=== PATIENT | male | born 1940 | race Caucasian/White ===

== ENCOUNTER → 2019-10-12 10:37 | Outpatient (CLI) | payer MEDICARE, SELFPAY ==
--- NOTE | 2019-10-12 10:40 | RAD_ITS ---
STUDY: X-RAY CHEST REASON FOR EXAM: Male, 78 years old. upcoming cardio version -- afib TECHNIQUE: Frontal and lateral views of the chest. COMPARISON: None. FINDINGS: The lungs are clear and expanded. There is no demonstrated pleural abnormality. Normal size heart. Normal mediastinum and ricky. Normal visualized pulmonary arteries. Normal visualized aortic arch and descending thoracic aorta. Normal visualized thoracic spine. Normal visualized ribs, clavicles, and shoulders. There is no demonstrated abnormality of the visualized soft tissue structures of the upper abdomen. RAD/Chest PA and Lateral IMPRESSION: Normal x-ray examination of the chest. Electronically Signed: Brant Rodriguez MD at 17:14 EDT , Service support ,
== END ==
PROVIDERS: PCP Family Medicine; Referring Provider Internal Medicine Cardiovascular Disease; Visit Provider Internal Medicine Cardiovascular Disease
DX: I48.92 Unspecified atrial flutter (principal); I10 Essential (primary) hypertension; I42.9 Cardiomyopathy, unspecified; E78.5 Hyperlipidemia, unspecified
CPT/HCPCS: 71046; 93225; 93226

== ENCOUNTER 2019-10-20 10:20 | Day surgery (SDC) | payer MEDICARE, SELFPAY ==
--- NOTE | 2019-10-12 11:10 | HP_ITS ---
HPI HPI History of Present Illness Surgical H&P: Yes Details: This is a 78-year-old white male who presents for outpatient cardiovascular consultation based upon a history of atrial flutter, cardiomyopathy, hyperlipidemia, and hypertension. He has undergone previous cardiovascular evaluation in [place]. It appears that in 2017 he was diagnosed with atrial flutter requiring cardioversion. He also had a transthoracic echocardiogram performed in April 2018 at which time the left ventricle was considered to have global dysfunction with an LVEF of 40%, the left atrium was mildly dilated, the right atrium was normal in size, and there was no report of any valvular heart disease. He also underwent a pharmacologic stress nuclear imaging study. Per the report that was considered a normal myocardial perfusion SPECT imaging study. His gated LVEF was reported at 47%. He states he did well following his cardioversion until recently. Again recently while spending the winter in [place] he was reassessed and was found to be in atrial flutter. He underwent a synchronized biphasic DC cardioversion on 09-22-2019. According to the report he was premedicated with Versed 3.5 mg. He underwent cardioversion with 300 J. He had successful cardioversion to sinus rhythm. He does wear a wrist watch that checks his heart rate and rhythm. He states overall his heart rate has been remaining in the 50 to 60 bpm range. He noted today his heart rate was higher between 130 and 150 bpm. He states the only other time he is noticed that since his cardioversion is when he has been outside working. He notes when he rests his heart rate slows down. Today in the office he had an ECG. He appeared to be back in atrial flutter with a variable ventricular response with a ventricular rate approaching 150 bpm and an occasional PVC. He had low voltage in the limb leads. He had nonspecific ST/T wave change. A previous [facility] ECG was obtained from 12-16-2014. At that time he also appeared to have an underlying atrial flutter with an occasional PVC. That ECG was evaluated by Dr. Avendaño of [facility] cardiology. He denies any obvious symptoms of palpitations or rapid heart rates at this time. He states he has had no new chest discomfort or difficulty breathing. There is been no orthopnea or PND or peripheral pitting edema. He has not had any near-syncope or syncope. He states he is due for his upcoming yearly visit with his PCP. Intake Vital Signs 10/12/19 Height 61 ft 10/12/19 Weight: 210 lb 6 oz 10/12/19 BMI 0.2 10/12/19 BP 136/72 H 10/12/19 Blood Pressure Location Lt brachial 10/12/19 Position Sitting 10/12/19 Respiration 18 10/12/19 Pulse 156 H 10/12/19 Pulse Source Auscultation Intake Visit Reasons: HIGH HR. 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 Accompanied by: Self Allergies No Known Allergies Allergy (Unverified 10/12/19 09:00) Medications amiodarone 200 mg tablet 200 mg PO TID #90 tab 10/12/19 [Rx Confirmed 10/12/19] ascorbic acid (vitamin C) 500 mg tablet 500 mg PO DAILY 10/12/19 [History Confirmed 10/12/19] atorvastatin 20 mg tablet 20 mg PO QHS 10/12/19 [History Confirmed 10/12/19] cholecalciferol (vitamin D3) 50 mcg (2,000 unit) capsule 50 mcg PO DAILY 10/12/19 [History Confirmed 10/12/19] cinnamon bark 500 mg capsule 500 mg PO DAILY 10/12/19 [History Confirmed 10/12/19] metoprolol succinate 25 mg tablet,extended release 24 hr 25 mg PO BID tab 10/12/19 [History Confirmed 10/12/19] multivitamin 1 tab PO DAILY 10/12/19 [History Confirmed 10/12/19] rivaroxaban 20 mg tablet 20 mg PO DAILY 10/12/19 [History Confirmed 10/12/19] saw palmetto fruit 450 mg capsule 450 mg PO BID 10/12/19 [History Confirmed 10/12/19] vit C,E,zinc,copper-[id number] 250 mg-lutein 5 mg-zeaxanthin 1 mg capsule 1 cap PO DAILY 10/12/19 [History Confirmed 10/12/19] vitamin A palmitate 10,000 unit tablet 10,000 unit PO DAILY 10/12/19 [History Confirmed 10/12/19] COUNTS INCLUDE 234 BEDS AT THE [facility] Medical History (Updated 10/12/19 @ 11:[address] Sami Payne MD) Paroxysmal atrial flutter (Acute) Essential hypertension (Chronic) Hyperlipemia (Chronic) Cardiomyopathy (Acute) long-term current use of anticoagulant (Acute) History of cardioversion (Resolved ~04/24/18) Benign positional vertigo (Acute) BPH (benign prostatic hyperplasia) (Chronic) Diverticulosis of colon (Chronic) Surgical History (Updated 10/09/19 @ 09:50 by Cathy Linares) History of appendectomy (Resolved) History of bilateral cataract extraction (Resolved) Social History (Updated 10/12/19 @ 11:[address] Sami Payne MD) Smoking Status: Former smoker alcohol intake: never substance use type: does not use caffeine: No ROS Const Const: Negative for fatigue, weakness, frequent falls, excessive sweating, weight gain or weight loss Eyes Eyes: Negative for transient loss of vision, blurry vision or change in vision ENT ENT: Negative for dizziness or balance problems Cardio Chest Pain: No Palpitations: No Edema: None Muscle aches with walking: None Resp Respiratory: Negative for SOB with activity or SOB at rest GI GI: Negative vomiting or vomiting blood/hematemesis : Negative for hematuria Musc Musc: Negative for muscle aches/ myalgia, muscle weakness, joint pain or balance problems Skin Skin: Negative non-healing lesions or rash Neuro Neuro: Negative for dizziness, lightheadedness, orthostatic symptoms, frequent falls, weakness or blurry vision [place] Hematologic/Lymphatic: Negative for easy bleeding Endo Endo: Negative for fatigue or excessive sweating Psych Psych: Negative for anxiety or depression Allergy Allergy/Immunology: Negative for hives, Negative for rash Cardiology Exam Const Appearance: cooperative, healthy appearing, comfortable, no acute distress, well developed and well groomed Nutritional Appearance: overweight Orientation: alert, awake and oriented x3 Head Head: normal to inspection Ears: hearing grossly normal bilaterally Nose: external nose normal Face and Sinus: face symmetric Eyes Eyelids: eyelids normal Conjunctivae: conjunctivae normal Pupils: PERRL EOM: EOM intact bilaterally Neck Neck: normal visual inspection Carotids: normal carotid upstroke Chest Chest inspection: normal inspection of the chest, symmetric chest movement and normal respiratory effort Auscultation: Bilateral: Clear to Auscultation Cardio Palpation: normal PMI Heart sounds: S1 normal and S2 normal GI GI: normal to inspection, soft and bowel sounds present Neuro General: alert, awake, oriented x3 and moves all extremities Skin Skin: no rashes or lesions noted Extremities Pulses: Normal: Right Radial Pulse, Left Radial Pulse Lower Extremity Edema: None: Bilateral Psych Psychological: normal affect Assessment & Plan 1. Paroxysmal atrial flutter I48.92 Plan He does appear to have a history of paroxysmal atrial flutter. At the present time during his office visit according to his wrist watch his heart rate varied from approximately 150 bpm down to approximately 50 bpm. He did not sense any change. At the present time he will undergo further evaluation. This will include laboratory studies to look for obvious etiologies that may contribute to his recurrent atrial dysrhythmia. He will have a 24-hour Holter monitor to assess his paroxysmal atrial dysrhythmia. However it was felt reasonable that he be placed on antiarrhythmic therapy at this time to help gain better control of his atrial dysrhythmia. This will include amiodarone with a tapering dose. He will also be scheduled for an upcoming repeat synchronized biphasic DC cardioversion. Based upon his recurrent events he will also be referred to electrophysiology as to whether or not he is a candidate for any future EP studies/ablation studies that may help bring his recurrent dysrhythmia under better control. Orders Orders: 12 Lead EKG performed by [facility] Today Cardiac Holter Monitor, Set-Up Today Cardioversion 1 Week Basic Metabolic Profile (BMP) Today Magnesium Today T4 Total, Thyroxin Today Thyroid Stim Hormone (TSH) Today CBC W/Diff, Automated Today Chest PA and Lateral Today Referrals: Electrophysiology 2. Cardiomyopathy, unspecified type I42.9 Plan He has been diagnosed noninvasively with a non-CAD related cardiomyopathy. At the moment he appears without any symptoms of acute CHF or pulmonary edema. He will continue his current medical management. Hopefully by bringing his atrial dysrhythmia under better control his overall LV systolic function/LVEF will improve. This will need to be followed over time with noninvasive studies such as an echocardiogram. However it may be prudent to do this once he is back in sinus rhythm. Orders Orders: Cardiac Holter Monitor, Set-Up Today Cardioversion 1 Week Basic Metabolic Profile (BMP) Today Magnesium Today T4 Total, Thyroxin Today Thyroid Stim Hormone (TSH) Today CBC W/Diff, Automated Today Chest PA and Lateral Today Referrals: Electrophysiology 3. Hyperlipidemia, unspecified hyperlipidemia type E78.5 Plan He does have a history of hyperlipidemia. He will continue his lipid-lowering therapy. He states he is following his laboratory studies with his PCP. Orders Orders: Cardiac Holter Monitor, Set-Up Today Cardioversion 1 Week Basic Metabolic Profile (BMP) Today Magnesium Today T4 Total, Thyroxin Today Thyroid Stim Hormone (TSH) Today CBC W/Diff, Automated Today Referrals: Electrophysiology 4. Essential hypertension I10 Plan His blood pressure appears to be reasonably well controlled overall at the present time. He will continue his current medical management and outpatient follow-up. Orders Orders: 12 Lead EKG performed by [facility] Today Cardiac Holter Monitor, Set-Up Today Cardioversion 1 Week Basic Metabolic Profile (BMP) Today Magnesium Today T4 Total, Thyroxin Today Thyroid Stim Hormone (TSH) Today CBC W/Diff, Automated Today Chest PA and Lateral Today Referrals: Electrophysiology Plan Detail Other Medications New: amiodarone 1 tablet po TID x 1 week then 1 tablet po BID x 2 weeks then 1 tablet po qday 200 mg PO TID 90 tabs 3RF Additional Comments The above was discussed with the patient. He was agreeable to this approach. Thank you for allowing me to participate in the care of your patient. Please don't hesitate to call if any issues arise. This note was generated using a voice recognition system and there may be incorrect words, spelling or punctuation that were not noted when reviewing the office note prior to saving. Time spent in the patient's evaluation/care/medical decision making process: 60 minutes Follow Up 6 Weeks (with PFM) Coding Level of Care Code Off vis,new,level 5 Diagnoses Paroxysmal atrial flutter I48.92 Cardiomyopathy, unspecified type I42.9 ??Cardiomyopathy type: unspecified Hyperlipidemia, unspecified hyperlipidemia type E78.5 ??Hyperlipidemia type: unspecified Essential hypertension I10 Time Spent (min) 60 Comment [id number] Coding Level of Care Code Off vis,new,level 5 Diagnoses Paroxysmal atrial flutter I48.92 Cardiomyopathy, unspecified type I42.9 ??Cardiomyopathy type: unspecified Hyperlipidemia, unspecified hyperlipidemia type E78.5 ??Hyperlipidemia type: unspecified Essential hypertension I10 Time Spent (min) 60 Comment [id number] Supplemental Info Supplemental Information Diagnostics Electrocardiogram 10/12/19 Chest X-Ray 10/12/19 10/12/19 1110 <Electronically signed by Sami tse MD> Date _ Sami Payne MD I have re-examined the patient. There are no clinical changes since date of exam.
[2019-10-13 12:47] LABS: Absolute Lymphocyte Count 2.47 X10^3/uL (0.83-4.51); Basophil# 0.08 X10^3/uL; Basophil% 0.9 % (0-1); Eosinophil# 0.26 X10^3/uL; Hematocrit 51.6 % (40-54); Hemoglobin 16.8 g/dL (13.0-16.5); Lymphocyte # 2.47 X10^3/ul (4.0); Lymphocyte % 28.1 % (19-41); Mean Corp Hgb Conc 32.6 g/dL (32-36); Mean Corpuscular Hgb 31.1 pg (27.0-32.0); Mean Corpuscular Volume 95.4 fL (80-94); Mean Platelet Vol. 9.6 fl (6.2-12.0); Monocyte% 10.3 % (0-10); NRBC Flagged by Analyzer 0 % (0-5); Neutrophil # 5.04 X10^3/uL (2.7-7.7); Neutrophil % 57.4 % (47-70); Platelet Count 256 K/mm3 (150-450); RBC Distribution Width CV 12.7 % (11.6-14.6); RBC Distribution Width SD 44.1 fl (35.1-43.9); Red Blood Count 5.41 M/mm3 (4.6-6.2); White Blood Count 8.8 K/mm3 (4.4-11.0)
[2019-10-13 13:18] LABS: Anion Gap 3 (5-15); BUN 21 mg/dL (7-18); BUN/Creat Ratio 19.3 RATIO (10-20); Calcium,Total 9.3 mg/dL (8.5-10.1); Chloride 104 mmol/L (98-107); Creatinine, Serum 1.09 mg/dL (0.70-1.30); EST Glomerular Filtration Rate 69 mL/min (>60); Est Glom Filt Rate - Afr Amer 84 mL/min (>60); Glucose 85 mg/dL (74-106); Magnesium 2.7 mg/dL (1.6-2.6); Potassium 4.4 mmol/L (3.5-5.1); Sodium Level 139 mmol/L (136-145); T4 Total, Thyroxin 7.5 ug/dL (4.5-12.1); Thyroid Stim Hormone (TSH) 1.75 uIU/mL (0.358-3.74)
[2019-10-16 14:26] VITALS: BMI 39.6
--- NOTE | 2019-10-20 11:40 | PCM.HP.BLA ---
Problem List (1) Paroxysmal atrial flutter Status: Acute (2) Hyperlipemia Status: Chronic Qualifiers: (3) Essential hypertension Status: Chronic History and Physical Date of Admission: 10/20/19 [facility] [address] [place] [address] OFFICE VISIT Date of Service: 10/12/19 MR#: [id number] Acct: [id number] Name: CALLIE RASCON Rep #: [id number] : 1940 Provider: Dr. Sami Payne MD Age/Sex: 78/M Location: [facility] [place] Status: Signed HPI HPI History of Present Illness Surgical H&P: Yes Details: This is a 78-year-old white male who presents for outpatient cardiovascular consultation based upon a history of atrial flutter, cardiomyopathy, hyperlipidemia, and hypertension. He has undergone previous cardiovascular evaluation in [place]. It appears that in 2017 he was diagnosed with atrial flutter requiring cardioversion. He also had a transthoracic echocardiogram performed in April 2018 at which time the left ventricle was considered to have global dysfunction with an LVEF of 40%, the left atrium was mildly dilated, the right atrium was normal in size, and there was no report of any valvular heart disease. He also underwent a pharmacologic stress nuclear imaging study. Per the report that was considered a normal myocardial perfusion SPECT imaging study. His gated LVEF was reported at 47%. He states he did well following his cardioversion until recently. Again recently while spending the winter in [place] he was reassessed and was found to be in atrial flutter. He underwent a synchronized biphasic DC cardioversion on 09-22-2019. According to the report he was premedicated with Versed 3.5 mg. He underwent cardioversion with 300 J. He had successful cardioversion to sinus rhythm. He does wear a wrist watch that checks his heart rate and rhythm. He states overall his heart rate has been remaining in the 50 to 60 bpm range. He noted today his heart rate was higher between 130 and 150 bpm. He states the only other time he is noticed that since his cardioversion is when he has been outside working. He notes when he rests his heart rate slows down. Today in the office he had an ECG. He appeared to be back in atrial flutter with a variable ventricular response with a ventricular rate approaching 150 bpm and an occasional PVC. He had low voltage in the limb leads. He had nonspecific ST/T wave change. A previous [facility] ECG was obtained from 12-16-2014. At that time he also appeared to have an underlying atrial flutter with an occasional PVC. That ECG was evaluated by Dr. Avendaño of [facility] cardiology. He denies any obvious symptoms of palpitations or rapid heart rates at this time. He states he has had no new chest discomfort or difficulty breathing. There is been no orthopnea or PND or peripheral pitting edema. He has not had any near-syncope or syncope. He states he is due for his upcoming yearly visit with his PCP. Intake Vital Signs 10/12/19 Height 61 ft 10/12/19 Weight: 210 lb 6 oz 10/12/19 BMI 0.2 10/12/19 BP 136/72 H 10/12/19 Blood Pressure Location Lt brachial 10/12/19 Position Sitting 10/12/19 Respiration 18 10/12/19 Pulse 156 H 10/12/19 Pulse Source Auscultation Intake Visit Reasons: HIGH HR. CARDIOVERSION 09/2019 IN [place] Private Advisor Required: No Accompanied by: Self Allergies No Known Allergies Allergy (Unverified 10/12/19 09:00) Medications amiodarone 200 mg tablet 200 mg PO TID #90 tab 10/12/19 [Rx Confirmed 10/12/19] ascorbic acid (vitamin C) 500 mg tablet 500 mg PO DAILY 10/12/19 [History Confirmed 10/12/19] atorvastatin 20 mg tablet 20 mg PO QHS 10/12/19 [History Confirmed 10/12/19] cholecalciferol (vitamin D3) 50 mcg (2,000 unit) capsule 50 mcg PO DAILY 10/12/19 [History Confirmed 10/12/19] cinnamon bark 500 mg capsule 500 mg PO DAILY 10/12/19 [History Confirmed 10/12/19] metoprolol succinate 25 mg tablet,extended release 24 hr 25 mg PO BID tab 10/12/19 [History Confirmed 10/12/19] multivitamin 1 tab PO DAILY 10/12/19 [History Confirmed 10/12/19] rivaroxaban 20 mg tablet 20 mg PO DAILY 10/12/19 [History Confirmed 10/12/19] saw palmetto fruit 450 mg capsule 450 mg PO BID 10/12/19 [History Confirmed 10/12/19] vit C,E,zinc,copper-[id number] 250 mg-lutein 5 mg-zeaxanthin 1 mg capsule 1 cap PO DAILY 10/12/19 [History Confirmed 10/12/19] vitamin A palmitate 10,000 unit tablet 10,000 unit PO DAILY 10/12/19 [History Confirmed 10/12/19] [facility] Medical History (Updated 10/12/19 @ 11:[address] Sami Payne MD) Paroxysmal atrial flutter (Acute) Essential hypertension (Chronic) Hyperlipemia (Chronic) Cardiomyopathy (Acute) senior living current use of anticoagulant (Acute) History of cardioversion (Resolved ~04/24/18) Benign positional vertigo (Acute) BPH (benign prostatic hyperplasia) (Chronic) Diverticulosis of colon (Chronic) Surgical History (Updated 10/09/19 @ 09:50 by Cathy Linares) History of appendectomy (Resolved) History of bilateral cataract extraction (Resolved) Social History (Updated 10/12/19 @ 11:[address] Sami Payne MD) Smoking Status: Former smoker alcohol intake: never substance use type: does not use caffeine: No ROS Const Const: Negative for fatigue, weakness, frequent falls, excessive sweating, weight gain or weight loss Eyes Eyes: Negative for transient loss of vision, blurry vision or change in vision ENT ENT: Negative for dizziness or balance problems Cardio Chest Pain: No Palpitations: No Edema: None Muscle aches with walking: None Resp Respiratory: Negative for SOB with activity or SOB at rest GI GI: Negative vomiting or vomiting blood/hematemesis : Negative for hematuria Musc Musc: Negative for muscle aches/ myalgia, muscle weakness, joint pain or balance problems Skin Skin: Negative non-healing lesions or rash Neuro Neuro: Negative for dizziness, lightheadedness, orthostatic symptoms, frequent falls, weakness or blurry vision [place] Hematologic/Lymphatic: Negative for easy bleeding Endo Endo: Negative for fatigue or excessive sweating Psych Psych: Negative for anxiety or depression Allergy Allergy/Immunology: Negative for hives, Negative for rash Cardiology Exam Const Appearance: cooperative, healthy appearing, comfortable, no acute distress, well developed and well groomed Nutritional Appearance: overweight Orientation: alert, awake and oriented x3 Head Head: normal to inspection Ears: hearing grossly normal bilaterally Nose: external nose normal Face and Sinus: face symmetric Eyes Eyelids: eyelids normal Conjunctivae: conjunctivae normal Pupils: PERRL EOM: EOM intact bilaterally Neck Neck: normal visual inspection Carotids: normal carotid upstroke Chest Chest inspection: normal inspection of the chest, symmetric chest movement and normal respiratory effort Auscultation: Bilateral: Clear to Auscultation Cardio Palpation: normal PMI Heart sounds: S1 normal and S2 normal GI GI: normal to inspection, soft and bowel sounds present Neuro General: alert, awake, oriented x3 and moves all extremities Skin Skin: no rashes or lesions noted Extremities Pulses: Normal: Right Radial Pulse, Left Radial Pulse Lower Extremity Edema: None: Bilateral Psych Psychological: normal affect Assessment & Plan 1. Paroxysmal atrial flutter I48.92 Plan He does appear to have a history of paroxysmal atrial flutter. At the present time during his office visit according to his wrist watch his heart rate varied from approximately 150 bpm down to approximately 50 bpm. He did not sense any change. At the present time he will undergo further evaluation. This will include laboratory studies to look for obvious etiologies that may contribute to his recurrent atrial dysrhythmia. He will have a 24-hour Holter monitor to assess his paroxysmal atrial dysrhythmia. However it was felt reasonable that he be placed on antiarrhythmic therapy at this time to help gain better control of his atrial dysrhythmia. This will include amiodarone with a tapering dose. He will also be scheduled for an upcoming repeat synchronized biphasic DC cardioversion. Based upon his recurrent events he will also be referred to electrophysiology as to whether or not he is a candidate for any future EP studies/ablation studies that may help bring his recurrent dysrhythmia under better control. Orders Orders: 12 Lead EKG performed by [facility] Today Cardiac Holter Monitor, Set-Up Today Cardioversion 1 Week Basic Metabolic Profile (BMP) Today Magnesium Today T4 Total, Thyroxin Today Thyroid Stim Hormone (TSH) Today CBC W/Diff, Automated Today Chest PA and Lateral Today Referrals: Electrophysiology 2. Cardiomyopathy, unspecified type I42.9 Plan He has been diagnosed noninvasively with a non-CAD related cardiomyopathy. At the moment he appears without any symptoms of acute CHF or pulmonary edema. He will continue his current medical management. Hopefully by bringing his atrial dysrhythmia under better control his overall LV systolic function/LVEF will improve. This will need to be followed over time with noninvasive studies such as an echocardiogram. However it may be prudent to do this once he is back in sinus rhythm. Orders Orders: Cardiac Holter Monitor, Set-Up Today Cardioversion 1 Week Basic Metabolic Profile (BMP) Today Magnesium Today T4 Total, Thyroxin Today Thyroid Stim Hormone (TSH) Today CBC W/Diff, Automated Today Chest PA and Lateral Today Referrals: Electrophysiology 3. Hyperlipidemia, unspecified hyperlipidemia type E78.5 Plan He does have a history of hyperlipidemia. He will continue his lipid-lowering therapy. He states he is following his laboratory studies with his PCP. Orders Orders: Cardiac Holter Monitor, Set-Up Today Cardioversion 1 Week Basic Metabolic Profile (BMP) Today Magnesium Today T4 Total, Thyroxin Today Thyroid Stim Hormone (TSH) Today CBC W/Diff, Automated Today Referrals: Electrophysiology 4. Essential hypertension I10 Plan His blood pressure appears to be reasonably well controlled overall at the present time. He will continue his current medical management and outpatient follow-up. Orders Orders: 12 Lead EKG performed by [facility] Today Cardiac Holter Monitor, Set-Up Today Cardioversion 1 Week Basic Metabolic Profile (BMP) Today Magnesium Today T4 Total, Thyroxin Today Thyroid Stim Hormone (TSH) Today CBC W/Diff, Automated Today Chest PA and Lateral Today Referrals: Electrophysiology Plan Detail Other Medications New: amiodarone 1 tablet po TID x 1 week then 1 tablet po BID x 2 weeks then 1 tablet po qday 200 mg PO TID 90 tabs 3RF Additional Comments The above was discussed with the patient. He was agreeable to this approach. Thank you for allowing me to participate in the care of your patient. Please don't hesitate to call if any issues arise. This note was generated using a voice recognition system and there may be incorrect words, spelling or punctuation that were not noted when reviewing the office note prior to saving. Time spent in the patient's evaluation/care/medical decision making process: 60 minutes Follow Up 6 Weeks (with PFM) Coding Level of Care Code Off vis,new,level 5 Diagnoses Paroxysmal atrial flutter I48.92 Cardiomyopathy, unspecified type I42.9 ??Cardiomyopathy type: unspecified Hyperlipidemia, unspecified hyperlipidemia type E78.5 ??Hyperlipidemia type: unspecified Essential hypertension I10 Time Spent (min) 60 Comment [id number] Coding Level of Care Code Off vis,new,level 5 Diagnoses Paroxysmal atrial flutter I48.92 Cardiomyopathy, unspecified type I42.9 ??Cardiomyopathy type: unspecified Hyperlipidemia, unspecified hyperlipidemia type E78.5 ??Hyperlipidemia type: unspecified Essential hypertension I10 Time Spent (min) 60 Comment [id number] Supplemental Info Supplemental Information Diagnostics Electrocardiogram 10/12/19 Chest X-Ray 10/12/19 10/12/19 1110 <Electronically signed by Sami Payne MD> Date Sami Payne MD Cosigner Signature: Date (if applicable) CC: Dr. Yfn Quigley III, MD ~ I have re-examined the patient. There are no clinical changes since date of exam. Procedure Criteria Procedure Type: Essential - Atrial Flutter with RVR Procedure Essential: Yes Criteria Statement: On 08/11/2019 the [facility] ([facility]) Public Order signed by [facility] Director Sagrario Moreno M.D., regarding the Management of Non-Essential Surgeries and Procedures for the purpose of preserving Personal Protective Equipment (PPE) and critical hospital capacity and resources within [place] went into effect as of 08/12/2019 at 5:00PM. According to the [facility] Public Order: This action will remain in full force and effect until the State of Emergency declared by the Governor no longer exists or the Director of the [facility] rescinds or modifies this Order. This [facility] order stated all non-essential or elective surgeries and procedures that utilize PPE should be delayed unless there is undue risk to the current or future health of a patient. After reviewing the aforementioned [facility] Public Order and the patient's clinical case, I have determined that the scheduled procedure meets the criteria to go forward. Risk to Patient if Procedure Delayed: Risk of rapidly worsening to severe symptoms if delayed - Atrial Flutter with RVR
--- NOTE | 2019-10-20 12:30 | CARDIOVERS ---
Cardioversion Cardioversion: Date: 10-20-2019 Procedure: Synchronized Biphasic DC Cardioversion Indications: Atrial flutter with RVR Consent: Per the Patient Anesthesia: per Dr. Ball of pulmonology and critical care medicine with propofol 50 mg IV push total Procedure: Synchronized Biphasic DC Cardioversion: 50 J x1: Result: Sinus rhythm Complications: no apparent complications This note was generated with [employer] software. It may contain incorrect words, spelling, and punctuation that were not noted in checking the note before signing.
--- NOTE | 2019-10-20 13:25 | PCM.OP.PRO ---
Problem List (1) Paroxysmal atrial flutter Status: Acute (2) Essential hypertension Status: Chronic (3) Hyperlipemia Status: Chronic Qualifiers: Procedure Report Date of Procedure: 10/20/19 - Conscious sedation CONSCIOUS SEDATION REPORT BRIEF HISTORY OF PRESENT ILLNESS: The patient is a 78-year-old male who presented to [facility] for an elective outpatient cardioversion due to underlying atrial fibrillation. The patient reports no PO intake since midnight. The patient does not have a history of obstructive sleep apnea. The patient reports a history of smoking, but denies COPD. The patient denies any recent constitutional symptoms such as fevers, chills, nausea or vomiting. The patient denies previous anesthetic complications. Patient's last known ejection fraction was 47%. Patient is on anticoagulation with Xarelto therapy and has been compliant. PHYSICAL EXAMINATION: VITAL SIGNS: Reviewed and were acceptable. GENERAL: The patient is a male, in no apparent distress, speaking in full sentences. HEENT: Normocephalic, atraumatic. Mucous membranes are moist and pink. Good mouth opening noted. Trachea is midline. Good neck mobility. MP III CHEST: S1, S2 irregularly irregular. No murmurs, rubs or gallops were noted. LUNGS: Clear to auscultation bilaterally without appreciable wheezes, rales or rhonchi. ABDOMEN: Soft, nontender, nondistended. Positive bowel sounds. EXTREMITIES: There is no clubbing, cyanosis or edema. ASA Class: II DESCRIPTION OF PROCEDURE: After confirmation of informed consent, the patient's anesthesia plan was reviewed in detail. Propofol was chosen. Risks and benefits were reviewed and the patient agreed to proceed. At 12:05 PM, the patient was given 40 mg of propofol. The patient required a total of 50 mg of propofol throughout the procedure to achieve appropriate sedation. The patient achieved an appropriate level of sedation and received 1 attempt synchronized cardioversion, at [address] Payne at the bedside. This was successful in achieving normal sinus rhythm. The patient was monitored until 12:15 PM, at which time the patient reached their baseline mental status and function. The patient tolerated the procedure well. COMPLICATIONS: None ESTIMATED BLOOD LOSS: None RECOMMENDATIONS: Okay to recover in usual fashion. [id number]: Other Procedure See Report - [id number]
== END 2019-10-20 13:15 | disposition home or self-care (01) ==
LOC: CLSP 10:21
PROVIDERS: PCP Family Medicine; Referring Provider Internal Medicine Cardiovascular Disease; Visit Provider Internal Medicine Cardiovascular Disease
DX: I48.92 Unspecified atrial flutter (principal); I10 Essential (primary) hypertension; E78.5 Hyperlipidemia, unspecified; I42.9 Cardiomyopathy, unspecified; Z79.01 Long term (current) use of anticoagulants; Z79.899 Other long term (current) drug therapy; N40.0 Benign prostatic hyperplasia without lower urinary tract symptoms; Z87.891 Personal history of nicotine dependence
CPT/HCPCS: 36415; 80048; 83735; 84436; 84443; 85025; 92960; 93005; J7040

== ENCOUNTER → 2020-09-19 08:45 | Outpatient (CLI) | payer MEDICARE, SELFPAY ==
[2019-10-16 14:26] VITALS: BMI 39.6
--- NOTE | 2020-09-19 08:49 | ECHOD_ITS ---
Reason For Study: Afib, Aflutter Procedure This was a 2D Doppler, Color Flow transthoracic echocardiogram. The exam was of adequate technical quality. Exam performed in department. Left Ventricle Normal LV size. Left ventricular systolic function is normal. The estimated ejection fraction is 60 %. No regional wall motion abnormalities noted. Right Ventricle Normal RV size. Normal systolic function. Atria The left atrium is moderately enlarged. Normal right atrium. No doppler evidence for ASD. Mitral Valve There is mild mitral annular calcification. Mild mitral valve prolapse. Mild-Moderate (1-2+) mitral valve insufficiency. Tricuspid Valve Normal tricuspid valve. Mild to moderate (1-2+) tricuspid valve insufficiency. Right ventricular systolic pressure estimated to be 47 mmHg. Aortic Valve Trisinus/trileaflet aortic valve. Normal aortic valve. Pulmonic Valve The pulmonic valve is not well visualized. Mild (1+) pulmonic valve insufficiency. Great Vessels Normal sized aortic root. Pericardium/Pleural No pericardial effusion. MMode/2D Measurements & Calculations LVIDd: 4.4 cm IVSd: 1.0 cm Ao root diam: 3.5 cm LVIDs: 2.6 cm LVPWd: 1.2 cm RVDd: 4.8 cm FS: 41.7 % LAV(MOD-sp2): 67.4 ml LVAd ap4: 22.8 cm2 SV(MOD-sp4): 40.0 ml LVLd ap4: 6.5 cm EDV(MOD-sp4): 64.9 ml EDV(sp4-el): 68.3 ml LVAs ap4: 13.2 cm2 LVLs ap4: 6.0 cm ESV(MOD-sp4): 24.9 ml ESV(sp4-el): 24.5 ml EF(MOD-sp4): 61.6 % EF(sp4-el): 64.1 % SV(sp4-el): 43.8 ml LA A4 area: 23.5 cm2 LA dimension(2D): 5.0 cm RA A4 area: 20.8 cm2 Doppler Measurements & Calculations MV E max mauro: 79.4 cm/sec Lat Peak E' Mauro: 15.3 cm/sec Med Peak E' Mauro: 11.0 cm/sec MV A max mauro: 47.0 cm/sec E/E' lat: 5.2 E/E' med: 7.2 MV E/A: 1.7 Ao V2 max: 105.5 cm/sec LV V1 max: 87.9 cm/sec PA V2 max: 152.8 cm/sec Ao max P.4 mmHg LV V1 max P.1 mmHg Ao V2 mean: 72.1 cm/sec Ao mean P.4 mmHg Ao V2 VTI: 20.5 cm PI end-d mauro: 119.4 cm/sec TR max mauro: 329.3 cm/sec TR max P.4 mmHg ECHO/Echo Complete Interpretation Summary Left ventricular systolic function is normal. The estimated ejection fraction is 60 %. The left atrium is moderately enlarged. There is mild mitral annular calcification. Mild mitral valve prolapse. Mild-Moderate (1-2+) mitral valve insufficiency. Mild to moderate (1-2+) tricuspid valve insufficiency. Mild (1+) pulmonic valve insufficiency. Right ventricular systolic pressure estimated to be 47 mmHg. Transmitral diastolic flow velocities suggest diastolic dysfunction (pseudonorm al pattern). Ordering Physician: Sami Payne Referring Physician: Sami Payne Performed By: Raquel Gorman, RDCS, RVT
== END ==
PROVIDERS: PCP Family Medicine; Referring Provider Internal Medicine Cardiovascular Disease; Visit Provider Internal Medicine Cardiovascular Disease
DX: I48.92 Unspecified atrial flutter (principal); R94.31 Abnormal electrocardiogram [ECG] [EKG]
CPT/HCPCS: 93306

== ENCOUNTER → 2020-09-28 12:57 | Outpatient (CLI) | payer MEDICARE, SELFPAY ==
[2020-09-26 15:38] VITALS: BMI 28.0
== END ==
PROVIDERS: PCP Family Medicine; Referring Provider Internal Medicine Cardiovascular Disease; Visit Provider Internal Medicine Cardiovascular Disease
DX: I48.92 Unspecified atrial flutter (principal); Z98.890 Other specified postprocedural states
CPT/HCPCS: 93225; 93226

== ENCOUNTER 2022-09-21 11:11 | Emergency (ER) | payer MEDICARE, SELFPAY ==
[2022-09-21 11:13] VITALS: BP 131/64; PULSE 77; RESP 14; TEMP 36.5; O2SAT 97; BMI 24.9
--- NOTE | 2022-09-21 12:27 | EDS_ITS ---
HPI HPI - GI History of Present Illness Chief Complaint: Constipation Informant: patient Narrative Narrative: Patient is an 81-year-old male with history of proximal atrial fibrillation on Xarelto and metoprolol as well as 1 month of ongoing issues with constipation. Patient has been taking Dulcolax and an onox-dsp-pizhtho stool softener with no relief. He states he been having small grainy bowel movements daily. Denies any black or blood in his stool. Denies abdominal pain, nausea or vomiting. Is still passing gas intermittently. Has a history of remote appendectomy as a teenager. He denies any urinary symptoms. Is really complain of pressure in his rectum. Denies any fever or chills. Did see his primary care doctor about this but has has not gotten better and he came in to be evaluated further. Patient states that he had a back injury while in [place] about a month ago and they prescribed some pain medicine at that time. Does not recall what it was. He states that since then he has been having a lot more issues with constipation. 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 Paroxysmal atrial flutter Home Medications ascorbic acid (vitamin C) 500 mg tablet 500 mg PO DAILY 10/12/19 [History Last Taken Unknown] atorvastatin 20 mg tablet 20 mg PO QHS 10/12/19 [History Last Taken Unknown] cinnamon bark 500 mg capsule 500 mg PO DAILY 10/12/19 [History Last Taken Unknown] multivitamin 1 tab PO DAILY 10/12/19 [History Last Taken Unknown] rivaroxaban 20 mg tablet (Xarelto) 20 mg PO DAILY 10/12/19 [History Last Taken 10/19/19] saw palmetto 450 mg capsule 450 mg PO BID 10/12/19 [History Last Taken Unknown] metoprolol succinate 25 mg tablet,extended release 24 hr 25 mg PO DAILY 03/01/20 [History Last Taken Unknown] polyethylene glycol 3350 17 gram/dose oral powder (Miralax) 17 g PO DAILY #119 grams 09/21/22 [Rx Last Taken Unknown] Allergy/AdvReac Type Severity Reaction Status Date / Time No Known Allergies Allergy Verified 09/21/22 11:15 Family History Mother Cancer Breast Surgical History History of appendectomy History of bilateral cataract extraction Social History Smoking Status: Former smoker alcohol intake: never substance use type: does not use caffeine: No ROS ROS ED Constitutional Constitutional ED: Denies chills or fever(s) Cardiovascular Cardiovascular: Denies chest pain Respiratory/Chest Respiratory/Chest: Denies cough or dyspnea Gastrointestinal Gastrointestinal: Reports constipation; Denies abdominal pain, nausea or vomiting Musculoskeletal Musculoskeletal: Denies myalgias Integumentary Denies rash Neurologic Neurologic: Denies headache(s) or weakness Hematologic/Lymphatic Hematologic/Lymphatic: Reports easy bleeding and easy bruising EXAM Physical Exam Const Vital Signs: 09/21/22 11:13 Temperature 97.7 F L Temperature Source Temporal Pulse Rate 77 Respiratory Rate 14 Blood Pressure 131/64 H Blood Pressure Mean 86 Pulse Ox 97 Oxygen Delivery Method Room Air Positive well nourished and well developed General Appearance ED: well developed HEENT Reports moist mucous membranes Eyes PERRL and EOMs intact bilaterally Neck supple Resp normal respiratory effort and clear to auscultation bilaterally Cardio regular rate, regular rhythm and no murmurs GI non-tender and non-distended GI Narrative: Patient has brown stool on rectal exam. Of the vault is full of soft/grainy stool. Does have some small amount of bleeding with rectal exam. Is not able to completely evacuate the stool. Auscultation: normoactive bowel sounds Palpation: soft; Negative for tender, guarding or rigid Back/Spine no CVA tenderness Extremity full ROM General Extremety ED: Negative for edema General Extremity: Negative for edema Neuro moves all extremities Sensorium / Orientation: alert, oriented to person, oriented to place and oriented to time Motor Exam: Negative for general weakness Psych mental status grossly normal and thought process normal Skin no wounds MDM MDM MDM Narrative Medical decision making narrative: Patient is evaluated for constipation and rectal discomfort. He has a large amount of stool in his rectal vault. Is not truly a fecal impaction. He is given a soapsuds enema and produces a large bowel movement. He is feeling much better per nursing report. Given that he is not having so see abdominal pain, has been passing gas, has no nausea and vomiting of a low suspicion for small bowel obstruction. Patient will be started on daily MiraLAX. Is given return precautions. He verbalizes agreement understand this plan. Discharged home in stable condition. Differential Diagnosis Abdominal Pain: Bowel obstruction Reason(s) bowel obstruction less likely: bowel sounds present on exam Discharge Plan Triage Chief Complaint: Constipation ED Provider: Sierra Zaidi Dx/Rx/DC Orders Clinical Impression: Constipation Instructions: ED Constipation (Adult) Prescriptions: New polyethylene glycol 3350 [Miralax] 17 gram/dose powder 17 g PO DAILY Qty: 119 0RF No Action cinnamon bark 500 mg capsule 500 mg PO DAILY multivitamin Tablet 1 tab PO DAILY ascorbic acid (vitamin C) 500 mg tablet 500 mg PO DAILY saw palmetto 450 mg capsule 450 mg PO BID Rx Instructions: give with food (meal/snack) Xarelto 20 mg tablet 20 mg PO DAILY Rx Instructions: must administer with evening meal atorvastatin 20 mg tablet 20 mg PO QHS metoprolol succinate 25 mg tablet extended release 24 hr 25 mg PO DAILY Primary Care Provider: Cedric Becerra Referrals: Cedric Becerra MD [Primary Care Provider] - Activity Restrictions/Additional Instructions: Please take the MiraLAX daily. If you do start having diarrhea he can cut back on it and take it every other day or half capful daily. If you are not having regular bowel movements you can increase your daily dosage. Try to drink more water as well and eat a high-fiber diet. Disposition Disposition: Home, Self Care Discharge Date/Time: 09/21/22 14:08
== END 2022-09-21 14:08 | disposition home or self-care (01) ==
PROVIDERS: Emergency Provider Emergency Medicine; PCP Internal Medicine; Referring Provider Emergency Medicine; Visit Provider Emergency Medicine
DX: K59.00 Constipation, unspecified (principal); I48.0 Paroxysmal atrial fibrillation; Z87.891 Personal history of nicotine dependence; Z79.01 Long term (current) use of anticoagulants
CPT/HCPCS: 99284

== ENCOUNTER → 2024-11-09 | Outpatient (CLI) | payer MEDICARE, SELFPAY ==
--- OUTSIDE RECORDS SUMMARY | 2024-11-09 08:49 | XMS RPT_ITS | CCD ---
Author Organization [facility] Care Team Providers Care Order Packer Or Packager Name Role Phone Hernan BARRERA, Cedric Mancilla Primary Care Provider Hernan BARRERA, Cedric Mancilla Primary Care Provider [phone] Florin BOARD STACKER.Ariana ROWE Unavailable Derick GRAYSON, An Burkett Unavailable Unavailabl e Cedric Salazar Referring Unavailable Cedric Salazar Primary Care Unavailable Rloy Prakash Attending Unavailable Hernan BARRERA, Dr. Steele Primary Care Provider Hernan BARRERA, Dr. Steele Referring Provider Dr. Roly Prakash MD Attending Provider CEDRIC SALAZAR Attending Unavailable CEDRIC SALAZAR Primary Care Unavailable CEDRIC SALAZAR Attending Unavailable CEDRIC SALAZAR Primary Care Unavailable ARIANA TORO Attending Unavailable CEDRIC SALAZAR Primary Care Unavailable CEDRIC SALAZAR Primary Care Unavailable ARIANA TORO Attending Unavailable CEDRIC SALAZAR Primary Care Unavailable CEDRIC SALAZAR Referring Unavailable CEDRIC SALAZAR Primary Care Unavailable Medications Current Medications Medication Drug Class(es) Dates Sig (Normalized) Sig (Original) ascorbic acid 500 mg oral tablet (20 sources) Vitamin C Start: 08-22-2006 VITAMIN C 500 MG TAB Take one(1) tablet daily. 0 08/22/2006 Active Comment on above: Take one(1) tablet d aily. atorvastatin 20 mg oral tablet (20 sources) HMG-CoA Reductase Inhibitor Start: 11-04-2024 take 1 tablet by mouth once daily atorvastatin (LIPITOR) 20 mg tablet Indications: Hyperlipidemia LDL goal Take 1 tablet by mouth once daily. 90 tablet 3 11/04/2024 Active Start: 10-12-2019 End: 11-02-2024 take 1 tablet by mouth once daily atorvastatin (LIPITOR) 20 mg tablet Indications: Hyperlipidemia LDL goal Take 1 tablet by mouth once daily. 09/07/2024 11/02/2024 Discontinued Comment on above: Take 1 tablet by ramon th once daily. Blood-Glucose Meter monitoring kit (1 source) Start: 10-28-2024 End: 10-29-2024 Blood-Glucose Meter monitoring kit Indications: Type 2 diabetes mellitus without complication, without long-term current use of insulin ([facility]) Glucose Meter Kit (choose brand covered by insurance) - Dx: Type 2 DM - Uncontrolled E11.65 1 each 10/28/2024 10/29/2024 Active cinnamon bark 500 mg oral capsule (20 sources) Start: 08-22-2006 CINNAMON 500 MG CAP Take one(1) tablet daily. 0 08/22/2006 Active Comment on above: Take one(1) tablet d aily. DULCOLAX, BISACODYL, ORAL (7 sources) End: 03-04-2024 DULCOLAX, BISACODYL, ORAL Take by mouth. 03/04/2024 Discontinued (Course of therapy completed) DULCOLAX, BISACO DYL, ORAL Take by mouth. Active DULCOLAX, BISACO DYL, ORAL Take by mouth. 0 Active Comment on above: Take by mouth. glyBURIDE 2.5 mg oral tablet (6 sources) Sulfonylurea Start: 5 take 1 tablet by mouth once daily glyBURIDE 2.5 mg tablet Take 1 tablet by mouth once daily. 30 tablet 1 10/23/2024 Active 24 hr metoprolol succinate 25 mg extended release oral tablet (20 sources) beta-Adrenergic Zeina Start: 5 take 1 tablet by mouth twice daily Metoprolol Succinate 25 mg tablet extended release 24 hr Active 25 mg PO TWICE A DAY 180 October 29, 2024 10:24am Start: 03-01-2020 End: 10-29-2024 take 1 tablet by mouth once daily metoprolol succinate ER (TOPROL XL) 25 mg 24 hr tablet Take 1 tablet by mouth once daily. 90 tablet 3 01/28/2024 Active Start: 11-02-2019 End: 03-01-2020 take 1 tablet by mouth twice daily Metoprolol Succinate 50 mg tablet extended release 24 hr Discontinued 50 mg PO TWICE A DAY 180 November 02, 2019 9:12am March 01, 2020 10:58am Start: 10-29-2019 End: 11-02-2019 Metoprolol Succinate 25 mg t ablet extended release 24 hr Discontinued 50 mg PO TWICE A DAY October 29, 2019 10:21am November 02, 2019 9:12am Start: 10-29-2019 End: 11-02-2019 take 50 mg by mouth twice daily Metoprolol Succinate Discontinued 50 MG PO TWICE A DAY October 29, 2019 10:21am November 02, 2019 9:12am Start: 10-12-2019 End: 10-29-2019 take 1 tablet by mouth twice daily Metoprolol Succinate 25 mg tablet extended release 24 hr Discontinued 25 mg PO TWICE A DAY October 12, 2019 9:05am October 29, 2019 10:21am Start: 10-12-2019 End: 10-12-2019 take 1 tablet by mouth once daily Metoprolol Succinate 25 mg tablet extended release 24 hr Discontinued 25 mg PO DAILY October 12, 2019 12:00am October 12, 2019 9:05am Comment on above: Take 1 tablet by ramon th once daily. multivit-minerals/herbal 121 (URINOZINC PROSTATE FORMULA ORAL) (20 sources) multivit-mineral s/herbal 121 (URINOZINC PROSTATE FORMULA ORAL) Take by mouth once daily. Active multivit-mineral s/herbal 121 (URINOZINC PROSTATE FORMULA ORAL) Take by mouth once daily. 0 Active Comment on above: Take by mouth once d aily. Multivitamin preparation (1 source) Start: 0 take 1 tablet by mouth once daily Multivitamin Active 1 TABLET PO DAILY October 12, 2019 12:00am Multivitamin tablet (1 source) Start: 0 Multivitamin tablet Active 1 {tbl} PO DAILY October 12, 2019 12:00am OTC PRODUCT (12 sources) OTC PRODUCT PREV AGEN MEMORY SUPPLEMENT Active polyethylene glycol 3350 86054 mg powder for oral solution (20 sources) Osmotic Laxative Start: 3 Polyethylene Glycol 3350 (Miralax) 17 gram/dose powder Active 17 g PO DAILY September 21, 2022 12:00am Comment on above: Take by mouth once d aily. Dissolve dose in 4 - 8 ounces of liquid and take as directed. rivaroxaban 20 mg oral tablet (20 sources) Factor Xa Inhibitor Start: 0 End: 5 take 1 tablet by mouth once daily at dinner rivaroxaban (XARELTO) 20 mg tablet Indications: Persistent atrial fibrillation (HCC) Take 1 tablet by mouth daily with dinner. 09/07/2024 Active Comment on above: Take 1 tablet by ramon th daily with dinner. SAW PALMETTO 1,000 MG CAP (20 sources) Start: 7 SAW PALMETTO 1,000 MG CAP Take one(1) tablet two(2) times daily. 0 08/22/2006 Active Comment on above: Take one(1) tablet t wo(2) times daily. Saw [place]shoe (2 sources) Start: 0 take 1 capsule by mouth twice daily at mealtime Saw [place]shoe 450 mg capsule Active 450 mg PO TWICE A DAY October 12, 2019 12:00am give with food (meal/snack) Start: 10-12-2019 take 450 mg by mouth twice daily at mealtime [place] Active 450 MG PO TWICE A DAY October 12, 2019 12:00am give with food (meal/snack) sulfamethoxazole 800 mg / trimethoprim 160 mg oral tablet (3 sources) Dihydrofolate Reductase Inhibitor Antibacterial, Sulfonamide Antimicrobial Start: 10-23-2024 End: 10-30-2024 take 1 tablet by mouth twice daily sulfamethoxazole-trimethoprim (BACTRIM DS) 800-160 mg per tablet Take 1 tablet by mouth two times a day for 7 days. 14 tablet 10/23/2024 10/30/2024 Active tamsulosin hydrochloride 0.4 mg oral capsule (5 sources) alpha-Adrenergic Zeina Start: 10-23-2024 take 1 capsule by mouth once daily at bedtime tamsulosin (FLOMAX) 0.4 mg Take 1 capsule by mouth daily at bedtime. 30 capsule 1 10/23/2024 Active Completed/Discontinued Medications Medication Drug Class(es) Dates Sig (Normalized) Sig (Original) amiodarone hydrochloride 200 mg oral tablet (6 sources) Antiarrhythmic Start: 10-27-2019 End: 10-04-2020 take 1 tablet by mouth once daily Amiodarone 200 mg tablet Discontinued 200 mg PO DAILY November 23, 2019 10:44am October 04, 2020 9:17am Start: 10-12-2019 End: 10-27-2019 take 1 tablet by mouth three times daily, then take 1 tablet by mouth twice daily, then take 1 tablet by mouth once daily Amiodarone 200 mg tablet Discontinued 200 mg PO THREE TIMES A DAY October 12, 2019 12:00am October 27, 2019 1:52pm 1 tablet po TID x 1 week then 1 tablet po BID x 2 weeks then 1 tablet po qday C,E,Copper,Zinc 25-[id number] (Ocuvite Adult 50 Plus) 250-5-1 mg capsule (1 source) Start: 10-12-2019 End: 01-10-2022 C,E,Copper,Zinc 04-[id number] (Ocuvite Adult 50 Plus) 250-5-1 mg capsule Discontinued 1 NMA PO DAILY October 12, 2019 12:00am January 10, 2022 2:50pm C,E,Zinc,Copper 13-[id number] (Ocuvite Adult 50 Plus) 250-5-1 mg capsule (1 source) Start: 10-12-2019 End: 01-10-2022 C,E,Zinc,Copper 15-[id number]-Plu (Ocuvite Adult 50 Plus) 250-5-1 mg capsule Discontinued 1 CAP PO DAILY October 12, 2019 12:00am January 10, 2022 2:50pm cholecalciferol 0.05 mg oral capsule (16 sources) Vitamin D Start: 10-12-2019 End: 01-10-2022 take 1 capsule by mouth once daily as needed Cholecalciferol (Vitamin D3) 50 mcg (2,000 unit) capsule Discontinued 50 ug PO DAILY as needed September 26, 2020 3:42pm January 10, 2022 2:50pm take 1 capsule by mouth every we ek cholecalciferol, Vitamin D3, (VITAMIN D3) 1,250 mcg (50,000 unit) cap capsule Take 50,000 Units by mouth one time a week. Active docusate sodium 100 mg oral capsule (7 sources) Start: 09-15-2020 End: 09-26-2022 take 1 capsule by mouth every twelve hours as needed docusate sodium (COLACE) 100 mg capsule Take 1 capsule by mouth twice daily as needed for Constipation. 0 09/15/2020 09/26/2022 Discontinued Comment on above: Take 1 capsule by [facility] twice daily as needed for Constipation. losartan potassium 50 mg oral tablet (2 sources) Angiotensin 2 Receptor Zeina Start: 10-12-2019 End: 10-12-2019 take 1 tablet by mouth once daily Losartan 50 mg tablet Discontinued 50 mg PO DAILY October 12, 2019 12:00am October 12, 2019 9:05am MULTIVITAMIN TAB (8 sources) Start: 08-22-2006 End: 03-04-2023 MULTIVITAMIN TAB Take one(1) tablet daily. 0 08/22/2006 03/04/2023 Discontinued (Duplicate Entry) Start: 08-22-2006 MULTIVITAMIN T AB Take one(1) tablet daily. 0 08/22/2006 Active Comment on above: Take one(1) tablet d aily. triamcinolone acetonide 5 mg/ml topical cream (2 sources) Corticosteroid Start: 03-07-2021 End: 10-26-2021 triamcinolone acetonide (KENALOG) 0.5 % cream Apply 1 application to affected area twice daily. For rash/itching. Apply sparingly. Avoid face/skin fold. 15 g 0 03/07/2021 10/26/2021 Discontinued Comment on above: Apply 1 application to affected area twice daily. For rash/itching. Apply sparingly. Avoid face/skin fold. vitamin a 50277 unt oral tablet (2 sources) Vitamin A Start: 10-12-2019 End: 09-26-2020 Vitamin A Palmitate 10,000 unit tablet Discontinued 94355 U PO DAILY October 12, 2019 12:00am September 26, 2020 3:43pm Problems Active Problems Problem Classification Problem Date Documented Da te Episodic/Chronic Anal and rectal conditions (1 source) Rectal pain; Translations: [Other specified diseases of anus and rectum] Episodic Cardiac dysrhythmias (20 sources) Persistent atrial fibrillation; Translations: [Other persistent atrial fibrillation] Onset: 10-21-2018 12-20-2020 Chronic Diabetes mellitus without complication (13 sources) Type 2 diabetes mellitus; Translations: [Type 2 diabetes mellitus without complications] Onset: 09-26-2024 09-26-2024 Chronic Diabetes mellitus without complication (20 sources) Impaired fasting glycemia; Translations: [Impaired fasting glucose] Onset: 03-09-2022 Episodic Disorders of lipid metabolism (20 sources) Hyperlipidemia; Translations: [Hyperlipidemia, unspecified] Onset: 03-09-2015 03-09-2015 Chronic Essential hypertension (20 sources) Hypertensive disorder; Translations: [Essential (primary) hypertension] Onset: 02-09-2020 Chronic Genitourinary symptoms and ill-defined conditions (4 sources) Blood in urine; Translations: [Hematuria, unspecified] Onset: 09-25-2024 09-07-2024 Episodic Hyperplasia of prostate (20 sources) Benign prostatic hypertrophy with outflow obstruction; Translations: [Benign prostatic hyperplasia with lower urinary tract symptoms] Onset: 03-31-2012 03-31-2012 Chronic Immunizations and screening for infectious disease (5 sources) Patient encounter status; Translations: [Encounter for immunization] Episodic Other connective tissue disease (1 source) Swelling of lower leg; Translations: [Other specified soft tissue disorders] 09-07-2024 Episodic Residual codes; unclassified (1 source) Urinary catheter in situ; Translations: [Presence of other specified devices] 09-07-2024 Episodic Skin and subcutaneous tissue infections (1 source) Cellulitis of right lower limb; Translations: [Cellulitis of right lower limb] 09-07-2024 Episodic Past or Other Problems Problem Classification Problem Date Documented Da te Episodic/Chronic Conditions associated with dizziness or vertigo (16 sources) Benign paroxysmal positional vertigo; Translations: [Benign paroxysmal vertigo, unspecified ear] Onset: 03-31-2012 Resolved: 10-17-2017 10-17-2017 Episodic Hemorrhoids (20 sources) Internal hemorrhoids; Translations: [Other hemorrhoids] Onset: 03-31-2012 03-31-2012 Episodic Joint disorders and dislocations; trauma-related (16 sources) Derangement of medial meniscus; Translations: [Other meniscus derangements, unspecified medial meniscus, unspecified knee] Onset: 09-19-2010 Resolved: 10-17-2017 10-17-2017 Chronic Other aftercare (20 sources) Long-term current use of anticoagulant; 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] Onset: 02-09-2020 02-09-2020 Episodic Other and unspecified benign neoplasm (20 sources) Benign neoplasm of colon; Translations: [Benign neoplasm of colon, unspecified] Onset: 10-29-2006 10-29-2006 Episodic Other connective tissue disease (20 sources) Chronic pain of left foot; Translations: [Pain in left toe(s)] Onset: 09-25-2023 Episodic Other connective tissue disease (16 sources) Rotator cuff tear arthropathy; Translations: [Unspecified rotator cuff tear or rupture of unspecified shoulder, not specified as traumatic] Onset: 10-03-2015 Resolved: 10-17-2017 10-17-2017 Episodic Other gastrointestinal disorders (20 sources) Constipation; Translations: [Constipation, unspecified] Onset: 12-19-2020 12-19-2020 Episodic Other gastrointestinal disorders (16 sources) Feces contents abnormal; Translations: [Other fecal abnormalities] Onset: 10-23-2005 Resolved: 10-03-2015 10-03-2015 Episodic Other hematologic conditions (20 sources) Erythrocytosis; Translations: [Secondary polycythemia] Onset: 09-26-2022 Episodic Other nervous system disorders (16 sources) Abnormal gait; Translations: [Unspecified abnormalities of gait and mobility] Onset: 09-25-2023 09-25-2023 Episodic Other screening for suspected conditions (not mental disorders or infectious disease) (16 sources) Raised prostate specific antigen; Translations: [Elevated prostate specific antigen [PSA]] Onset: 06-17-2007 Resolved: 12-20-2020 12-20-2020 Episodic Residual codes; unclassified (20 sources) Memory impairment; Translations: [Other amnesia] Onset: 10-26-2021 Episodic Residual codes; unclassified (2 sources) History of radiofrequency ablation operation for arrhythmia; Translations: [Other specified postprocedural states] Onset: 12-26-2019 08-16-2020 Episodic Comment on above: with pulmonary vein isolation by Dr. Ortega @ [facility] 01/12/20 Results Test Name Value Interpretation Reference Range Facility [facility] 11-03-2024 CNNURSE Nurse Visit (ENDIMT) ABIODUNCALLIE Felix ([id number]) 1940 M Date Time Provider Department 11/03/24 2:00 PM ABBEY CARDENAS During your visit today, we recorded the following information about you: Abbey Cardenas RN 11/03/2024 2:28 PM Signed DIABETES CARE AND EDUCATION VISIT Location: [place] Type of visit: In person individual PATIENT'S MAIN CONCERN TODAY: new diagnosis Support person present for education today: spouse Cognitive ability: Alert and oriented Motivation to learn: Interested Learning barriers identified by educator: none Method of instruction: written, verbal, and demonstration DIABETES FINDINGS: Monitoring: patient's spouse is assisting with testing reports sugars are running in the 140s-155 in morning. Discussed A1c and typical targets of 8.0% or less for someone in his age group Meal Planning: reviewed basic meal planning with awareness of carbohydrates Medications: reviewed patient's current medications HANDOUTS: Healthy You: Survival Skills and Healthy You: Planning Healthy Meals LEARNING RESPONSE: Healthy eating: Demonstrated understanding/compete ncy today or at previous visit Being active: Demonstrated understanding/compete ncy today or at previous visit Taking medications: Demonstrated understanding/compete ncy today or at previous visit POSSIBLE FUTURE TOPICS: 1. DIABETES CARE AND EDUCATION PLAN: Education completed and annual diabetes education follow-up visit recommended Time Spent (Minutes): 30 This visit note will be communicated to the healthcare provider via access to shared medical record. SIGNATURE: Abbey Cardenas RN PATIENT NAME: Callie Rascon DATE: November 03, 2024 TIME: 1:47 PM Allergies As of Date: 11/03/2024 (No Known Allergies) Date Reviewed: 10/23/2024 Reviewed by: Ariana Toro, BOARD STACKER.DISPENSING OPTICIAN - Fully Assessed Reason for Visit: Non-insulin Dependent Diabetes Mellitus [2793] Primary Visit Diagnosis:Type 2 diabetes mellitus without complication, without long-term current use of insulin (HCC) [E11.9] Prescriptions as of 11/03/2024 - blood sugar diagnostic (BLOOD GLUCOSE TEST) test strip Test blood sugar(s) 1 times daily. Dx: Type 2 DM - Uncontrolled E11.65 Insulin: No - Lancets Test blood sugar(s) 1 times daily. Dx: Type 2 DM - Uncontrolled E11.65 Insulin: No - tamsulosin (FLOMAX) 0.4 mg Take 1 capsule by mouth daily at bedtime. - glyBURIDE 2.5 mg tablet Take 1 tablet by mouth once daily. - rivaroxaban (XARELTO) 20 mg tablet Take 1 tablet by mouth daily with dinner. - atorvastatin (LIPITOR) 20 mg tablet Take 1 tablet by mouth once daily. - OTC PRODUCT PREVAGEN MEMORY SUPPLEMENT - cholecalciferol, Vitamin D3, (VITAMIN D3) 1,250 mcg (50,000 unit) cap capsule Take 50,000 Units by mouth one time a week. - metoprolol succinate ER (TOPROL XL) 25 mg 24 hr tablet Take 1 tablet by mouth once daily. - polyethylene glycol 3350 17 gram/dose powder Take by mouth once daily. Dissolve dose in 4 - 8 ounces of liquid and take as directed. - multivit-minerals/her bal 121 (URINOZINC PROSTATE FORMULA ORAL) Take by mouth once daily. - VITAMIN C 500 MG TAB Take one(1) tablet daily. - SAW PALMETTO 1,000 MG CAP Take one(1) tablet two(2) times daily. - CINNAMON 500 MG CAP Take one(1) tablet daily. Problem List As Of Date 11/03/2024 Noted Resolved Nonspecific abnormal finding in stool contents *10/23/2005 10/03/2015 BENIGN NEOPLASM LG BOWEL [D12.6] 10/29/2006 Elevated prostate specific antigen (PSA) [R97.2*06/17/2007 12/20/2020 Meniscus, medial, derangement [M23.305] 09/19/2010 10/17/2017 Internal hemorrhoids [K64.8] 03/31/2012 BPH with obstruction/lower urinary tract sympto*03/31/2012 Benign positional vertigo [H81.10] 03/31/2012 10/17/2017 Hyperlipidemia LDL goal <130 [E78.5] 03/09/2015 Rotator cuff tear arthropathy [M75.100, M12.819]10/03/2015 10/17/2017 Persistent atrial fibrillation (HCC) [I48.19] 10/21/2018 Hypertension [I10] 02/09/2020 Chronic anticoagulation [Z79.01] 02/09/2020 Constipation [K59.00] 12/19/2020 Memory disturbance [R41.3] 10/26/2021 Impaired fasting glucose [R73.01] 03/09/2022 Polycythemia [D75.1] 09/26/2022 Toe pain, chronic, left [M79.675, G89.29] 09/25/2023 Gait abnormality [R26.9] 09/25/2023 Type 2 diabetes mellitus without complication, *09/26/2024 Encounter Status:Closed by ABBEY CARDENAS on 11/03/24 Normal [facility] Cardiology Visit Reporton Cardiology Visit Report [facility] [address] [place] [address] OFFICE VISIT Date of Service: 10/29/24 MR#: [id number] Acct: [id number] Name: CALLIE RASCON Rep #: [id number] : 1940 Provider: Dr. Roly solares MD Age/Sex: 83/M Location[place] [facility] Status: Signed HPI HPI History of Present Illness Details: Patient is 83-year-old white male is very pleasant comes in with his today for monitor of his cardiovascular status. The patient carries a history of paroxysmal atrial fibs flutter and status post ablation at [facility] in December 2019. The patient is totally asymptomatic at this point in time. He is doing less and less than he had in the recent past. However he comes in the office today and his ECG shows that he is in atrial fibrillation with a heart rate of 101 bpm. He was in sinus rhythm when he was evaluated a year ago. But he did have episodes where he was noting his heart rate getting up in the upper 90s periodically. He is not aware that he is in atrial fibrillation he denies any PND orthopnea denies any lower extremity edema he has no palpitations no syncope or near syncope and no dizziness. Patient is tolerating his Xarelto without incident. He denies any nuisance bleeding patient also has a history of hypertension which is well-controlled and hyperlipidemia which is managed through the [facility] and he is tolerating his statin therapy. The patient and both voiced the opinion that they did not want to have any further invasive evaluation or interventions done at this point in time. Intake Vital Signs 10/29/23 14:52 10/29/24 09:59 Height 6 ft 2 in 6 ft 2 in Weight: 206 lb BMI 26.4 BP 107/72 Blood Pressure Location Lt brachial Position Sitting Respiration 18 Pulse 80 Pulse Source Monitor Pulse Oximetry (%) 94 Oxygen Delivery Method room air Comment weight per pt report Intake Visit Reasons: 1 Y FU Rn Icu Required: No Accompanied by: Is patient in pain?: No Allergies No Known Allergies Allergy (Verified 10/29/24 09:59) Medications ???Medication ???Instructions ???Recorded ???Confirmed ???Type ascorbic acid (vitamin C) 500 mg 500 mg PO DAILY 10/12/19 10/29/24 History tablet atorvastatin 20 mg tablet 20 mg PO QHS 10/12/19 10/29/24 His tory cinnamon bark 500 mg capsule 500 mg PO DAILY 10/12/19 10/29/24 History multivitamin 1 tab PO DAILY 10/12/19 10/29/24 H istory rivaroxaban 20 mg tablet (Xarelto) 20 mg PO DAILY 10/12/19 10/29/24 History saw palmetto 450 mg capsule 450 mg PO BID 10/12/19 10/29/24 Hi story polyethylene glycol 3350 17 17 g PO DAILY #119 grams 09/21/22 10/29/24 Rx gram/dose oral powder (Miralax) glyburide 2.5 mg tablet 2.5 mg PO QDAY 10/29/24 10/29/24 H istory metoprolol succinate 25 mg 25 mg PO BID #180 tabs 10/29/24 Rx tablet,extended release 24 hr Ejection fraction %: 60 Have you fallen in the past year?: No PFSH 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 Cardiomyopathy History of cardioversion ( 10/20/19) Paroxysmal atrial flutter Essential hypertension Benign positional vertigo Diverticulosis of colon BPH (benign prostatic hyperplasia) Hyperlipemia Surgical History History of bilateral cataract extraction History of appendectomy Family History Mother Cancer Breast Social History Smoking Status: Former smoker alcohol intake: never substance use type: does not use caffeine: No ROS Const Const: Negative for fatigue or weakness ENT ENT: Negative for dizziness or balance problems Cardio Chest Pain: No Palpitations: No Edema: None Muscle aches with walking: None Resp Respiratory: Negative for SOB with activity, SOB at rest or SOB orthopnea SOB lying down GI GI: Negative nausea, vomiting or heartburn Musc Musc: Negative for muscle weakness or balance problems Neuro Neuro: Negative for dizziness, lightheadedness, near syncope, syncope or weakness Endo Endo: Negative for fatigue Cardiology Exam Const Appearance: cooperative, comfortable, no acute distress and frail appearing Head Head: normal to inspection Eyes General: appearance normal, both eyes and all related structures Neck Neck: normal visual inspection and no JVD Carotids: Negative bruit Chest Chest inspection: normal inspection of the chest Auscultation: Bilateral: Clear to Auscultation Cardio Rate: regular rate Rhythm: irregularly irregular Heart sounds: S1 normal and S2 normal; Negative rub, (more content not included)... Normal Bacteria Ur Culton Bacteria identified Cx Nom (U) ORGANISM ID: 1 10,000 -<50,000 CFU/ml Normal urogenital sandy Normal [facility] Comment on above: Performed By: #### 6 30-4 ####[facility] [id number] [place] [address] [place] CNOVon 10-23-2024 CNOV Office Visit (INTMWS ) CALLIE RASCON ([id number]) 1940 [place] Date Time Provider Department 10/23/24 10:40 AM ARIANA TORO INTMWS During your visit today, we recorded the following information about you: Pulse Respiration Blood pressure Weight 66/minute 14/minute 116/68 92.6 kg Ariana Toro APRN.CNP 10/23/2024 11:29 AM Signed We discussed your urinary symptoms: - You have been experiencing frequent urination, often every 1-2 hours, with small amounts of urine each time. This started after your Thomas catheter was removed. - A urine dip test showed no clear evidence of a urinary tract infection (UTI), but we are sending your urine for a culture to confirm. - We started you on Bactrim DS (antibiotic) to treat a potential infection. Please take this as directed. - Some of your urinary symptoms may be related to your prostate. We are starting you on Flomax (tamsulosin) to help improve frequent urination and reduce nighttime urination. Take this medication as directed. We discussed your diabetes: - Your blood sugar level today was 385, which is very high. This may be contributing to your frequent urination. - We are starting you on glyburide to help lower your blood sugar. Take this medication in the morning with food. Do not take it on an empty stomach. - I have referred you to a medical educator to help you with diet and other strategies to manage your diabetes. They will contact you to schedule this appointment. Follow-up: - We will wait for the results of your urine culture to determine if further treatment is needed for your urinary symptoms. - Please follow up with us before February to check on your urinary symptoms and diabetes management. We will decide on the timing of this follow-up after reviewing your urine culture results and your response to the medications. - Continue with your scheduled appointment with your heart doctor next week. If you have any questions or if your symptoms worsen, please contact our office. Ariana Toro APRN.JAE 10/23/2024 11:55 AM Signed CC: Patient presents with: Urinary Frequency: X 4 weeks HPI Recording using Ev[employer] software for draft documentation of the visit was discussed with the patient/authorized public service representative; all questions welcomed and answered. Patient/authorized public service representative agreed to proceed Callie is a 83-year-old male, with a recent diagnosis of diabetes, presenting with urinary frequency and urgency. Callie has been experiencing increased urinary frequency and urgency since the removal of a Thomas catheter about 6 weeks ago. He reports the urge to urinate approximately every couple hours, with each void producing only a small amount of urine, described as a tablespoon. This pattern has been consistent since the catheter removal however they are unsure if symptoms have been gradually worsening. He denies any difficulty initiating urination or the need to strain. He also denies any post-void dribbling or incontinence. Callie reports nocturia, requiring him to urinate at least twice per night. He keeps a urinal bottle beside his bed for convenience. He denies any dysuria, abdominal pain, or back pain. He also denies any fever, chills, or hematuria. The urine is described as light yellow in color, not dark, and he has not noticed any blood or blood clots. Callie admits to not drinking a significant amount of water, which may contribute to the small volume of urine produced each time. He is unsure if his bladder feels completely empty after urination. He denies any episodes of incontinence where he is unaware of urination. Callie was recently diagnosed with diabetes on 09/24, with an A1c of 6.8. No medication or treatment was started at that time. Urine dip today showed greater than or equal to 1,000 glucose, trace ketones, small blood, 100 protein, and large leukocytes. Accucheck fingerstick today was 385. Review of Systems Constitutional: Negative for activity change, appetite change, chills, diaphoresis, fatigue, fever and unexpected weight change. Gastrointestinal: Negative for abdominal pain and constipation. Endocrine: Positive for polyuria. Negative for polydipsia and polyphagia. Genitourinary: Negative for flank pain. 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 Normal [facility] GLUCOSE, BLOOD (POC)on 10-23 Glucose [Mass/Vol] 385 mg/dL Abnormal 74 - 99 mg/dL [facility] Comment on above: Location:[address], [place], [address] The Accu-Chek Inform II glucose meter has not been approved for testing on patients receiving intensive medical intervention or therapy and results from this point of care glucose test should not be used for patient management decisions in these cases. Inaccurate results may also occur from other interfering factors, such as N-acetylcysteine (blood concentrations of greater than 5mg/dL), galactose, extremes of hematocrit (<10 or >65), or high doses of ascorbic acid (vitamin C) greater than 3mg/dL. Consider alternate testing mechanisms (e.g. core lab, blood gas instrument) in the above situations. Interpretation and review of laboratory results Abnormal [facility] UA DIP, URINE (POC)on 2024 BILIRUBIN UA (POCT) Negative Negative [facility] CLARITY UA (POCT) Clear [facility] COLOR UA (POCT) Yellow [facility] GLUCOSE UA (POCT) >=1000 Abnormal Negative mg/dL [facility] Hemoglobin Ql (U) Small Abnormal Negative [facility] Interpretation and review of laboratory results Abnormal [facility] KETONE UA (POCT) Trace Negative mg/dL [facility] LEUKOCYTES UA (POCT) Large Abnormal Negative [facility] NITRITE UA (POCT) Negative Negative [facility] PH UA (POCT) 6 4.5 - 8.0 [facility] Protein Ql (U) 100 mg/dL Abnormal Negative [facility] SPECIFIC GRAVITY UA (POCT) 1.025 1.005 - 1.030 [facility] UROBILINOGEN UA (POCT) 1 Normal E.U./dL [facility] Location:[address], [place], [place], [address] [place] [address] POINT OF CARE [facility] Urinalysis complete panel (U )on 10-23-2024 Bacteria LM.HPF (Urine sed) [#/Area] Negative Normal Negative [facility] Comment on above: Order Comment: Speci men Type: URINE SPECIMENOrdering Facility: [facility] Address: [address] [place] [address] Performed By: #### 2 4356-8 ####[facility] [id number] [address] [place] [address] [place] Bilirubin Ql (U) Negative Normal Negative [facility] Comment on above: Order Comment: Speci men Type: URINE SPECIMENOrdering Facility: [facility] Address: [address] [place] [address] Performed By: #### 2 4356-8 ####[facility] [id number] [place] [address] [place] CALCIUM OXALATE CRYSTALS (UA) Few Abnormal None Seen [facility] Comment on above: Order Comment: Speci men Type: URINE SPECIMENOrdering Facility: [facility] Address: [address] [place] [address] Performed By: #### 2 4356-8 ####[facility] [id number] [place] [address] [place] Clarity (Unsp spec) Turbid Abnormal Clear [facility] Comment on above: Order Comment: Speci men Type: URINE SPECIMENOrdering Facility: [facility] Address: [address] [place] [address] Performed By: #### 2 4356-8 ####[facility] [id number] [address], [facility] [place] Color (U) Yellow Normal Yellow [facility] Comment on above: Order Comment: Speci men Type: URINE SPECIMENOrdering Facility: [facility] Address: [address] [place] [address] Performed By: #### 2 4356-8 ####[facility] [id number] [place] [id number] [place] Epithelial cells LM.HPF (Urine sed) [#/Area] None Seen Normal [facility] Comment on above: Order Comment: Speci men Type: URINE SPECIMENOrdering Facility: [facility] Address: [address] [place] [address] Performed By: #### 2 4356-8 ####[facility] [id number] [facility] [address] [place] [address] [place] Glucose Test strip (U) [Mass/Vol] Negative Normal Negative [facility] Comment on above: Order Comment: Speci men Type: URINE SPECIMENOrdering Facility: [facility] Address: [address] [place] [address] Performed By: #### 2 4356-8 ####[facility] [id number] [facility] [address] [place] [address] [place] Hemoglobin Ql (U) 1+ Abnormal Negative [facility] Comment on above: Order Comment: Speci men Type: URINE SPECIMENOrdering Facility: [facility] Address: [address] [place] [address] Performed By: #### 2 4356-8 ####[facility] [id number] [address], [facility]95 [place] Hyaline casts (Urine sed) [#/Area] 1-3 /LPF Abnormal 0 /LPF [facility] Comment on above: Order Comment: Speci men Type: URINE SPECIMENOrdering Facility: [facility] Address: [address] [place] [address] Performed By: #### 2 4356-8 ####[facility] [id number] [address] [place] [address] [place] Ketones Ql (U) Trace Abnormal Negative [facility] Comment on above: Order Comment: Speci men Type: URINE SPECIMENOrdering Facility: [facility] Address: [address] [place], [place] [address] Performed By: #### 2 4356-8 ####[facility] [id number] [address] [place] [address] [place] Leukocyte esterase Test strip Ql (U) 2+ Abnormal Negative [facility] Comment on above: Order Comment: Speci men Type: URINE SPECIMENOrdering Facility: [facility] Address: [address] [place] [address] Performed By: #### 2 4356-8 ####[facility] [id number] [place] [address] [place] Nitrite Ql (U) Negative Normal Negative [facility] Comment on above: Order Comment: Speci men Type: URINE SPECIMENOrdering Facility: [facility] Address: [address] [place] [address] Performed By: #### 2 4356-8 ####[facility] [id number] [place] [address] [place] pH (U) 5.5 [pH] Normal <8.5 [facility] Comment on above: Order Comment: Speci men Type: URINE SPECIMENOrdering Facility: [facility] Address: [address] [place] [address] Performed By: #### 2 4356-8 ####[facility] [id number] [place] [address] [place] Protein (U) [Mass/Vol] 2+ Abnormal Negative [facility] Comment on above: Order Comment: Speci men Type: URINE SPECIMENOrdering Facility: [facility] Address: [address] [place] [address] Performed By: #### 2 4356-8 ####[facility] [id number] [place] [address] [place] RBC LM.HPF (Urine sed) [#/Area] 6-10 /HPF Abnormal 0-2 /HPF [facility] Comment on above: Order Comment: Speci men Type: URINE SPECIMENOrdering Facility: [facility] Address: [address] [place] [address] Performed By: #### 2 4356-8 ####[facility] [id number] [place] [address] [place] Specific gravity (U) [Rel density] 1.027 Normal 1.005-1.030 [facility] Comment on above: Order Comment: Speci men Type: URINE SPECIMENOrdering Facility: [facility] Address: [address] [place] [address] Performed By: #### 2 4356-8 ####[facility] [id number] [place] [address] [place] Urobilinogen Ql (U) 1.0 EU/dL Normal 0.2-1.0 EU/dL [facility] Comment on above: Order Comment: Speci men Type: URINE SPECIMENOrdering Facility: [facility] Address: [address] [place] [address] Performed By: #### 2 4356-8 ####[facility] [id number] [place] [address] [place] WBC LM.HPF (Urine sed) [#/Area] /[HPF] Abnormal 0-5 /HPF [facility] Comment on above: Order Comment: Speci men Type: URINE SPECIMENOrdering Facility: [facility] Address: [address] [place] [address] Performed By: #### 2 4356-8 ####[facility] [id number] [place] [address] [place] Yeast.budding LM.HPF (Urine sed) [#/Area] Present Abnormal None Seen [facility] Comment on above: Order Comment: Speci men Type: URINE SPECIMENOrdering Facility: [facility] Address: [address] [place] [address] Performed By: #### 2 4356-8 ####[facility] [id number] [place] [address] [place] CBC panel Auto (Bld)on 09-25 Erythrocyte distribution width (RBC) [Ratio] 13.6 % Normal 11.5-15.0 [facility] Comment on above: Order Comment: Speci men Type: BLOOD SPECIMENOrdering Facility: [facility] Address: [address] [place] [address] Performed By: #### 5 8410-2 ####[facility] [id number] [place] [address] [place] Hematocrit (Bld) [Volume fraction] 49.8 % Normal 39.0-51.0 [facility] Comment on above: Order Comment: Speci men Type: BLOOD SPECIMENOrdering Facility: [facility] Address: [address] [place] [address] Performed By: #### 5 8410-2 ####[facility] [id number] [place] [address] [place] Hemoglobin (Bld) [Mass/Vol] 16.2 g/dL Normal 13.0-17.0 [facility] Comment on above: Order Comment: Speci men Type: BLOOD SPECIMENOrdering Facility: [facility] Address: [address] [place] [address] Performed By: #### 5 8410-2 ####[facility] [id number] [place] [address] [place] MCH (RBC) [Entitic mass] 31.4 pg Normal 26.0-34.0 [facility] Comment on above: Order Comment: Speci men Type: BLOOD SPECIMENOrdering Facility: [facility] Address: [address] [place] [address] Performed By: #### 5 8410-2 ####[facility] [id number] [place] [id number] [place] MCHC (RBC) [Mass/Vol] 32.5 g/dL Normal 30.5-36.0 [facility] Comment on above: Order Comment: Speci men Type: BLOOD SPECIMENOrdering Facility: [facility] Address: [address] [place] [address] Performed By: #### 5 8410-2 ####[facility] [id number] [address] [address] [place] MCV (RBC) [Entitic vol] 96.5 fL Normal 80.0-100.0 [facility] Comment on above: Order Comment: Speci men Type: BLOOD SPECIMENOrdering Facility: [facility] Address: [address] [place] [address] Performed By: #### 5 8410-2 ####[facility] [id number] [place] [address] [place] Nucleated RBC (Bld) [#/Vol] 10*3/uL Normal <0.01 [facility] Comment on above: Order Comment: Speci men Type: BLOOD SPECIMENOrdering Facility: [facility] Address: [address] [place] [address] Performed By: #### 5 8410-2 ####[facility] [id number] [place] [address] [place] Platelet mean volume (Bld) [Entitic vol] 9.7 fL Normal 9.0-12.7 [facility] Comment on above: Order Comment: Speci men Type: BLOOD SPECIMENOrdering Facility: [facility] Address: [address] [place] [address] Performed By: #### 5 8410-2 ####[facility] [id number] [place] [address] [place] Platelets (Bld) [#/Vol] 255 10*3/uL Normal 150-400 [facility] Comment on above: Order Comment: Speci men Type: BLOOD SPECIMENOrdering Facility: [facility] Address: [address] [place] [address] Performed By: #### 5 8410-2 ####[facility] [id number] [place] [id number] [place] RBC (Bld) [#/Vol] 5.16 10*6/uL Normal 4.20-6.00 [facility] Comment on above: Order Comment: Speci men Type: BLOOD SPECIMENOrdering Facility: [facility] Address: [address] [place] [address] Performed By: #### 5 8410-2 ####[facility] [id number] [place] [address] [place] WBC (Bld) [#/Vol] 8.22 10*3/uL Normal 3.70-11.00 [facility] Comment on above: Order Comment: Speci men Type: BLOOD SPECIMENOrdering Facility: [facility] Address: [address] [place] [address] Performed By: #### 5 8410-2 ####[facility] [id number] [place] [address] [place] Comprehensive metabolic 2000 panelon 09-25-2024 Albumin [Mass/Vol] 4.5 g/dL Normal 3.9-4.9 [facility] Comment on above: Order Comment: Speci men Type: BLOOD SPECIMENOrdering Facility: [facility] Address: [address] [place] [address] Performed By: #### 2 4323-8, 14489-8 ####[facility] [id number] [place] [address] [place] ALP [Catalytic activity/Vol] 74 U/L Normal 38-113 [facility] Comment on above: Order Comment: Speci men Type: BLOOD SPECIMENOrdering Facility: [facility] Address: [address] [place] [address] Performed By: #### 2 4323-8, 70997-5 ####[facility] [id number] [place] [id number] [place] ALT [Catalytic activity/Vol] 12 U/L Normal 10-54 [facility] Comment on above: Order Comment: Speci men Type: BLOOD SPECIMENOrdering Facility: [facility] Address: [address] [place] [address] Performed By: #### 2 4323-8, 56766-7 ####[facility] [id number] [address] [address] [place] Anion gap [Moles/Vol] 13 mmol/L Normal 8-15 [facility] Comment on above: Order Comment: Speci men Type: BLOOD SPECIMENOrdering Facility: [facility] Address: [address] [place], [place] [address] Performed By: #### 2 4323-8, 40226-3 ####[facility] [id number] [place] [id number] [place] AST [Catalytic activity/Vol] 18 U/L Normal 14-40 [facility] Comment on above: Order Comment: Speci men Type: BLOOD SPECIMENOrdering Facility: [facility] Address: [address] [place] [address] Performed By: #### 2 4323-8, 47406-5 ####[facility] [id number] [place] [id number] [place] Bilirubin [Mass/Vol] 1.2 mg/dL Normal 0.2-1.3 [facility] Comment on above: Order Comment: Speci men Type: BLOOD SPECIMENOrdering Facility: [facility] Address: [address] [place], [place] [address] Performed By: #### 2 4323-8, 78486-7 ####[facility] [id number] [address] [address] [place] Calcium [Mass/Vol] 9.7 mg/dL Normal 8.5-10.2 [facility] Comment on above: Order Comment: Speci men Type: BLOOD SPECIMENOrdering Facility: [facility] Address: [address] [place], [place] [address] Performed By: #### 2 4323-8, 20996-6 ####[facility] [id number] [address] [address] [place] Chloride [Moles/Vol] 100 mmol/L Normal 98-107 [facility] Comment on above: Order Comment: Speci men Type: BLOOD SPECIMENOrdering Facility: [facility] Address: [address] [place] [address] Performed By: #### 2 4323-8, 81403-2 ####[facility] [id number] [place] [id number] [place] CO2 [Moles/Vol] 26 mmol/L Normal 22-30 [facility] Comment on above: Order Comment: Speci men Type: BLOOD SPECIMENOrdering Facility: [facility] Address: [address] [place] [address] Performed By: #### 2 4323-8, 52497-3 ####[facility] [id number] [place] [address] [place] Creatinine [Mass/Vol] 1.01 mg/dL Normal 0.73-1.22 [facility] Comment on above: Order Comment: Speci men Type: BLOOD SPECIMENOrdering Facility: [facility] Address: [address] [place] [address] Performed By: #### 2 4323-8, 28141-5 ####[facility] [id number] [place] [address] [place] Creatinine and Glomerular filtration rate.predicted panel (S/P/Bld) 73 mL/min/1.73m??? Normal >=60 [facility] Comment on above: Order Comment: Speci men Type: BLOOD SPECIMENOrdering Facility: [facility] Address: [address] [place] [address] Result Comment: Joelle mated Glomerular Filtration Rate (eGFR) is calculated using the 2020 CKD-EPI creatinine equation. This equation utilizes serum creatinine, sex, and age as parameters. The creatinine assay has traceable calibration to isotope dilution-mass spectrometry. Refer to KDIGO guidelines for clinical interpretation. In patients with unstable renal function, e.g. those with acute kidney injury, the eGFR may not accurately reflect actual GFR. Performed By: #### 2 4323-8, 62743-0 ####[facility] [id number] [address] [address] [place] Glucose [Mass/Vol] 137 mg/dL High 74-99 [facility] Comment on above: Order Comment: Speckandice men Type: BLOOD SPECIMENOrdering Facility: [facility] Address: [address] [place] [id number] Result Comment: The [place] [employer] (ADA) provides guidance for cutoff values for fasting glucose and random glucose. The ADA defines fasting as no caloric intake for at least 8 hours. Fasting plasma glucose results between 100 to 125 mg/dL indicate increased risk for diabetes (prediabetes). Fasting plasma glucose results greater than or equal to 126 mg/dL meet the criteria for diagnosis of diabetes. In the absence of unequivocal hyperglycemia, results should be confirmed by repeat testing. In a patient with classic symptoms of hyperglycemia or hyperglycemic crisis, random plasma glucose results greater than or equal to 200 mg/dL meet the criteria for diagnosis of diabetes. Reference: Standards of Medical Care in Diabetes 2016, [place] [employer]. Diabetes Care. 2016.39(Suppl 1). Performed By: #### 2 4323-8, ####[facility] [id number] [address] [address] [place] Potassium [Moles/Vol] 4.3 mmol/L Normal 3.7-5.1 [facility] Comment on above: Order Comment: Alexander men Type: BLOOD SPECIMENOrdering Facility: [facility] Address: [address] [place] [address] Performed By: #### 2 4323-8, ####[facility] [id number] [address] [address] [place] Protein [Mass/Vol] 7.6 g/dL Normal 6.3-8.0 [facility] Comment on above: Order Comment: Speci men Type: BLOOD SPECIMENOrdering Facility: [facility] Address: [address] [place] [address] Performed By: #### 2 4323-8, 69443-1 ####[facility] [id number] [facility] [place] [place] [address] [place] Sodium [Moles/Vol] 139 mmol/L Normal 136-144 [facility] Comment on above: Order Comment: Speci men Type: BLOOD SPECIMENOrdering Facility: [facility] Address: [address] [place] [address] Performed By: #### 2 4323-8, 23097-0 ####[facility] [id number] [facility] [address] [place] [address] [place] Urea nitrogen [Mass/Vol] 23 mg/dL Normal 9-24 [facility] Comment on above: Order Comment: Speci men Type: BLOOD SPECIMENOrdering Facility: [facility] Address: [address] [place] [address] Performed By: #### 2 4323-8, 00930-0 ####[facility] [id number] [address] [place] [address] [place] HbA1c (Bld)on 09-25-2024 Average glucose Estimated from glycated hemoglobin (Bld) [Mass/Vol] 148 mg/dL Normal [facility] Comment on above: Order Comment: Speci men Type: BLOOD SPECIMENOrdering Facility: [facility] Address: [address] [place], [place] [address] Result Comment: eAG: (Estimated average glucose) is a calculated value from HgbA1c and is public service representative of the average blood glucose level in the last 2-3 month period. Performed By: #### 5 5454-3 ####[facility] [id number] [facility] [id number] [address] [place] HbA1c (Bld) [Mass fraction] 6.8 % High 4.3-5.6 [facility] Comment on above: Order Comment: Alexander men Type: BLOOD SPECIMENOrdering Facility: [facility] Address: [address] [place] [address] Result Comment: Amer ican Diabetes Association guidelines indicate that patients with HgbA1c in the range 5.7-6.4% are at increased risk for development of diabetes, and intervention by lifestyle modification may be beneficial. HgbA1c greater or equal to 6.5% is considered diagnostic of diabetes. Performed By: #### 5 5454-3 ####[facility] [id number] [address] [place] [address] [place] Lipid 1996 panelon 5 Cholesterol [Mass/Vol] 178 mg/dL Normal <200 [facility] Comment on above: Order Comment: Alexander moody Type: BLOOD SPECIMENOrdering Facility: [facility] Address: [address] [place] [address] Result Comment: <200 mg/dL, Desirable 200-239 mg/dL, Borderline high >239 mg/dL, High Performed By: #### 2 4323-8, 13326-8 ####[facility] [id number] [address] [place] [address] [place] Cholesterol in HDL [Mass/Vol] 49 mg/dL Normal >39 [facility] Comment on above: Order Comment: Krystalkandice uriostegui Type: BLOOD SPECIMENOrdering Facility: [facility] Address: [address] [place] [address] Result Comment: 40-5 9 mg/dL, Acceptable >59 mg/dL, High: Negative risk factor for coronary heart disease <40 mg/dL, Low: Positive risk factor for coronary heart disease Performed By: #### 2 4323-8, 54316-1 ####[facility] [id number] [facility] [id number] [address] [place] Cholesterol in LDL [Mass/Vol] 84 mg/dL Normal <100 [facility] Comment on above: Order Comment: Speci men Type: BLOOD SPECIMENOrdering Facility: [facility] Address: [address] [place] [address] Result Comment: <100 mg/dL, Optimal 100-129 mg/dL, Near optimal/above optimal 130-159 mg/dL, Borderline high 160-189 mg/dL, High >189 mg/dL, Very high Secondary prevention optimal LDL Cholesterol levels are recommended to be <70 mg/dL LDL cholesterol is calculated using the Giposn-NIH equation. Performed By: #### 2 4323-8, ####[facility] [id number] [address] [address] [place] Cholesterol in LDL/Cholesterol in HDL [Mass ratio] 1.71 {ratio} Normal <2.54 [facility] Comment on above: Order Comment: Speci men Type: BLOOD SPECIMENOrdering Facility: [facility] Address: [address] [place] [address] Result Comment: Refe rence: 1. National Cholesterol Education Program ATP III Guideline At-A-Glance Quick Desk Reference: National Heart, Lung, and Blood Rogers. National Institutes of Health. 2001: NIH Publication No. 01-3305. 2. An International Atherosclerosis Society position paper: global recommendations for the management of dyslipidemia: executive summary, Atherosclerosis. 2014: 232(2):410-413. Performed By: #### 2 4323-8, ####[facility] [id number] [address] [address] [place] Cholesterol in VLDL [Mass/Vol] 43 mg/dL High <30 [facility] Comment on above: Order Comment: Speci men Type: BLOOD SPECIMENOrdering Facility: [facility] Address: [address] [place] [address] Performed By: #### 2 4323-8, ####[facility] [id number] [address] [address] [place] Cholesterol non HDL [Mass/Vol] 129 mg/dL Normal <130 [facility] Comment on above: Order Comment: Speci men Type: BLOOD SPECIMENOrdering Facility: [facility] Address: [address] [place] [id number] Result Comment: <130 mg/dL, Optimal 130-159 mg/dL, Near optimal/above optimal 160-189 mg/dL, Borderline high 190-219 mg/dL, High >219 mg/dL, Very high Secondary prevention optimal non HDL Cholesterol levels are recommended to be <100 mg/dL Performed By: #### 2 4323-8, 69227-3 ####[facility] [id number] [place] [address] [place] Cholesterol.total/Ch olesterol in HDL [Mass ratio] 3.63 {ratio} Normal <5.10 [facility] Comment on above: Order Comment: Speci men Type: BLOOD SPECIMENOrdering Facility: [facility] Address: [address] [place] [address] Performed By: #### 2 4323-8, 21094-2 ####[facility] [id number] [place] [address] [place] FASTING TIME 12 hrs Normal [facility] Comment on above: Order Comment: Speci men Type: BLOOD SPECIMENOrdering Facility: [facility] Address: [address] [place] [address] Performed By: #### 2 4323-8, 96922-3 ####[facility] [id number] [place] [id number] [place] Triglyceride [Mass/Vol] 273 mg/dL High <150 [facility] Comment on above: Order Comment: Speci men Type: BLOOD SPECIMENOrdering Facility: [facility] Address: [address] [place] [address] Result Comment: <150 mg/dL, Normal 150-199 mg/dL, Borderline high 200-499 mg/dL, High >499 mg/dL, Very high Performed By: #### 2 4323-8, 85887-0 ####[facility] [id number] [address], [facility] CNOVon 09-24-2024 CNOV Office Visit (INTMWS ) CALLIE RASCON ([id number]) 1940 M Date Time Provider Department 09/24/24 8:40 AM CEDRIC SALAZAR INTMWS During your visit today, we recorded the following information about you: Pulse Respiration Blood pressure Weight 88/minute 20/minute 116/60 94.3 kg Cedric Salazar MD 09/24/2024 9:02 AM Signed This note was created using [employer]. Subjective Callie Rascon is a 83 year old male here with his . He was doing well. His cellulitis was healed. Urine retention resolved. He did not do his fasting labs. Their main concern was chronic left 2nd toe pain. He was taking acetaminophen practically on a daily basis. They saw podiatry 2 years ago and were just told this was arthritis. was interested in some form of nerve block. 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 Sangita Prakash in several weeks. Review of Systems Constitutional: Negative for fatigue and fever. Respiratory: Negative for shortness of breath. Cardiovascular: Positive for leg swelling. Negative for chest pain and palpitations. Genitourinary: Negative for difficulty urinating and dysuria. Neurological: Negative for dizziness. 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 ago Vaping Use Vaping status: Never Used Substance Use Topics Alcohol use: No Drug use: No Current Outpatient Medications Medication Sig rivaroxaban (XARELTO) 20 mg tablet Take 1 tablet by mouth daily with dinner. atorvastatin (LIPITOR) 20 mg tablet Take 1 tablet by mouth once daily. OTC PRODUCT PREVAGEN MEMORY SUPPLEMENT cholecalciferol, Vitamin D3, (VITAMIN D3) 1,250 mcg (50,000 unit) cap capsule Take 50,000 Units by mouth one time a week. metoprolol succinate ER (TOPROL XL) 25 mg 24 hr tablet Take 1 tablet by mouth once daily. polyethylene glycol 3350 17 gram/dose powder Take by mouth once daily. Dissolve dose in 4 - 8 ounces of liquid and take as directed. multivit-minerals/her bal 121 (URINOZINC PROSTATE FORMULA ORAL) Take by mouth once daily. VITAMIN C 500 MG TAB Take one(1) tablet daily. SAW PALMETTO 1,000 MG CAP Take one(1) tablet two(2) times daily. CINNAMON 500 MG CAP Take one(1) tablet daily. No current facility-administered medications for this visit. Objective BP 116/60 (BP Site: Left Arm, BP Position: Sitting, BP Cuff Size: Large Adult) Pulse 88 Resp 20 Wt 94.3 kg (207 lb 14.3 oz) BMI 28.47 kg/m? Physical Exam Constitutional: General: He is not in acute distress. Appearance: He is not ill-appearing. HENT: Head: Normocephalic. Cardiovascular: Rate and Rhythm: Tachycardia present. Rhythm irregularly irregular. Heart sounds: S1 normal and S2 normal. No murmur heard. No gallop. Pulmonary: Breath sounds: Normal breath sounds. Musculoskeletal: General: No tenderness. Right lower leg: No edema. Left lower leg: No edema. Skin: Comments: Stasis pigmentation of both legs. Neurological: General: No focal deficit present. Mental Status: He is alert. Gait: Gait abnormal. Comments: Ambulatory with rollator. Assessment and Plan 1. Persistent atrial fibrillation (HCC) - ICD9: 427.31, ICD10: I48.19 (primary diagnosis) - See Dr. Prakash as scheduled. 2. Toe pain, chronic, left - ICD9: 729.5, 338.29, ICD10: M79.675, G89.29 - I will reach out to podiatry regarding nerve block. 3. BPH with obstruction/lower urinary tract symptoms - ICD9: 600.01, 599.69, ICD10: N40.1, N13.8 - Controlled. 4. Primary hypertension - ICD9: 401.9, ICD10: I10 - Controlled - Continue current medications 5. Impaired fasting glucose - ICD9: 790.21, ICD10: R73.01 - Labs to be done. MD Hernan Kwon Victor H, MD 09/24/2024 8:52 AM Signed FASTING BLOOD WORK SOON. Allergies As of Date: 09/24/2024 (No Known Allergies) Date Reviewed: 09/07/2024 Reviewed by: Lita Melissa LPN - Fully Assessed Reason for Visit: F/U 6 months [1177] Primary Visit Diagnosis:Persistent atrial fibrillation (HCC) [I48.19] Other Visit Diagnoses:Toe pain, chronic, left [M79.675, G89.29] BPH with obstruction/lower urinary tract symptoms [N40.1, N13.8] Primary hypertension [I10] Impaired fasting glucose [R73.01] Prescriptions as of 09/24/2024 - rivaroxaban (XARELTO) 20 mg tablet Take 1 tablet by mouth daily with dinner. - atorvastatin (LIPITOR) 20 mg tablet Take 1 tablet by mouth once daily. - OTC PRODUCT PREVAGEN MEMORY SUPPLEMENT - cholecalciferol, Vitamin D3, (VITAMIN (more content not included)... Normal [facility] CNOVon 09-07-2024 CNOV Office Visit (INTMWS ) CALLIE RASCON ([id number]) 1940 M Date Time Provider Department 09/07/24 7:00 PM CEDRIC SALAZAR INTMWS During your visit today, we recorded the following information about you: Temperature Pulse Blood pressure Weight 98.3 degrees 104/minute 124/74 93.5 kg Cedric Salazar MD 09/08/2024 8:10 AM Signed This note was created using NoteWriter. Subjective Patient presents with: Hospital F/U Recording using [employer] software for draft documentation of the visit was discussed with the patient/authorized public service representative; all questions welcomed and answered. Patient/authorized public service representative agreed to proceed Callie is a 83-year-old male, here with his , presenting for follow-up after hospitalization in [place], [place]. Callie was recently hospitalized for 5 days 08/22 to 08/25/24 at [facility] due to cellulitis affecting both legs, especially the right. Prior to hospitalization, he visited urgent care twice and was prescribed oral antibiotics, which provided some improvement. However, during the third visit, he was advised to go to the hospital, where he received IV antibiotics. He has since completed the prescribed antibiotic course and is not currently on any antibiotics. Other diagnoses were hematuria, leg pain and swelling, and therapy failure. His apixiban and atorvastatin were held due to medication interactions. He had a urinary catheter was placed during his hospital stay to facilitate bladder emptying while he was on IV therapy and unable to get out of bed. He had a cystoscopy, presumably with negative findings. The catheter has been in place for 2 weeks, and there has been no hematuria or abdominal pain reported. No medications were prescribed for bladder issues. He was advised to discontinue the thomas after 2 weeks. He completed the antibiotic course of cefuroxime and minocycline for 7 days. . Review of Systems Constitutional: Negative for chills, diaphoresis and fever. Respiratory: Negative for shortness of breath. Cardiovascular: Negative for chest pain and palpitations. Gastrointestinal: Negative for constipation, diarrhea, nausea and vomiting. Genitourinary: Negative for difficulty urinating, dysuria and hematuria. Skin: Positive for color change. Negative for rash and wound. 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 [place], [place] PULMONARY VEIN ISOLATION 01/12/2020 EPS, RF Ablation Social History Tobacco Use Smoking status: Former Smokeless tobacco: Never Tobacco comments: quit 40 yrs. ago Vaping Use Vaping status: Never Used Substance Use Topics Alcohol use: No Drug use: No Current Outpatient Medications Medication Sig OTC PRODUCT PREVAGEN MEMORY SUPPLEMENT cholecalciferol, Vitamin D3, (VITAMIN D3) 1,250 mcg (50,000 unit) cap capsule Take 50,000 Units by mouth one time a week. metoprolol succinate ER (TOPROL XL) 25 mg 24 hr tablet Take 1 tablet by mouth once daily. rivaroxaban (XARELTO) 20 mg tablet Take 1 tablet by mouth daily with dinner. (Patient taking differently: Take 20 mg by mouth daily with dinner. Currently HELD) atorvastatin (LIPITOR) 20 mg tablet Take 1 tablet by mouth once daily. (Patient taking differently: Take 20 mg by mouth once daily. Currently HELD) polyethylene glycol 3350 17 gram/dose powder Take by mouth once daily. Dissolve dose in 4 - 8 ounces of liquid and take as directed. multivit-minerals/her bal 121 (URINOZINC PROSTATE FORMULA ORAL) Take by mouth once daily. VITAMIN C 500 MG TAB Take one(1) tablet daily. SAW PALMETTO 1,000 MG CAP Take one(1) tablet two(2) times daily. CINNAMON 500 MG CAP Take one(1) tablet daily. No current facility-administered medications for this visit. Objective BP 124/74 (BP Position: Sitting, BP Cuff Size: Large Adult) Pulse 104 Temp 36.8 ?C (98.3 ?F) (Right Tympanic) Wt 93.5 kg (206 lb 2.1 oz) BMI 28.23 kg/m? Physical Exam Constitutional: General: He is not in acute distress. Appearance: He is not ill-appearing. Cardiovascular: Rate and Rhythm: Tachycardia present. Rhythm irregular. Heart sounds: S1 normal and S2 normal. No murmur heard. No gallop (more content not included)... Normal [facility] CNOVon 03-04-2024 CNOV Office Visit (INTMWS ) CALLIE RASCON ([id number]) 1940 M Date Time Provider Department 03/04/24 8:00 AM ARIANA TORO INTMWS During your visit today, we recorded the following information about you: Pulse Respiration Blood pressure Weight 79/minute 18/minute 128/70 96.8 kg Height 1.82 m Ariana Toro, BOARD STACKER.DISPENSING OPTICIAN 03/04/2024 8:44 AM Signed Callie Rascon is a 83 year old male here for a Medicare wellness visit. Medicare Health Risk Assessment General Health Very good Exercise: Minutes/Day 20 min Exercise: Days/Week 7 days Alcohol: Daily Use Never Alcohol: Drinks/Day Patient does not drink Alcohol: 6 or more drinks Never Feel off balance No Concerns: Teeth/Dentures No Concerns: Sexual function No Troubled by feelings None of the above Frequency: Eating healthy diet Nearly every day ADLs requiring help None of the above Safety precautions in home/vehicle Yes Smoke, vape, chews tobacco No Difficulty hearing No Difficulty seeing No Current Providers Specialists: I have reviewed specialist-related care of the patient in the medical record. Current care team: Patient Care Team: Cedric Salazar MD as PCP - General (Internal Medicine) Outside specialists seen: [facility], Rock Oakes OD ophthalmology Medical/Family history review Reviewed and updated problem list, medical/surgical/fami ly/social history, medications, and allergies. Opioid use review Opioid Medications (last 90 days) No data to display Anxiety/Depression screening PHQ-2 Score: 0 (Lower risk for depression) MEGAN-2 Score: 0 (Lower risk for anxiety) Recommendation: no further intervention at this time Cognitive screening Mini Cog Score: 4 Cognitive screening reviewed and No further action needed (score 3-5). Functional Observation Was the patient's Timed Up AND Go test unsteady or >= 12 seconds? No Advance Care Planning Surrogate decision maker documented and/or advance directives scanned in chart Measurements BP 128/70 Pulse 79 Resp 18 Ht 182 cm (5' 11.65) Wt 96.8 kg (213 lb 6.5 oz) SpO2 97% BMI 29.22 kg/m? Vision Screening: Follows with optometry/ophthalmolo gy Assessment/Plan Medicare annual wellness visit, subsequent (Z00.00) - Counseled on healthy diet and regular exercise - Fall avoidance information provided - Personalized prevention plan provided - Discussed need for and benefit of weight loss. BMI 29.22 kg/(m2) Additional Concerns The following concerns were also discussed with the patient: HTN-Medication changes:No Taking all medications as prescribed: Yes Side effects: No Home BP's: Yes, 120's/70's Denies: headache, chest pain, palpitations, dyspnea, and peripheral edema. Last 3 Encounter BP Readings: Date: BP: 03/04/2024 128/70 09/25/2023 128/64 03/04/2023 134/78 Afib- He is compliant with medication(s) and is tolerating med(s) without any side effects. Chest pain: No Palpitations: No Dizziness/lightheaded ness: No Syncope: No BP 128/70 Pulse 79 Resp 18 Ht 182 cm (5' 11.65) Wt 96.8 kg (213 lb 6.5 oz) SpO2 97% BMI 29.22 kg/m? Physical Exam Vitals reviewed. Constitutional: Appearance: Normal appearance. Cardiovascular: Rate and Rhythm: Normal rate. Rhythm irregular. Heart sounds: Normal heart sounds. No murmur heard. Pulmonary: Effort: Pulmonary effort is normal. Breath sounds: Normal breath sounds. No wheezing, rhonchi or rales. Neurological: Mental Status: He is alert. Psychiatric: Mood and Affect: Mood normal. ASSESSMENT/PLAN: 1. Medicare annual wellness visit, subsequent - ICD9: V70.0, ICD10: Z00.00 (primary diagnosis) See Medicare wellness plan 2. Persistent atrial fibrillation (HCC) - ICD9: 427.31, ICD10: I48.19 Stable 3. Primary hypertension - ICD9: 401.9, ICD10: I10 - Controlled - Continue current medications - Recommend home blood pressure monitoring, to bring results to next visit - Encouraged sodium restriction, DASH or Mediterranean diet 4. Hyperlipidemia LDL goal <130 - ICD9: 272.4, ICD10: E78.5 - Controlled - Continue current medications 5. Impaired fasting glucose - ICD9: 790.21, ICD10: R73.01 Stable 6. Polycythemia - ICD9: 238.4, ICD10: D75.1 resolved 7. Memory disturbance - ICD9: 780.93, ICD10: R41.3 Stable 8. Encounter for immunization - ICD9: V03.89, ICD10: Z23 - PFIZER-BIONTECH COVID-19 VACCINE AGE 12+ YR (COMIRNATY) - INFLUENZA VACCINE, PRSV FREE, AGE 65+ YR, HIGH DOSE, TRIVALENT (FLUZONE HIGH-DOSE) 9. Screening for depression - ICD9: V79.0, ICD10: Z13.31 - DEPRESSION SCREENING 10. Encounter for screening examination for other mental health and behavioral disorders - ICD9: V79.8, ICD10: Z13.39 - ANXIETY SCREENING LISA Anne Naz M, APRN.CNP 03/04/2024 8:22 AM Addendum Screening schedule The following prevention kayla (more content not included)... Normal [facility] XR Toes - left 3 Viewson IMPRESSION: No radiographic evidence of acute osseous injury Instrument Setter: CHET Transcribe Date/Time: Oct 01 2022 2:06P Dictated by : NATASHA ROUSE MD This examination was interpreted and the report reviewed and electronically signed by: NATASHA ROUSE MD on Oct 01 2022 2:07PM [facility] DIVISION OF RADIOLOGY * * *Final Report* * * DATE OF EXAM: Sep 26 2022 12:08PM [id number] - XR TOE 3V AP/LAT/OBL LT / PROCEDURE REASON: multiple diagnoses * * * * Physician Interpretation * * * * TITLE: XR TOE 3V AP/LAT/OBL LT CLINICAL INDICATION: Pain TECHNIQUE: 3 view radiographic study of the left second toe COMPARISON: None FINDINGS: No acute fracture or dislocation identified. Joint space narrowing of the distal interphalangeal joints. Atherosclerotic calcification of the vasculature. DIVISION OF RADIOLOGY Provider, [facility] - 10/01/2022 * * *Final Report* * * DATE OF EXAM: Sep 26 2022 12:08PM [id number] - XR TOE 3V AP/LAT/OBL LT / PROCEDURE REASON: multiple diagnoses * * * * Physician Interpretation * * * * TITLE: XR TOE 3V AP/LAT/OBL LT CLINICAL INDICATION: Pain TECHNIQUE: 3 view radiographic study of the left second toe COMPARISON: None FINDINGS: No acute fracture or dislocation identified. Joint space narrowing of the distal interphalangeal joints. Atherosclerotic calcification of the vasculature. IMPRESSION IMPRESSION: No radiographic evidence of acute osseous injury Instrument Setter: CHET Transcribe Date/Time: Oct 01 2022 2:06P Dictated by : NATASHA ROUSE MD This examination was interpreted and the report reviewed and electronically signed by: NATAHSA ROUSE MD on Oct 01 2022 2:07PM EST [facility] XR Toes - left 3 ViewsOrdere d By: [facility] Provider on 10-01-2022 [facility] XR Toes - left 3 Viewson Radiology Study observation (narrative) [facility] HEMOGLOBIN A1C (POC)on 03-09 HbA1c (Bld) [Mass fraction] 6.3 % 4.2 - 5.6 % [facility] CNNURSEon 07-22-2020 CNNURSE Nurse Visit (COVAMD) CALLIE RASCON ([id number]) 1940 M Date Time Provider Department 07/22/20 SUZANNA FAN During your visit today, we recorded the following information about you: Allergies As of Date: 07/22/2020 (No Known Allergies) Date Reviewed: 06/16/2020 Reviewed by: Ike Marte (Pa) - Fully Assessed Order(s):[place] SARS-COV-2 VACCINE 2D DOSE APPT [[id number]] Order #: [id number] Prescriptions as of 07/22/2020 Sig: ATORVASTATIN 20 MG TABLET Take 1 tablet by mouth once d* AMIODARONE 200 MG TABLET Take 1 tablet by mouth once d* CHOLECALCIFEROL (VITAMIN D3) * Take 1 capsule by mouth once * Patient not taking: Reported on 05/05/2020 VITAMIN A 2,500 UNIT-VIT C 10* Take 1 capsule by mouth once * RIVAROXABAN 20 MG TABLET Take 1 tablet by mouth daily * METOPROLOL SUCCINATE ER 50 MG* 50 mg by mouth every AM; 25 m* Patient taking differently: 25 mg by mouth daily URINOZINC PROSTATE FORMULA OR* Take by mouth once daily. CHOLECALCIFEROL (VITAMIN D3) * Take 1 tablet by mouth once d* OCUVITE ADULT 50+ ORAL Take by mouth. * VITAMIN C 500 MG TABLET Take one(1) tablet daily. * MULTIVITAMIN TABLET Take one(1) tablet daily. * SAW PALMETTO 1,000 MG CAPSULE Take one(1) tablet two(2) seb* * CINNAMON 500 MG CAPSULE Take one(1) tablet daily. Problem List As Of Date 07/22/2020 Noted Resolved Nonspecific abnormal finding in stool contents *10/23/2005 10/03/2015 BENIGN NEOPLASM LG BOWEL [D12.6] 10/29/2006 ELEVATED PROSTATE SPECIFIC ANTIGEN [R97.20] 06/17/2007 Meniscus, medial, derangement [M23.305] 09/19/2010 10/17/2017 Internal hemorrhoids [K64.8] 03/31/2012 BPH with obstruction/lower urinary tract sympto*03/31/2012 Benign positional vertigo [H81.10] 03/31/2012 10/17/2017 Hyperlipidemia LDL goal <130 [E78.5] 03/09/2015 Rotator cuff tear arthropathy [M75.100, M12.819]10/03/2015 10/17/2017 Persistent atrial fibrillation (HCC) [I48.19] 10/21/2018 Hypertension [I10] 02/09/2020 Chronic anticoagulation [Z79.01] 02/09/2020 Encounter Status:Open [facility] .Auto Diffon 01-12-2020 Ammonia (P) [Mass/Vol] 0.70 10 3/mcL Normal 0.09-1.40 On License Of [facility] ([place]) Comment on above: Performed By: #### C BC, ADIFF, ANEU, BMP, GFR, PRO #### [facility] [address] [place] [id number] Basophils (Bld) [#/Vol] 0.10 10 3/mcL Normal 0.00-0.27 On License Of [facility] ([place]) Comment on above: Performed By: #### C BC, ADIFF, ANEU, BMP, GFR, PRO #### [address] [address] Basophils/100 WBC (Bld) 1.1 % Normal 0.0-2.5 On License Of [facility] ([place]) Comment on above: Performed By: #### C BC, ADIFF, ANEU, BMP, GFR, PRO #### [address] [address] Eosinophils (Bld) [#/Vol] 0.20 10 3/mcL Normal 0.00-0.65 On License Of [facility] ([place]) Comment on above: Performed By: #### C BC, ADIFF, ANEU, BMP, GFR, PRO #### [address] [address] Eosinophils/100 WBC (Bld) 2.6 % Normal 0.0-6.0 On License Of [facility] ([place]) Comment on above: Performed By: #### C BC, ADIFF, ANEU, BMP, GFR, PRO #### [address] [address] Lymphocytes (Bld) [#/Vol] 2.30 10 3/mcL Normal 0.90-4.32 On License Of [facility] ([place]) Comment on above: Performed By: #### C BC, ADIFF, ANEU, BMP, GFR, PRO #### [address] [address] Lymphocytes/100 WBC (Bld) 27.7 % Normal 20.0-40.0 On License Of [facility] ([place]) Comment on above: Performed By: #### C BC, ADIFF, ANEU, BMP, GFR, PRO #### [address] [address] Monocytes/100 WBC (Bld) 8.2 % Normal 2.0-13.0 On License Of [facility] ([place]) Comment on above: Performed By: #### C BC, ADIFF, ANEU, BMP, GFR, PRO #### [address] [address] Neutrophils/100 WBC (Bld) 60.4 % Normal 50.0-75.0 On License Of [facility] ([place]) Comment on above: Performed By: #### C BC, ADIFF, ANEU, BMP, GFR, PRO #### [address] [address] .GFRon 01-12-2020 GFR >60 Normal [facility] ([place]) Comment on above: Result Comment: GFR Population mean for , Non- Americans Ages 20-29 = 116 mL/min/1.73 sq.m. Ages 30-39 = 107 mL/min/1.73 sq.m. Ages 40-49 = 99 mL/min/1.73 sq.m. Ages 50-59 = 93 mL/min/1.73 sq.m. Ages 60-69 = 85 mL/min/1.73 sq.m. Ages 70+ = 75 mL/min/1.73 sq.m. Chronic Kidney Disease: Less than 60 mL/min/1.73 square meters End Stage Renal Disease: Less than 15 mL/min/1.73 square meters Performed By: #### C BC, ADIFF, ANEU, BMP, GFR, PRO #### [address] [address] GFR Non- >60 Normal On License Of [facility] ([place]) Comment on above: Result Comment: GFR Population mean for , Non- Americans Ages 20-29 = 116 mL/min/1.73 sq.m. Ages 30-39 = 107 mL/min/1.73 sq.m. Ages 40-49 = 99 mL/min/1.73 sq.m. Ages 50-59 = 93 mL/min/1.73 sq.m. Ages 60-69 = 85 mL/min/1.73 sq.m. Ages 70+ = 75 mL/min/1.73 sq.m. Chronic Kidney Disease: Less than 60 mL/min/1.73 square meters End Stage Renal Disease: Less than 15 mL/min/1.73 square meters Performed By: #### C BC, ADIFF, ANEU, BMP, GFR, PRO #### [address] [address] .NEUABSon 01-12-2020 Neutrophils (Bld) [#/Vol] 4.90 10 3/mcL Normal 2.25-8.10 On License Of [facility] ([place] Comment on above: Performed By: #### C BC, ADIFF, ANEU, BMP, GFR, PRO #### [address] [address] BMPon 01-12-2020 Calcium [Mass/Vol] 8.9 mg/dL Normal 8.4-10.1 [facility] ([place]) Comment on above: Result Comment: No te - New Reference Range in effect 19 Performed By: #### C BC, ADIFF, ANEU, BMP, GFR, PRO #### [place] [address] Chloride [Moles/Vol] 107 mmol/L Normal 98-110 [facility] ([place]) Comment on above: Performed By: #### C BC, ADIFF, ANEU, BMP, GFR, PRO #### [place] [id number] CO2 [Moles/Vol] 25 mmol/L Normal 22-32 [facility] ([place]) Comment on above: Performed By: #### C BC, ADIFF, ANEU, BMP, GFR, PRO #### [place] [address] Creatinine [Mass/Vol] 1.05 mg/dL Normal 0.60-1.40 On License Of [facility] ([place]) Comment on above: Performed By: #### C BC, ADIFF, ANEU, BMP, GFR, PRO #### [place] [id number] Electrolyte Balance 7.0 mEq/L Normal 4.0-15.0 [facility] ([place]) Comment on above: Performed By: #### C BC, ADIFF, ANEU, BMP, GFR, PRO #### [place] [id number] Glucose [Mass/Vol] 133 mg/dL High 82-115 [facility] ([place]) Comment on above: Performed By: #### C BC, ADIFF, ANEU, BMP, GFR, PRO #### [place] [id number] Potassium [Moles/Vol] 4.5 mmol/L Normal 3.5-5.0 On License Of [facility] ([place] Comment on above: Performed By: #### C BC, ADIFF, ANEU, BMP, GFR, PRO #### [place] [id number] Sodium [Moles/Vol] 139 mmol/L Normal 136-145 [facility] ([place] Comment on above: Performed By: #### C BC, ADIFF, ANEU, BMP, GFR, PRO #### [place] [id number] Urea nitrogen [Mass/Vol] 19.0 mg/dL Normal 8.0-22.0 On License Of [facility] ([place] Comment on above: Performed By: #### C BC, ADIFF, ANEU, BMP, GFR, PRO #### [place] [id number] Urea nitrogen/Creatinine [Mass ratio] 18.1 ratio Normal 10.0-22.0 On License Of [facility] ([place] Comment on above: Performed By: #### C BC, ADIFF, ANEU, BMP, GFR, PRO #### [address] [address] CBCon 01-12-2020 Erythrocyte distribution width (RBC) [Ratio] 13.9 % Normal 11.5-15.5 On License Of [facility] ([place] Comment on above: Performed By: #### C BC, ADIFF, ANEU, BMP, GFR, PRO #### [place] [id number] Hematocrit (Bld) [Volume fraction] 50.4 % Normal 40.0-52.0 On License Of [facility] ([place] Comment on above: Performed By: #### C BC, ADIFF, ANEU, BMP, GFR, PRO #### [place] [id number] Hemoglobin (Bld) [Mass/Vol] 17.7 G/dL High 13.0-17.5 On License Of [facility] ([place] Comment on above: Performed By: #### C BC, ADIFF, ANEU, BMP, GFR, PRO #### [facility] [address] [place], [place] [address] MCH (RBC) [Entitic mass] 32.1 pg Normal 27.0-33.0 On License Of [facility] [place] Comment on above: Performed By: #### C BC, ADIFF, ANEU, BMP, GFR, PRO #### [address] [address] MCHC (RBC) [Mass/Vol] 35.1 G/dL Normal 32.0-36.0 On License Of [facility] ([place] Comment on above: Performed By: #### C BC, ADIFF, ANEU, BMP, GFR, PRO #### [place] [id number] MCV (RBC) [Entitic vol] 91.3 fL Normal 81.0-100.0 On License Of [facility] ([place] Comment on above: Performed By: #### C BC, ADIFF, ANEU, BMP, GFR, PRO #### [place] [id number] Platelet mean volume (Bld) [Entitic vol] 6.7 fL Normal 6.4-10.5 [facility] ([place]) Comment on above: Performed By: #### C BC, ADIFF, ANEU, BMP, GFR, PRO #### [address] [address] Platelets (Bld) [#/Vol] 193 10 3/mcL Normal 150-450 On License Of [facility] ([place] Comment on above: Performed By: #### C BC, ADIFF, ANEU, BMP, GFR, PRO #### [place] [id number] RBC (Bld) [#/Vol] 5.51 10 6/mcL Normal 4.50-6.00 [facility] ([place]) Comment on above: Performed By: #### C BC, ADIFF, ANEU, BMP, GFR, PRO #### [address] [address] WBC (Bld) [#/Vol] 8.10 10 3/mcL Normal 4.50-10.80 [facility] ([place]) Comment on above: Performed By: #### C BC, ADIFF, ANEU, BMP, GFR, PRO #### [place] [id number] [place] [address] PROon 01-12-2020 INR Coag (PPP) [Relative time] 1.6 {INR} Normal On License Of [facility] ([place]) Comment on above: Result Comment: [employer] (CHEST, 1991, 102:312S-25S) recommended therapeutic range for oral anticoagulant therapy is: LOW RISK: Prophylaxis of venous thrombosis INR: 2.0-3.0 Treatment of pulmonary embolism 2.0-3.0 Prevention of systemic embolism 2.0-3.0 HIGH RISK: Mechanical prosthetic valves 2.5-3.5 Performed By: #### C BC, ADIFF, ANEU, BMP, GFR, PRO #### [address] [address] PT Coag (PPP) [Time] 18.3 s High 9.0-14.6 [facility] ([place]) Comment on above: Result Comment: Effe ctive 12/09/07, Protime results may be affected by some antibiotics (i.e. Ciprofloxacin, Azithromycin, Bactrim) which may potentiate the action of oral anticoagulants, with further increases in Protime/INR. Performed By: #### C BC, ADIFF, ANEU, BMP, GFR, PRO #### [address] [address] .GFRon 11-19-2019 GFR >60 Normal [facility] ([place]) Comment on above: Result Comment: GFR Population mean for , Non- Americans Ages 20-29 = 116 mL/min/1.73 sq.m. Ages 30-39 = 107 mL/min/1.73 sq.m. Ages 40-49 = 99 mL/min/1.73 sq.m. Ages 50-59 = 93 mL/min/1.73 sq.m. Ages 60-69 = 85 mL/min/1.73 sq.m. Ages 70+ = 75 mL/min/1.73 sq.m. Chronic Kidney Disease: Less than 60 mL/min/1.73 square meters End Stage Renal Disease: Less than 15 mL/min/1.73 square meters Performed By: #### B MP, GFR, PRO #### [address] [address] GFR Non- >60 Normal On License Of [facility] ([place] Comment on above: Result Comment: GFR Population mean for , Non- Americans Ages 20-29 = 116 mL/min/1.73 sq.m. Ages 30-39 = 107 mL/min/1.73 sq.m. Ages 40-49 = 99 mL/min/1.73 sq.m. Ages 50-59 = 93 mL/min/1.73 sq.m. Ages 60-69 = 85 mL/min/1.73 sq.m. Ages 70+ = 75 mL/min/1.73 sq.m. Chronic Kidney Disease: Less than 60 mL/min/1.73 square meters End Stage Renal Disease: Less than 15 mL/min/1.73 square meters Performed By: #### B MP, GFR, PRO #### [address] [address] [facility] 11-19-2019 Creatinine [Mass/Vol] 1.11 mg/dL Normal 0.60-1.40 On License Of [facility] [place] Comment on above: Performed By: #### B MP, GFR, PRO #### [address] [address] Urea nitrogen/Creatinine [Mass ratio] 21.6 ratio Normal 10.0-22.0 On License Of [facility] ([place] Comment on above: Performed By: #### B MP, GFR, PRO #### [address] [address] Calcium [Mass/Vol] 8.6 mg/dL Normal 8.4-10.1 [facility] ([place]) Comment on above: Performed By: #### B MP, GFR, PRO #### [address] [address] Chloride [Moles/Vol] 107 mmol/L Normal 98-110 [facility] ([place]) Comment on above: Performed By: #### B MP, GFR, PRO #### [address] [address] CO2 [Moles/Vol] 26 mmol/L Normal 22-32 [facility] ([place] Comment on above: Performed By: #### B MP, GFR, PRO #### [address] [address] Electrolyte Balance 6.0 mEq/L Normal 4.0-15.0 [facility] ([place] Comment on above: Performed By: #### B MP, GFR, PRO #### [address] [address] Glucose [Mass/Vol] 117 mg/dL High 82-115 [facility] ([place] Comment on above: Performed By: #### B MP, GFR, PRO #### [address] [address] Potassium [Moles/Vol] 4.4 mmol/L Normal 3.5-5.0 On License Of [facility] ([place] Comment on above: Performed By: #### B MP, GFR, PRO #### [address] [address] Sodium [Moles/Vol] 139 mmol/L Normal 136-145 [facility] ([place] Comment on above: Performed By: #### B MP, GFR, PRO #### [address] [address] Urea nitrogen [Mass/Vol] 24.0 mg/dL High 8.0-22.0 On License Of [facility] ([place] Comment on above: Performed By: #### B MP, GFR, PRO #### [address] [address] PROon 11-19-2019 INR Coag (PPP) [Relative time] 1.7 {INR} Normal On License Of [facility] ([place] Comment on above: Result Comment: [employer] (CHEST, 1992, 102:312S-25S) recommended therapeutic range for oral anticoagulant therapy is: LOW RISK: Prophylaxis of venous thrombosis INR: 2.0-3.0 Treatment of pulmonary embolism 2.0-3.0 Prevention of systemic embolism 2.0-3.0 HIGH RISK: Mechanical prosthetic valves 2.5-3.5 Performed By: #### B MP, GFR, PRO #### [address] [address] PT Coag (PPP) [Time] 19.8 s High 9.0-14.6 [facility] ([place]) Comment on above: Result Comment: Effe ctive 12/09/07, Protime results may be affected by some antibiotics (i.e. Ciprofloxacin, Azithromycin, Bactrim) which may potentiate the action of oral anticoagulants, with further increases in Protime/INR. Performed By: #### B MP, GFR, PRO #### [place] [address] Vital Signs Date Time Vital Sign Value Performing Clinician Reyna cole 10-29-2024 09:59-0400 Body height 187.[address] Cedric Salazar MD Work Phone: [phone] [place] [id number] 10-29-2024 09:59-0400 Body mass index (BMI) [Ratio] 26.4 kg/m2 Dr. Cedric Salazar MD Work Phone: 0(656)[phone] [place] [id number] 10-29-2024 09:59-0400 Body weight 93.[address] Cedric Salazar MD Work Phone: 6(905)[phone] [place] [id number] 10-29-2024 09:59-0400 Diastolic blood pressure 72 mm[Hg] Dr. Cedric Salazar MD Work Phone: 1(510)965-908993 [place] [id number] 10-29-2024 09:59-0400 Heart rate 80 /min Dr. Cedric Salazar MD Work Phone: 0([phone])[phone] [place] [id number] 10-29-2024 09:59-0400 Respiratory rate 18 /min Dr. Cedric Salazar MD Work Phone: [phone] [place] [id number] 10-29-2024 09:59-0400 SaO2% (BldA) [Mass fraction] 94 % Dr. Cedric Salazar MD Work Phone: [phone])827-717793 [place] [id number] 10-29-2024 09:59-0400 Systolic blood pressure 107 mm[Hg] Dr. Cedric Salazar MD Work Phone: 8(870)[phone] [place] [id number] 10-23-2024 10:45-0400 Body mass index (BMI) [Ratio] 27.96 kg/m2 Ariana Florin BOARD STACKER.[employer] Work Phone: [facility] 10-23-2024 10:45-0400 Body weight 92.6 kg Ariana Florin BOARD STACKER.[employer] Work Phone: [facility] 10-23-2024 10:45-0400 Diastolic blood pressure 68 mm[Hg] Ariana Florin BOARD STACKER.[employer] Work Phone: [facility] 10-23-2024 10:45-0400 Heart rate 66 /min Ariana Florin BOARD STACKER.[employer] Work Phone: [facility] 10-23-2024 10:45-0400 Respiratory rate 14 /min Ariana Florin BOARD STACKER.[employer]ING [employer] Work Phone: [facility] 10-23-2024 10:45-0400 SaO2% (BldA) [Mass fraction] 98 % Ariana Florin BOARD STACKER.[employer]ING [employer] Work Phone: [facility] 10-23-2024 10:45-0400 Systolic blood pressure 116 mm[Hg] Ariana Florin BOARD STACKER.[employer] Work Phone: [facility] 09-24-2024 08:31-0400 Body mass index (BMI) [Ratio] 28.47 kg/m2 Cedric Salazar MD Work Phone: [facility] 09-24-2024 08:31-0400 Body weight 94.3 kg Cedric Salazar MD Work Phone: [facility] 09-24-2024 08:31-0400 Diastolic blood pressure 60 mm[Hg] Cedric Salazar MD Work Phone: [facility] 09-24-2024 08:31-0400 Heart rate 88 /min Cedric Salazar MD Work Phone: [facility] 09-24-2024 08:31-0400 Respiratory rate 20 /min Cedric Salazar MD Work Phone: [facility] 09-24-2024 08:31-0400 Systolic blood pressure 116 mm[Hg] Cedric Salazar MD Work Phone: [facility] 09-07-2024 19:04-0400 Body mass index (BMI) [Ratio] 28.23 kg/m2 Cedric Salazar MD Work Phone: [facility] 09-07-2024 19:04-0400 Body temperature 98.29 [degF] Cedric Salazar MD Work Phone: [facility] 09-07-2024 19:04-0400 Body weight 93.5 kg Cedric Salazar MD Work Phone: [facility] 09-07-2024 19:04-0400 Diastolic blood pressure 74 mm[Hg] Cedric Salazar MD Work Phone: [facility] 09-07-2024 19:04-0400 Heart rate 104 /min Cedric Salazar MD Work Phone: [facility] 09-07-2024 19:04-0400 Systolic blood pressure 124 mm[Hg] Cedric Salazar MD Work Phone: [facility] 03-04-2024 07:53-0400 Body height 182 cm Ariana Florin BOARD STACKER.[employer] Work Phone: [facility] 03-04-2024 07:53-0400 Body mass index (BMI) [Ratio] 29.22 kg/m2 Ariana Florin BOARD STACKER.[employer] Work Phone: [facility] 03-04-2024 07:53-0400 Body weight 96.8 kg Ariana Florin BOARD STACKER.[employer]ING [employer] Work Phone: [facility] 03-04-2024 07:53-0400 Diastolic blood pressure 70 mm[Hg] Ariana Florin BOARD STACKER.[employer]ING [employer]ICIAN Work Phone: [facility] 03-04-2024 07:53-0400 Heart rate 79 /min Ariana Florin BOARD STACKER.[employer]ING [employer] Work Phone: [facility] 03-04-2024 07:53-0400 Respiratory rate 18 /min Ariana Florin BOARD STACKER.[employer]ING [employer]IAN Work Phone: [facility] 03-04-2024 07:53-0400 SaO2% (BldA) [Mass fraction] 97 % Ariana Toro APRN.[employer]ING [employer] Work Phone: [facility] 03-04-2024 07:53-0400 Systolic blood pressure 128 mm[Hg] Ariana Toro APRN.[employer]ING [employer] Work Phone: [facility] 09-25-2023 09:28-0400 Body mass index (BMI) [Ratio] 27.24 kg/m2 Cedric Salazar MD Work Phone: [facility] 09-25-2023 09:28-0400 Body temperature 98.29 [degF] Cderic Salazar MD Work Phone: [facility] 09-25-2023 09:28-0400 Body weight 90.72 kg Cedric Salazar MD Work Phone: [facility] 09-25-2023 09:28-0400 Diastolic blood pressure 64 mm[Hg] Cedric Salazar MD Work Phone: [facility] 09-25-2023 09:28-0400 Heart rate 76 /min Cedric Salazar MD Work Phone: [facility] 09-25-2023 09:28-0400 Respiratory rate 18 /min Cedric Salazar MD Work Phone: [facility] 09-25-2023 09:28-0400 Systolic blood pressure 128 mm[Hg] Cedric Salazar MD Work Phone: [facility] 09-26-2022 11:11-0400 Body weight 88.36 kg Cedric Salazar MD Work Phone: [facility] 09-26-2022 11:11-0400 Diastolic blood pressure 58 mm[Hg] Cedric Salazar MD Work Phone: [facility] 09-26-2022 11:11-0400 Heart rate 76 /min Cedric Salazar MD Work Phone: [facility] 09-26-2022 11:11-0400 Respiratory rate 18 /min Cedric Salazar MD Work Phone: [facility] 09-26-2022 11:11-0400 Systolic blood pressure 112 mm[Hg] Cedric Salazar MD Work Phone: [facility] 09-21-2022 11:13-0400 Body height 187.96 cm [facility] 09-21-2022 11:13-0400 Body mass index (BMI) [Ratio] 24.9 kg/m2 09-21-2022 11:13-0400 Body temperature 97.7 [degF] [facility] 09-21-2022 11:13-0400 Body weight 87.99 kg [facility] 09-21-2022 11:13-0400 Diastolic blood pressure 64 mm[Hg] 09-21-2022 11:13-0400 Heart rate 77 /min [facility] 09-21-2022 11:13-0400 Respiratory rate 14 /min [facility] 09-21-2022 11:13-0400 SaO2% (BldA) [Mass fraction] 97 % 09-21-2022 11:13-0400 Systolic blood pressure 131 mm[Hg] 09-21-2022 10:13-0400 Body weight 88 kg Shawna Alves BOARD STACKER.ELECT[employer] MECHANICAL DESIGNER Work Phone: [facility] 09-21-2022 10:13-0400 Diastolic blood pressure 62 mm[Hg] Shawna Alves BOARD STACKER.ELECTRO MECHANICAL DESIGNER Work Phone: [facility] 09-21-2022 10:13-0400 Heart rate 84 /min Shawna Alves BOARD STACKER.ELECTRO MECHANICAL DESIGNER Work Phone: [facility] 09-21-2022 10:13-0400 Respiratory rate 16 /min Shawna Alves BOARD STACKER.ELECTRO MECHANICAL DESIGNER Work Phone: [facility] 09-21-2022 10:13-0400 SaO2% (BldA) [Mass fraction] 98 % Shawna Alves BOARD STACKER.ELECTRO MECHANICAL DESIGNER Work Phone: [facility] 09-21-2022 10:13-0400 Systolic blood pressure 118 mm[Hg] Shawna Alves BOARD STACKER.ELECTRO MECHANICAL DESIGNER Work Phone: [facility] 03-09-2022 13:23-0400 Diastolic blood pressure 68 mm[Hg] Ariana Older BOARD STACKER.[employer]ING [employer]IAN Work Phone: [facility] 03-09-2022 13:23-0400 Systolic blood pressure 120 mm[Hg] Ariana Older BOARD STACKER.[employer]ING [employer]ICIAN Work Phone: [facility] 03-09-2022 12:44-0400 Body height 182.9 cm Ariana Older BOARD STACKER.[employer]ING [employer]ICIAN Work Phone: [facility] 03-09-2022 12:44-0400 Body weight 93.89 kg Ariana Older BOARD STACKER.[employer]ING [employer]IAN Work Phone: [facility] 03-09-2022 12:44-0400 Heart rate 78 /min Ariana Older BOARD STACKER.DISPENSING [employer]ICIAN Work Phone: [facility] 03-09-2022 12:44-0400 Respiratory rate 18 /min Ariana Older BOARD STACKER.DISPENSING [employer]ICIAN Work Phone: [facility] 10-26-2021 16:16-0400 Diastolic blood pressure 64 mm[Hg] Cedric Salazar MD Work Phone: [facility] 10-26-2021 16:16-0400 Systolic blood pressure 122 mm[Hg] Cedric Salazar MD Work Phone: [facility] 10-26-2021 15:42-0400 Body temperature 97.59 [degF] Cedric Salazar MD Work Phone: [facility] 10-26-2021 15:42-0400 Body weight 92.53 kg Cedric Salazar MD Work Phone: [facility] 10-26-2021 15:42-0400 Heart rate 68 /min Cedric Salazar MD Work Phone: [facility] 10-26-2021 15:42-0400 Respiratory rate 24 /min Cedric Salazar MD Work Phone: [facility] Encounters Encounter Date Encounter Type Care Provider Facility Start: 11-03-2024 End: 11-03-2024 Nursing evaluation of patient and report Abbey Cardenas RN Work Phone: Endocrinology Comment on above: Type 2 diabetes dilan itus without complication, without long- term current use of insulin (HCC) (Primary Dx) Start: 11-03-2024 End: 11-03-2024 ambulatory CEDRIC SALAZAR Facility:[facility] Start: 11-02-2024 End: 11-04-2024 Refill Cedric Salazar MD Work Phone: Internal Medicine [place] Comment on above: Refill Request Start: 10-29-2024 End: 10-29-[address] Roly Prakash MD -[facility] Work Phone: Start: 10-29-2024 End: 10-29-2024 ambulatory Cedric Salazar [place] Start: 10-28-2024 End: 10-28-2024 ambulatory Cedric Salazar MD Work Phone: [facility] [place] Start: 10-28-2024 End: 10-28-2024 Patient encounter procedure Cedric Salazar MD Work Phone: [facility] Comment on above: Population Health Na vigation Outreach ([facility] [place] [facility] Start: 10-26-2024 End: 10-28-2024 Follow-up encounter Ariana Toro APRN.[employer]ING [employer]ICIAN Work Phone: Internal Medicine [place] Start: 10-23-2024 End: 10-23-2024 Office outpatient visit 40 minutes Ariana Toro APRN.[employer]ING [employer]ICIAN Work Phone: Internal Medicine [place] Comment on above: Urinary frequency (P rimary Dx); Glucosuria; Newly diagnosed diabetes (HCC); Hyperglycemia; BPH with obstruction/lower urinary tract symptoms Start: 10-23-2024 End: 10-23-2024 ambulatory ARIANA TORO Facility:[facility] Start: 09-28-2024 End: 09-28-2024 ambulatory Cedric Salazar MD Work Phone: [facility] [place] Start: 09-28-2024 End: 09-28-2024 Patient encounter procedure Cedric Salazar MD Work Phone: [facility] [place] Comment on above: Population Health Na vigation Outreach ([employer] [place] ) Start: 09-26-2024 End: 09-26-2024 Follow-up encounter Cedric Salazar MD Work Phone: Internal Medicine [place] Start: 09-25-2024 End: 09-25-2024 ambulatory CEDRIC SALAZAR Facility:[facility] Start: 09-24-2024 End: 09-24-2024 Office outpatient visit 15 minutes Cedric Salazar MD Work Phone: Internal Medicine [place] Comment on above: Persistent atrial fi brillation (HCC) (Primary Dx); Toe pain, chronic, left; BPH with obstruction/lower urinary tract symptoms; Primary hypertension; Impaired fasting glucose Start: 09-24-2024 ambulatory CEDRIC SALAZAR Faci lity:[facility] Start: 09-07-2024 End: 09-07-2024 ambulatory CEDRIC SALAZAR Facility:[facility] Start: 09-07-2024 End: 09-07-2024 Office outpatient visit 25 minutes Cedric Salazar MD Work Phone: [facility] [place] Comment on above: Cellulitis of right lower extremity (Primary Dx); Swelling of lower leg; Hematuria, unspecified type; Indwelling Thomas catheter present; Hyperlipidemia LDL goal <130; Persistent atrial fibrillation (HCC); Impaired fasting glucose Start: 08-12-2024 End: 08-12-2024 ambulatory Amador Ram MA [facility] Start: 08-12-2024 End: 08-12-2024 Patient encounter procedure Amador Ram MA [facility] Comment on above: Population Health Na vigation Outreach ([employer] High Risk Attempt #2) Start: 07-16-2024 End: 07-16-2024 ambulatory Amador Ram MA [facility] Start: 07-16-2024 End: 07-16-2024 Patient encounter procedure Amador Ram MA [facility] Comment on above: Population Health Na vigation Outreach ([employer] High Risk Attempt #1/) Start: 03-04-2024 End: 03-04-2024 ambulatory ARIANA Burkett FLORIN Facility:[facility] Start: 03-04-2024 End: 03-04-2024 Patient encounter procedure Ariana Burkett Florin BOARD STACKER.DISPENSING OPTICIAN Work Phone: [facility] [place] Comment on above: Medicare annual well ness visit, subsequent (Primary Dx); Persistent atrial fibrillation (HCC); Primary hypertension; Hyperlipidemia LDL goal <130; Impaired fasting glucose; Polycythemia; Memory disturbance; Encounter for immunization; Screening for depression; Encounter for screening examination for other mental health and behavioral disorders Start: 01-28-2024 End: 01-28-2024 Refill Cedric Salazar MD Work Phone: [facility] [place] Comment on above: Refill Request Start: 01-09-2024 Refill Cedric chino MD Work Phone: [facility] Comment on above: Refill Request Start: 09-25-2023 End: 09-25-2023 Patient encounter procedure Cedric Salazar MD Work Phone: [facility] [place] Comment on above: Toe pain, chronic, l eft (Primary Dx); Primary hypertension; Chronic anticoagulation; Impaired fasting glucose; Need for COVID-19 vaccine; Polycythemia; Hyperlipidemia LDL goal <130; Gait abnormality Start: 03-15-2023 Refill Cedric chino MD Work Phone: [facility] [place] Comment on above: Refill Request Start: 09-26-2022 End: 09-26-2022 Subsequent hospital visit by physician Kenisha [facility] [place] Work Phone: Radiology Comment on above: Toe pain, chronic, l eft [M79.675, G89.29] Start: 09-26-2022 End: 09-26-2022 Patient encounter procedure Cedric Salazar MD Work Phone: [facility] [place] Comment on above: Toe pain, chronic, l eft (Primary Dx); Persistent atrial fibrillation (HCC); Primary hypertension; Impaired fasting glucose; Polycythemia Start: 09-21-2022 End: 09-21-2022 Emergency department patient visit -Emergency Department Start: 09-21-2022 End: 09-21-2022 Office outpatient visit 25 minutes Shawna Alves BOARD STACKER.ELECTRO MECHANICAL DESIGNER Work Phone: [facility] [place] Comment on above: Constipation, unspec ified constipation type (Primary Dx); Rectal pain Start: 05-16-2022 Refill Cedric chino MD Work Phone: [facility] [place] Comment on above: Refill Request Start: 03-09-2022 End: 03-09-2022 Patient encounter procedure Ariana Alicea APRN.DISPENSING OPTICIAN Work Phone: [facility] [place] Comment on above: Medicare annual well ness visit, subsequent (Primary Dx); Impaired fasting glucose; Encounter for immunization Start: 03-02-2022 Telephone encounter Ariana Alicea APRNBlancheDISPENSING OPTICIAN Work Phone: [facility] [place] Comment on above: Lab Orders Start: 10-26-2021 End: 10-26-2021 Patient encounter procedure Cedric Salazar MD Work Phone: [facility] [place] Comment on above: Memory disturbance ( Primary Dx); Primary hypertension; Persistent atrial fibrillation (HCC); Hyperlipidemia LDL goal <130; Toe pain, chronic, left Start: 10-24-2021 Telephone encounter Cedric mederos MD Work Phone: [facility] [place] Comment on above: Patient Question Procedures Date Procedure Procedure Detail Performing Clinician Start: 10-23-2024 Gluc bld gluc mntr d ev cleared fda spec home use Ariana Toro BOARD STACKER.DISPENSING OPTICIAN Work Phone: Start: 10-23-2024 Urnls dip stick/tabl et rgnt auto w/o microscopy Ariana Toro BOARD STACKER.DISPENSING OPTICIAN Work Phone: Start: 03-04-2024 [employer] COVI D-19 VACCINE AGE 12+ YR (COMIRNATY) Ariana Toro BOARD STACKER.DISPENSING OPTICIAN Work Phone: Start: 03-04-2024 Adult depression screening assessment Ariana Toro BOARD STACKER.DISPENSING OPTICIAN Work Phone: Start: 09-25-2023 PFIZER-BIONTECH COVI D-19 VACCINE () AGE 12+ YR Cedric Salazar MD Work Phone: Start: 09-26-2022 Radex toe minimum 2 views Cedric Salazar MD Work Phone: Start: 03-09-2022 Hemoglobin A1c/Hemoglobin.total in Blood Ariana Older BOARD STACKER.DISPENSING OPTICIAN Work Phone: Start: 03-09-2022 PFIZER-BIONTECH COVI D-19 BIVALENT BOOSTER VACCINE, AGE 12+ YR Ariana Older BOARD STACKER.DISPENSING OPTICIAN Work Phone: Plan of Treatment Date Care Activity Detail Author Start: 09-25-2026 Diabetes Screening Diabetes Screenin g [facility] Start: 10-03-2025 Diabetes Screening Diabetes Screenin [facility] Start: 10-02-2025 Urine microalbumin profile [facility] Start: 09-25-2025 Hepatitis B surface antibody level LDL Cholesterol [facility] Start: 09-24-2025 Covid-19 Vaccine () Covid-19 Vaccine () [facility] Comment on above: Postponed from 09/02 (Declined at this time) Start: 09-08-2025 End: 09-08-2025 Patient encounter procedure 09/08/2025 8:20 AM EDT Office Visit [facility] [place] [address] [place] [address] Cedric Salazar MD [address] [place] [id number] 6 month follow-up [facility] [place] Comment on above: 6 month follow-up Start: 03-28-2025 Hemoglobin A1c measurement HbA1C [facility] Start: 03-09-2025 DIABETES SCREEN DIABETES SCREEN [facility] Start: 03-08-2025 End: 03-08-2025 Patient encounter procedure 03/08/2025 8:00 AM EDT Office Visit [facility] [place] [address] [place] [address] Ariana Toro, BOARD STACKER.DISPENSING OPTICIAN [address] [place] [address] Annual Wellness w/6 month [facility] Comment on above: Annual Wellness w/6 month Start: 03-04-2025 Anxiety Screening Anxiety Screening [facility] Start: 03-04-2025 Depression Screening Depression Scre ening [facility] Start: 02-22-2025 End: 05-24-2025 Basic metabolic 2000 panel - Serum or Plasma BASIC METABOLIC PANEL Lab Routine Type 2 diabetes mellitus without complication, without long-term current use of insulin (HCC) Expected: 02/22/2025, Expires: 05/24/2025 [facility] Work Phone: Comment on above: Expected: 02/22/2025 , Expires: 05/24/2025 Start: 02-22-2025 End: 05-24-2025 Hemoglobin A1c in Blood HEMOGLOBIN A1C Lab Routine Type 2 diabetes mellitus without complication, without long-term current use of insulin (HCC) Expected: 02/22/2025, Expires: 05/24/2025 [facility] Comment on above: Expected: 02/22/2025 , Expires: 05/24/2025 Start: 02-22-2025 End: 05-24-2025 Microalbumin/Creatinin e [Mass Ratio] in Urine ALBUMIN/CREATININE RATIO, URINE Lab Routine Type 2 diabetes mellitus without complication, without long-term current use of insulin (HCC) Expected: 02/22/2025, Expires: 05/24/2025 [facility] Comment on above: Expected: 02/22/2025 , Expires: 05/24/2025 Start: 11-30-2024 End: 11-30-2024 Patient encounter procedure 11/30/2024 2:40 PM EDT Office Visit [facility] [address] [place] [address] Ariana Toro, BOARD STACKER.DISPENSING OPTICIAN [address] [place] [address] follow up 1 month [facility] [place] Comment on above: follow up 1 month Start: 11-03-2024 End: 11-03-2024 Nursing evaluation of patient and report 11/03/2024 2:00 PM EDT Nurse Visit Endocrinology [address] [facility] [place] [address] Abbey Cardenas, RENUKA [address] [address] newly diagnoses diabetes, hyperglycemia Endocrinology Comment on above: newly diagnoses diab etes, hyperglycemia Start: 10-24-2024 DIABETES SCREEN DIABETES SCREEN [facility] Start: 09-24-2024 End: 09-24-2024 Patient encounter procedure 09/24/2024 8:40 AM EDT Office Visit [facility] [address] [place], [place] [id number] Cedric Salazar MD [address] [place] [address] 6 month follow-up [facility] [place] Comment on above: 6 month follow-up Start: 09-08-2024 End: 12-08-2024 CBC panel - Blood by Automated count COMPLETE BLOOD COUNT Lab Routine Hematuria, unspecified type Expected: 09/08/2024, Expires: 12/08/2024 [facility] Work Phone: Comment on above: Expected: 09/08/2024 , Expires: 12/08/2024 Start: 09-08-2024 End: 12-08-2024 Comprehensive metabolic 2000 panel - Serum or Plasma COMPREHENSIVE METABOLIC PANEL Lab Routine Hyperlipidemia LDL goal <130 Expected: 09/08/2024, Expires: 12/08/2024 [facility] Comment on above: Expected: 09/08/2024 , Expires: 12/08/2024 Start: 09-08-2024 End: 12-08-2024 Hemoglobin A1c in Blood HEMOGLOBIN A1C Lab Routine Impaired fasting glucose Expected: 09/08/2024, Expires: 12/08/2024 [facility] Comment on above: Expected: 09/08/2024 , Expires: 12/08/2024 Start: 09-08-2024 End: 12-08-2024 Lipid 1996 panel - Serum or Plasma LIPID PANEL, FASTING Lab Routine Hyperlipidemia LDL goal <130 Expected: 09/08/2024, Expires: 12/08/2024 [facility] Comment on above: Expected: 09/08/2024 , Expires: 12/08/2024 Start: 09-02-2024 Covid-19 Vaccine () Covid-19 Vaccine () [facility] Start: 05-27-2024 Advance Directive Discussion Advance Directive Discussion [facility] Start: 05-27-2024 Medicare Advantage Annual Wellness Visit Medicare Advantage Annual Wellness Visit [facility] Start: 03-04-2024 End: 03-04-2024 Patient encounter procedure 03/04/2024 8:00 AM EDT Office Visit [facility] [place] [address] [place], [place] [id number] Ariana Toro, BOARD STACKER.DISPENSING OPTICIAN [address] [place] [address] Medicare Wellness w/5 month follow-up [facility] [place] Comment on above: Medicare Wellness w/ 5 month follow-up Start: 01-26-2024 Covid-19 Vaccine ( season) Covid-19 Vaccine () [facility] Start: 01-26-2024 Influenza vaccination Influenza Vacc ine (#1) [facility] Start: 09-25-2023 End: 12-25-2023 CBC panel - Blood by Automated count COMPLETE BLOOD COUNT Lab Routine Chronic anticoagulation Expected: 09/25/2023, Expires: 12/25/2023 [facility] Work Phone: Comment on above: Expected: 09/25/2023 , Expires: 12/25/2023 Start: 09-25-2023 End: 12-25-2023 Comprehensive metabolic 2000 panel - Serum or Plasma COMPREHENSIVE METABOLIC PANEL Lab Routine Hyperlipidemia LDL goal <130 Expected: 09/25/2023, Expires: 12/25/2023 [facility] Comment on above: Expected: 09/25/2023 , Expires: 12/25/2023 Start: 09-25-2023 End: 12-25-2023 Hemoglobin A1c in Blood HEMOGLOBIN A1C Lab Routine Impaired fasting glucose Expected: 09/25/2023, Expires: 12/25/2023 [facility] Comment on above: Expected: 09/25/2023 , Expires: 12/25/2023 Start: 09-25-2023 End: 12-25-2023 LIPID PANEL, NONFASTING LIPID PANEL, NONFASTING Lab Routine Hyperlipidemia LDL goal <130 Expected: 09/25/2023, Expires: 12/25/2023 [facility] Comment on above: Expected: 09/25/2023 , Expires: 12/25/2023 Start: 05-27-2023 Advance Directive Discussion Advance Directive Discussion [facility] Start: 05-27-2023 Behavioral Health Screening Behavioral Health Screening [facility] Start: 03-09-2023 SHINGRIX VACCINE (2 of 3) SHINGRIX VACCINE (2 of 3) [facility] Comment on above: Postponed from 04/02 (Declined at this time) Start: 02-01-2023 DIABETES SCREEN DIABETES SCREEN [facility] Start: 09-27-2022 End: 11-27-2022 Basic metabolic 2000 panel - Serum or Plasma BASIC METABOLIC PNL Lab Routine Impaired fasting glucose Expected: 09/27/2022, Expires: 11/27/2022 [facility] Work Phone: Comment on above: Expected: 09/27/2022 , Expires: 11/27/2022 Start: 09-27-2022 End: 11-27-2022 CBC panel - Blood by Automated count CBC Lab Routine Polycythemia Expected: 09/27/2022, Expires: 11/27/2022 [facility] Work Phone: Comment on above: Expected: 09/27/2022 , Expires: 11/27/2022 Start: 09-27-2022 End: 11-27-2022 Hemoglobin A1c in Blood HGB A1C Lab Routine Impaired fasting glucose Expected: 09/27/2022, Expires: 11/27/2022 [facility] Work Phone: Comment on above: Expected: 09/27/2022 , Expires: 11/27/2022 Start: 05-27-2022 ADVANCE DIRECTIVE DISCUSSION ADVANCE DIRECTIVE DISCUSSION [facility] Start: 05-27-2022 DEPRESSION ASSESSMENT DEPRESSION ASS ESSMENT [facility] Start: 03-02-2022 End: 05-02-2022 CBC W Auto Differential panel - Blood CBC + DIFF Lab Routine Primary hypertension Expected: 03/02/2022, Expires: 05/02/2022 [facility] Work Phone: Comment on above: Expected: 03/02/2022 , Expires: 05/02/2022 Start: 03-02-2022 End: 05-02-2022 Comprehensive metabolic 2000 panel - Serum or Plasma COMP METABOLIC PANEL Lab Routine Primary hypertension Hyperlipidemia LDL goal <130 Expected: 03/02/2022, Expires: 05/02/2022 [facility] Work Phone: Comment on above: Expected: 03/02/2022 , Expires: 05/02/2022 Start: 03-02-2022 End: 05-02-2022 Lipid 1996 panel - Serum or Plasma LIPID PANEL BASIC Lab Routine Hyperlipidemia LDL goal <130 Expected: 03/02/2022, Expires: 05/02/2022 [facility] Work Phone: Comment on above: Expected: 03/02/2022 , Expires: 05/02/2022 Start: 01-25-2022 Influenza vaccination INFLUENZA (#1) [facility] Start: 10-24-2021 End: 12-24-2021 CBC W Auto Differential panel - Blood [facility] Work Phone: Comment on above: Expected: 10/24/2021 , Expires: 12/24/2021 Start: 10-24-2021 End: 12-24-2021 Comprehensive metabolic 2000 panel - Serum or Plasma [facility] Work Phone: Comment on above: Expected: 10/24/2021 , Expires: 12/24/2021 Start: 07-16-2021 COVID-19 VACCINE (4 - Booster for Pfizer series) COVID-19 VACCINE (4 - Booster for Pfizer series) [facility] Start: 05-27-2021 ADVANCE DIRECTIVE DISCUSSION ADVANCE DIRECTIVE DISCUSSION [facility] Start: 05-27-2021 DEPRESSION ASSESSMENT DEPRESSION ASS ESSMENT [facility] Start: 05-10-2021 COVID-19 VACCINE (4 - Booster for Pfizer series) COVID-19 VACCINE (4 - Booster for Pfizer series) [facility] Start: 11-06-2014 RSV Vaccine (1 - 1-dose 75+ series) RSV Vaccine (1 - 1-dose 75+ series) [facility] Start: 04-02-2012 SHINGRIX VACCINE (2 of 3) SHINGRIX VACCINE (2 of 3) [facility] Start: 1999 RSV Vaccine (1 - 1-dose 60+ series) RSV Vaccine (1 - 1-dose 60+ series) [facility] Start: 11-06-1957 Anxiety Screening Anxiety Screening [facility] Start: 11-06-1957 Depression Screening Depression Scre ening [facility] Start: 11-06-1949 Diabetic foot examination Diabetic Foot Exam [facility] Start: 11-06-1949 Glaucoma screening Dilated Retinal E xam [facility] Start: 11-06-1949 Hepatitis B screening Urine Al bumin:Creatinine Ratio [facility] 24 Hour ECG [facility] Bacteria identified in Urine by Culture BACTERIAL CULTURE, URINE Microbiology Routine Urinary frequency 10/23/2024 11:28 AM EDT [facility] Work Phone: Patient Education ED Constipation (Adult) Work Phone: Patient referral [facility] Work Phone: Urinalysis complete panel - Urine URINALYSIS, WITH MICROSCOPIC Lab Routine Urinary frequency 10/23/2024 11:28 AM EDT [facility] End: 10-26-2023 XR TOE AP/LAT/OBL LEFT XR TOE AP/LAT/OBL LEFT Radiology Routine Toe pain, chronic, left 1 Occurrences starting 09/26/2022 until 10/26/2023 [facility] Work Phone: Comment on above: 1 Occurrences starti ng 09/26/2022 until 10/26/2023 XR TOE AP/LAT/OBL LEFT XR TOE AP /LAT/OBL LEFT Radiology Routine Toe pain, chronic, left 09/26/2022 12:19 PM EDT [facility] Work Phone: [facility] Immunizations Immunization Date Immunization Notes Care Provider Neetu [email or web address] 03-04-2024 COVID-19 vaccine, ag e 12+ yr (PFIZER-BIONTECH COMIRNATY) Ariana Toro BOARD STACKER.DISPENSING OPTICIAN Work Phone: [facility] 03-04-2024 influenza, high dose seasonal, preservative-free Ariana Toro BOARD STACKER.DISPENSING OPTICIAN Work Phone: [facility] 09-25-2023 COVID-19 vaccine, ag e 12+ yr, season (PFIZER-BIONTECH) Cedric Salazar MD Work Phone: [facility] 03-04-2023 COVID-19 vaccine, ag e 12+ yr, season (PFIZER-BIONTECH) Cedric Salazar MD Work Phone: [facility] 02-25-2023 influenza (aIIV4) vaccine, age 65+ yr, quadrivalent, PF (FLUAD QUAD) Cedric Salazar MD Work Phone: [facility] 02-25-2023 influenza virus vaccine, unspecified formulation Cedric Salazar MD Work Phone: [facility] 03-09-2022 COVID-19 booster vaccine, age 12+ yr, bivalent (PFIZER-BIONTECH) Ariana Deanne BOARD STACKER.DISPENSING OPTICIAN Work Phone: [facility] 02-24-2022 influenza (aIIV4) vaccine, age 65+ yr, quadrivalent, PF (FLUAD QUAD) Cedric Salazar MD Work Phone: [facility] 03-15-2021 COVID-19 vaccine, ag e 12+ yr (PFIZER-BIONTECH - PURPLE TOP) Cedric Salazar MD Work Phone: [facility] 02-24-2021 influenza, high dose seasonal, preservative-free Cedric Salazar MD Work Phone: [facility] 07-22-2020 COVID-19 vaccine, ag e 12+ yr (PFIZER-BIONTECH - PURPLE TOP) Cedric Salazar MD Work Phone: [facility] 07-01-2020 COVID-19 vaccine, ag e 12+ yr (PFIZER-BIONTECH - PURPLE TOP) Cedric Salazar MD Work Phone: [facility] Work Phone: 02-28-2019 influenza virus vaccine, unspecified formulation Cedric Salazar MD Work Phone: [facility] Work Phone: 03-07-2018 influenza, high dose seasonal, preservative-free Cedric Salazar MD Work Phone: [facility] 02-14-2017 influenza, high dose seasonal, preservative-free Cedric aSlazar MD Work Phone: [facility] 10-03-2015 tetanus toxoid, redu syed diphtheria toxoid, and acellular pertussis vaccine, adsorbed Cedric Salazar MD Work Phone: [facility] 02-28-2015 influenza, high dose seasonal, preservative-free Cedric Salazar MD Work Phone: [facility] Work Phone: 09-28-2014 pneumococcal conjuga te vaccine, 13 valent Cedric Salazar MD Work Phone: [facility] 02-25-2014 influenza, high dose seasonal, preservative-free Cedric Salazar MD Work Phone: [facility] 03-31-2012 influenza virus vaccine, unspecified formulation Cedric Salazar MD Work Phone: [facility] 02-06-2012 zoster vaccine, live Cedric Salazar MD Work Phone: [facility] Work Phone: 03-27-2011 influenza virus vaccine, unspecified formulation Cedric Salazar MD Work Phone: [facility] Work Phone: 03-23-2010 influenza virus vaccine, unspecified formulation Cedric Salazar MD Work Phone: [facility] 03-09-2009 influenza virus vaccine, unspecified formulation Cedric Salazar MD Work Phone: [facility] Work Phone: 04-08-2008 influenza virus vaccine, unspecified formulation Cedric Salazar MD Work Phone: [facility] 05-14-2005 influenza virus vaccine, whole virus Cedric Salazar MD Work Phone: [facility] 05-14-2005 pneumococcal polysaccharide vaccine, 23 valent Cedric Salazar MD Work Phone: [facility] 05-14-2005 tetanus and diphther ia toxoids, adsorbed, preservative free, for adult use (2 Lf of tetanus toxoid and 2 Lf of diphtheria toxoid) Cedric Salazar MD Work Phone: [facility] Payers Date Payer Category Payer Self-pay [id number] 2021 Medicare HUMANA MEDICARE HU[employer]NA MEDICARE PPO [id number] 2021-[facility] [phone] [facility] [id number] [place] [address] PPO [id number] 2017 Medicare [id number] 2017 Medicare (Managed Care) [id number] 2017 Medicare [id number] Unknown [id number] Social History Date Type Detail Facility Start: 11-23-2010 End: 03-09-2022 Tobacco smoking status NHIS Ex-smoker [facility] Start: 03-07-2021 End: 10-23-2024 Alcohol intake Current non-drinker of alcohol (finding) [facility] Start: 02-02-2020 End: 03-07-2022 History SDOH Alcohol Frequency 1 [facility] Start: 02-02-2020 History SDOH Alcohol Std Drinks 98 [facility] Start: 02-02-2020 History SDOH Social Connections Phone 4 [facility] Start: 02-02-2020 End: 03-07-2022 History SDOH Social Connections Yazdanism 3 [facility] Start: 03-16-2020 End: 03-07-2022 History SDOH Financial 5 [facility] Start: 03-16-2020 End: 03-07-2022 History SDOH Transport Med 2 [facility] Start: 02-02-2020 Education 21 [facility] Start: 1940 Sex Assigned At Male C [facility] Start: 10-16-2021 End: 10-26-2021 Exposure to SARS-CoV-2 (event) Not sure [facility] Work Phone: History of tobacco use Current smoker [facility] Start: 11-23-2010 End: 03-09-2022 Tobacco use and exposure Smokeless tobacco non-user [facility] Start: 03-07-2022 History SDOH Alcohol Std Drinks 0 [facility] Start: 03-09-2022 Tobacco Comment quit 40 yrs. ago [facility] Start: 09-21-2022 Tobacco smoking stat us MSIS Unknown if ever smoked Start: 09-26-2022 End: 03-02-2023 History of Social function [facility] Start: 09-26-2022 End: 03-02-2023 [facility] [employer] [facility] Has the [place] [employer], [employer], or [employer] threatened to shut off services in your home in past 12Mo No [facility] Are you now , , , , never or living with a partner? [facility] How often to you hav e a drink containing alcohol? Never [facility] How many standard drinks containing alcohol do you have on a typical day? Patient does not drink [facility] Do you feel stress - tense, restless, nervous, or anxious, or unable to sleep at night because your mind is troubled all the time - these days [OSQ] Only a little [facility] (I/We) worried whejd er (my/our) food would run out before (I/we) got money to buy more. Never true [facility] Start: 01-31-2020 Gender identity Identifies as male gender (finding) [facility] Start: 01-31-2020 Sexual orientation Heterosexual (kathy lopez) [facility] Do you feel stress - tense, restless, nervous, or anxious, or unable to sleep at night because your mind is troubled all the time - these days [OSQ] Not at all [facility] Medical Equipment Procedure Code Equipment Code Equipment Origin al Text Equipment Identifier Dates Test blood sugar (s) 1 times daily. 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 Dx: Type 2 DM - Uncontrolled E11.65 Insulin: No [id number] Start: 10-28-2024 Functional Status Date Assessment Result Facility 11-10-2014 Are you deaf, or do you have serious difficulty hearing No 11/10/2014 3:21 PM Suni Hallman [facility] 11-10-2014 Are you blind, or do you have serious difficulty seeing, even when wearing glasses No 11/10/2014 3:21 PM Suni Hallman [facility] 11-10-2014 Do you have serious difficulty walking or climbing stairs No 11/10/2014 3:21 PM Suni Hallman [facility] 11-10-2014 Do you have difficul ty dressing or bathing No 11/10/2014 3:21 PM Suni Hallman [facility] 11-10-2014 Because of a physica l, mental, or emotional condition, do you have difficulty doing errands alone such as visiting a physician's office or shopping No 11/10/2014 3:21 PM Suni Hallman [facility] Mental Status Date Assessment Result Facility 11-10-2014 Because of a physica l, mental, or emotional condition, do you have serious difficulty concentrating, remembering, or making decisions No 11/10/2014 3:21 PM EDT Suni Burdick [facility] Clinical Notes 10-03-2015 to 11-03-2024 Abbey Cardenas RN - 11/03/2024 1:47 PM EDTTelephone Encounter - Chelsey Lowe RN - 11/02/2024 8:58 AM EDTTelephone Encounter - Chelsey Lowe RN - 11/02/2024 8:58 AM EDTPatient Instructions Note Date & Type Note Facility 11-03-2024 Note HNO ID: [id number] Author: ABBEY CARDENAS RN Service: ? Author Type: Registered Nurse Type: Progress Notes Filed: 11/03/2024 14:28 Note Text: DIABETES CARE AND EDUCATION VISIT Location: [place] Type of visit: In person individual PATIENT'S MAIN CONCERN TODAY: new diagnosis Support person present for education today: spouse Cognitive ability: Alert and oriented Motivation to learn: Interested Learning barriers identified by educator: none Method of instruction: written, verbal, and demonstration DIABETES FINDINGS: Monitoring: patient's spouse is assisting with testing reports sugars are running in the 140s-155 in morning. Discussed A1c and typical targets of 8.0% or less for someone in his age group Meal Planning: reviewed basic meal planning with awareness of carbohydrates Medications: reviewed patient's current medications HANDOUTS: Healthy You: Survival Skills and Healthy You: Planning Healthy Meals LEARNING RESPONSE: Healthy eating: Demonstrated understanding/competency today or at previous visit Being active: Demonstrated understanding/competency today or at previous visit Taking medications: Demonstrated understanding/competency today or at previous visit POSSIBLE FUTURE TOPICS: 1. DIABETES CARE AND EDUCATION PLAN: Education completed and annual diabetes education follow-up visit recommended Time Spent (Minutes): 30 This visit note will be communicated to the healthcare provider via access to shared medical record. SIGNATURE: Abbey Cardenas RN PATIENT NAME: Callie Rascon DATE: November 03, 2024 TIME: 1:47 PM [facility] 11-03-2024 History of Presen t illness Narrative DIABETES CARE AND EDUCATION VISIT Location: [place] Type of visit: In person individual PATIENT'S MAIN CONCERN TODAY: new diagnosis Support person present for education today: spouse Cognitive ability: Alert and oriented Motivation to learn: Interested Learning barriers identified by educator: none Method of instruction: written, verbal, and demonstration DIABETES FINDINGS: Monitoring: patient's spouse is assisting with testing reports sugars are running in the 140s-155 in morning. Discussed A1c and typical targets of 8.0% or less for someone in his age group Meal Planning: reviewed basic meal planning with awareness of carbohydrates Medications: reviewed patient's current medications HANDOUTS: Healthy You: Survival Skills and Healthy You: Planning Healthy Meals LEARNING RESPONSE: Healthy eating: Demonstrated understanding/competency today or at previous visit Being active: Demonstrated understanding/competency today or at previous visit Taking medications: Demonstrated understanding/competency today or at previous visit POSSIBLE FUTURE TOPICS: 1. DIABETES CARE AND EDUCATION PLAN: Education completed and annual diabetes education follow-up visit recommended Time Spent (Minutes): 30 This visit note will be communicated to the healthcare provider via access to shared medical record. SIGNATURE: Abbey Cardenas RN PATIENT NAME: Callie Rascon DATE: November 03, 2024 TIME: 1:47 PM documented in this encounter [facility] 11-02-2024 Telephone encounter Note The patient has been identified by name and date of : Yes Caregiver verified no other encounters exist for this prescription request: Yes Caregiver confirmed with patient/requestor that no other refills are due, in the near future, with this provider at this time: Yes The last office visit in the department: 10/23/2024 Does the patient have a future office visit with this provider/department: Yes 11/30/2024 Requested Prescriptions Pending Prescriptions Disp Refills atorvastatin (LIPITOR) 20 mg tablet 90 tablet 3 Sig: Take 1 tablet by mouth once daily. Chelsey Lowe RN November 02, 2024 8:59 AM [facility] 11-02-2024 Miscellaneous Notes The patient has been identified by name and date of : Yes Caregiver verified no other encounters exist for this prescription request: Yes Caregiver confirmed with patient/requestor that no other refills are due, in the near future, with this provider at this time: Yes The last office visit in the department: 10/23/2024 Does the patient have a future office visit with this provider/department: Yes 11/30/2024 Requested Prescriptions Pending Prescriptions Disp Refills atorvastatin (LIPITOR) 20 mg tablet 90 tablet 3 Sig: Take 1 tablet by mouth once daily. Chelsey Lowe RN November 02, 2024 8:59 AM documented in this encounter [facility] 10-28-2024 Telephone encounter Note notified and appointment made in month and please send supplies to [facility] Laverne Ordonez MA [facility] 10-28-2024 Miscellaneous Notes notified and appointment made in month and please send supplies to [facility] Laverne Ordonez MA He should follow-up in one month. I am going to send a prescription for glucose meter and supplies so he can start checking his blood sugar fasting daily in the morning. Write the numbers down and bring to follow-up. What pharmacy should this go to? He can wait until his appointment with the diabetic nurse educator to start checking if he needs help with the meter. No labs needed before the one month follow-up Ariana Toro APRN.CNP Called and spoke to and she said that his urinary frequency has gotten better since was seen in office. Asking if he needs sooner follow up than February which has blood work to know if dose needs adjusted? Laverne Ordonez MA Is he still experiencing urinary symptoms? Would recommend waiting to send to mail away until we know what dose he will remain on. Ariana Toro APRN.JAE Spoke to and notified of results. asked if DM medication can be re-sent to mail-away Laverne Ordonez MA documented in this encounter [facility] 10-28-2024 Note HNO ID: [id number] Author: ?, ?, ? Service: ? Author Type: ? Type: Progress Notes Filed: 10/28/2024 10:52 Note Text: POPULATION HEALTH NAVIGATION OUTREACH Action/FYI Patient outreach for Hcc gaps; VINICIUS, KED. KED has already been pended. Lvm and sent mychart to close gaps. Reason for Outreach Care Gap/HCC or Scheduling Wellness Visits Care Gaps due: Diabetic Eye Exam KED Patient Contacted: Unable or unnecessary to reach patient: Left message MyChart message sent HCC related Navigation Signature: Quita Quach October 28, 2024 10:49 AM [facility] 10-28-2024 History of Presen t illness Narrative POPULATION HEALTH NAVIGATION OUTREACH Action/FYI Patient outreach for Hcc gaps; VINICIUS, KED. KED has already been pended. Lvm and sent mychart to close gaps. Reason for Outreach Care Gap/HCC or Scheduling Wellness Visits Care Gaps due: Diabetic Eye Exam KED Patient Contacted: Unable or unnecessary to reach patient: Left message MyChart message sent HCC related Navigation Signature: Quita Quach October 28, 2024 10:49 AM documented in this encounter [facility] 10-28-2024 Telephone encounter Note He should follow-up in one month. I am going to send a prescription for glucose meter and supplies so he can start checking his blood sugar fasting daily in the morning. Write the numbers down and bring to follow-up. What pharmacy should this go to? He can wait until his appointment with the diabetic nurse educator to start checking if he needs help with the meter. No labs needed before the one month follow-up Ariana Toro APRN.DISPENSING OPTICIAN [facility] 10-28-2024 Note Patient Outreach (CORNELL JONAS) CALLIE RASCON ([id number]) 1940 M Date Time Provider Department 10/28/24 CEDRIC SALAZAR During your visit today, we recorded the following information about you: Quita Aponte 10/28/2024 10:52 AM Signed POPULATION HEALTH NAVIGATION OUTREACH Action/FYI Patient outreach for Hcc gaps; MALIK COLVIN. JOVANID has already been pended. [facility] and sent [employer] to close gaps. Reason for Outreach Care Gap/HCC or Scheduling Wellness Visits Care Gaps due: Diabetic Eye Exam KED Patient Contacted: Unable or unnecessary to reach patient: Left message MyChart message sent HCC related Navigation Signature: Quita Quach October 28, 2024 10:49 AM Allergies As of Date: 10/28/2024 (No Known Allergies) Date Reviewed: 10/23/2024 Reviewed by: Ariana Toro APRN.DISPENSING OPTICIAN - Fully Assessed Reason for Visit: Population Health Navigation Outreach [3910] Cmt: Erin Wadsworth Prescriptions as of 10/28/2024 - sulfamethoxazole-trimethoprim (BACTRIM DS) 800-160 mg per tablet Take 1 tablet by mouth two times a day for 7 days. - tamsulosin (FLOMAX) 0.4 mg Take 1 capsule by mouth daily at bedtime. - glyBURIDE 2.5 mg tablet Take 1 tablet by mouth once daily. - rivaroxaban (XARELTO) 20 mg tablet Take 1 tablet by mouth daily with dinner. - atorvastatin (LIPITOR) 20 mg tablet Take 1 tablet by mouth once daily. - OTC PRODUCT PREVAGEN MEMORY SUPPLEMENT - cholecalciferol, Vitamin D3, (VITAMIN D3) 1,250 mcg (50,000 unit) cap capsule Take 50,000 Units by mouth one time a week. - metoprolol succinate ER (TOPROL XL) 25 mg 24 hr tablet Take 1 tablet by mouth once daily. - polyethylene glycol 3350 17 gram/dose powder Take by mouth once daily. Dissolve dose in 4 - 8 ounces of liquid and take as directed. - multivit-minerals/herbal 121 (URINOZINC PROSTATE FORMULA ORAL) Take by mouth once daily. - VITAMIN C 500 MG TAB Take one(1) tablet daily. - SAW PALMETTO 1,000 MG CAP Take one(1) tablet two(2) times daily. - CINNAMON 500 MG CAP Take one(1) tablet daily. Problem List As Of Date 10/28/2024 Noted Resolved Nonspecific abnormal finding in stool contents *10/23/2005 10/03/2015 BENIGN NEOPLASM LG BOWEL [D12.6] 10/29/2006 Elevated prostate specific antigen (PSA) [R97.2*06/17/2007 12/20/2020 Meniscus, medial, derangement [M23.305] 09/19/2010 10/17/2017 Internal hemorrhoids [K64.8] 03/31/2012 BPH with obstruction/lower urinary tract sympto*03/31/2012 Benign positional vertigo [H81.10] 03/31/2012 10/17/2017 Hyperlipidemia LDL goal <130 [E78.5] 03/09/2015 Rotator cuff tear arthropathy [M75.100, M12.819]10/03/2015 10/17/2017 Persistent atrial fibrillation (HCC) [I48.19] 10/21/2018 Hypertension [I10] 02/09/2020 Chronic anticoagulation [Z79.01] 02/09/2020 Constipation [K59.00] 12/19/2020 Memory disturbance [R41.3] 10/26/2021 Impaired fasting glucose [R73.01] 03/09/2022 Polycythemia [D75.1] 09/26/2022 Toe pain, chronic, left [M79.675, G89.29] 09/25/2023 Gait abnormality [R26.9] 09/25/2023 Type 2 diabetes mellitus without complication, *09/26/2024 Encounter Status:Closed by QUITA APONTE on 10/28/24 [facility] 10-26-2024 Telephone encounter Note Called and spoke to and she said that his urinary frequency has gotten better since was seen in office. Asking if he needs sooner follow up than February which has blood work to know if dose needs adjusted? Laverne Ordonez MA [facility] 10-26-2024 Telephone encounter Note Is he still experiencing urinary symptoms? Would recommend waiting to send to mail away until we know what dose he will remain on. Ariana Toro APRN.DISPENSING OPTICIAN [facility] 10-26-2024 Telephone encounter Note Spoke to and notified of results. asked if DM medication can be re-sent to mail-away Laverne Ordonez MA [facility] 10-23-2024 Note HNO ID: [id number] Author: ARIANA TORO APRN.JAE Service: ? Author Type: Nurse Practitioner Type: Progress Notes Filed: 10/23/2024 11:55 Note Text: CC: Patient presents with: Urinary Frequency: X 4 weeks HPI Recording using [employer] software for draft documentation of the visit was discussed with the patient/authorized public service representative; all questions welcomed and answered. Patient/authorized public service representative agreed to proceed Callie is a 83-year-old male, with a recent diagnosis of diabetes, presenting with urinary frequency and urgency. Callie has been experiencing increased urinary frequency and urgency since the removal of a Thomas catheter about 6 weeks ago. He reports the urge to urinate approximately every couple hours, with each void producing only a small amount of urine, described as a tablespoon. This pattern has been consistent since the catheter removal however they are unsure if symptoms have been gradually worsening. He denies any difficulty initiating urination or the need to strain. He also denies any post-void dribbling or incontinence. Callie reports nocturia, requiring him to urinate at least twice per night. He keeps a urinal bottle beside his bed for convenience. He denies any dysuria, abdominal pain, or back pain. He also denies any fever, chills, or hematuria. The urine is described as light yellow in color, not dark, and he has not noticed any blood or blood clots. Callie admits to not drinking a significant amount of water, which may contribute to the small volume of urine produced each time. He is unsure if his bladder feels completely empty after urination. He denies any episodes of incontinence where he is unaware of urination. Callie was recently diagnosed with diabetes on 09/24, with an A1c of 6.8. No medication or treatment was started at that time. Urine dip today showed greater than or equal to 1,000 glucose, trace ketones, small blood, 100 protein, and large leukocytes. Accucheck fingerstick today was 385. Review of Systems Constitutional: Negative for activity change, appetite change, chills, diaphoresis, fatigue, fever and unexpected weight change. Gastrointestinal: Negative for abdominal pain and constipation. Endocrine: Positive for polyuria. Negative for polydipsia and polyphagia. Genitourinary: Negative for flank pain. 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 Diverticulosis of colon (without mention of hemorrhage) 2007 Elevated prostate specific antigen (PSA) 06/17/2007 Hematuria 08/22/2024 Hyperlipidemia LDL goal <130 03/09/2015 Hypertension 02/09/2020 Internal hemorrhoids 03/31/2012 Internal hemorrhoids without mention of complication Persistent atrial fibrillation (HCC) 10/21/2018 Primary cardiomyopathy (HCC) 2018 PAST SURGICAL HISTORY Procedure Laterality Date APPENDECTOMY 1953 CARDIOVERSION 2019 cataract extraction 05/27/2009 bilateral with IOL COLONOSCOPY FLX DX W/COLLJ SPEC WHEN PFRMD 03/03/2010 Colonoscopy COLONOSCOPY FLX DX W/COLLJ SPEC WHEN PFRMD 12/16/2014 Colonoscopy COLSC FLX W/RMVL OF TUMOR POLYP LESION SNARE TQ 10/29/2006 CYSTOSCOPY 08/24/2024 cystogram. RAMSES Barrera PULMONARY VEIN ISOLATION 01/12/2020 EPS, RF Ablation ALLERGIES Patient has no known allergies. MEDICATIONS rivaroxaban (XARELTO) 20 mg tablet Take 1 tablet by mouth daily with dinner. atorvastatin (LIPITOR) 20 mg tablet Take 1 tablet by mouth once daily. OTC PRODUCT PREVAGEN MEMORY SUPPLEMENT cholecalciferol, Vitamin D3, (VITAMIN D3) 1,250 mcg (50,000 unit) cap capsule Take 50,000 Units by mouth one time a week. metoprolol succinate ER (TOPROL XL) 25 mg 24 hr tablet Take 1 tablet by mouth once daily. polyethylene glycol 3350 17 gram/dose powder Take by mouth once daily. Dissolve dose in 4 - 8 ounces of liquid and take as directed. multivit-minerals/herbal 121 (URINOZINC PROSTATE FORMULA ORAL) Take by mouth once daily. VITAMIN C 500 MG TAB Take one(1) tablet daily. SAW PALMETTO 1,000 MG CAP Take one(1) tablet two(2) times daily. CINNAMON 500 MG CAP Take one(1) tablet daily. sulfamethoxazole-trimethoprim (BACTRIM DS) 800-160 mg per tablet Take 1 tablet by mouth two times a day for 7 days. tamsulosin (FLOMAX) 0.4 mg Take 1 capsule by mouth daily at bedtime. glyBURIDE 2.5 mg tablet Take 1 tablet by mouth once daily. FAMILY HISTORY Problem Relation Age of Onset Breast Cancer Mother None Father None Sister Social History Tobacco Use Smoking status: Former Smokeless tobacco: Never Tobacco comments: quit 40 yrs. ago Vaping Use Vaping status: Never Used Substance Use Topics Alcohol use: No Drug use: No BP 116/68 Pulse 66 Resp 14 Wt 92.6 kg (204 lb 2.3 oz) SpO2 98% BMI 27.96 kg/m? Physical Exam Vitals reviewed. Constitutional: (more content not included)... [facility] 10-23-2024 History of Presen t illness Narrative CC: Patient presents with: Urinary Frequency: X 4 weeks HPI Recording using [employer] software for draft documentation of the visit was discussed with the patient/authorized public service representative; all questions welcomed and answered. Patient/authorized public service representative agreed to proceed Callie is a 83-year-old male, with a recent diagnosis of diabetes, presenting with urinary frequency and urgency. Callie has been experiencing increased urinary frequency and urgency since the removal of a Thomas catheter about 6 weeks ago. He reports the urge to urinate approximately every couple hours, with each void producing only a small amount of urine, described as a tablespoon. This pattern has been consistent since the catheter removal however they are unsure if symptoms have been gradually worsening. He denies any difficulty initiating urination or the need to strain. He also denies any post-void dribbling or incontinence. Callie reports nocturia, requiring him to urinate at least twice per night. He keeps a urinal bottle beside his bed for convenience. He denies any dysuria, abdominal pain, or back pain. He also denies any fever, chills, or hematuria. The urine is described as light yellow in color, not dark, and he has not noticed any blood or blood clots. Callie admits to not drinking a significant amount of water, which may contribute to the small volume of urine produced each time. He is unsure if his bladder feels completely empty after urination. He denies any episodes of incontinence where he is unaware of urination. Callie was recently diagnosed with diabetes on 09/24, with an A1c of 6.8. No medication or treatment was started at that time. Urine dip today showed greater than or equal to 1,000 glucose, trace ketones, small blood, 100 protein, and large leukocytes. Accucheck fingerstick today was 385. Review of Systems Constitutional: Negative for activity change, appetite change, chills, diaphoresis, fatigue, fever and unexpected weight change. Gastrointestinal: Negative for abdominal pain and constipation. Endocrine: Positive for polyuria. Negative for polydipsia and polyphagia. Genitourinary: Negative for flank pain. 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 Diverticulosis of colon (without mention of hemorrhage) 2006 Elevated prostate specific antigen (PSA) 06/17/2007 Hematuria 08/22/2024 Hyperlipidemia LDL goal <130 03/09/2015 Hypertension 02/09/2020 Internal hemorrhoids 03/31/2012 Internal hemorrhoids without mention of complication Persistent atrial fibrillation (HCC) 10/21/2018 Primary cardiomyopathy (HCC) 2018 PAST SURGICAL HISTORY Procedure Laterality Date APPENDECTOMY 1953 CARDIOVERSION 2019 cataract extraction 05/27/2009 bilateral with IOL COLONOSCOPY FLX DX W/COLLJ SPEC WHEN PFRMD 03/03/2010 Colonoscopy COLONOSCOPY FLX DX W/COLLJ SPEC WHEN PFRMD 12/16/2014 Colonoscopy COLSC FLX W/RMVL OF TUMOR POLYP LESION SNARE TQ 10/29/2006 CYSTOSCOPY 08/24/2024 cystogram. RAMSES Barrera PULMONARY VEIN ISOLATION 01/12/2020 EPS, RF Ablation ALLERGIES Patient has no known allergies. MEDICATIONS rivaroxaban (XARELTO) 20 mg tablet Take 1 tablet by mouth daily with dinner. atorvastatin (LIPITOR) 20 mg tablet Take 1 tablet by mouth once daily. OTC PRODUCT PREVAGEN MEMORY SUPPLEMENT cholecalciferol, Vitamin D3, (VITAMIN D3) 1,250 mcg (50,000 unit) cap capsule Take 50,000 Units by mouth one time a week. metoprolol succinate ER (TOPROL XL) 25 mg 24 hr tablet Take 1 tablet by mouth once daily. polyethylene glycol 3350 17 gram/dose powder Take by mouth once daily. Dissolve dose in 4 - 8 ounces of liquid and take as directed. multivit-minerals/herbal 121 (URINOZINC PROSTATE FORMULA ORAL) Take by mouth once daily. VITAMIN C 500 MG TAB Take one(1) tablet daily. SAW PALMETTO 1,000 MG CAP Take one(1) tablet two(2) times daily. CINNAMON 500 MG CAP Take one(1) tablet daily. sulfamethoxazole-trimethoprim (BACTRIM DS) 800-160 mg per tablet Take 1 tablet by mouth two times a day for 7 days. tamsulosin (FLOMAX) 0.4 mg Take 1 capsule by mouth daily at bedtime. glyBURIDE 2.5 mg tablet Take 1 tablet by mouth once daily. FAMILY HISTORY Problem Relation Age of Onset Breast Cancer Mother None Father None Sister Social History Tobacco Use Smoking status: Former Smokeless tobacco: Never Tobacco comments: quit 40 yrs. ago Vaping Use Vaping status: Never Used Substance Use Topics Alcohol use: No Drug use: No BP 116/68 Pulse 66 Resp 14 Wt 92.6 kg (204 lb 2.3 oz) SpO2 98% BMI 27.96 kg/m Physical Exam Vitals reviewed. Constitutional: General: He is not in acute distress. Appearance: Normal appearance. He is not ill-appearing or toxic-appearing. Abdominal: General: There is no distension. Palpations: Abdomen is soft. There is no hepatomegaly, splenomegaly or mass (no obvious bladder distention). Tenderness: There is abdominal tenderness (mild) in the suprapubic area. There is no right CVA tenderness, left CVA tenderness, guarding or rebound. Neurological: Mental Status: He is alert. DATA REVIEWED: Most recent labs (Today) - fingerstick glucose: 385 mg/dL - Urine dip: - Glucose: >=1,000 mg/dL - Ketones: trace - Blood: small - Protein: 100 - Leukocytes: large (09/25) - Hemoglobin A1c: 6.8 Assessment/Plan 1. Urinary frequency (R35.0) BPH with obstruction/lower urinary tract symptoms (N40.1) Increased urinary frequency and urgency since Thomas catheter removal on the first of the month. No dysuria, hematuria, or nocturnal enuresis. Urine dip showed large leukocytes, small blood, and 100 protein. Abdominal exam revealed mild tenderness but no significant distension and no obvious bladder distention - Initiated Flomax to address urinary frequency and nocturia. - Started Bactrim DS for potential infection. - Sent urine sample for culture. - Follow-up appointment to be scheduled based on urine culture results. 2. Glucosuria (R81) Newly diagnosed diabetes (HCC) (E11.9) Hyperglycemia (R73.9) Urine dip showed =1000 glucose and trace ketones. Blood glucose level measured at 385 mg/dL. A1c was 6.8% on 09/24. No medication or treatment was initiated at that time. - Initiated Glyburide, to be taken in the morning with food. - Referral to medical educator for dietary and lifestyle management. - Follow-up appointment to be scheduled based on response to medication and urine culture results. I spent a total of 40 minutes on the date of the service which included preparing to see the patient, [id number] patient care, completing clinical documentation, performing a medically appropriate examination, counseling and educating the patient/family/caregiver, and ordering medications, tests, or procedures. Prescription instructions reviewed with patient as applicable. Potential red flag symptoms discussed with the patient. Reviewed appropriate action plan to take if red flag symptoms occur. Patient agreeable to treatment plan. Ariana Toro APRN.CNP documented in this encounter [facility] 10-23-2024 Instructions Ariana Toro APRN.CNP - 10/23/2024 11:29 AM EDT We discussed your urinary symptoms: - You have been experiencing frequent urination, often every 1-2 hours, with small amounts of urine each time. This started after your Tohmas catheter was removed. - A urine dip test showed no clear evidence of a urinary tract infection (UTI), but we are sending your urine for a culture to confirm. - We started you on Bactrim DS (antibiotic) to treat a potential infection. Please take this as directed. - Some of your urinary symptoms may be related to your prostate. We are starting you on Flomax (tamsulosin) to help improve frequent urination and reduce nighttime urination. Take this medication as directed. We discussed your diabetes: - Your blood sugar level today was 385, which is very high. This may be contributing to your frequent urination. - We are starting you on glyburide to help lower your blood sugar. Take this medication in the morning with food. Do not take it on an empty stomach. - I have referred you to a medical educator to help you with diet and other strategies to manage your diabetes. They will contact you to schedule this appointment. Follow-up: - We will wait for the results of your urine culture to determine if further treatment is needed for your urinary symptoms. - Please follow up with us before February to check on your urinary symptoms and diabetes management. We will decide on the timing of this follow-up after reviewing your urine culture results and your response to the medications. - Continue with your scheduled appointment with your heart doctor next week. If you have any questions or if your symptoms worsen, please contact our office. documented in this encounter [facility] 10-15-2024 Note HNO ID: [id number] Author: HANNAH HARRIS RN Service: ? Author Type: Registered Nurse Type: Progress Notes Filed: 10/15/2024 13:28 Note Text: Value Based Care Coordination Chart Review Provider Action / FYI: Unable to reach for CDM 03/08/25 PCP Upon review of patient chart, the patient is excluded from Chronic Disease Management Patient is not a candidate for CDM at this time and placed in the following status: Unable to reach Action taken: No action needed . Hannah Harris RN October 15, 2024 1:24 PM [facility] 10-15-2024 Note Patient Outreach ([facility]) CALLIE RASCON ([id number]) 1940 M Date Time Provider Department 10/15/24 HANNAH HARRIS [facility] During your visit today, we recorded the following information about you: Hannah Harris RN 10/15/2024 1:28 PM Signed Value Based Care Coordination Chart Review Provider Action / FYI: Unable to reach for CDM 03/08/25 PCP Upon review of patient chart, the patient is excluded from Chronic Disease Management Patient is not a candidate for CDM at this time and placed in the following status: Unable to reach Action taken: No action needed . Hannah Harris RN October 15, 2024 1:24 PM Allergies As of Date: 10/15/2024 (No Known Allergies) Date Reviewed: 09/07/2024 Reviewed by: Lita Melissa LPN - Fully Assessed Reason for Visit: Care Coordination [9261] Prescriptions as of 10/15/2024 - rivaroxaban (XARELTO) 20 mg tablet Take 1 tablet by mouth daily with dinner. - atorvastatin (LIPITOR) 20 mg tablet Take 1 tablet by mouth once daily. - OTC PRODUCT PREVAGEN MEMORY SUPPLEMENT - cholecalciferol, Vitamin D3, (VITAMIN D3) 1,250 mcg (50,000 unit) cap capsule Take 50,000 Units by mouth one time a week. - metoprolol succinate ER (TOPROL XL) 25 mg 24 hr tablet Take 1 tablet by mouth once daily. - polyethylene glycol 3350 17 gram/dose powder Take by mouth once daily. Dissolve dose in 4 - 8 ounces of liquid and take as directed. - multivit-minerals/herbal 121 (URINOZINC PROSTATE FORMULA ORAL) Take by mouth once daily. - VITAMIN C 500 MG TAB Take one(1) tablet daily. - SAW PALMETTO 1,000 MG CAP Take one(1) tablet two(2) times daily. - CINNAMON 500 MG CAP Take one(1) tablet daily. Problem List As Of Date 10/15/2024 Noted Resolved Nonspecific abnormal finding in stool contents *10/23/2005 10/03/2015 BENIGN NEOPLASM LG BOWEL [D12.6] 10/29/2006 Elevated prostate specific antigen (PSA) [R97.2*06/17/2007 12/20/2020 Meniscus, medial, derangement [M23.305] 09/19/2010 10/17/2017 Internal hemorrhoids [K64.8] 03/31/2012 BPH with obstruction/lower urinary tract sympto*03/31/2012 Benign positional vertigo [H81.10] 03/31/2012 10/17/2017 Hyperlipidemia LDL goal <130 [E78.5] 03/09/2015 Rotator cuff tear arthropathy [M75.100, M12.819]10/03/2015 10/17/2017 Persistent atrial fibrillation (HCC) [I48.19] 10/21/2018 Hypertension [I10] 02/09/2020 Chronic anticoagulation [Z79.01] 02/09/2020 Constipation [K59.00] 12/19/2020 Memory disturbance [R41.3] 10/26/2021 Impaired fasting glucose [R73.01] 03/09/2022 Polycythemia [D75.1] 09/26/2022 Toe pain, chronic, left [M79.675, G89.29] 09/25/2023 Gait abnormality [R26.9] 09/25/2023 Type 2 diabetes mellitus without complication, *09/26/2024 Encounter Status:Closed by HANNAH HARRIS on 10/15/24 [facility] 09-28-2024 History of Presen t illness Narrative POPULATION HEALTH NAVIGATION OUTREACH Action/FYI Patient outreach for HCC gaps; VINICIUS, KED. LVM and sent mychart to close gaps. Appointment notes updated. Reason for Outreach Care Gap/HCC or Scheduling Wellness Visits Care Gaps due: Diabetic Eye Exam KED Patient Contacted: Unable or unnecessary to reach patient: Left message MyChart message sent HCC related Updated appointment notes Navigation Signature: Quita Quach September 28, 2024 12:06 PM documented in this encounter [facility] 09-28-2024 Note HNO ID: [id number] Author: ?, ?, ? Service: ? Author Type: ? Type: Progress Notes Filed: 09/28/2024 12:09 Note Text: POPULATION HEALTH NAVIGATION OUTREACH Action/FYI Patient outreach for HCC gaps; VINICIUS, KED. LVM and sent mychart to close gaps. Appointment notes updated. Reason for Outreach Care Gap/HCC or Scheduling Wellness Visits Care Gaps due: Diabetic Eye Exam KED Patient Contacted: Unable or unnecessary to reach patient: Left message MyChart message sent HCC related Updated appointment notes Navigation Signature: Quita Quach September 28, 2024 12:06 PM [facility] 09-28-2024 Note Patient Outreach ([facility]) CALLIE RASCON ([id number]) 1940 M Date Time Provider Department 09/28/24 CEDRIC SALAZAR During your visit today, we recorded the following information about you: Quita Aponte 09/28/2024 12:09 PM Signed POPULATION HEALTH NAVIGATION OUTREACH Action/FYI Patient outreach for HCC gaps; VINICIUS, KED. LVM and sent mychart to close gaps. Appointment notes updated. Reason for Outreach Care Gap/HCC or Scheduling Wellness Visits Care Gaps due: Diabetic Eye Exam KED Patient Contacted: Unable or unnecessary to reach patient: Left message MyChart message sent HCC related Updated appointment notes Navigation Signature: Quita Guzman Pss September 28, 2024 12:06 PM Allergies As of Date: 09/28/2024 (No Known Allergies) Date Reviewed: 09/07/2024 Reviewed by: Lita Melissa LPN - Fully Assessed Reason for Visit: Population Health Navigation Outreach [3910] Cmt: Erin Wadsworth Prescriptions as of 09/28/2024 - rivaroxaban (XARELTO) 20 mg tablet Take 1 tablet by mouth daily with dinner. - atorvastatin (LIPITOR) 20 mg tablet Take 1 tablet by mouth once daily. - OTC PRODUCT PREVAGEN MEMORY SUPPLEMENT - cholecalciferol, Vitamin D3, (VITAMIN D3) 1,250 mcg (50,000 unit) cap capsule Take 50,000 Units by mouth one time a week. - metoprolol succinate ER (TOPROL XL) 25 mg 24 hr tablet Take 1 tablet by mouth once daily. - polyethylene glycol 3350 17 gram/dose powder Take by mouth once daily. Dissolve dose in 4 - 8 ounces of liquid and take as directed. - multivit-minerals/herbal 121 (URINOZINC PROSTATE FORMULA ORAL) Take by mouth once daily. - VITAMIN C 500 MG TAB Take one(1) tablet daily. - SAW PALMETTO 1,000 MG CAP Take one(1) tablet two(2) times daily. - CINNAMON 500 MG CAP Take one(1) tablet daily. Problem List As Of Date 09/28/2024 Noted Resolved Nonspecific abnormal finding in stool contents *10/23/2005 10/03/2015 BENIGN NEOPLASM LG BOWEL [D12.6] 10/29/2006 Elevated prostate specific antigen (PSA) [R97.2*06/17/2007 12/20/2020 Meniscus, medial, derangement [M23.305] 09/19/2010 10/17/2017 Internal hemorrhoids [K64.8] 03/31/2012 BPH with obstruction/lower urinary tract sympto*03/31/2012 Benign positional vertigo [H81.10] 03/31/2012 10/17/2017 Hyperlipidemia LDL goal <130 [E78.5] 03/09/2015 Rotator cuff tear arthropathy [M75.100, M12.819]10/03/2015 10/17/2017 Persistent atrial fibrillation (HCC) [I48.19] 10/21/2018 Hypertension [I10] 02/09/2020 Chronic anticoagulation [Z79.01] 02/09/2020 Constipation [K59.00] 12/19/2020 Memory disturbance [R41.3] 10/26/2021 Impaired fasting glucose [R73.01] 03/09/2022 Polycythemia [D75.1] 09/26/2022 Toe pain, chronic, left [M79.675, G89.29] 09/25/2023 Gait abnormality [R26.9] 09/25/2023 Type 2 diabetes mellitus without complication, *09/26/2024 Encounter Status:Closed by QUITA APONTE on 09/28/24 [facility] 09-24-2024 Instructions Cedric Salazar MD - 09/24/2024 8:52 AM EDT FASTING BLOOD WORK SOON. documented in this encounter [facility] 09-24-2024 Note HNO ID: [id number] Author: CEDRIC SALAZAR MD Service: ? Author Type: Physician Type: Progress Notes Filed: 09/24/2024 09:02 Note Text: This note was created using [employer]. Subjective Callie Rascon is a 83 year old male here with his . He was doing well. His cellulitis was healed. Urine retention resolved. He did not do his fasting labs. Their main concern was chronic left 2nd toe pain. He was taking acetaminophen practically on a daily basis. They saw podiatry 2 years ago and were just told this was arthritis. was interested in some form of nerve block. 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 Sangita Prakash in several weeks. Review of Systems Constitutional: Negative for fatigue and fever. Respiratory: Negative for shortness of breath. Cardiovascular: Positive for leg swelling. Negative for chest pain and palpitations. Genitourinary: Negative for difficulty urinating and dysuria. Neurological: Negative for dizziness. 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 ago Vaping Use Vaping status: Never Used Substance Use Topics Alcohol use: No Drug use: No Current Outpatient Medications Medication Sig rivaroxaban (XARELTO) 20 mg tablet Take 1 tablet by mouth daily with dinner. atorvastatin (LIPITOR) 20 mg tablet Take 1 tablet by mouth once daily. OTC PRODUCT PREVAGEN MEMORY SUPPLEMENT cholecalciferol, Vitamin D3, (VITAMIN D3) 1,250 mcg (50,000 unit) cap capsule Take 50,000 Units by mouth one time a week. metoprolol succinate ER (TOPROL XL) 25 mg 24 hr tablet Take 1 tablet by mouth once daily. polyethylene glycol 3350 17 gram/dose powder Take by mouth once daily. Dissolve dose in 4 - 8 ounces of liquid and take as directed. multivit-minerals/herbal 121 (URINOZINC PROSTATE FORMULA ORAL) Take by mouth once daily. VITAMIN C 500 MG TAB Take one(1) tablet daily. SAW PALMETTO 1,000 MG CAP Take one(1) tablet two(2) times daily. CINNAMON 500 MG CAP Take one(1) tablet daily. No current facility-administered medications for this visit. Objective BP 116/60 (BP Site: Left Arm, BP Position: Sitting, BP Cuff Size: Large Adult) Pulse 88 Resp 20 Wt 94.3 kg (207 lb 14.3 oz) BMI 28.47 kg/m? Physical Exam Constitutional: General: He is not in acute distress. Appearance: He is not ill-appearing. HENT: Head: Normocephalic. Cardiovascular: Rate and Rhythm: Tachycardia present. Rhythm irregularly irregular. Heart sounds: S1 normal and S2 normal. No murmur heard. No gallop. Pulmonary: Breath sounds: Normal breath sounds. Musculoskeletal: General: No tenderness. Right lower leg: No edema. Left lower leg: No edema. Skin: Comments: Stasis pigmentation of both legs. Neurological: General: No focal deficit present. Mental Status: He is alert. Gait: Gait abnormal. Comments: Ambulatory with rollator. Assessment and Plan 1. Persistent atrial fibrillation (HCC) - ICD9: 427.31, ICD10: I48.19 (primary diagnosis) - See Dr. Prakash as scheduled. 2. Toe pain, chronic, left - ICD9: 729.5, 338.29, ICD10: M79.675, G89.29 - I will reach out to podiatry regarding nerve block. 3. BPH with obstruction/lower urinary tract symptoms - ICD9: 600.01, 599.69, ICD10: N40.1, N13.8 - Controlled. 4. Primary hypertension - ICD9: 401.9, ICD10: I10 - Controlled - Continue current medications 5. Impaired fasting glucose - ICD9: 790.21, ICD10: R73.01 - Labs to be done. Cedric Salazar MD [facility] 09-24-2024 History of Presen t illness Narrative This note was created using [employer]. Subjective Callie Rascon is a 83 year old male here with his . He was doing well. His cellulitis was healed. Urine retention resolved. He did not do his fasting labs. Their main concern was chronic left 2nd toe pain. He was taking acetaminophen practically on a daily basis. They saw podiatry 2 years ago and were just told this was arthritis. was interested in some form of nerve block. 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 Sangita Prakash in several weeks. Review of Systems Constitutional: Negative for fatigue and fever. Respiratory: Negative for shortness of breath. Cardiovascular: Positive for leg swelling. Negative for chest pain and palpitations. Genitourinary: Negative for difficulty urinating and dysuria. Neurological: Negative for dizziness. 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 ago Vaping Use Vaping status: Never Used Substance Use Topics Alcohol use: No Drug use: No Current Outpatient Medications Medication Sig rivaroxaban (XARELTO) 20 mg tablet Take 1 tablet by mouth daily with dinner. atorvastatin (LIPITOR) 20 mg tablet Take 1 tablet by mouth once daily. OTC PRODUCT PREVAGEN MEMORY SUPPLEMENT cholecalciferol, Vitamin D3, (VITAMIN D3) 1,250 mcg (50,000 unit) cap capsule Take 50,000 Units by mouth one time a week. metoprolol succinate ER (TOPROL XL) 25 mg 24 hr tablet Take 1 tablet by mouth once daily. polyethylene glycol 3350 17 gram/dose powder Take by mouth once daily. Dissolve dose in 4 - 8 ounces of liquid and take as directed. multivit-minerals/herbal 121 (URINOZINC PROSTATE FORMULA ORAL) Take by mouth once daily. VITAMIN C 500 MG TAB Take one(1) tablet daily. SAW PALMETTO 1,000 MG CAP Take one(1) tablet two(2) times daily. CINNAMON 500 MG CAP Take one(1) tablet daily. No current facility-administered medications for this visit. Objective BP 116/60 (BP Site: Left Arm, BP Position: Sitting, BP Cuff Size: Large Adult) Pulse 88 Resp 20 Wt 94.3 kg (207 lb 14.3 oz) BMI 28.47 kg/m Physical Exam Constitutional: General: He is not in acute distress. Appearance: He is not ill-appearing. HENT: Head: Normocephalic. Cardiovascular: Rate and Rhythm: Tachycardia present. Rhythm irregularly irregular. Heart sounds: S1 normal and S2 normal. No murmur heard. No gallop. Pulmonary: Breath sounds: Normal breath sounds. Musculoskeletal: General: No tenderness. Right lower leg: No edema. Left lower leg: No edema. Skin: Comments: Stasis pigmentation of both legs. Neurological: General: No focal deficit present. Mental Status: He is alert. Gait: Gait abnormal. Comments: Ambulatory with rollator. Assessment and Plan 1. Persistent atrial fibrillation (HCC) - ICD9: 427.31, ICD10: I48.19 (primary diagnosis) - See Dr. Prakash as scheduled. 2. Toe pain, chronic, left - ICD9: 729.5, 338.29, ICD10: M79.675, G89.29 - I will reach out to podiatry regarding nerve block. 3. BPH with obstruction/lower urinary tract symptoms - ICD9: 600.01, 599.69, ICD10: N40.1, N13.8 - Controlled. 4. Primary hypertension - ICD9: 401.9, ICD10: I10 - Controlled - Continue current medications 5. Impaired fasting glucose - ICD9: 790.21, ICD10: R73.01 - Labs to be done. Cedric Salazar MD documented in this encounter [facility] 09-07-2024 Note HNO ID: [id number] Author: LITA MELISSA LPN Service: ? Author Type: LICENSED NURSE Type: Progress Notes Filed: 09/08/2024 08:10 Note Text: Discontinued thomas per Dr. Salazar order, Patient tolerated well. Lita Melissa LPN [facility] 09-07-2024 History of Presen t illness Narrative Discontinued thomas per Dr. Salazar order, Patient tolerated well. Lita Melissa LPN This note was created using [employer]. Subjective Patient presents with: Hospital F/U Recording using [employer] software for draft documentation of the visit was discussed with the patient/authorized public service representative; all questions welcomed and answered. Patient/authorized public service representative agreed to proceed Callie is a 83-year-old male, here with his , presenting for follow-up after hospitalization in [place], [place]. Callie was recently hospitalized for 5 days 08/22 to 08/25/24 at [facility] due to cellulitis affecting both legs, especially the right. Prior to hospitalization, he visited urgent care twice and was prescribed oral antibiotics, which provided some improvement. However, during the third visit, he was advised to go to the hospital, where he received IV antibiotics. He has since completed the prescribed antibiotic course and is not currently on any antibiotics. Other diagnoses were hematuria, leg pain and swelling, and therapy failure. His apixiban and atorvastatin were held due to medication interactions. He had a urinary catheter was placed during his hospital stay to facilitate bladder emptying while he was on IV therapy and unable to get out of bed. He had a cystoscopy, presumably with negative findings. The catheter has been in place for 2 weeks, and there has been no hematuria or abdominal pain reported. No medications were prescribed for bladder issues. He was advised to discontinue the thomas after 2 weeks. He completed the antibiotic course of cefuroxime and minocycline for 7 days. . Review of Systems Constitutional: Negative for chills, diaphoresis and fever. Respiratory: Negative for shortness of breath. Cardiovascular: Negative for chest pain and palpitations. Gastrointestinal: Negative for constipation, diarrhea, nausea and vomiting. Genitourinary: Negative for difficulty urinating, dysuria and hematuria. Skin: Positive for color change. Negative for rash and wound. 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 RAMSES Barrera PULMONARY VEIN ISOLATION 01/12/2020 EPS, RF Ablation Social History Tobacco Use Smoking status: Former Smokeless tobacco: Never Tobacco comments: quit 40 yrs. ago Vaping Use Vaping status: Never Used Substance Use Topics Alcohol use: No Drug use: No Current Outpatient Medications Medication Sig OTC PRODUCT PREVAGEN MEMORY SUPPLEMENT cholecalciferol, Vitamin D3, (VITAMIN D3) 1,250 mcg (50,000 unit) cap capsule Take 50,000 Units by mouth one time a week. metoprolol succinate ER (TOPROL XL) 25 mg 24 hr tablet Take 1 tablet by mouth once daily. rivaroxaban (XARELTO) 20 mg tablet Take 1 tablet by mouth daily with dinner. (Patient taking differently: Take 20 mg by mouth daily with dinner. Currently HELD) atorvastatin (LIPITOR) 20 mg tablet Take 1 tablet by mouth once daily. (Patient taking differently: Take 20 mg by mouth once daily. Currently HELD) polyethylene glycol 3350 17 gram/dose powder Take by mouth once daily. Dissolve dose in 4 - 8 ounces of liquid and take as directed. multivit-minerals/herbal 121 (URINOZINC PROSTATE FORMULA ORAL) Take by mouth once daily. VITAMIN C 500 MG TAB Take one(1) tablet daily. SAW PALMETTO 1,000 MG CAP Take one(1) tablet two(2) times daily. CINNAMON 500 MG CAP Take one(1) tablet daily. No current facility-administered medications for this visit. Objective BP 124/74 (BP Position: Sitting, BP Cuff Size: Large Adult) Pulse 104 Temp 36.8 C (98.3 F) (Right Tympanic) Wt 93.5 kg (206 lb 2.1 oz) BMI 28.23 kg/m Physical Exam Constitutional: General: He is not in acute distress. Appearance: He is not ill-appearing. Cardiovascular: Rate and Rhythm: Tachycardia present. Rhythm irregular. Heart sounds: S1 normal and S2 normal. No murmur heard. No gallop. Pulmonary: Breath sounds: Normal breath sounds. Abdominal: General: There is no distension. Palpations: Abdomen is soft. Tenderness: There is no abdominal tenderness. Genitourinary: Comments: Indwelling thomas in place. Urine yellow. Musculoskeletal: Right lower le+ Edema present. Left lower leg: No edema. Skin: Findings: No erythema. Comments: Stasis pigmentation, right more than left. Lichenification of tibial skin right more than left. No drainage. Neurological: Mental Status: He is alert. Assessment and Plan 1. Cellulitis of right lower extremity - ICD9: 682.6, ICD10: L03.115 (primary diagnosis) - Resolved. - Skin moisturizers. 2. Swelling of lower leg - ICD9: 729.81, ICD10: M79.89 - Resolved. Elevate legs. 3. Hematuria, unspecified type - ICD9: 599.70, ICD10: R31.9 Resolved. - COMPLETE BLOOD COUNT 4. Indwelling Thomas catheter present - ICD9: V45.89, ICD10: Z97.8 - Removed. Patient was not prescribed an alpha zeina. Call for symptoms. 5. Hyperlipidemia LDL goal <130 - ICD9: 272.4, ICD10: E78.5 - Control undetermined, due for labs - Resume medication. - ATORVASTATIN 20 MG TABLET - COMPREHENSIVE METABOLIC PANEL - LIPID PANEL, FASTING 6. Persistent atrial fibrillation (HCC) - ICD9: 427.31, ICD10: I48.19 Resume medication. - RIVAROXABAN 20 MG TABLET 7. Impaired fasting glucose - ICD9: 790.21, ICD10: R73.01 Recheck. - HEMOGLOBIN A1C Cedric Salazar MD documented in this encounter [facility] 09-07-2024 Instructions Cedric Salazar MD - 09/07/2024 7:49 PM EDT We discussed your recent hospitalization for cellulitis and follow-up care: - Your cellulitis has improved, and the redness in your legs has resolved. You do not need additional antibiotics at this time. - Please apply an [id number] moisturizing cream to your legs to keep the skin hydrated. Avoid scratching or picking at the skin. We discussed your urinary catheter: - The urinary catheter was placed during your hospital stay and has been in place for 2 weeks. It was removed during today s visit. - If you experience any issues with urination, such as difficulty urinating, blood in the urine, or pain, please contact our office. We discussed your medications: - You may resume taking Xarelto (blood thinner) and atorvastatin (Lipitor) as previously prescribed. - No new medications were prescribed today. We discussed follow-up care: - I have ordered fasting blood work for you. Please complete this before your next visit. - Your next appointment is scheduled for next month as planned. Let us know if you have any new or worsening symptoms or concerns before your next visit. documented in this encounter [facility] 09-07-2024 Note HNO ID: [id number] Author: CEDRIC SALAZAR MD Service: ? Author Type: Physician Type: Progress Notes Filed: 09/08/2024 08:10 Note Text: This note was created using NoteWriter. Subjective Patient presents with: Hospital F/U Recording using Evoleen software for draft documentation of the visit was discussed with the patient/authorized public service representative; all questions welcomed and answered. Patient/authorized public service representative agreed to proceed Callie is a 83-year-old male, here with his , presenting for follow-up after hospitalization in [place], [place]. Callie was recently hospitalized for 5 days 08/22 to 08/25/24 at [facility] due to cellulitis affecting both legs, especially the right. Prior to hospitalization, he visited urgent care twice and was prescribed oral antibiotics, which provided some improvement. However, during the third visit, he was advised to go to the hospital, where he received IV antibiotics. He has since completed the prescribed antibiotic course and is not currently on any antibiotics. Other diagnoses were hematuria, leg pain and swelling, and therapy failure. His apixiban and atorvastatin were held due to medication interactions. He had a urinary catheter was placed during his hospital stay to facilitate bladder emptying while he was on IV therapy and unable to get out of bed. He had a cystoscopy, presumably with negative findings. The catheter has been in place for 2 weeks, and there has been no hematuria or abdominal pain reported. No medications were prescribed for bladder issues. He was advised to discontinue the thomas after 2 weeks. He completed the antibiotic course of cefuroxime and minocycline for 7 days. . Review of Systems Constitutional: Negative for chills, diaphoresis and fever. Respiratory: Negative for shortness of breath. Cardiovascular: Negative for chest pain and palpitations. Gastrointestinal: Negative for constipation, diarrhea, nausea and vomiting. Genitourinary: Negative for difficulty urinating, dysuria and hematuria. Skin: Positive for color change. Negative for rash and wound. 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 RAMSES Barrera PULMONARY VEIN ISOLATION 01/12/2020 EPS, RF Ablation Social History Tobacco Use Smoking status: Former Smokeless tobacco: Never Tobacco comments: quit 40 yrs. ago Vaping Use Vaping status: Never Used Substance Use Topics Alcohol use: No Drug use: No Current Outpatient Medications Medication Sig OTC PRODUCT PREVAGEN MEMORY SUPPLEMENT cholecalciferol, Vitamin D3, (VITAMIN D3) 1,250 mcg (50,000 unit) cap capsule Take 50,000 Units by mouth one time a week. metoprolol succinate ER (TOPROL XL) 25 mg 24 hr tablet Take 1 tablet by mouth once daily. rivaroxaban (XARELTO) 20 mg tablet Take 1 tablet by mouth daily with dinner. (Patient taking differently: Take 20 mg by mouth daily with dinner. Currently HELD) atorvastatin (LIPITOR) 20 mg tablet Take 1 tablet by mouth once daily. (Patient taking differently: Take 20 mg by mouth once daily. Currently HELD) polyethylene glycol 3350 17 gram/dose powder Take by mouth once daily. Dissolve dose in 4 - 8 ounces of liquid and take as directed. multivit-minerals/herbal 121 (URINOZINC PROSTATE FORMULA ORAL) Take by mouth once daily. VITAMIN C 500 MG TAB Take one(1) tablet daily. SAW PALMETTO 1,000 MG CAP Take one(1) tablet two(2) times daily. CINNAMON 500 MG CAP Take one(1) tablet daily. No current facility-administered medications for this visit. Objective BP 124/74 (BP Position: Sitting, BP Cuff Size: Large Adult) Pulse 104 Temp 36.8 ?C (98.3 ?F) (Right Tympanic) Wt 93.5 kg (206 lb 2.1 oz) BMI 28.23 kg/m? Physical Exam Constitutional: General: He is not in acute distress. Appearance: He is not ill-appearing. Cardiovascular: Rate and Rhythm: Tachycardia present. Rhythm irregular. Heart sounds: S1 normal and S2 normal. No murmur heard. No gallop. Pulmonary: Breath sounds: Normal breath sounds. Abdominal: General: There is no distension. Palpations: Abdomen is soft. Tenderness: There is no abdominal tenderness. Genitourinary: Comments: Indwelling thomas in place. Urine yellow. Musculoskeletal: Right low (more content not included)... [facility] 08-12-2024 Note HNO ID: [id number] Author: AMADOR RAM MA Service: ? Author Type: Wet Sander Type: Progress Notes Filed: 08/12/2024 09:31 Note Text: POPULATION HEALTH NAVIGATION OUTREACH Action/FYI [employer] High Risk Outreach - Attempt # 2 Last PCP Visit: 03/04/2024 Per last office note: None Has Appointment Scheduled: Yes, Follow Up Outreach to Schedule: Medicare Wellness February Health Maintenance Topics Due: None Outcomes: Called patient - left message on voice mail and sent MyChart message. Reason for Outreach Care Gap/HCC or Scheduling Wellness Visits Care Gaps due: Medicare Annual Wellness Visit Patient Contacted: Unable or unnecessary to reach patient: Left message MyChart message sent Navigation Signature: Amador Ram MA August 12, 2024 9:26 AM [facility] 08-12-2024 History of Presen t illness Narrative POPULATION HEALTH NAVIGATION OUTREACH Action/FYI [employer] High Risk Outreach - Attempt # 2 Last PCP Visit: 03/04/2024 Per last office note: None Has Appointment Scheduled: Yes, Follow Up Outreach to Schedule: Medicare Wellness - February Health Maintenance Topics Due: None Outcomes: Called patient - left message on voice mail and sent MyChart message. Reason for Outreach Care Gap/HCC or Scheduling Wellness Visits Care Gaps due: Medicare Annual Wellness Visit Patient Contacted: Unable or unnecessary to reach patient: Left message MyChart message sent Navigation Signature: Amador Ram MA August 12, 2024 9:26 AM documented in this encounter [facility] 08-12-2024 Note Patient Outreach (NE TNAV) CALLIE RASCON ([id number]) 1940 M Date Time Provider Department 08/12/24 AMADOR RAM During your visit today, we recorded the following information about you: Amador Ram MA 08/12/2024 9:31 AM Signed POPULATION HEALTH NAVIGATION OUTREACH Action/FYI [employer] High Risk Outreach - Attempt # 2 Last PCP Visit: 03/04/2024 Per last office note: None Has Appointment Scheduled: Yes, Follow Up Outreach to Schedule: Medicare Wellness - February Health Maintenance Topics Due: None Outcomes: Called patient - left message on voice mail and sent HooftyMatcht message. Reason for Outreach Care Gap/HCC or Scheduling Wellness Visits Care Gaps due: Medicare Annual Wellness Visit Patient Contacted: Unable or unnecessary to reach patient: Left message MyChart message sent Navigation Signature: Amador Ram MA August 12, 2024 9:26 AM Allergies As of Date: 08/12/2024 (No Known Allergies) Date Reviewed: 03/04/2024 Reviewed by: Ariana Toro APRN.DISPENSING OPTICIAN - Fully Assessed Reason for Visit: Population Health Navigation Outreach [3910] Cmt: [employer] High Risk Attempt #2 Prescriptions as of 08/12/2024 - OTC PRODUCT PREVAGEN MEMORY SUPPLEMENT - cholecalciferol, Vitamin D3, (VITAMIN D3) 1,250 mcg (50,000 unit) cap capsule Take 50,000 Units by mouth one time a week. - metoprolol succinate ER (TOPROL XL) 25 mg 24 hr tablet Take 1 tablet by mouth once daily. - rivaroxaban (XARELTO) 20 mg tablet Take 1 tablet by mouth daily with dinner. - atorvastatin (LIPITOR) 20 mg tablet Take 1 tablet by mouth once daily. - polyethylene glycol 3350 17 gram/dose powder Take by mouth once daily. Dissolve dose in 4 - 8 ounces of liquid and take as directed. - multivit-minerals/herbal 121 (URINOZINC PROSTATE FORMULA ORAL) Take by mouth once daily. - VITAMIN C 500 MG TAB Take one(1) tablet daily. - SAW PALMETTO 1,000 MG CAP Take one(1) tablet two(2) times daily. - CINNAMON 500 MG CAP Take one(1) tablet daily. Problem List As Of Date 08/12/2024 Noted Resolved Nonspecific abnormal finding in stool contents *10/23/2005 10/03/2015 BENIGN NEOPLASM LG BOWEL [D12.6] 10/29/2006 Elevated prostate specific antigen (PSA) [R97.2*06/17/2007 12/20/2020 Meniscus, medial, derangement [M23.305] 09/19/2010 10/17/2017 Internal hemorrhoids [K64.8] 03/31/2012 BPH with obstruction/lower urinary tract sympto*03/31/2012 Benign positional vertigo [H81.10] 03/31/2012 10/17/2017 Hyperlipidemia LDL goal <130 [E78.5] 03/09/2015 Rotator cuff tear arthropathy [M75.100, M12.819]10/03/2015 10/17/2017 Persistent atrial fibrillation (HCC) [I48.19] 10/21/2018 Hypertension [I10] 02/09/2020 Chronic anticoagulation [Z79.01] 02/09/2020 Constipation [K59.00] 12/19/2020 Memory disturbance [R41.3] 10/26/2021 Impaired fasting glucose [R73.01] 03/09/2022 Polycythemia [D75.1] 09/26/2022 Toe pain, chronic, left [M79.675, G89.29] 09/25/2023 Gait abnormality [R26.9] 09/25/2023 Encounter Status:Closed by AMADOR RAM on 08/12/24 [facility] 07-16-2024 Note HNO ID: [id number] Author: AMADOR RAM MA Service: ? Author Type: Wet Sander Type: Progress Notes Filed: 07/16/2024 08:53 Note Text: POPULATION HEALTH NAVIGATION OUTREACH Action/[employer] High Risk Outreach - Attempt # 1 Last PCP Visit: 03/04/2024 Per last office note: None Has Appointment Scheduled: Yes, Follow Up Outreach to Schedule: Medicare Wellness - February Health Maintenance Topics Due: None Outcomes: Called patient - left message on voice mail and sent Swapdomhart message. Reason for Outreach Care Gap/HCC or Scheduling Wellness Visits Care Gaps due: Medicare Annual Wellness Visit Patient Contacted: Unable or unnecessary to reach patient: Left message MyChart message sent Navigation Signature: Amador Ram MA July 16, 2024 8:48 AM [facility] 07-16-2024 History of Presen t illness Narrative POPULATION HEALTH NAVIGATION OUTREACH Action/[employer] High Risk Outreach - Attempt # 1 Last PCP Visit: 03/04/2024 Per last office note: None Has Appointment Scheduled: Yes, Follow Up Outreach to Schedule: Medicare Wellness February Health Maintenance Topics Due: None Outcomes: Called patient - left message on voice mail and sent MyChart message. Reason for Outreach Care Gap/HCC or Scheduling Wellness Visits Care Gaps due: Medicare Annual Wellness Visit Patient Contacted: Unable or unnecessary to reach patient: Left message MyChart message sent Navigation Signature: Amador Ram MA July 16, 2024 8:48 AM documented in this encounter [facility] 07-16-2024 Note Patient Outreach (NE TNAV) CALLIE RASCON ([id number]) 1940 M Date Time Provider Department 07/16/24 AMADOR RAM During your visit today, we recorded the following information about you: Amador Ram MA 07/16/2024 8:53 AM Signed POPULATION HEALTH NAVIGATION OUTREACH Action/FYI [employer] High Risk Outreach - Attempt # 1 Last PCP Visit: 03/04/2024 Per last office note: None Has Appointment Scheduled: Yes, Follow Up Outreach to Schedule: Medicare February Health Maintenance Topics Due: None Outcomes: Called patient - left message on voice mail and sent MyChart message. Reason for Outreach Care Gap/HCC or Scheduling Wellness Visits Care Gaps due: Medicare Annual Wellness Visit Patient Contacted: Unable or unnecessary to reach patient: Left message MyChart message sent Navigation Signature: Amador Ram MA July 16, 2024 8:48 AM Allergies As of Date: 07/16/2024 (No Known Allergies) Date Reviewed: 03/04/2024 Reviewed by: Ariana Toro, BOARD STACKER.DISPENSING OPTICIAN - Fully Assessed Reason for Visit: Population Health Navigation Outreach [3910] Cmt: [employer] High Risk Attempt #1 Prescriptions as of 07/16/2024 - OTC PRODUCT PREVAGEN MEMORY SUPPLEMENT - cholecalciferol, Vitamin D3, (VITAMIN D3) 1,250 mcg (50,000 unit) cap capsule Take 50,000 Units by mouth one time a week. - metoprolol succinate ER (TOPROL XL) 25 mg 24 hr tablet Take 1 tablet by mouth once daily. - rivaroxaban (XARELTO) 20 mg tablet Take 1 tablet by mouth daily with dinner. - atorvastatin (LIPITOR) 20 mg tablet Take 1 tablet by mouth once daily. - polyethylene glycol 3350 17 gram/dose powder Take by mouth once daily. Dissolve dose in 4 - 8 ounces of liquid and take as directed. - multivit-minerals/herbal 121 (URINOZINC PROSTATE FORMULA ORAL) Take by mouth once daily. - VITAMIN C 500 MG TAB Take one(1) tablet daily. - SAW PALMETTO 1,000 MG CAP Take one(1) tablet two(2) times daily. - CINNAMON 500 MG CAP Take one(1) tablet daily. Problem List As Of Date 07/16/2024 Noted Resolved Nonspecific abnormal finding in stool contents *10/23/2005 10/03/2015 BENIGN NEOPLASM LG BOWEL [D12.6] 10/29/2006 Elevated prostate specific antigen (PSA) [R97.2*06/17/2007 12/20/2020 Meniscus, medial, derangement [M23.305] 09/19/2010 10/17/2017 Internal hemorrhoids [K64.8] 03/31/2012 BPH with obstruction/lower urinary tract sympto*03/31/2012 Benign positional vertigo [H81.10] 03/31/2012 10/17/2017 Hyperlipidemia LDL goal <130 [E78.5] 03/09/2015 Rotator cuff tear arthropathy [M75.100, M12.819]10/03/2015 10/17/2017 Persistent atrial fibrillation (HCC) [I48.19] 10/21/2018 Hypertension [I10] 02/09/2020 Chronic anticoagulation [Z79.01] 02/09/2020 Constipation [K59.00] 12/19/2020 Memory disturbance [R41.3] 10/26/2021 Impaired fasting glucose [R73.01] 03/09/2022 Polycythemia [D75.1] 09/26/2022 Toe pain, chronic, left [M79.675, G89.29] 09/25/2023 Gait abnormality [R26.9] 09/25/2023 Encounter Status:Closed by AMADOR RAM on 07/16/24 [facility] 03-04-2024 Instructions Ariana Toro, KRISTIN.DISPENSING OPTICIAN - 03/04/2024 8:14 AM EDT Screening schedule The following prevention plan is recommended: Shingrix Vaccine(2 of 3) due on 04/02/2012 RSV Vaccine(1 - 1-dose 75+ series) Never done WHAT YOU CAN DO TO PREVENT FALLS Many falls can be prevented. By making some changes, you can lower your chances of falling. Four things YOU can do to prevent falls for you* and your caregiver 1. Begin a regular exercise program Exercise is one of the most important ways to lower your chances of falling. It makes you stronger and helps you feel better. Exercises that improve balance and coordination (like Julio C Chi) are the most helpful. Lack of exercise leads to weakness and increases your chances of falling. Ask your doctor or health care provider about the best type of exercise program for you. 2. Have your health care provider review your medicines Have your doctor or pharmacist review all the medicines you take, even ushk-ilv-ikqondn medicines. As you get older, the way medicines work in your body can change. Some medicines, or combinations of medicines, can make you sleepy or dizzy and can cause you to fall. 3. Have your vision checked Have your eyes checked by an eye doctor at least once a year. You may be wearing the wrong glasses or have a condition like glaucoma or cataracts that limits your vision. Poor vision can increase your chances of falling. 4. Make your home safer About half of all falls happen at home. To make your home safer: Remove things you can trip over (like papers, books, clothes, and shoes) from stairs and places where you walk. Remove small throw rugs or use double-sided tape to keep the rugs from slipping. Keep items you use often in cabinets you can reach easily without using a step stool. Have grab bars put in next to your toilet and in the tub or shower. Use non-slip mats in the bathtub and on shower floors. Improve the lighting in your home. As you get older, you need brighter lights to see well. Hang light-weight curtains or shades to reduce glare. Have handrails and lights put in on all staircases. Wear shoes both inside and outside the house. Avoid going barefoot or wearing slippers. For more information, contact: Centers for Disease Control and Prevention www.cdc.gov/injury * This information may not apply if you have certain medical conditions. documented in this encounter [facility] 03-04-2024 Note HNO ID: [id number] Author: ARIANA TORO APRN.JAE Service: ? Author Type: Nurse Practitioner Type: Progress Notes Filed: 03/04/2024 08:44 Note Text: Callie Rascon is a 83 year old male here for a Medicare wellness visit. Medicare Health Risk Assessment General Health Very good Exercise: Minutes/Day 20 min Exercise: Days/Week 7 days Alcohol: Daily Use Never Alcohol: Drinks/Day Patient does not drink Alcohol: 6 or more drinks Never Feel off balance No Concerns: Teeth/Dentures No Concerns: Sexual function No Troubled by feelings None of the above Frequency: Eating healthy diet Nearly every day ADLs requiring help None of the above Safety precautions in home/vehicle Yes Smoke, vape, chews tobacco No Difficulty hearing No Difficulty seeing No Current Providers Specialists: I have reviewed specialist-related care of the patient in the medical record. Current care team: Patient Care Team: Cedric Salazar MD as PCP - General (Internal Medicine) Outside specialists seen: [facility], Rock Oakes OD ophthalmology Medical/Family history review Reviewed and updated problem list, medical/surgical/family/social history, medications, and allergies. Opioid use review Opioid Medications (last 90 days) No data to display Anxiety/Depression screening PHQ-2 Score: 0 (Lower risk for depression) MEGAN-2 Score: 0 (Lower risk for anxiety) Recommendation: no further intervention at this time Cognitive screening Mini Cog Score: 4 Cognitive screening reviewed and No further action needed (score 3-5). Functional Observation Was the patient's Timed Up AND Go test unsteady or >= 12 seconds? No Advance Care Planning Surrogate decision maker documented and/or advance directives scanned in chart Measurements BP 128/70 Pulse 79 Resp 18 Ht 182 cm (5' 11.65) Wt 96.8 kg (213 lb 6.5 oz) SpO2 97% BMI 29.22 kg/m? Vision Screening: Follows with optometry/ophthalmology Assessment/Plan Medicare annual wellness visit, subsequent () - Counseled on healthy diet and regular exercise - Fall avoidance information provided - Personalized prevention plan provided - Discussed need for and benefit of weight loss. BMI 29.22 kg/(m2) Additional Concerns The following concerns were also discussed with the patient: HTN-Medication changes:No Taking all medications as prescribed: Yes Side effects: No Home BP's: Yes, 120's/70's Denies: headache, chest pain, palpitations, dyspnea, and peripheral edema. Last 3 Encounter BP Readings: Date: BP: 03/04/2024 128/70 09/25/2023 128/64 03/04/2023 134/78 Afib- He is compliant with medication(s) and is tolerating med(s) without any side effects. Chest pain: No Palpitations: No Dizziness/lightheadedness: No Syncope: No BP 128/70 Pulse 79 Resp 18 Ht 182 cm (5' 11.65) Wt 96.8 kg (213 lb 6.5 oz) SpO2 97% BMI 29.22 kg/m? Physical Exam Vitals reviewed. Constitutional: Appearance: Normal appearance. Cardiovascular: Rate and Rhythm: Normal rate. Rhythm irregular. Heart sounds: Normal heart sounds. No murmur heard. Pulmonary: Effort: Pulmonary effort is normal. Breath sounds: Normal breath sounds. No wheezing, rhonchi or rales. Neurological: Mental Status: He is alert. Psychiatric: Mood and Affect: Mood normal. ASSESSMENT/PLAN: 1. Medicare annual wellness visit, subsequent - ICD9: V70.0, ICD10: Z.00 (primary diagnosis) See Medicare wellness plan 2. Persistent atrial fibrillation (HCC) - ICD9: 427.31, ICD10: I48.19 Stable 3. Primary hypertension - ICD9: 401.9, ICD10: I10 - Controlled - Continue current medications - Recommend home blood pressure monitoring, to bring results to next visit - Encouraged sodium restriction, DASH or Mediterranean diet 4. Hyperlipidemia LDL goal <130 - ICD9: 272.4, ICD10: E78.5 - Controlled - Continue current medications 5. Impaired fasting glucose - ICD9: 790.21, ICD10: R73.01 Stable 6. Polycythemia - ICD9: 238.4, ICD10: D75.1 resolved 7. Memory disturbance - ICD9: 780.93, ICD10: R41.3 Stable 8. Encounter for immunization - ICD9: V03.89, ICD10: Z23 - PFIZER-BIONTECH COVID-19 VACCINE AGE 12+ YR (COMIRNATY) - INFLUENZA VACCINE, PRSV FREE, AGE 65+ YR, HIGH DOSE, TRIVALENT (FLUZONE HIGH-DOSE) 9. Screening for depression - ICD9: V79.0, ICD10: Z13.31 - DEPRESSION SCREENING 10. Encounter for screening examination for other mental health and behavioral disorders - ICD9: V79.8, ICD10: Z13.39 - ANXIETY SCREENING Ariana Toro APRN.[facility] 03-04-2024 History of Presen t illness Narrative Images from the original note were not included. Callie Rascon is a 83 year old male here for a Medicare wellness visit. Medicare Health Risk Assessment General Health Very good Exercise: Minutes/Day 20 min Exercise: Days/Week 7 days Alcohol: Daily Use Never Alcohol: Drinks/Day Patient does not drink Alcohol: 6 or more drinks Never Feel off balance No Concerns: Teeth/Dentures No Concerns: Sexual function No Troubled by feelings None of the above Frequency: Eating healthy diet Nearly every day ADLs requiring help None of the above Safety precautions in home/vehicle Yes Smoke, vape, chews tobacco No Difficulty hearing No Difficulty seeing No Current Providers Specialists: I have reviewed specialist-related care of the patient in the medical record. Current care team: Patient Care Team: Cedric Salazar MD as PCP - General (Internal Medicine) Outside specialists seen: [facility], Rock Oakes OD ophthalmology Medical/Family history review Reviewed and updated problem list, medical/surgical/family/social history, medications, and allergies. Opioid use review Opioid Medications (last 90 days) No data to display Anxiety/Depression screening PHQ-2 Score: 0 (Lower risk for depression) MEGAN-2 Score: 0 (Lower risk for anxiety) Recommendation: no further intervention at this time Cognitive screening Mini Cog Score: 4 Cognitive screening reviewed and No further action needed (score 3-5). Functional Observation Was the patient's Timed Up & Go test unsteady or >= 12 seconds? No Advance Care Planning Surrogate decision maker documented and/or advance directives scanned in chart Measurements BP 128/70 Pulse 79 Resp 18 Ht 182 cm (5' 11.65) Wt 96.8 kg (213 lb 6.5 oz) SpO2 97% BMI 29.22 kg/m Vision Screening: Follows with optometry/ophthalmology Assessment/Plan Medicare annual wellness visit, subsequent () - Counseled on healthy diet and regular exercise - Fall avoidance information provided - Personalized prevention plan provided - Discussed need for and benefit of weight loss. BMI 29.22 kg/(m^2) Additional Concerns The following concerns were also discussed with the patient: HTN-Medication changes:No Taking all medications as prescribed: Yes Side effects: No Home BP's: Yes, 120's/70's Denies: headache, chest pain, palpitations, dyspnea, and peripheral edema. Last 3 Encounter BP Readings: Date: BP: 03/04/2024 128/70 09/25/2023 128/64 03/04/2023 134/78 Afib- He is compliant with medication(s) and is tolerating med(s) without any side effects. Chest pain: No Palpitations: No Dizziness/lightheadedness: No Syncope: No BP 128/70 Pulse 79 Resp 18 Ht 182 cm (5' 11.65) Wt 96.8 kg (213 lb 6.5 oz) SpO2 97% BMI 29.22 kg/m Physical Exam Vitals reviewed. Constitutional: Appearance: Normal appearance. Cardiovascular: Rate and Rhythm: Normal rate. Rhythm irregular. Heart sounds: Normal heart sounds. No murmur heard. Pulmonary: Effort: Pulmonary effort is normal. Breath sounds: Normal breath sounds. No wheezing, rhonchi or rales. Neurological: Mental Status: He is alert. Psychiatric: Mood and Affect: Mood normal. ASSESSMENT/PLAN: 1. Medicare annual wellness visit, subsequent - ICD9: V70.0, ICD10: Z00.00 (primary diagnosis) See Medicare wellness plan 2. Persistent atrial fibrillation (HCC) - ICD9: 427.31, ICD10: I48.19 Stable 3. Primary hypertension - ICD9: 401.9, ICD10: I10 - Controlled - Continue current medications - Recommend home blood pressure monitoring, to bring results to next visit - Encouraged sodium restriction, DASH or Mediterranean diet 4. Hyperlipidemia LDL goal <130 - ICD9: 272.4, ICD10: E78.5 - Controlled - Continue current medications 5. Impaired fasting glucose - ICD9: 790.21, ICD10: R73.01 Stable 6. Polycythemia - ICD9: 238.4, ICD10: D75.1 resolved 7. Memory disturbance - ICD9: 780.93, ICD10: R41.3 Stable 8. Encounter for immunization - ICD9: V03.89, ICD10: Z23 - [facility] COVID-19 VACCINE AGE 12+ YR (COMIRNATY) - INFLUENZA VACCINE, PRSV FREE, AGE 65+ YR, HIGH DOSE, TRIVALENT (FLUZONE HIGH-DOSE) 9. Screening for depression - ICD9: V79.0, ICD10: Z13.31 - DEPRESSION SCREENING 10. Encounter for screening examination for other mental health and behavioral disorders - ICD9: V79.8, ICD10: Z13.39 - ANXIETY SCREENING Ariana Toro APRN.CNP documented in this encounter [facility] 01-28-2024 Telephone encounter Note Prescription Refill Information The patient has been identified by name and date of : Yes Caregiver verified no other encounters exist for this prescription request: Yes Caregiver confirmed with patient/requestor that no other refills are due, in the near future, with this provider at this time: Yes The last office visit in the department: 09-25-23 Does the patient have a future office visit with this provider/department: Yes Requested Prescriptions Pending Prescriptions Disp Refills metoprolol succinate ER (TOPROL XL) 25 mg 24 hr tablet 90 tablet 3 Sig: Take 1 tablet by mouth once daily. rivaroxaban (XARELTO) 20 mg tablet 90 tablet 3 Sig: Take 1 tablet by mouth daily with dinner. Emily Wang January 28, 2024 12:51 PM [facility] 01-28-2024 Miscellaneous Notes Prescription Refill Information The patient has been identified by name and date of : Yes Caregiver verified no other encounters exist for this prescription request: Yes Caregiver confirmed with patient/requestor that no other refills are due, in the near future, with this provider at this time: Yes The last office visit in the department: 09-25-23 Does the patient have a future office visit with this provider/department: Yes Requested Prescriptions Pending Prescriptions Disp Refills metoprolol succinate ER (TOPROL XL) 25 mg 24 hr tablet 90 tablet 3 Sig: Take 1 tablet by mouth once daily. rivaroxaban (XARELTO) 20 mg tablet 90 tablet 3 Sig: Take 1 tablet by mouth daily with dinner. Emily Wang January 28, 2024 12:51 PM documented in this encounter [facility] 01-09-2024 Telephone encounter Note Patient has been identified by name and date of : Yes Patient phones for refill(s): Requested Prescriptions Pending Prescriptions Disp Refills atorvastatin (LIPITOR) 20 mg tablet 90 tablet 3 Sig: Take 1 tablet by mouth once daily. Date of last office visit in primary care: 09/25/2023 Date of next office visit in primary care: 03/04/2024 Please advise. Thank you. Lita Melissa LPN. [facility] 01-09-2024 Miscellaneous Notes Patient has been identified by name and date of : Yes Patient phones for refill(s): Requested Prescriptions Pending Prescriptions Disp Refills atorvastatin (LIPITOR) 20 mg tablet 90 tablet 3 Sig: Take 1 tablet by mouth once daily. Date of last office visit in primary care: 09/25/2023 Date of next office visit in primary care: 03/04/2024 Please advise. Thank you. Lita Melissa LPN. Prescription Refill Information The patient has been identified by name and date of : Yes Caregiver verified no other encounters exist for this prescription request: Yes Caregiver confirmed with patient/requestor that no other refills are due, in the near future, with this provider at this time: Yes The last office visit in the department: Does the patient have a future office visit with this provider/department: Yes 03/04/2024 Requested Prescriptions Pending Prescriptions Disp Refills atorvastatin (LIPITOR) 20 mg tablet 90 tablet 3 Sig: Take 1 tablet by mouth once daily. Pinky Enriquez January 09, 2024 12:07 PM documented in this encounter [facility] 01-09-2024 Telephone encounter Note Prescription Refill Information The patient has been identified by name and date of : Yes Caregiver verified no other encounters exist for this prescription request: Yes Caregiver confirmed with patient/requestor that no other refills are due, in the near future, with this provider at this time: Yes The last office visit in the department: Does the patient have a future office visit with this provider/department: Yes 03/04/2024 Requested Prescriptions Pending Prescriptions Disp Refills atorvastatin (LIPITOR) 20 mg tablet 90 tablet 3 Sig: Take 1 tablet by mouth once daily. Pinky Enriquez January 09, 2024 12:07 PM [facility] 09-25-2023 Instructions Cedric Salazar MD - 09/25/2023 10:09 AM EDT Blood work today. documented in this encounter [facility] 09-25-2023 History of Presen t illness Narrative This note was created using [employer]. Subjective Callie Rascon is a 82 year old male here with . He has daily left 2nd toe pain, not related to activity and more at rest. rubs this and he alternates Advil and Aleve once daily. They returned from [place] where they spend bautista. His other conditions were stable. His gait has been slowing. He was more careful and denied any falls. He had no family history of tremors or shaking. Review of Systems Constitutional: Negative for fatigue, fever and unexpected weight change. HENT: Negative for congestion. Respiratory: Negative for cough and shortness of breath. Cardiovascular: Negative for chest pain, palpitations and leg swelling. Gastrointestinal: Negative for abdominal pain and blood in stool. Genitourinary: Negative for difficulty urinating. Musculoskeletal: Positive for gait problem. Neurological: Negative for dizziness, tremors, weakness and headaches. 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 ago Vaping Use Vaping Use: Never used Substance Use Topics Alcohol use: No Drug use: No Current Outpatient Medications Medication Sig rivaroxaban (XARELTO) 20 mg tablet Take 1 tablet by mouth daily with dinner. metoprolol succinate ER (TOPROL XL) 25 mg 24 hr tablet Take 1 tablet by mouth once daily. atorvastatin (LIPITOR) 20 mg tablet Take 1 tablet by mouth once daily. polyethylene glycol 3350 17 gram/dose powder Take by mouth once daily. Dissolve dose in 4 - 8 ounces of liquid and take as directed. multivit-minerals/herbal 121 (URINOZINC PROSTATE FORMULA ORAL) Take by mouth once daily. VITAMIN C 500 MG TAB Take one(1) tablet daily. SAW PALMETTO 1,000 MG CAP Take one(1) tablet two(2) times daily. CINNAMON 500 MG CAP Take one(1) tablet daily. DULCOLAX, BISACODYL, ORAL Take by mouth. (Patient not taking: Reported on 09/25/2023) No current facility-administered medications for this visit. Objective Blood Pressure 128/64 (BP Site: Left Arm, BP Position: Sitting, BP Cuff Size: Large Adult) Pulse 76 Temperature 36.8 C (98.3 F) (Temporal) Respiration 18 Weight 90.7 kg (200 lb) Body Mass Index 27.24 kg/m Physical Exam Constitutional: General: He is not in acute distress. Appearance: He is not ill-appearing. HENT: Head: Normocephalic. Eyes: Conjunctiva/sclera: Conjunctivae normal. Cardiovascular: Rate and Rhythm: Normal rate and regular rhythm. Pulses: Normal pulses. Heart sounds: No murmur heard. No gallop. Pulmonary: Effort: No respiratory distress. Breath sounds: No wheezing or rales. Abdominal: Tenderness: There is no abdominal tenderness. Musculoskeletal: Right lower leg: No edema. Left lower leg: No edema. Neurological: General: No focal deficit present. Mental Status: He is alert. Mental status is at baseline. Sensory: No sensory deficit. Motor: Abnormal muscle tone present. No weakness or tremor. Gait: Gait abnormal. Comments: Wide shuffling gait. Psychiatric: Attention and Perception: Attention normal. Mood and Affect: Affect is flat. Speech: Speech normal. Behavior: Behavior normal. Assessment and Plan 1. Toe pain, chronic, left - ICD9: 729.5, 338.29, ICD10: M79.675, G89.29 (primary diagnosis) - Use topicals. Avoid oral NSAIDs due to risk of GI bleed. 2. Primary hypertension - ICD9: 401.9, ICD10: I10 - Controlled 3. Chronic anticoagulation - ICD9: V58.61, ICD10: Z79.01 - See #1. - COMPLETE BLOOD COUNT 4. Impaired fasting glucose - ICD9: 790.21, ICD10: R73.01 Recheck. - HEMOGLOBIN A1C 5. Need for COVID-19 vaccine - ICD9: V04.89, ICD10: Z23 - [employer] COVID-19 VACCINE (2022- [facility]) AGE 12+ YR 6. Polycythemia - ICD9: 238.4, ICD10: D75.1 - Asymptomatic. 7. Hyperlipidemia LDL goal <130 - ICD9: 272.4, ICD10: E78.5 - Control undetermined, due for labs - Continue current medications - Counseled on healthy diet and regular exercise - COMPREHENSIVE METABOLIC PANEL - LIPID PANEL, NONFASTING 8. Gait abnormality - ICD9: 781.2, ICD10: R26.9 - Fall precautions. Consider PT. Cedric Salazar MD documented in this encounter [facility] 03-15-2023 Miscellaneous Notes MAXWELL: 03/04/2023 Last refill: 05/16/2022 QTY: 90 Refills: 3 Patient has been identified by name and date of : Yes Requested Prescriptions Pending Prescriptions Disp Refills atorvastatin (LIPITOR) 20 mg tablet 90 tablet 3 Sig: Take 1 tablet by mouth once daily. RX INSTRUCTIONS: Patient aware RX will be sent to [facility] pharmacy. No need to notify patient. Lyndsey Carballo documented in this encounter [facility] 09-26-2022 History of Presen t illness Narrative Radiology Service Progress Note PATIENT NAME: Callie Rascon DATE OF SERVICE: September 26, 2022 TIME: 12:05 PM PATIENT IDENTITY VERIFICATION COMPLETED USING TWO (2) IDENTIFIERS: Name and Date of confirmed by patient verbally. FALL SCREENING: Has the patient had 2 falls in the last year or 1 fall with injury or currently using an Ambulatory Assistive Device (Walker, Cane, Wheelchair, Crutches, etc.)? No PATIENT GENDER DATA: Male PATIENT RELEVANT IMPLANT DATA REVIEWED: Not Applicable RADIOLOGY DEPARTMENT: General X-ray: Exam(s) Completed: Lower Extremity X-Ray(s): Toes, Left PERIPHERAL IV DATA: Not applicable SIGNED BY: RT Fede(R) September 26, 2022 12:05 PM documented in this encounter [facility] 09-26-2022 Miscellaneous Notes Result(s) viewed by patient: Yes. No acute findings. documented in this encounter [facility] 09-26-2022 Progress note Formatting of t his note might be different from the original. Result(s) viewed by patient: Yes. No acute findings. [facility] 09-26-2022 Instructions Cedric Salazar MD - 09/26/2022 11:45 AM EDT Fasting blood work any time soon. documented in this encounter [facility] 09-26-2022 History of Presen t illness Narrative This note was created using [employer]. Subjective Callie Rascon is a 81 year old male here for follow up, with his spouse. He was sent to the ER for constipation, relieved by enema. He was now on Miralax daily with good results. He vaguely injured his left 2nd toe several months ago, and this continued to ache and burn every night. applied topical creams over the counter with relief. He had no swelling an no limitations with ambulation. His hypertension, atrial fibrillation, and chronic anticoagulation were controlled. Review of Systems Constitutional: Negative for appetite change, fatigue and fever. Respiratory: Negative for apnea, cough and shortness of breath. No snoring. Cardiovascular: Negative for chest pain, palpitations and leg swelling. Gastrointestinal: Negative for abdominal pain and blood in stool. Genitourinary: Negative for difficulty urinating. Musculoskeletal: Negative for arthralgias. Neurological: Negative for tremors and headaches. Psychiatric/Behavioral: Negative for sleep disturbance. 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 ago Vaping Use Vaping Use: Never used Substance Use Topics Alcohol use: No Drug use: No Current Outpatient Medications Medication Sig polyethylene glycol 3350 (MIRALAX) 17 gram/dose powder Take by mouth once daily. Dissolve dose in 4 - 8 ounces of liquid and take as directed. DULCOLAX, BISACODYL, ORAL Take by mouth. atorvastatin (LIPITOR) 20 mg tablet Take 1 tablet by mouth once daily. rivaroxaban (XARELTO) 20 mg tablet Take 1 tablet by mouth daily with dinner. metoprolol succinate ER (TOPROL XL) 25 mg 24 hr tablet Take 1 tablet by mouth once daily. multivit-minerals/herbal 121 (URINOZINC PROSTATE FORMULA ORAL) Take by mouth once daily. VITAMIN C 500 MG TAB Take one(1) tablet daily. MULTIVITAMIN TAB Take one(1) tablet daily. SAW PALMETTO 1,000 MG CAP Take one(1) tablet two(2) times daily. CINNAMON 500 MG CAP Take one(1) tablet daily. docusate sodium (COLACE) 100 mg capsule Take 1 capsule by mouth twice daily as needed for Constipation. (Patient not taking: Reported on 09/26/2022) No current facility-administered medications for this visit. Objective BP 112/58 (BP Site: Left Arm, BP Position: Sitting, BP Cuff Size: Large Adult) Pulse 76 Resp 18 Wt 88.4 kg (194 lb 12.8 oz) BMI 26.42 kg/m Physical Exam Constitutional: General: He is not in acute distress. Cardiovascular: Rate and Rhythm: Normal rate. Rhythm irregular. Heart sounds: No murmur heard. Pulmonary: Breath sounds: Normal breath sounds. Musculoskeletal: Comments: Left 2nd and 3rd toe non tender, no inflammation. Neurological: Mental Status: He is alert. Gait: Gait normal. Depression Screening 10/17/2017 10/21/2018 03/09/2022 09/26/2022 PHQ-2 Score 0 0 0 0 Depression screening tool completed and reviewed. Based on score and interview, patient is not at risk for depression. Screening tool discussed with patient, and I recommended no further intervention at this time. Assessment and Plan 1. Toe pain, chronic, left - ICD9: 729.5, 338.29, ICD10: M79.675, G89.29 (primary diagnosis) - Shared medical decision. If xray negative, he will continue with over the counter treatments. - XR TOE AP/LAT/OBL LEFT 2. Persistent atrial fibrillation (HCC) - ICD9: 427.31, ICD10: I48.19 Controlled. 3. Primary hypertension - ICD9: 401.9, ICD10: I10 - good control - Continue current medication(s) - Recommended regular aerobic exercise. - Goal of BP <130/80 4. Impaired fasting glucose - ICD9: 790.21, ICD10: R73.01 Recheck. Low carb diet. - BASIC METABOLIC PNL - HGB A1C 5. Polycythemia - ICD9: 238.4, ICD10: D75.1 Monitor. - CBC Cedric Salazar MD documented in this encounter [facility] 09-21-2022 Instructions Shawna Alves APRN.ELECTRO MECHANICAL DESIGNER - 09/21/2022 10:14 AM EDT Go directly to the emergency department. Follow any directions they provide to you. HOME INSTRUCTIONS FOR MANAGEMENT OF CONSTIPATION NON-MEDICATION MEASURES: 1. Increase your intake of fluids daily. Try to include 8 - 8 ounce glasses per day. Sip on fluids throughout the day. 2. Add more fiber to your diet. The recommended daily amount of fiber is 20 to 35 grams. If you are increasing your fiber intake do so slowly to avoid bloating and discomfort. The best source of fiber comes from foods. Examples of high fiber foods include whole grain breads and cereals, fruits (berries, prunes, oranges, etc) and vegetables (lettuce, broccoli, potato with skins, etc.). There are also fiber supplements available over the counter such as Metamucil or Benefiber 3. Increase your daily activity (walking, moving from bed to chair, or exercise in bed) 4. Set aside a time preferably around the same time each day (example: right after breakfast) to move bowels. MEDICATION MEASURES: 1. Miralax daily- 1 cap-full in a beverage. May take a second dose daily if needed This is a daily medication, can adjust how much you need over time depending on your stools. For example, decrease dose to half or every other day or so if stools become too loose. Call office if constipation does not resolve with above measures Go to ER if you develop severe abdominal pain, vomiting that won't stop, fever above 100.5, rigid/hard abdomen. documented in this encounter [facility] 09-21-2022 History of Presen t illness Narrative SUBJECTIVE: PCP: Cedric Salazar MD ADVANCE DIRECTIVE DISCUSSION due on 05/27/2022 DEPRESSION ASSESSMENT due on 05/27/2022 HPI Callie Rascon is a 81 year old male. 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 He reports no bowel movement for 1 week. Notes severe rectal pain with occasional liquid coming out of his rectum but no bowel movement. He notes abdominal distention. Decreased appetite. Afebrile. He reports problem started about 1 month ago when he was seen at urgent care in [place] for constipation and back pain. He was provided with pain medication. States taking [id number] Dulcolax for constipation without much effect. He reports about 1 week ago returned to urgent care with constipation, abdominal pain and distention. He states no testing or additional treatment provided. He states he was advised possible hernia. No outside records available at the time of his appointment today. Heartburn: No Reflux: No Abdominal pain: No Nausea: No Vomiting: No Diarrhea: No Constipation: Yes BRBPR: No Black tarry: No Fluids: States has been maintaining fluids and foods but appetite is less with the constipation. Activity: Less active due to pain, difficulty walking and sitting due to rectal pain. OTC: Miralax not currently using.Taking dulcolax one or two daily without results Review of Systems Constitutional: Negative. Gastrointestinal: Positive for constipation and rectal pain. Objective There were no vitals taken for this visit. Physical Exam Vitals and nursing note reviewed. Constitutional: Appearance: Normal appearance. HENT: Head: Normocephalic and atraumatic. Eyes: Conjunctiva/sclera: Conjunctivae normal. Cardiovascular: Rate and Rhythm: Normal rate and regular rhythm. Heart sounds: Normal heart sounds. Pulmonary: Effort: Pulmonary effort is normal. Breath sounds: Normal breath sounds. Abdominal: General: Bowel sounds are normal. There is distension. Tenderness: There is abdominal tenderness. Comments: hypoactive bowel sounds Skin: General: Skin is warm and dry. Neurological: General: No focal deficit present. Mental Status: He is alert and oriented to person, place, and time. ALLERGIES No Known Allergies Medication atorvastatin (LIPITOR) 20 mg tablet Take 1 tablet by mouth once daily. rivaroxaban (XARELTO) 20 mg tablet Take 1 tablet by mouth daily with dinner. metoprolol succinate ER (TOPROL XL) 25 mg 24 hr tablet Take 1 tablet by mouth once daily. docusate sodium (COLACE) 100 mg capsule Take 1 capsule by mouth twice daily as needed for Constipation. multivit-minerals/herbal 121 (URINOZINC PROSTATE FORMULA ORAL) Take by mouth once daily. VITAMIN C 500 MG TAB Take one(1) tablet daily. MULTIVITAMIN TAB Take one(1) tablet daily. SAW PALMETTO 1,000 MG CAP Take one(1) tablet two(2) times daily. CINNAMON 500 MG CAP Take one(1) tablet daily. 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 Diverticulosis of colon (without mention of hemorrhage) 2007 Elevated prostate specific antigen (PSA) 06/17/2007 Hyperlipidemia LDL goal <130 03/09/2015 Hypertension 02/09/2020 Internal hemorrhoids 03/31/2012 Internal hemorrhoids without mention of complication Persistent atrial fibrillation (HCC) 10/21/2018 Primary cardiomyopathy (HCC) 2018 Social History Tobacco Use Smoking status: Former Smokeless tobacco: Never Tobacco comments: quit 40 yrs. ago Vaping Use Vaping Use: Never used Substance Use Topics Alcohol use: No Drug use: No ASSESSMENT/PLAN: 1. Constipation, unspecified constipation type - ICD9: 564.00, ICD10: K59.00 (primary diagnosis) 2. Rectal pain - ICD9: 569.42, ICD10: K62.89 He reports constipation progressively worsening over the last month now with rectal pain described as severe, no BM for 1 week, liquid only intermittently from rectum. Due to his severe symptoms recommend emergency department. Recommend he go directly from here. Prefers to take private vehicle. [facility]ers [facility]. Records sent and report via portal sent. Shawna Alves APRN.ELECTRO MECHANICAL DESIGNER Medical Decision Making: Problems: Moderate: Acute illness with systemic symptoms Risk: High: Decision on hospitalization Medical Decision Making Level: 4 - Moderate documented in this encounter [facility] 05-16-2022 Miscellaneous Notes Patient has been identified by name and date of : Yes Patient phones for refill(s): Requested Prescriptions Pending Prescriptions Disp Refills atorvastatin (LIPITOR) 20 mg tablet 90 tablet 3 Sig: Take 1 tablet by mouth once daily. Date of last office visit in primary care: 03/09/2022 10 month follow-up: 09/24/2022 Last 2 Encounter Wt Readings: Date: Wt: 03/09/2022 93.9 kg (207 lb) 10/26/2021 92.5 kg (204 lb) Previous labs/tests for medication: Cholesterol: HDL Cholesterol (mg/dL) Date Value 03/05/2022 50 03/02/2021 49 LDL Cholesterol (mg/dL) Date Value 03/05/2022 86 03/02/2021 76 ALT (U/L) Date Value 03/05/2022 18 12/16/2020 29 Non HDL Cholesterol (mg/dL) Date Value 03/05/2022 122 03/02/2021 110 Please advise. Thank you. Lita Melissa LPN Patient has been identified by name and date of : Yes Patient phones for refill(s): Requested Prescriptions Pending Prescriptions Disp Refills atorvastatin (LIPITOR) 20 mg tablet 90 tablet 3 Sig: Take 1 tablet by mouth once daily. Date of last office visit in primary care: 03/09/22 Last 2 Encounter Wt Readings: Date: Wt: 03/09/2022 93.9 kg (207 lb) 10/26/2021 92.5 kg (204 lb) Previous labs/tests for medication: Not applicable Please advise. Thank you. Damaris Daniels documented in this encounter [facility] 10-14-2022 Instructions Ariana Alicea APRN.DISPENSING OPTICIAN - 03/09/2022 1:07 PM EDT Recombinant shingles vaccine (Shingrix) is recommended; 2 doses 2-6 months apart. Please read information, check with your insurance, and schedule vaccination at your local pharmacy. A prescription is not required. If you are certain you have coverage to receive this vaccine in the office, we can schedule this for you. WHAT YOU CAN DO TO PREVENT FALLS Many falls can be prevented. By making some changes, you can lower your chances of falling. Four things YOU can do to prevent falls for you* and your caregiver 1. Begin a regular exercise program Exercise is one of the most important ways to lower your chances of falling. It makes you stronger and helps you feel better. Exercises that improve balance and coordination (like Julio C Chi) are the most helpful. Lack of exercise leads to weakness and increases your chances of falling. Ask your doctor or health care provider about the best type of exercise program for you. 2. Have your health care provider review your medicines Have your doctor or pharmacist review all the medicines you take, even [id number]-cqrybmr medicines. As you get older, the way medicines work in your body can change. Some medicines, or combinations of medicines, can make you sleepy or dizzy and can cause you to fall. 3. Have your vision checked Have your eyes checked by an eye doctor at least once a year. You may be wearing the wrong glasses or have a condition like glaucoma or cataracts that limits your vision. Poor vision can increase your chances of falling. 4. Make your home safer About half of all falls happen at home. To make your home safer: Remove things you can trip over (like papers, books, clothes, and shoes) from stairs and places where you walk. Remove small throw rugs or use double-sided tape to keep the rugs from slipping. Keep items you use often in cabinets you can reach easily without using a step stool. Have grab bars put in next to your toilet and in the tub or shower. Use non-slip mats in the bathtub and on shower floors. Improve the lighting in your home. As you get older, you need brighter lights to see well. Hang light-weight curtains or shades to reduce glare. Have handrails and lights put in on all staircases. Wear shoes both inside and outside the house. Avoid going barefoot or wearing slippers. For more information, contact: Centers for Disease Control and Prevention www.cdc.gov/injury * This information may not apply if you have certain medical conditions. documented in this encounter [facility] 03-09-2022 History of Presen t illness Narrative Medicare Yearly Visit Medical B eligibilty date 2004 Date of last exam 03/07/21 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 Diverticulosis of colon (without mention of hemorrhage) 2006 Elevated prostate specific antigen (PSA) 06/17/2007 Hyperlipidemia LDL goal <130 03/09/2015 Hypertension 02/09/2020 Internal hemorrhoids 03/31/2012 Internal hemorrhoids without mention of complication Persistent atrial fibrillation (HCC) 10/21/2018 Primary cardiomyopathy (HCC) 2017 PAST SURGICAL HISTORY Procedure Laterality Date APPENDECTOMY 1953 CARDIOVERSION 2019 cataract extraction 05/27/2009 bilateral with IOL COLONOSCOPY FLX DX W/COLLJ SPEC WHEN PFRMD 03/03/2010 Colonoscopy COLONOSCOPY FLX DX W/COLLJ SPEC WHEN PFRMD 12/16/2014 Colonoscopy COLSC FLX W/RMVL OF TUMOR POLYP LESION SNARE TQ 10/29/2006 PULMONARY VEIN ISOLATION 01/12/2020 EPS, RF Ablation ALLERGIES: Patient has no known allergies. Medications reviewed: Yes FAMILY HISTORY Problem Relation Age of Onset Breast Cancer Mother None Father None Sister SOCIAL HISTORY: Social History Tobacco Use Smoking status: Former Smokeless tobacco: Never Tobacco comments: quit 40 yrs. ago Vaping Use Vaping Use: Never used Substance Use Topics Alcohol use: No Drug use: No Callie denies regular aerobic exercise. He watches his diet for sodium, low fat and low cholesterol most of the time. List of current specialists seen: Cardiology- Dr. Glasgow Iso Coordinator- Rock Oakes OD End of Live Planning discussed including patients advanced directive wishes: Yes I am willing to follow Callie's advanced directives. Evidence of Cognitive Impairment: Yes, mild What tool was used to assess the patients cognitive status? MiniCog 3/5. PHQ-2 / Depression screen He in the past two weeks denies having felt down, depressed, hopeless, or with little interest or pleasure in doing things. Functional Ability/Safety Screen 1. Was the patient's timed Up and Go test unsteady or longer than 30 seconds? No 2. Does the patient need help with the phone, transportation, shopping,preparing meals, housework, laundry, medications or managing money? No 3. Does your home have rugs in the hallway, lack of grab bars in the bathroom, lack of handrails on the stairs or have poor lighting? No Hearing Evaluation: normal PHYSICAL EXAM BP 120/68 Pulse 78 Resp 18 Ht 182.9 cm (6') Wt 93.9 kg (207 lb) BMI 28.07 kg/m Alert and oriented X 3: YES Body mass index is 28.07 kg/m . ASSESSMENT/PLAN: 1. Medicare annual wellness visit, subsequent - ICD9: V70.0, ICD10: Z00.00 (primary diagnosis) The following prevention plan was discussed during the office visit and provided to the patient: - fall risk reduction - Counseled on healthy diet and regular exercise - Discussed need for and benefit of weight loss. BMI 28.07 kg/(m^2) - Depression screening tool completed and reviewed with patient. Based on score and interview, patient is not at risk for depression and recommended no further intervention at this time. - Patient was counseled [id number] by myself (the billing provider) for the following immunizations and vaccine components, including side effects: COVID-19. Patient consents for immunization and understands risks and benefits. A VIS sheet on each immunization was given to the patient. - follow-up for medicare annual exam in one year 2. Impaired fasting glucose - ICD9: 790.21, ICD10: R73.01 - HEMOGLOBIN A1C (POC) 6.3 today. Patient counseled on pre-diabetes and ways to decrease risk of developing diabetes 3. Encounter for immunization - ICD9: V03.89, ICD10: Z23 - PFIZER-BIONTECH COVID-19 BIVALENT BOOSTER VACCINE, AGE 12+ YR Ariana Alicea APRN.CNP documented in this encounter [facility] 03-02-2022 Miscellaneous Notes Patient notified, verbalized understanding. Jorge Luis Ruiz Ma Fasting labs ordered Ariana Alicea APRN.JAE Patient calling, has Medicare Wellness on 03/09. Asking if he should have lab work done prior to the appointment. Please advise. documented in this encounter [facility] 10-26-2021 History of Presen t illness Narrative This note was created using [employer]. Subjective Callie Rascon is a 80 year old male. He complained of mild problems with short term memory. He was asking about trying a well commercialized supplement. He mentioned left middle toe pain off and on for several months, with no history of trauma. His hypertension and atrial fibrillation was controlled. Review of Systems Constitutional: Negative. Respiratory: Negative. Cardiovascular: Negative. Gastrointestinal: Negative. Genitourinary: Negative. Musculoskeletal: Positive for arthralgias. Neurological: Negative. 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 atorvastatin (LIPITOR) 20 mg tablet Take 1 tablet by mouth once daily. metoprolol succinate ER (TOPROL XL) 25 mg 24 hr tablet Take 1 tablet by mouth once daily. docusate sodium (COLACE) 100 mg capsule Take 1 capsule by mouth twice daily as needed for Constipation. multivit-minerals/herbal 121 (URINOZINC PROSTATE FORMULA ORAL) Take by mouth once daily. VITAMIN C 500 MG TAB Take one(1) tablet daily. MULTIVITAMIN TAB Take one(1) tablet daily. SAW PALMETTO 1,000 MG CAP Take one(1) tablet two(2) times daily. CINNAMON 500 MG CAP Take one(1) tablet daily. triamcinolone acetonide (KENALOG) 0.5 % cream Apply 1 application to affected area twice daily. For rash/itching. Apply sparingly. Avoid face/skin fold. (Patient not taking: Reported on 10/26/2021 ) No current facility-administered medications for this visit. Objective BP 122/64 (BP Site: Right Arm, BP Position: Sitting) Pulse 68 Temp 36.4 C (97.6 F) (Temporal Artery) Resp 24 Wt 92.5 kg (204 lb) BMI 27.33 kg/m Physical Exam Constitutional: General: He is not in acute distress. Cardiovascular: Rate and Rhythm: Normal rate. Rhythm irregularly irregular. Heart sounds: S1 normal and S2 normal. No murmur heard. No gallop. Pulmonary: Breath sounds: No wheezing or rales. Abdominal: General: There is no distension. Palpations: Abdomen is soft. Tenderness: There is no abdominal tenderness. Musculoskeletal: Right lower leg: No edema. Left lower leg: No edema. Left foot: Deformity present. No swelling or tenderness. Comments: Hammertoes. Neurological: Mental Status: He is alert. Component Latest Ref Rng & Units 10/24/2021 WBC 3.70 - 11.00 k/uL 9.08 RBC 4.20 - 6.00 m/uL 5.44 Hemoglobin 13.0 - 17.0 g/dL 17.3 (H) Hematocrit 39.0 - 51.0 % 52.1 (H) MCV 80.0 - 100.0 fL 95.8 MCH 26.0 - 34.0 pg 31.8 MCHC 30.5 - 36.0 g/dL 33.2 RDW-CV 11.5 - 15.0 % 12.8 Platelet Count 150 - 400 k/uL 242 MPV 9.0 - 12.7 fL 9.4 Neut% % 57.8 Abs Neut (ANC) 1.45 - 7.50 k/uL 5.25 Lymph% % 28.0 Abs Lymph 1.00 - 4.00 k/uL 2.54 [place]% % 8.6 Abs [place] <0.87 k/uL 0.78 Eosin% % 4.1 Abs Eosin <0.46 k/uL 0.37 Baso% % 1.2 Abs Baso <0.11 k/uL 0.11 (H) Immature Gran % % 0.3 IMMATURE GRANS (ABS) <0.10 k/uL 0.03 NRBC /100 WBC 0.0 Absolute nRBC <0.01 k/uL <0.01 DTYPE Auto Protein, Total 6.3 - 8.0 g/dL 7.7 Albumin 3.9 - 4.9 g/dL 4.6 Calcium 8.5 - 10.2 mg/dL 9.5 Bilirubin, Total 0.2 - 1.3 mg/dL 1.5 (H) Alkaline Phosphatase 38 - 113 U/L 85 AST 14 - 40 U/L 22 ALT 10 - 54 U/L 22 Glucose 74 - 99 mg/dL 126 (H) BUN 9 - 24 mg/dL 19 Creatinine 0.73 - 1.22 mg/dL 1.03 Sodium 136 - 144 mmol/L 141 Potassium 3.7 - 5.1 mmol/L 4.3 Chloride 97 - 105 mmol/L 103 CO2 22 - 30 mmol/L 23 Anion Gap 9 - 18 mmol/L 15 eGFR >=60 mL/min/1.73m 73 Assessment and Plan 1. Memory disturbance - ICD9: 780.93, ICD10: R41.3 (primary diagnosis) Mild. Monitor. Supplement use discouraged. 2. Primary hypertension - ICD9: 401.9, ICD10: I10 - good control 3. Persistent atrial fibrillation (HCC) - ICD9: 427.31, ICD10: I48.19 Controlled, anticoagulated. 4. Hyperlipidemia LDL goal <130 - ICD9: 272.4, ICD10: E78.5 - good control - Continue current medication. 5. Toe pain, chronic, left - ICD9: 729.5, 338.29, ICD10: M79.675, G89.29 Tylenol if needed. Podiatry if worse. Cedric Salazar MD documented in this encounter [facility] 10-24-2021 Miscellaneous Notes Patient notified, verbalized understanding,. ,Jorge Luis Ruiz Ma Labs ordered Ariana Alicea APRN.CNP Patient calling and states he has an upcoming 9 month follow up appt scheduled on 10/26 and is asking if provider would like any labs ordered? Please advise. Thank you. 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 Benign positional vertigo 03/31/20122017 Meniscus, medial, derangement 09/19/2010 Elevated prostate specific antigen (PSA) 008 12/20/2020 Nonspecific abnormal finding in stool contents 0 10/23/2005 10/03/2015 documented as of this encounter (statuses as of 10/26/2021) [facility] of Past illness Narrative* Problem Noted Date Resolved Date 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 Benign positional vertigo 03/31/20122017 Meniscus, medial, derangement 09/19/2010 Elevated prostate specific antigen (PSA) 008 12/20/2020 Nonspecific abnormal finding in stool contents 0 10/23/2005 10/03/2015 documented as of this encounter (statuses as of 03/02/2022) [facility] of Past illness Narrative* Problem Noted Date Resolved Date 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 Benign positional vertigo 03/31/20122017 Meniscus, medial, derangement 09/19/2010 Elevated prostate specific antigen (PSA) 008 12/20/2020 Nonspecific abnormal finding in stool contents 0 10/23/2005 10/03/2015 documented as of this encounter (statuses as of 03/09/2022) [facility] of Past illness Narrative* Problem Noted Date Resolved Date 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 Benign positional vertigo 03/31/20122017 Meniscus, medial, derangement 09/19/2010 Elevated prostate specific antigen (PSA) 008 12/20/2020 Nonspecific abnormal finding in stool contents 0 10/23/2005 10/03/2015 documented as of this encounter (statuses as of 05/16/2022) [facility] of Past illness Narrative* Problem Noted Date Resolved Date 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 Benign positional vertigo 03/31/20122017 Meniscus, medial, derangement 09/19/2010 Elevated prostate specific antigen (PSA) 2 008 12/20/2020 Nonspecific abnormal finding in stool contents 0 10/23/2005 10/03/2015 documented as of this encounter (statuses as of 09/21/2022) [facility] of Past illness Narrative* Problem Noted Date Resolved Date 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 Benign positional vertigo 03/31/20122017 Meniscus, medial, derangement 09/19/2010 Elevated prostate specific antigen (PSA) 008 12/20/2020 Nonspecific abnormal finding in stool contents 0 10/23/2005 10/03/2015 documented as of this encounter (statuses as of 09/27/2022) [facility] of Past illness Narrative* Problem Noted Date Diagnosed Date Resolved Date 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 10/17/2017 Benign positional vertigo 03/31/2012 Meniscus, medial, derangement 09/19/2010 10/17/2017 Elevated prostate specific antigen (PSA) 06/17/2007 12/20/2020 Nonspecific abnormal finding in stool contents 10/23/2005 10/03/2015 documented as of this encounter (statuses as of 03/15/2023) [facility] note* Diagnosis Hypertension, unspecified type- Primary [facility] Diagnosis Memory disturbance- Primary Memory loss Primary hypertension Unspecified essential hypertension Persistent atrial fibrillation (HCC) Atrial fibrillation Hyperlipidemia LDL goal <130 Other and unspecified hyperlipidemia Toe pain, chronic, left [facility] Diagnosis Primary hypertension- Primary Unspecified essential hypertension Hyperlipidemia LDL goal <130 Other and unspecified hyperlipidemia [facility] Diagnosis Medicare annual wellness visit, subsequent- Primary Routine general medical examination at a [facility] care facility Impaired fasting glucose Encounter for immunization Need for other specified prophylactic vaccination against single bacterial disease [facility] Diagnosis Hyperlipidemia LDL goal <130 Other and unspecified hyperlipidemia [facility] noteNo assessment information availableWMercy Health [facility] Work Phone: Evaluation note* Diagnosis Constipation, unspecified constipation type- Primary Rectal pain Anal or rectal pain [facility]* Diagnosis Toe pain, chronic, left- Primary Persistent atrial fibrillation (HCC) Atrial fibrillation Primary hypertension Unspecified essential hypertension Impaired fasting glucose Polycythemia Polycythemia vera [facility] Diagnosis Hyperlipidemia LDL goal <130 Other and unspecified hyperlipidemia [facility]* Diagnosis Toe pain, chronic, left- Primary Primary hypertension Unspecified essential hypertension Chronic anticoagulation Long-term (current) use of anticoagulants Impaired fasting glucose Need for COVID-19 vaccine Polycythemia Polycythemia vera Hyperlipidemia LDL goal <130 Other and unspecified hyperlipidemia Gait abnormality Abnormality of gait [facility] Diagnosis Hyperlipidemia LDL goal <130 Other and unspecified hyperlipidemia [facility]* Diagnosis Toe pain, chronic, left [facility]* Diagnosis Medicare annual wellness visit, subsequent- Primary Routine general medical examination at a health care facility Persistent atrial fibrillation (HCC) Atrial fibrillation Primary hypertension Unspecified essential hypertension Hyperlipidemia LDL goal <130 Other and unspecified hyperlipidemia Impaired fasting glucose Polycythemia Polycythemia vera Memory disturbance Memory loss Encounter for immunization Need for other specified prophylactic vaccination against single bacterial disease Screening for depression Encounter for screening examination for other mental health and behavioral disorders [facility]* Diagnosis Cellulitis of right lower extremity- Primary Cellulitis and abscess of leg, except foot Swelling of lower leg Hematuria, unspecified type Indwelling Thomas catheter present Hyperlipidemia LDL goal <130 Other and unspecified hyperlipidemia Persistent atrial fibrillation (HCC) Atrial fibrillation Impaired fasting glucose [facility]* Diagnosis Persistent atrial fibrillation (HCC)- Primary Atrial fibrillation Toe pain, chronic, 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)- Primary documented in this encounter [facility] note* Diagnosis Urinary frequency- Primary Glucosuria Glycosuria Newly diagnosed diabetes (HCC) Type II or unspecified type diabetes mellitus without mention of complication, not stated as uncontrolled Hyperglycemia Other abnormal glucose BPH with obstruction/lower urinary tract symptoms Hypertrophy of prostate with urinary obstruction and other lower urinary tract symptoms (LUTS) documented [facility]* Diagnosis Type 2 diabetes mellitus without complication, without long-term current use of insulin (HCC)- Primary [facility]* Diagnosis Type 2 diabetes mellitus without complication, without long-term current use of insulin ([facility])- Primary documented [facility]* Diagnosis Hyperlipidemia LDL goal <130 Other and unspecified hyperlipidemia documented in this encounter [facility] Discharge instructions Additional Instructions Please take the MiraLAX daily. If you do start having diarrhea he can cut back on it and take it every other day or half capful daily. If you are not having regular bowel movements you can increase your daily dosage. Try to drink more water as well and eat a high-fiber diet. Work Phone: Reason for referral (narrative)* Diagnostic Procedure Only (Routine) - Closed Specialty Diagnoses / Procedures Referred By Contac t Referred To Contact XR IMAGING Diagnoses Toe pain, chronic, left Procedures XR TOE AP/LAT/OBL LEFT RADEX TOE MINIMUM 2 VIEWS Cedric Salazar MD [address] [place] [address] Xr Imaging Referral ID Status Reason Start Date Expiration Date V isits Requested Visits Authorized [id number] Closed Auto-Generate d Referral 09/26/2022 10/26/2023 1 1 T [facility] for referral (narrative)* Diagnostic Procedure Only (Routine) - Closed Specialty Diagnoses / Procedures Referred By Contac t Referred To Contact XR IMAGING Diagnoses Toe pain, chronic, left Procedures XR TOE AP/LAT/OBL LEFT RADEX TOE MINIMUM 2 VIEWS Cedric Salazar MD [address] [place] [id number] Xr Imaging [facility] Referral ID Status Reason Start Date Expiration Date V isits Requested Visits Authorized [id number] Closed Auto-Generate d Referral 09/26/2022 10/26/2023 1 1 [facility] for referral (narrative)No reason for referral information availablePark[facility] Work Phone: reason for visit Narrative* Diagnostic Procedure Only (Routine) - Closed Specialty Diagnoses / Procedures Referred By Contac t Referred To Contact XR IMAGING Diagnoses Toe pain, chronic, left Procedures XR TOE AP/LAT/OBL LEFT RADEX TOE MINIMUM 2 VIEWS Cedric Salazar MD [address] [place], [place] [id number] [place] [address] Referral ID Status Reason Start Date Expiration Date V isits Requested Visits Authorized [id number] Closed Auto-Generate d Referral 09/26/2022 10/26/2023 1 1 [facility] Summary Purpose Family History No Family History Records Found Relationship Condition Age at Onset Recorded Date/T martinez mother Malignant neoplasm Unknown Advance Directives No Advanced Directives Records FoundDocuments on File Type Date Recorded Patient Dining Room Maid Expl anation Advance Directive(s) 09/19/2010 12:00 AM Advance Directive(s) 07/11/2006 12:00 AM Documents on File Type Date Recorded Patient Dining Room Maid Expl anation Advance Directive(s) 09/19/2010 Advance Directive(s) 07/11/2006 Advance Directive Response Recorded Date/ Time Advance Directives Yes October 19 0 10:47am Living Will No September 21, 2022 11:22am Power of Scratch Polisher Yes September 21 11:22am Name of Medical Power of Scratch Polisher mika rascon September 21, 2022 11:22am Documents on File Type Date Recorded Patient Dining Room Maid Expl anation Advance Directive(s) 09/19/2010 Advance Directive(s) 07/11/2006 Advance Directive Response Recorded Date/ Time Advance Directives Yes October 19 0 10:47am Chief Complaint and Reason for Visit Chief Complaint CONSTIPATION Chief Complaint Admit Date 1 Y FU October 29, 2024 9:50a m Additional Source Comments (unrecognized sect ion and content) No Status Records FoundNo Status Records FoundNo Status Records FoundNo Status Records Found INFORMATION SOURCE (unrecogn ized section and content) DATE CREATED AUTHOR 02/05/2020 [facility] ([place]) DATE CREATED AUTHOR AUTHOR'S ORGANIZ ATION 09/03/2020 [facility] DATE CREATED AUTHOR AUTHOR'S ORGANIZ ATION 10/30/2024 [facility] DATE CREATED AUTHOR AUTHOR'S ORGANIZ ATION 11/05/2024 [facility] Source Comments (unrecognize d section and content) In the event this informatio n is protected by the Federal Confidentiality of Alcohol and Drug Abuse Patient Records regulations: The Federal rules restrict any use of the information to criminally investigate or prosecute any alcohol or drug abuse patient.[facility] the event this information is protected by the Federal Confidentiality of Alcohol and Drug Abuse Patient Records regulations: The Federal rules restrict any use of the information to criminally investigate or prosecute any alcohol or drug abuse patient.[facility] CenterIn the event this information is protected by the Federal Confidentiality of Alcohol and Drug Abuse Patient Records regulations: The Federal rules restrict any use of the information to criminally investigate or prosecute any alcohol or drug abuse patient.[facility] CenterIn the event this information is protected by the Federal Confidentiality of Alcohol and Drug Abuse Patient Records regulations: The Federal rules restrict any use of the information to criminally investigate or prosecute any alcohol or drug abuse patient.[facility] CenterIn the event this information is protected by the Federal Confidentiality of Alcohol and Drug Abuse Patient Records regulations: The Federal rules restrict any use of the information to criminally investigate or prosecute any alcohol or drug abuse patient.[facility] CenterIn the event this information is protected by the Federal Confidentiality of Alcohol and Drug Abuse Patient Records regulations: The Federal rules restrict any use of the information to criminally investigate or prosecute any alcohol or drug abuse patient.[facility] CenterIn the event this information is protected by the Federal Confidentiality of Alcohol and Drug Abuse Patient Records regulations: The Federal rules restrict any use of the information to criminally investigate or prosecute any alcohol or drug abuse patient.[facility] CenterIn the event this information is protected by the Federal Confidentiality of Alcohol and Drug Abuse Patient Records regulations: The Federal rules restrict any use of the information to criminally investigate or prosecute any alcohol or drug abuse patient.[facility] CenterIn the event this information is protected by the Federal Confidentiality of Alcohol and Drug Abuse Patient Records regulations: The Federal rules restrict any use of the information to criminally investigate or prosecute any alcohol or drug abuse patient.[facility] CenterIn the event this information is protected by the Federal Confidentiality of Alcohol and Drug Abuse Patient Records regulations: The Federal rules restrict any use of the information to criminally investigate or prosecute any alcohol or drug abuse patient.[facility] CenterIn the event this information is protected by the Federal Confidentiality of Alcohol and Drug Abuse Patient Records regulations: The Federal rules restrict any use of the information to criminally investigate or prosecute any alcohol or drug abuse patient.[facility] CenterIn the event this information is protected by the Federal Confidentiality of Alcohol and Drug Abuse Patient Records regulations: The Federal rules restrict any use of the information to criminally investigate or prosecute any alcohol or drug abuse patient.[facility] CenterIn the event this information is protected by the Federal Confidentiality of Alcohol and Drug Abuse Patient Records regulations: The Federal rules restrict any use of the information to criminally investigate or prosecute any alcohol or drug abuse patient.[facility] CenterIn the event this information is protected by the Federal Confidentiality of Alcohol and Drug Abuse Patient Records regulations: The Federal rules restrict any use of the information to criminally investigate or prosecute any alcohol or drug abuse patient.[facility] CenterIn the event this information is protected by the Federal Confidentiality of Alcohol and Drug Abuse Patient Records regulations: The Federal rules restrict any use of the information to criminally investigate or prosecute any alcohol or drug abuse patient.[facility] CenterIn the event this information is protected by the Federal Confidentiality of Alcohol and Drug Abuse Patient Records regulations: The Federal rules restrict any use of the information to criminally investigate or prosecute any alcohol or drug abuse patient.[facility] CenterIn the event this information is protected by the Federal Confidentiality of Alcohol and Drug Abuse Patient Records regulations: The Federal rules restrict any use of the information to criminally investigate or prosecute any alcohol or drug abuse patient.[facility] CenterIn the event this information is protected by the Federal Confidentiality of Alcohol and Drug Abuse Patient Records regulations: The Federal rules restrict any use of the information to criminally investigate or prosecute any alcohol or drug abuse patient.[facility] CenterIn the event this information is protected by the Federal Confidentiality of Alcohol and Drug Abuse Patient Records regulations: The Federal rules restrict any use of the information to criminally investigate or prosecute any alcohol or drug abuse patient.[facility] CenterIn the event this information is protected by the Federal Confidentiality of Alcohol and Drug Abuse Patient Records regulations: The Federal rules restrict any use of the information to criminally investigate or prosecute any alcohol or drug abuse patient.[facility] CenterIn the event this information is protected by the Federal Confidentiality of Alcohol and Drug Abuse Patient Records regulations: The Federal rules restrict any use of the information to criminally investigate or prosecute any alcohol or drug abuse patient.[facility] CenterIn the event this information is protected by the Federal Confidentiality of Alcohol and Drug Abuse Patient Records regulations: The Federal rules restrict any use of the information to criminally investigate or prosecute any alcohol or drug abuse patient.[facility] CenterIn the event this information is protected by the Federal Confidentiality of Alcohol and Drug Abuse Patient Records regulations: The Federal rules restrict any use of the information to criminally investigate or prosecute any alcohol or drug abuse patient.[facility] CenterIn the event this information is protected by the Federal Confidentiality of Alcohol and Drug Abuse Patient Records regulations: The Federal rules restrict any use of the information to criminally investigate or prosecute any alcohol or drug abuse patient.[facility] Reason for Visit (unrecogniz ed section and content) Reason Comments Patient Question Reason Comments 10 month follow-up Reason Comments Lab Orders Reason Comments Medicare Wellness Exam Reason Onset Date Comments Refill Request 05/16/2022 Reason Comments Constipation Reason Comments 10 month follow-up Reason Onset Date Comments Refill Request 03/15/2023 Reason Comments F/U 6 months Reason Comments Refill Request Reason Onset Date Comments Refill Request 01/28/2024 Reason Comments Medicare Wellness Exam 5 MONTH FOLLOW UP Reason Onset Date Comments Population Health Navigation Outreach 07/16/2024 [employer] High Risk Attempt #1 Reason Onset Date Comments Population Health Navigation Outreach 08/12/2024 [employer] High Risk Attempt #2 Reason Comments Hospital F/U Reason Onset Date Comments Population Health Navigation Outreach 09/28/2024 [employer] Workbench Belva Reason Comments Urinary Frequency X 4 weeks Reason Onset Date Comments Population Health Navigation Outreach 10/28/2024 [employer] Workbench Belva Reason Comments Non-insulin Dependent Diabetes Mellitus Reason Onset Date Comments Refill Request 11/02/2024 Care Teams (unrecognized sec tion and content) Order Packer Or Packager Relationship Specialty Start Date End Date Cedric Salazar MD [address] [place] [address] PCP - General Internal Medicine 12/08/20 Order Packer Or Packager Relationship Specialty Start Date End Date Cedric Salazar MD [address] [place] [address] PCP - General Internal Medicine 12/08/20 Order Packer Or Packager Relationship Specialty Start Date End Date Cedric Salazar MD [address] [place] [address] PCP - General Internal Medicine 12/08/20 Order Packer Or Packager Relationship Specialty Start Date End Date Cedric Salazar MD [address] [place] [address] PCP - General Internal Medicine 12/08/20 Team Status: Active Member Role Status Dates Dr. Cedric Salazar MD Primary Care Provider Active Team Status: Inactive Member Role Status Dates Dr. Cedric Salazar MD Primary Care Provider Active Dr. Sierra Zaidi DO Referring Provider, Maco garcia Active Order Packer Or Packager Relationship Specialty Start Date End Date Cedric Salazar MD [address] [facility] [place] [address] PCP - General Internal Medicine 12/08/20 Order Packer Or Packager Relationship Specialty Start Date End Date Cedric Salazar MD [address] [place] [address] PCP - General Internal Medicine 12/08/20 Order Packer Or Packager Relationship Specialty Start Date End Date Cedric Salazar MD [address] [place] [address] PCP - General Internal Medicine 12/08/20 Order Packer Or Packager Relationship Specialty Start Date End Date Cedric Salazar MD [address] [place] [address] PCP - General Internal Medicine 12/08/20 Order Packer Or Packager Relationship Specialty Start Date End Date Cedric Salazar MD [address] [place] [address] PCP - General Internal Medicine 12/08/20 Order Packer Or Packager Relationship Specialty Start Date End Date Cedric Salazar MD [address] [place] [address] PCP - General Internal Medicine 12/08/20 Order Packer Or Packager Relationship Specialty Start Date End Date Cedric Salazar MD [address] [place] [address] PCP - General Internal Medicine 12/08/20 Order Packer Or Packager Relationship Specialty Start Date End Date Cedric Salazar MD [address] [place] [address] PCP - General Internal Medicine 12/08/20 Order Packer Or Packager Relationship Specialty Start Date End Date Cedric Salazar MD [address] [place] [address] PCP - General Internal Medicine 12/08/20 Ariana Toro, BOARD STACKER.DISPENSING OPTICIAN [address] [facility] [place] [address] Guest Experience Manager Internal Medicine 05/04/24 Order Packer Or Packager Relationship Specialty Start Date End Date Cedric Salazar MD [address] [facility] [place] [address] PCP - General Internal Medicine 12/08/20 Ariana Toro, BOARD STACKER.DISPENSING OPTICIAN [address] [facility] [place] [address] Guest Experience Manager Internal Medicine 05/04/24 An Sepulveda, apparel sales leader Pulmonology Technician 08/27/24 Order Packer Or Packager Relationship Specialty Start Date End Date Cedric Salazar MD [address] [facility] [place] [address] PCP - General Internal Medicine 12/08/20 Ariana Toro, BOARD STACKER.DISPENSING OPTICIAN [address] [facility] [place] [address] [facility] Internal Medicine 05/04/24 Order Packer Or Packager Relationship Specialty Start Date End Date Cedric Salazar MD [address] [facility] [place] [address] PCP - General Internal Medicine 12/08/20 Ariana Toro, BOARD STACKER.DISPENSING OPTICIAN [address] [facility] [place], [place] [address] Guest Experience Manager Internal Medicine 05/04/24 Order Packer Or Packager Relationship Specialty Start Date End Date Cedric Salazar MD [address] [place] [address] PCP - General Internal Medicine 12/08/20 Ariana Toro, BOARD STACKER.DISPENSING OPTICIAN [address] [place] [address] Guest Experience Manager Internal Medicine 05/04/24 Order Packer Or Packager Relationship Specialty Start Date End Date Cedric Salazar MD [address] [place] [address] PCP - General Internal Medicine 12/08/20 Ariana Toro, BOARD STACKER.DISPENSING OPTICIAN [address] [place] [address] Guest Experience Manager Internal Medicine 05/04/24 Order Packer Or Packager Relationship Specialty Start Date End Date Cedric Salazar MD [address] [place] [address] PCP - General Internal Medicine 12/08/20 Ariana Toro, BOARD STACKER.DISPENSING OPTICIAN [address] [place] [address] Guest Experience Manager Internal Medicine 05/04/24 Team Status: Inactive Member Role Status Dates Dr. Cedric Salazar MD Primary Care Provider Active Start: October 29, 2024 End: October 29, 2024 Dr. Cedric Salazar MD Referring Provider Active Start: October 29, 2024 End: October 29, 2024 Dr. Roly Prakash MD Attending Provider Active Start: October 29, 2024 End: October 29, 2024 Order Packer Or Packager Relationship Specialty Start Date End Date Cedric Salazar MD [address] [place], [place] [address] PCP - General Internal Medicine 12/08/20 Ariana Toro, BOARD STACKER.DISPENSING OPTICIAN [address] [place], [place] [address] [facility] Internal Medicine 05/04/24 Order Packer Or Packager Relationship Specialty Start Date End Date Cedric Salazar MD [address] [place], [place] [address] PCP - General Internal Medicine 12/08/20 Ariana Toro, BOARD STACKER.DISPENSING OPTICIAN [address] [place], [place] [address] Guest Experience Manager Internal Medicine 05/04/24 Goals (unrecognized section and content) Goals may be documented in a n alternate sectionGoals may be documented in an alternate section FOR RECORDS PERTAINING TO PATIENTS WHO ARE OR HAVE BEEN ENROLLED IN A CHEMICAL DEPENDENCY/SUBSTANCEABUSE PROGRAM, SOME INFORMATION MAY BE OMITTED. This clinical summary was aggregated from multiple sources. Caution should be exercised in using it in the provision of clinical care. This summary normalizes information from multiple sources, and as a consequence, information in this document may materially change the coding, format and clinical context of patient data. In addition, data may be omitted in some cases. CLINICAL DECISIONS SHOULD BE BASED ON THE PRIMARY CLINICAL RECORDS. [employer] [facility]. provides no warranty or guarantee of the accuracy or completeness of information in this document.
== END | disposition home or self-care (01) ==
LOC: PSN 08:01
PROVIDERS: PCP Internal Medicine; Referring Provider Internal Medicine Cardiovascular Disease; Visit Provider Internal Medicine Cardiovascular Disease
DX: I48.91 Unspecified atrial fibrillation (principal)
CPT/HCPCS: 93225; 93226

== ENCOUNTER 2025-04-09 12:13 | Inpatient (IN) | payer MEDICARE, SELFPAY ==
[2025-04-09] VITALS (15 sets, daily range): BP systolic 101–136; BP diastolic 61–92; PULSE 88–97; RESP 12–18; TEMP 36.4–36.8; O2SAT 92–98; BMI 25.9
--- NOTE | 2025-04-09 12:54 | EKG12_ITS ---
Test Reason : Blood Pressure : */* mmHG Vent. Rate : 84 BPM Atrial Rate : * BPM P-R Int : * ms QRS Dur : 84 ms QT Int : 370 ms P-R-T Axes : * -20 55 degrees QTcB Int : 437 ms Atrial fibrillation with premature ventricular or aberrantly conducted complexes Cannot rule out Inferior infarct , age undetermined Abnormal ECG Confirmed by ABDULAZIZ BARRERA, SANDHYA ([id number]), fan mail editor SHAI GONZALEZ ([id number]) on 04/12/2025 8:19:15 AM Referred By: Confirmed By: SANDHYA CINTRON MD
--- NOTE | 2025-04-09 12:56 | EX.ED.DYSGE1 ---
HPI History of Present Illness Chief Complaint: Edema Detail of Chief Complaint: Leg edema, frequent falls, weakness Informant: patient, spouse/S.O. and family Narrative Narrative: Patient presents to the emergency department with complaint leg edema that is been progressive for more than 2 to 3 months. He was in [place] in August and admitted for 3 days for cellulitis and then they came back to [place] with a Reyna catheter in place. That was then taken out by urology. Patient has had decreased p.o. intake and has fallen 4 or 5 times in the last month per niece. Patient's had increased leg edema bilaterally. He is anticoagulated with Eliquis. He has had a prior ablation for A-fib. Patient denies chest pain or abdominal pain. He denies headache. [facility] Medical History [facility] current use of anticoagulant Cardiomyopathy History of cardioversion (~10/20/19) Paroxysmal atrial flutter Essential hypertension Benign positional vertigo Diverticulosis of colon BPH (benign prostatic hyperplasia) Hyperlipemia Home Medications ?Medication ?Instructions ?Recorded ?Last Taken ?Type ascorbic acid (vitamin C) 500 mg 500 mg PO DAILY 10/12/19 Unknown History tablet atorvastatin 20 mg tablet 20 mg PO QHS 10/12/19 Unknown History cinnamon bark 500 mg capsule 500 mg PO DAILY 10/12/19 Unknown History multivitamin 1 tab PO DAILY 10/12/19 Unknown History saw palmetto 450 mg capsule 450 mg PO BID 10/12/19 Unknown History polyethylene glycol 3350 17 17 g PO DAILY #119 grams 09/21/22 Unknown Rx gram/dose oral powder (Miralax) glyburide 2.5 mg tablet 2.5 mg PO QDAY 10/29/24 Unknown History metoprolol succinate 25 mg 25 mg PO BID #180 tabs 10/29/24 Unknown Rx tablet,extended release 24 hr rivaroxaban 20 mg tablet (Xarelto) 20 mg PO DAILY #90 tabs 11/30/24 Unknown Rx Allergy/AdvReac Type Severity Reaction Status Date / Time No Known Allergies Allergy Verified 04/09/25 12:16 Family History Mother Cancer Breast Surgical History History of bilateral cataract extraction History of appendectomy Social History Smoking Status: Former smoker alcohol intake: never substance use type: does not use caffeine: No ROS ROS ED Review of Systems ROS Unobtainable: other Constitutional Constitutional ED: Reports lethargy; Denies chills, fever(s), sweats or weight loss Eyes Eyes: Denies blurry vision, change in vision or diplopia ENT ENT ED: Denies rhinorrhea or sore throat Cardiovascular Cardiovascular: Denies chest pain, orthopnea or racing heartbeat Respiratory/Chest Respiratory/Chest: Denies cough, dyspnea, dyspnea on exertion, orthopnea or sputum Gastrointestinal Gastrointestinal: Denies abdominal pain, diarrhea, nausea or vomiting Genitourinary Genitourinary ED: Denies dysuria, hematuria or urinary frequency Musculoskeletal Musculoskeletal: Reports other Details: Leg edema ; Denies arthralgias, back pain, myalgias or neck pain Integumentary Denies abscess, Abrasions or rash Neurologic Neurologic: Reports weakness; Denies headache(s) Psychiatric Psychiatric: Denies anxiety, depression or suicidal thoughts Endocrine Endocrinology: Denies polydipsia, polyphagia or polyuria Hematologic/Lymphatic Hematologic/Lymphatic: Denies easy bleeding, easy bruising or lymphadenopathy Allergic/Immunologic Allergic/Immunologic ED: Denies mouth swelling, tongue swelling or urticaria EXAM Physical Exam Const Vital Signs: 04/09/25 12:14 04/09/25 14:14 Temperature 98 F Temperature Source Oral Pulse Rate 88 96 Respiratory Rate 16 Blood Pressure 126/79 H 136/85 H Blood Pressure Mean 94 102 Pulse Ox 98 92 Oxygen Delivery Method Room Air Positive well nourished and well developed General Appearance ED: well developed and NAD HEENT Reports TM's clear and moist mucous membranes normocephalic and atraumatic; Negative for trauma or tenderness Tympanic Membrane ED: Yes TM's clear Eyes PERRL and EOMs intact bilaterally General Eye ED: Negative for pale conjunctiva or scleral icterus Neck no lymphadenopathy, supple and no JVD General: Negative for tenderness Chest Wall inspection of chest normal and palpation of chest normal Chest: Negative for tenderness Resp normal respiratory effort and clear to auscultation bilaterally Effort and Inspection: Negative for respiratory distress or pain with movement Auscultation: Negative for rhonchi, wheezes or diminished lung sounds Cardio S1 normal heart sound, S2 normal heart sound and no murmurs; Negative for regular rate or regular rhythm Rate: other Rhythm: abnormal rhythm irregularly irregular Peripheral Pulses: pulses 2+ throughout GI normal to inspection, nondistended, normoactive bowel sounds, soft to palpation, non-tender, non-distended and no masses Back/Spine no CVA tenderness and no thoracic nor lumbar tenderness Extremity Negative for normal to inspection Extremity Narrative: +2 edema both lower extremities from below the knee to the feet. General Extremety ED: Yes edema General Extremity: edema Neuro oriented x3, CN's II-XII intact bilaterally, no sensory deficits noted and gait normal Sensorium / Orientation: awake, alert, oriented to person, oriented to place and oriented to time Motor Exam: strength 5/5 throughout and strength abnormal Psych mental status grossly normal Skin no rashes or lesions noted and no wounds MDM MDM MDM Narrative Medical decision making narrative: Patient presents with complaint of leg edema and failure to thrive with falls and generalized weakness. Also having issues urinating and just dribbling but feels like needs to go often. Apparently in August had a Reyna catheter placed in [place]. Patient had an IV line established on arrival. EKG obtained showed a atrial fibrillation with rate of [address] changes. CBC with differential showed a white count of 13.4 with hemoglobin 12.8 and platelet count of 208. Chemistries unremarkable. BUN 39 and creat 1.88. Lactate was normal at 1.4. 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 Bladder scan obtained initially was in the 600s. We attempted to place Reyna catheter however he had a phimosis and could not find the urethra to be able to place the catheter. 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 I discussed case with urology Dr. Brantley who presented to the ER to attempt to place Reyna catheter unsuccessfully and will have to take patient to the operating room. Also discussed case with hospitalist to evaluate for admission as well as he has diffuse edema and frequent falls and failure to thrive as well. Patient will be admitted after surgical intervention for his urinary retention. Lab Data Attestation: I reviewed the patient's lab results. Labs: Laboratory Results - last 24 hr 04/09/25 04/09/25 13:03 13:05 WBC 13.4 H RBC 4.17 L Hgb 12.8 L Hct 40.3 MCV 96.6 H MCH 30.7 MCHC 31.8 L RDW Std Deviation 46.7 H RDW Coeff of Eduardo 13.2 Plt Count 208 MPV 8.5 Immature Gran % (Auto) 0.500 Neut % (Auto) 76.2 H Lymph % (Auto) 10.4 L Dundy % (Auto) 10.0 Eos % (Auto) 1.9 Baso % (Auto) 1.0 Absolute Neuts (auto) 10.2 H Absolute Lymphs (auto) 1.39 Nucleated RBC % 0 Sodium 139 Potassium 4.7 Chloride 105 Carbon Dioxide 23.2 Anion Gap 10 BUN 39 H Creatinine 1.88 H Estim Creat Clear Calc 33.40 L Est GFR (MDRD) Non-Af 35 L BUN/Creatinine Ratio 20.5 H Glucose 73 Lactic Acid 1.4 Calcium 9.6 Troponin T High Sens 54 H* NT pro BNP II 2299 H EKG Initial EKG: Attestation: I personally reviewed and interpreted this EKG as follows: Comments: Atrial fibrillation with [address] change Discharge Plan Dx/Rx/DC Orders Clinical Impression: Acute urinary retention, Falls frequently, Adult failure to thrive, Leg edema Disposition Disposition: Acute Care [facility]
[2025-04-09 13:17] LABS: Hematocrit 40.3 % (40-54); Hemoglobin 12.8 g/dL (13.0-16.5); Immature Granulocytes Count 0.070 X10^3/uL (0.0-0.0); Mean Corp Hgb Conc 31.8 g/dL (32-36); Mean Corpuscular Volume 96.6 fL (80-94); Mean Platelet Vol. 8.5 fl (6.2-12.0); NRBC Flagged by Analyzer 0 % (0-5); Platelet Count 208 K/mm3 (150-450); RBC Distribution Width CV 13.2 % (11.6-14.6); RBC Distribution Width SD 46.7 fl (35.1-43.9); Red Blood Count 4.17 M/mm3 (4.6-6.2); White Blood Count 13.4 K/mm3 (4.4-11.0)
[2025-04-09 13:42] LABS: Anion Gap 10 (5-15); BUN 39 mg/dL (4-19); BUN/Creat Ratio 20.5 RATIO (10-20); Calcium,Total 9.6 mg/dL (7.6-11.0); Carbon Dioxide 23.2 mmol/L (21.0-32.0); Chloride 105 mmol/L (98-108); Estimated Creatinine Clearance 33.40 ml/min (50-250); Glucose 73 mg/dL (70-99); Potassium 4.7 mmol/L (3.3-5.1); Pro- Brain NATRIURETIC PEPTIDE 2299 pg/mL (<=1800)
[2025-04-09 13:58] LABS: Troponin T High Sensitivity 54 ng/L (<=22)
--- NOTE | 2025-04-09 14:50 | RAD_ITS ---
PROCEDURE: CHEST 1 VIEW (PORTABLE) 04/09/2025 REASON FOR EXAM: WEAKNESS TECHNIQUE: Frontal view of the chest. COMPARISON: October 12, 2019. FINDINGS: Hardware: None Heart: Heart size is upper limits of normal. Lungs: The lungs are clear. Bones: Degenerative changes are identified within the thoracic spine. RAD/Chest 1 View (Portable) IMPRESSION: No acute abnormality is seen. Reading Location: [place] [id number]
[2025-04-09] MEDS: Lidocaine Jelly 2% 20 ML Syringe (URO-JET) 1 APPLIC TOPICAL (15:06)
[2025-04-09 15:31] LABS: Troponin T High Sens 2 HR 51 ng/L (<=22)
--- NOTE | 2025-04-09 16:06 | PCM.CONS.GEN ---
Assessment & Plan Assessment/Plan (1) Urethral stricture: PLAN: Plan Plan to take the patient to the operating room for cystoscopy dilation of strictures and placement of Reyna catheter possible retrograde urethrogram HPI Consult Data Date of Consult: 04/09/25 HPI Narrative Reason for Consultation: Urinary retention urethral stricture, phimosis of the foreskin HPI Narrative: CALLIE RASCON, is a 84 male who reported to the emergency room he was barely dribbling urination out they did a bladder scan looks like he is in retention of urine nurses attempted to place a Reyna at the bedside but the first problem was that his foreskin was super edematous and scarred down could barely retract the foreskin after some effort they were able to retract the foreskin fine the meatus but he has severe meatal stricture and they could need to get a catheter past the stricture I was called to see the patient I tried to do a bedside dilation I was able to dilate the meatal stricture at the bedside but then I put the catheter into the urethra and then ran into another dense stricture in the bulbar urethra at this point with the amount of significant bleeding and significant pain and significant scar tissue disease I am in to take and recommend take the patient to surgery for cystoscopy dilation of urethral strictures and placement of Reyna catheter at this point is a just be a temporizing measure and just put a catheter in. This to be an add-on surgery for today for cystoscopy and Reyna placement [facility] Medical History [facility] current use of anticoagulant Cardiomyopathy History of cardioversion (~10/20/19) Paroxysmal atrial flutter Essential hypertension Benign positional vertigo Diverticulosis of colon BPH (benign prostatic hyperplasia) Hyperlipemia Home Medications ?Medication ?Instructions ?Recorded ?Last Taken ?Type ascorbic acid (vitamin C) 500 mg 500 mg PO DAILY 10/12/19 Unknown History tablet atorvastatin 20 mg tablet 20 mg PO QHS 10/12/19 Unknown History cinnamon bark 500 mg capsule 500 mg PO DAILY 10/12/19 Unknown History multivitamin 1 tab PO DAILY 10/12/19 Unknown History saw palmetto 450 mg capsule 450 mg PO BID 10/12/19 Unknown History polyethylene glycol 3350 17 17 g PO DAILY #119 grams 09/21/22 Unknown Rx gram/dose oral powder (Miralax) glyburide 2.5 mg tablet 2.5 mg PO QDAY 10/29/24 Unknown History metoprolol succinate 25 mg 25 mg PO BID #180 tabs 10/29/24 Unknown Rx tablet,extended release 24 hr rivaroxaban 20 mg tablet (Xarelto) 20 mg PO DAILY #90 tabs 11/30/24 Unknown Rx Allergy/AdvReac Type Severity Reaction Status Date / Time No Known Allergies Allergy Verified 04/09/25 12:16 Family History Mother Cancer Breast Surgical History History of bilateral cataract extraction History of appendectomy Social History household members: spouse housing: house Smoking Status: Former smoker alcohol intake: never substance use type: does not use caffeine: No ROS Constitutional Constitutional: Denies chills, fever(s) or malaise Eyes Eyes: Denies blurry vision or change in vision ENT HEENT: Reports none Cardiovascular Cardiovascular: Denies chest pain or palpitations Respiratory/Chest Respiratory/Chest: Denies cough or shortness of breath with exertion Gastrointestinal Gastrointestinal: Denies abdominal pain, constipation or diarrhea Musculoskeletal Musculoskeletal: Denies back pain, joint stiffness or joint swelling Integumentary Integumentary: Denies dry skin, jaundice, lesions or rash Neurologic Neurologic: Denies confusion, syncope or weakness Psychiatric Psychiatric: Reports none; Denies anxiety or depression Endocrine Endocrinology: Denies excessive sweating, fatigue or flushing Hematologic/Lymphatic Hematologic/Lymphatic: Denies anemia, easy bleeding or easy bruising Physical Exam Const alert and oriented x3 General Appearance: cooperative HEENT normocephalic and head/scalp atraumatic Eyes PERRL and EOMs intact bilaterally Neck supple, no JVD and no carotid bruits Resp normal respiratory effort, normal air movement and clear to auscultation bilaterally Cardio regular rate and no murmurs GI normal to inspection, nondistended, normoactive bowel sounds and soft to palpation Extremity normal capillary refill General Extremity: no tenderness to palpation of joints or extremities; Negative for edema Skin no rashes or lesions noted and no wounds General Skin Exam: no breakdown Neuro CN's II-XII intact bilaterally Psych affect normal Appearance: appropriate Medical Records Data Attestation: I reviewed the patient's medical records Lab / Micro Data 04/09/25 13:05 04/09/25 13:05 Labs: Laboratory Results - last 24 hr 04/09/25 13:03: Lactic Acid 1.4, Troponin T High Sens 54 H* 04/09/25 13:05: WBC 13.4 H, RBC 4.17 L, Hgb 12.8 L, Hct 40.3, MCV 96.6 H, MCH 30.7, MCHC 31.8 L, RDW Std Deviation 46.7 H, RDW Coeff of Eduardo 13.2, Plt Count 208, MPV 8.5, Immature Gran % (Auto) 0.500, Neut % (Auto) 76.2 H, Lymph % (Auto) 10.4 L, Sargent % (Auto) 10.0, Eos % (Auto) 1.9, Baso % (Auto) 1.0, Absolute Neuts (auto) 10.2 H, Absolute Lymphs (auto) 1.39, Nucleated RBC % 0, Sodium 139, Potassium 4.7, Chloride 105, Carbon Dioxide 23.2, Anion Gap 10, BUN 39 H, Creatinine 1.88 H, Estim Creat Clear Calc 33.40 L, Est GFR (MDRD) Non-Af 35 L, BUN/Creatinine Ratio 20.5 H, Glucose 73, Calcium 9.6, NT pro BNP II 2299 H 04/09/25 15:00: Troponin T Hi Sens 2 Hr 51 H Imaging Radiology Impression Chest X-Ray 04/09/25 14:50 IMPRESSION: No acute abnormality is seen. Reading Location: [place] [id number]
[2025-04-09] MEDS: Lactated Ringers 1,000 ML 15 ML IV (16:18)
--- NOTE | 2025-04-09 16:38 | PCM.PRE.AN2 ---
ASA Classification* ASA Classification ASA Classification: 3 and E Assessment & Plan Anesthesia* Anesthesia Assessment Anesthesia Assessment: Discussed sedation and/or anesthesia options, risks, benefits, and alternatives with patient/parents/legal guardian/POA. Questions invited. The patient/parents/legal guardian/POA seems to understand and agrees to proceed with anesthesia plan. Reviewed the physical assessment, medical history, allergy history and patient home medications list prior to surgery/procedure/anesthetic and documented any changes. Performed airway and anesthesia risk assessments. Anesthesia Type Anesthesia Type: MAC History Source History Obtained from:: Patient and Chart Anesthesia Focused Assessment* Temperature: 98 F Pulse Rate: 96 Blood Pressure: 126/72 Respiratory Rate: 18 Pulse Ox: 95 Oxygen Delivery Method: Room Air Airway Assessment Mouth opens: >3 cm Mallampati Score: IV Teeth Condition: Dentures (Full top dentures. Currently in place.) and Missing (Patient missing a couple teeth on the bottom. Rest are tight.) Neck Range of motion (ROM): Limited ROM (Somewhat Decreased) Labs Anesthesia Preop lab: CBC WBC, (4.4-11.0) 13.4 K/mm3 H Today, 13:05 RBC, (4.6-6.2) 4.17 M/mm3 L Today, 13:05 Hgb, (13.0-16.5) 12.8 g/dL L Today, 13:05 Hct, (40-54) 40.3 % Today, 13:05 Plt Count, (150-450) 208 K/mm3 Today, 13:05 CHEMISTRY Potassium, (3.3-5.1) 4.7 mmol/L Today, 13:05 Sodium, (133-145) 139 mmol/L Today, 13:05 Magnesium, (1.6-2.6) 2.7 mg/dL H 10/13/19, 11:45 BUN, (4-19) 39 mg/dL H Today, 13:05 Creatinine, (0.70-1.20) 1.88 mg/dL H Today, 13:05 Glucose, (70-99) 73 mg/dL Today, 13:05 TSH, (0.358-3.74) 1.75 uIU/mL 10/13/19, 11:45 COAG Pre-Assessment Diagnosis/Proposed Procedure Planned Operative Procedure(s): Cystoscopy, urethral dilation, Reyna catheter placement, urethrogram. 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 When Was Last Pacemaker Check QUESTION #4 FULL TEXT: You/Your Family Experience fever (hyperthermia) with Anesthesia Last Oral Intake Last Oral intake: Last Oral Intake NPO since Meds taken in AM with sips of water? 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 Female HX of Motion Sickness HX of N/V After Surgery Non-Smoker Duration of Surgery greater than 60 minutes Number of Risk Factors PONV Score Height & Weight Height & Weight: Anesthesia: Height & Weight Height 6 ft 2 in 04/09/25 15:31 Weight: 91.9 kg 04/09/25 15:31 Body Mass Index (BMI) 25.9 04/09/25 15:31 Respiratory Assessment Respiratory Assessment - 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 Has anyone observed you stop No 04/09/25 15:31 breathing during sleep? STOP Results Negative 04/09/25 15:31 QUESTION #5 FULL TEXT : Do you snore loudly (louder than talking or can be heard through closed doors)? 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 Specify any problems Hx of Preganancy in last 3 Months Nurse Filling Out Transfusion & Questions: Date: Time: Patient unable to answer at this time (ie. 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: /Reproductive Hx- floating labor gang supervisor Hx Now No 04/09/25 15:31 Gestational Age (in weeks): EDC: Hx Hx Para Hx Section SAB No 04/09/25 15:31 Does the father of the baby or his family experience fever w Father of the baby Malignant Hypertension history comment Active Medications Active Medications: Current Medications Generic Name Dose Route Start Last Admin Trade Name Freq PRN Reason Stop Dose Admin Lactated Ringer's 1,000 mls @ 15 mls/hr 04/09/25 16:15 04/09/25 16:18 IV 15 mls/hr .Q48H EUFEMIA Administration PFSH 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 Cardiomyopathy History of cardioversion (~10/20/19) Paroxysmal atrial flutter Essential hypertension Benign positional vertigo Diverticulosis of colon BPH (benign prostatic hyperplasia) Hyperlipemia Home Medications ?Medication ?Instructions ?Recorded ?Last Taken ?Type ascorbic acid (vitamin C) 500 mg 500 mg PO DAILY 10/12/19 Unknown History tablet atorvastatin 20 mg tablet 20 mg PO QHS 10/12/19 04/08/25 History cinnamon bark 500 mg capsule 500 mg PO DAILY 10/12/19 Unknown History multivitamin 1 tab PO DAILY 10/12/19 Unknown History saw palmetto 450 mg capsule 450 mg PO BID 10/12/19 Unknown History polyethylene glycol 3350 17 17 g PO DAILY #119 grams 09/21/22 Unknown Rx gram/dose oral powder (Miralax) glyburide 2.5 mg tablet 2.5 mg PO QDAY 10/29/24 Unknown History metoprolol succinate 25 mg 25 mg PO BID #180 tabs 10/29/24 04/09/25 Rx tablet,extended release 24 hr rivaroxaban 20 mg tablet (Xarelto) 20 mg PO DAILY #90 tabs 11/30/24 04/09/25 Rx Allergy/AdvReac Type Severity Reaction Status Date / Time No Known Allergies Allergy Verified 04/09/25 12:16 Family History Mother Cancer Breast Surgical History History of bilateral cataract extraction History of appendectomy Social History household members: spouse housing: house Smoking Status: Former smoker alcohol intake: never substance use type: does not use caffeine: No Review of Systems (Anesthesia) ROS Narrative System reviewed and no additional complaints, except as documented.
[2025-04-09] MEDS: Cefazolin 1 GM/5 ML Vial 2 GM IV (17:45)
[2025-04-09] MEDS: Lidocaine 1% (5 ml sdv) 5 ML Vial IV (17:49)
[2025-04-09] MEDS: Lidocaine Jelly 2% 20 ML Syringe (URO-JET) 1 APPLIC (17:54)
--- NOTE | 2025-04-09 18:04 | PCM.OPRPT ---
Operative Report (Standard) Operative Information Date of Procedure: 04/09/25 Pre-Operative Diagnosis: Urethral stricture and BPH with obstruction and retention of urine Post-Operative Diagnosis: The same with cystitis Surgery/Procedure Performed: Cystoscopy dilation of meatal stenosis, dilation of prostatic stricture and placement of Reyna catheter science teacher: No Type of Anesthesia: General RN Documented Start/Stop Times: Operation Date: 04/09/25 17:00 Case Time Into Pre-Op 04/09/25 16:07 Anesthesia Start 04/09/25 17:40 Into Room 04/09/25 17:40 Procedure Start 04/09/25 17:52 Procedure End 04/09/25 17:58 Procedure Start Time: 17:52 Procedure Stop Time: 18:05 Select all DRAINS/GRAFTS/IMPLANTS that apply: Drains Drain details: 16 Australian Reyna catheter Estimated Blood Loss: Minimal Specimen collected: Yes Description of specimen(s) removed: Urine for culture from bladder purulent urine Description of surgery: 84-year-old male fairly in poor health presents to the emergency room unable to urinate bladder scan demonstrated over 500 cc in his bladder attempted to place a Reyna at the bedside but was not unable to he had significant stricture in the distal urethra also is uncircumcised with significant phimosis of the foreskin so we took him to the operating room after smooth induction of anesthesia I then dilated the meatus using sounds starting at [address] up to 26 Australian after this I went in with a 21 Australian rigid cystourethroscope I was able to see through the urethra and see through the sphincter skin of the prostate had a really high riding bladder neck with significant obstruction a little bit of scar tissue at the bladder neck at the stretch this open and a bit of put a wire into the bladder I then received straight purulent urine pus from the bladder this was sent for culture and then drained the bladder out put a wire into the bladder and then over the wire I placed a 16 [place] tip catheter in the bladder for drainage to temporize the situation, patient anesthetic was reversed he was taken back to the PACU in stable condition he will have to have the catheter then he can leave the catheter and have to go home with a Reyna. And I went spoke to the family. Surgical Findings: Severe stricture at the meatus very large prostate with obstruction and high riding bladder neck with stricture Reyna placed after dilation Complications Complications: No Admit VTE Documentation VTE Present on Admission: No VTE Mechan Device Prophylaxis: SCD's VTE Pharm Prophylaxis ordered?: No
--- NOTE | 2025-04-09 18:10 | PCM.POST.ANE ---
Anesthesia: Postop Eval I Current Vital Signs Temperature: 97.5 F Pulse Rate: 90 Blood Pressure: 101/72 Respiratory Rate: 12 Pulse Ox: 96 Oxygen Delivery Method: Room Air Assessment Airway patent: Yes Spontaneous unlabored respirations: Yes Mental status: Asleep nausea: No Vomiting: No Anesthesia Complication: No Fluid Hydration Crystalloid volume administer (ml): 400 Total IV fluid infused: 400 Progress Note Anesthesia document: Postop Eval 1 completed: Yes
--- NOTE | 2025-04-09 18:38 | ECHOD_ITS ---
Reason For Study Reason For Study: AFib/Flutter Procedure This was a 2D Doppler, Color Flow transthoracic echocardiogram. Exam performed portable in patient room. Left Ventricle Normal LV size. The estimated ejection fraction is 60 %. No evidence for diastolic dysfunction. No regional wall motion abnormalities noted. Right Ventricle Mildly dilated right ventricle. Normal systolic function. Atria There is moderate biatrial dilatation. No doppler evidence for ASD. Mitral Valve There is mild mitral annular calcification. Mild mitral valve prolapse, posterior leaflet. There is no mitral valve stenosis. Trivial mitral valve insufficiency. Tricuspid Valve There is no tricuspid stenosis. Moderate (2+) tricuspid valve insufficiency. Pulmonary artery systolic pressure is 30 mmHg. Aortic Valve Trisinus/trileaflet aortic valve. There is no aortic stenosis. No aortic valve insufficiency. Pulmonic Valve There is no pulmonic valvular stenosis. Trivial pulmonic valve insufficiency identified. Great Vessels Normal sized aortic root. Pericardium/Pleural No pericardial effusion. MMode/2D Measurements & Calculations LVIDd: 5.3 cm IVSd: 0.93 cm Ao root diam: 3.5 cm LVIDs: 4.0 cm LVPWd: 0.97 cm RVDd: 4.9 cm FS: 23.9 % LAV(MOD-bp): 79.5 ml LVAd ap4: 20.0 cm2 SV(MOD-sp4): 24.5 ml LAV(MOD-bp) Indexed: 36.6 ml/m2 LVLd ap4: 6.9 cm SI(MOD-sp4): 11.3 ml/m2 LAV(MOD-sp2): 82.0 ml EDV(MOD-sp4): 48.9 ml LAV(MOD-sp4): 68.3 ml EDV(sp4-el): 48.9 ml LVAs ap4: 13.0 cm2 LVLs ap4: 6.3 cm ESV(MOD-sp4): 24.4 ml ESV(sp4-el): 22.6 ml EF(MOD-sp4): 50.1 % EF(sp4-el): 53.8 % SV(sp4-el): 26.3 ml LA A4 area: 22.8 cm2 LA dimension(2D): 4.8 cm RA A4 area: 25.4 cm2 TAPSE: 1.7 cm Doppler Measurements & Calculations MV E max herb: 79.6 cm/sec MV V2 max: 85.7 cm/sec Ao V2 max: 97.2 cm/sec MV max P.9 mmHg Ao max P.8 mmHg MV V2 mean: 46.9 cm/sec MV mean P.1 mmHg MV V2 VTI: 18.7 cm LV V1 max: 80.5 cm/sec PA V2 max: 109.9 cm/sec TR max herb: 237.1 cm/sec LV V1 max P.6 mmHg TR max P.5 mmHg ECHO/Echo Complete Interpretation Summary The estimated ejection fraction is 60 %. No evidence for diastolic dysfunction. There is moderate biatrial dilatation. Mildly dilated right ventricle. Trivial mitral valve insufficiency. Mild mitral valve prolapse, posterior leaflet Ordering Physician: David Acosta Performed By: Daljit Stephenson RCS
--- NOTE | 2025-04-09 18:49 | NURSING ---
CALLED DR SUÁREZ TO VERIFY THAT PT IS TO COME TO [facility] W/BTNP OF 2299 AND TROPONIN OF 51. ASSURED PT IS GOOD TO COME TO [facility], CXR (-) FOR HEART FAILURE, AND NO C/O CP.
--- OUTSIDE RECORDS SUMMARY | 2025-04-09 19:02 | XMS RPT_ITS | CCD ---
Author Organization [facility] Care Team Providers Care Bread Slicer Machine Name Role Phone Hernan BARRERA, Cedric Mancilla Primary Care Provider Hernan BARRERA, Cedric Mancilla Primary Care Provider Muna FRONT CLERK.JAE, Ariana Burkett Unavailable Derick RN, An Burkett Unavailable Unavailabl e Hernan BARRERA, Dr. Steele Primary Care Provider Hernan BARRERA, Dr. Steele Referring Provider Dr. Roly Prakash MD Attending Provider Olinda BARRERA, Dr. Dunham Referring Provider Roly Prakash Attending Unavailable Cedric Becerra Primary Care Unavailable Cedric Becerra Referring Unavailable Roly Prakash Referring Unavailable Cedric Becerra Primary Care Unavailable Roly Prakash Attending Unavailable Roly Prakash Attending Unavailable Roly Prakash Referring Unavailable Cedric Becerra Primary Care Unavailable CEDRIC BECERRA Primary Care Unavailable ARIANA CATHERINE Attending Unavailable CEDRIC BECERRA Primary Care Unavailable CEDRIC BECERRA Referring Unavailable HERNAN, CEDRIC Mancilla Primary Care Unavailable CEDRIC BECERRA Primary Care Unavailable ARIANA CATHERINE Attending Unavailable CEDRIC BECERRA Primary Care Unavailable ARIANA CATHERINE Referring Unavailable CARLOS CANAS Attending Unavailable HERNAN, CEDRIC Mancilla Primary Care Unavailable ARIANA CATHERINE Attending Unavailable HERNAN, CEDRIC Mancilla Primary Care Unavailable HERNAN, CEDRIC Mancilla Attending Unavailable HERNAN, CEDRIC Mancilla Primary Care Unavailable HERNAN, CEDRIC Mancilla Attending Unavailable HERNAN, CEDRIC Mancilla Referring Unavailable HERNAN, CEDRIC Mancilla Primary Care Unavailable Medications Current Medications Medication [...] once daily. 90 tablet 3 11/04/2024 Active Comment on above: Take 1 tablet by ramon th once daily. Blood-Glucose Meter monitoring kit (1 source) Start: 10-28-2024 End: 10-29-2024 Blood-Glucose Meter monitoring kit Indications: Type 2 diabetes mellitus without complication, without long-term current use of insulin ([facility]) Glucose Meter Kit (choose brand covered [...] by mouth. glyBURIDE 2.5 mg oral tablet (12 sources) Sulfonylurea Start: 5 End: 5 take 1 tablet by mouth once daily glyBURIDE 2.5 mg tablet Take 1 tablet by mouth once daily. 90 tablet 3 11/30/2024 Active 24 hr metoprolol succinate 25 mg extended release oral tablet (20 sources) beta-Adrenergic Zeina Start: 5 take 1 tablet by mouth twice daily Metoprolol Succinate 25 mg tablet extended release 24 hr Active 25 mg PO TWICE A DAY 180 October 29, 2024 10:24am Start: 03-01-2020 End: 11-23-2024 take 1 tablet by mouth once daily metoprolol succinate ER (TOPROL XL) 25 mg 24 hr tablet Take 1 tablet by mouth once daily. 90 tablet 3 11/23/2024 Active Start: 11-02-2019 End: 03-01-2020 take 1 [...] DAILY October 12, 2019 12:00am Multivitamin tablet (2 sources) Start: 0 Multivitamin tablet Active 1 {tbl} PO DAILY October 12, 2019 12:00am OTC PRODUCT (16 sources) OTC PRODUCT PREV AGEN MEMORY SUPPLEMENT Active polyethylene glycol 3350 97981 mg powder for oral solution (20 sources) Osmotic Laxative Start: 3 Polyethylene Glycol 3350 (Miralax) 17 gram/dose powder Active 17 g PO DAILY 119 September 21, 2022 12:00am Comment on above: [...] one(1) tablet t wo(2) times daily. Saw Ashaway (3 sources) Start: 0 take 1 capsule by mouth twice daily at mealtime Saw Ashaway 450 mg capsule Active 450 mg PO TWICE A DAY October 12, 2019 12:00am give with food (meal/snack) Start: 10-12-2019 take 450 mg by mouth twice daily at mealtime Saw [place]away Active 450 MG PO TWICE A DAY [...] Active tamsulosin hydrochloride 0.4 mg oral capsule (10 sources) alpha-Adrenergic Zeina Start: 10-23-2024 End: 11-30-2024 take 1 capsule by mouth once daily at bedtime tamsulosin (FLOMAX) 0.4 mg Take 1 capsule by mouth daily at bedtime. 90 capsule 3 11/30/2024 Active Completed/Discontinued Medications Medication Drug Class(es) Dates Sig (Normalized) Sig (Original) amiodarone hydrochloride 200 mg oral tablet (9 sources) Antiarrhythmic Start: 10-27-2019 End: 10-04-2020 take [...] weeks then 1 tablet po qday C,E,Copper,Zinc 32-Cfqrm1i-Wqm (Ocuvite Adult 50 Plus) 250-5-1 mg capsule (2 sources) Start: 10-12-2019 End: 01-10-2022 C,E,Copper,Zinc 60-Oxdxa9d-Zcn (Ocuvite Adult 50 Plus) 250-5-1 mg capsule Discontinued 1 NMA PO DAILY October 12, 2019 12:00am January 10, 2022 2:50pm C,E,Zinc,Copper 59-Qjatd0p-Gge (Ocuvite Adult 50 Plus) 250-5-1 mg capsule (1 source) Start: 10-12-2019 End: 01-10-2022 C,E,Zinc,Copper 72-Jjdij0a-Aci (Ocuvite Adult 50 Plus) 250-5-1 mg capsule Discontinued 1 CAP PO DAILY October 12, 2019 12:00am January 10, 2022 2:50pm cholecalciferol 0.05 mg oral capsule (20 sources) Vitamin D Start: 10-12-2019 End: 01-10-2022 [...] Comment on above: Take 1 capsule by [facility] twice daily as needed for Constipation. losartan potassium 50 mg oral tablet (3 sources) Angiotensin 2 Receptor Zeina Start: 10-12-2019 [...] Apply sparingly. Avoid face/skin fold. vitamin a 69327 unt oral tablet (3 sources) Vitamin A Start: 10-12-2019 End: 09-26-2020 Vitamin A Palmitate 10,000 unit tablet Discontinued 03984 U PO DAILY October 12, 2019 12:00am September 26, 2020 3:43pm Problems Active Problems Problem Classification Problem Date Documented Da te Episodic/Chronic Anal and rectal conditions (1 source) Rectal pain; Translations: [Other specified diseases of anus and rectum] Episodic Cardiac dysrhythmias (20 sources) Persistent atrial fibrillation; Translations: [Other persistent atrial fibrillation] Onset: 10-21-2018 12-20-2020 Chronic Diabetes mellitus without complication (18 sources) Type 2 diabetes mellitus; Translations: [Type 2 diabetes mellitus without complications] Onset: 09-26-2024 09-26-2024 Chronic Disorders of lipid metabolism (20 sources) Hyperlipidemia; Translations: [Hyperlipidemia, unspecified] Onset: 03-09-2015 03-09-2015 Chronic Essential hypertension (20 sources) Hypertensive disorder; Translations: [Essential (primary) hypertension] Onset: 02-09-2020 Chronic Genitourinary symptoms and ill-defined conditions (6 sources) Blood in urine; Translations: [Hematuria, unspecified] Onset: 03-31-2012 09-07-2024 Episodic Hyperplasia of prostate (20 sources) Benign prostatic hypertrophy with outflow obstruction; Translations: [Benign prostatic hyperplasia with lower urinary tract symptoms] Onset: 03-31-2012 03-31-2012 Chronic Immunizations and screening for infectious disease (6 sources) Patient encounter status; Translations: [Encounter for immunization] Onset: 03-08-2025 Episodic Other connective tissue disease (1 source) Swelling of lower leg; Translations: [Other specified soft tissue disorders] 09-07-2024 Episodic Other screening for suspected conditions (not mental disorders or infectious disease) (20 sources) Raised prostate specific antigen; Translations: [Elevated prostate specific antigen [PSA]] Onset: 06-17-2007 Resolved: 12-20-2020 12-20-2020 Episodic Residual codes; unclassified (1 source) Urinary catheter in situ; Translations: [Presence of other specified devices] 09-07-2024 Episodic Screening and history of mental health and substance abuse codes (2 sources) Encounter for screening examination for other mental health and behavioral disorders; Translations: [Encounter for screening for depression] Onset: 03-08-2025 Episodic Skin and subcutaneous tissue infections (1 source) Cellulitis of right lower limb; Translations: [Cellulitis of right lower limb] 09-07-2024 Episodic Unclassified (1 source) Other persistent atrial fibrillation; Translations: [Persistent atrial fibrillation (HCC)] Onset: 12-20-2020 Past or Other Problems Problem Classification Problem Date Documented Da te Episodic/Chronic Conditions associated with dizziness or vertigo (20 sources) Benign paroxysmal positional vertigo; Translations: [Benign paroxysmal vertigo, unspecified ear] Onset: 03-31-2012 Resolved: 10-17-2017 10-17-2017 Episodic Diabetes mellitus without complication (20 sources) Impaired fasting glycemia; Translations: [Impaired fasting glucose] Onset: 03-09-2022 Episodic Hemorrhoids (20 sources) Internal hemorrhoids; Translations: [Other hemorrhoids] Onset: 03-31-2012 03-31-2012 Episodic Joint disorders and dislocations; trauma-related (20 sources) Derangement of medial meniscus; Translations: [Other meniscus derangements, unspecified medial meniscus, unspecified knee] Onset: 09-19-2010 Resolved: 10-17-2017 10-17-2017 Chronic Other aftercare (20 sources) Long-term current use of anticoagulant; Translations: [terminal clerk (current) use of anticoagulants] Onset: 02-09-2020 02-09-2020 Episodic Other aftercare (1 source) prison (current) use of anticoagulants; Translations: [Chronic anticoagulation] Onset: 02-09-2020 Episodic Other and unspecified benign neoplasm (20 sources) Benign neoplasm of colon; Translations: [Benign neoplasm of colon, unspecified] Onset: 10-29-2006 10-29-2006 Episodic Other connective tissue disease (20 sources) Chronic pain of left foot; Translations: [Pain in left toe(s)] Onset: 09-25-2023 Episodic Other connective tissue disease (20 sources) Rotator cuff tear arthropathy; Translations: [Unspecified rotator cuff tear or rupture of unspecified shoulder, not specified as traumatic] Onset: 10-03-2015 Resolved: 10-17-2017 10-17-2017 Episodic Other gastrointestinal disorders (20 sources) Constipation; Translations: [Constipation, unspecified] Onset: 12-19-2020 12-19-2020 Episodic Other gastrointestinal disorders (20 sources) Feces contents abnormal; Translations: [Other fecal abnormalities] Onset: 10-23-2005 Resolved: 10-03-2015 10-03-2015 Episodic Other hematologic conditions (20 sources) Erythrocytosis; Translations: [Secondary polycythemia] Onset: 09-26-2022 Episodic Other nervous system disorders (20 sources) Abnormal gait; Translations: [Unspecified abnormalities of gait and mobility] Onset: 09-25-2023 09-25-2023 Episodic Residual codes; unclassified (20 sources) Memory impairment; Translations: [Other amnesia] Onset: 10-26-2021 Episodic Residual codes; unclassified (3 sources) History of radiofrequency ablation operation for arrhythmia; Translations: [Other specified postprocedural states] Onset: 12-26-2019 08-16-2020 Episodic Comment on above: with pulmonary vein isolation by Dr. Ortega @ [place] 01/12/20 Residual codes; unclassified (1 source) Other amnesia; Translations: [Memory disturbance] Onset: 10-26-2021 Episodic Results Test Name Value Interpretation Reference Range Facility Bacteria Ur Culton 5 Bacteria identified Cx Nom (U) ORGANISM ID: 1 <10,000 CFU/ml Mixed microbiota Insignificant colony count. No further workup. Normal [facility] Comment on above: Performed By: #### 6 30-4 ####[facility] [id number] [address] [place] CNOVon 03-16-2025 CNOV Office Visit (UROLWS ) CALLIE RASCON ([id number]) 1940 M Date Time Provider Department 03/16/25 1:30 PM CARLOS CANAS UROLWS During your visit today, we recorded the following information about you: Pulse Blood pressure Weight 82/minute 117/80 95.7 kg Socorro Baez MA 03/16/2025 3:22 PM Signed Patient's post-void bladder scan: 43 ML. CAL Diamond Brandon, PA-C 03/16/2025 3:22 PM Signed [facility] PATIENT CLINIC NOTE (M) Note was generated by [employer] and edited as appropriate SERVICE DATE: March 16, 2025 NAME: Callie Rascon GENDER: male CHIEF COMPLAINT: The patient is an 84-year-old male with atrial fibrillation status post ablation, presenting for evaluation of persistent urinary frequency with low-volume voids and weak urinary stream. Accompanied by his , who is providing history. HISTORY OF PRESENT ILLNESS: The patient is an 84-year-old male with atrial fibrillation status post ablation, presenting for evaluation of persistent urinary frequency with low-volume voids and weak urinary stream. Accompanied by his , who is providing history. The patient is an 84-year-old male with a history of AFib, presenting with urinary hesitancy and decreased urine output. Urinary Hesitancy and Decreased Urine Output: - Urinary hesitancy and decreased urine output x3 months. - Urinary urgency with minimal output, described as a tablespoon full. - Symptoms began after catheter removal following hospitalization for a leg infection. - Taking tamsulosin since November with no improvement in symptoms. - Fluid intake includes: - 8 oz caffeinated coffee in the morning. - 4 oz grape juice with breakfast. - Milk or Arnold Romeo iced tea with lunch and dinner. - Occasional water intake; notes he should drink probably more water. - Urine color described as not real dark. AFib: - History of AFib; underwent ablation. - Regular annual check-ups with a depositing machine operator. > We discussed the common causes of urinary frequency and urgency, and restricting water intake In hopes to mitigate the need to urinate, we discussed how this behavior more often worsen the problem not improving it, > We discussed increasing daily water intake to 64-84 oz 7a -7p and try to reduce bladder irritants, caffeine, alcohol and acid foods and drink. > Bladder irritants handout available to patient. LABS: PSA (ng/mL) Date Value 03/01/2025 126.10 12/16/2020 18.53 06/02/2020 18.40 02/02/2020 15.41 Creatinine Date Value Ref Range Status 03/01/2025 1.03 0.73 - 1.22 mg/dL Final 09/25/2024 1.01 0.73 - 1.22 mg/dL Final 09/26/2023 0.92 0.73 - 1.22 mg/dL Final MEDICATIONS: glyBURIDE 2.5 mg tablet Take 1 tablet by mouth once daily. tamsulosin (FLOMAX) 0.4 mg Take 1 capsule by mouth daily at bedtime. metoprolol succinate ER (TOPROL XL) 25 mg 24 hr tablet Take 1 tablet by mouth once daily. atorvastatin (LIPITOR) 20 mg tablet Take 1 tablet by mouth once daily. blood sugar diagnostic (BLOOD GLUCOSE TEST) test strip Test blood sugar(s) 1 times daily. Dx: Type 2 DM - Uncontrolled E11.65 Insulin: No Lancets Test blood sugar(s) 1 times daily. Dx: Type 2 DM - Uncontrolled E11.65 Insulin: No rivaroxaban (XARELTO) 20 mg tablet Take 1 tablet by mouth daily with dinner. OTC PRODUCT PREVAGEN MEMORY SUPPLEMENT cholecalciferol, Vitamin D3, (VITAMIN D3) 1,250 mcg (50,000 unit) cap capsule Take 50,000 Units by mouth one time a week. polyethylene glycol 3350 17 gram/dose powder Take [...] CAP Take one(1) tablet daily. 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 Diverticulosis of colon (without mention of hemorrhage) 2007 Elevated prostate specific antigen (PSA) 06/17/2007 Hematuria 08/22/2024 Hyperlipidemia LDL goal <130 03/09/2015 Hypertension 02/09/2020 Internal hemorrhoids 03/31/2012 Internal hemorrhoids without mention of complication Persistent atrial fibrillation (HCC) 10/21/2018 Primary cardiomyopathy (HCC) 2018 Type 2 diabetes mellitus without complication, without long-term current use of insulin (HCC) PAST SURGICAL HISTORY: PAST SURGICAL HISTORY Procedure Laterality Date APPENDECTOMY 1954 CARDIOVERSION 2019 cataract extraction 05/27/2009 bilateral with IOL COLONOSCOPY FLX DX W/COLLJ SPEC WHEN PFRMD (more content not included)... Normal [facility] CNOVon 03-08-2025 CNOV Office Visit (INTMWS ) CALLIE RASCON ([id number]) 1940 M Date Time Provider Department 03/08/25 8:00 AM ARIANA CATHERINE INTMWS During your visit today, we recorded the following information about you: Pulse Respiration Blood pressure Weight 91/minute 14/minute 122/78 95.8 kg Height 1.82 m Ariana Catherine APRN.[employer]CHO[employer] TEACHER 03/08/2025 8:56 AM Signed Callie Rascon is a 84 year old male here for a Medicare wellness visit. Medicare Health Risk Assessment General Health Good Exercise: Minutes/Day 30 min Exercise: Days/Week 7 days Alcohol: Daily Use Never Alcohol: Drinks/Day Patient does not drink Alcohol: 6 or more drinks Never Feel off balance Yes Concerns: Teeth/Dentures No Concerns: Sexual function No [...] Current care team: Patient Care Team: Cedric Becerra MD as PCP - General (Internal Medicine) Ariana Catherine, FRONT CLERK.[employer] TEACHER as Interventional Cardiologist (Internal Medicine) Carlos ROCK-urology [facility] Rock Oakes OD ophthalmology Medical/Family history review Reviewed and updated problem list, medical/surgical/family/soc ial history, medications, and allergies. Opioid use review Prescribed: No opioid use on file in the last 90 days Patient-reported: No opioid use on file in the last 90 days Depression screening PHQ-2 Score: 0 Based on score and interview, patient is: Not at risk for depression Screening tool discussed with patient, and I recommend: No further intervention at this time Anxiety screening MEGAN-2 Score: 0 Based on score and interview, patient is: Not at risk for anxiety Screening tool discussed with patient, and I recommend: No further intervention at this time Cognitive screening Mini Cog Score: 0 Cognitive screening reviewed and Recommended referral for further evaluation (score 0-2). Patient declined. Functional Observation Was the patient's Timed Up AND Go test unsteady or >= 12 seconds? No Advance Directives Surrogate decision maker documented and/or advance directives scanned in chart Measurements BP 122/78 Pulse 91 Resp 14 Ht 182 cm (5' 11.65) Wt 95.8 kg (211 lb 3.2 oz) SpO2 98% BMI 28.92 kg/m? Vision Screening: Follows with optometry/ophthalmology Assessment/Plan Medicare annual wellness visit, subsequent (Z00.00) - Counseled on healthy diet and regular exercise - Fall avoidance information provided - Personalized prevention plan provided Additional Concerns BPH: - Frequent urination with minimal output. - Takes tamsulosin. - Upcoming urology appointment on the with Dr. Carlos Canas. Atrial Fibrillation: - History of multiple ablations. - On Xarelto and metoprolol. - Denies unusual bleeding or hematuria. 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 Physical Exam Vitals reviewed. Constitutional: Appearance: Normal appearance. Cardiovascular: Rate and Rhythm: Normal rate. Rhythm irregular. Pulses: Normal pulses. Dorsalis pedis pulses are 2+ on the right side and 2+ on the left side. Heart sounds: Normal heart sounds. No murmur heard. Pulmonary: Effort: Pulmonary effort is normal. Breath sounds: Normal breath sounds. No wheezing, rhonchi or rales. Musculoskeletal: Right lower le+ Pitting Edema present. Left lower le+ Pitting Edema present. Right foot: Normal range of motion. No deformity or Charcot foot. Left foot: Normal range of motion. No deformity or Charcot foot. Comments: No tenderness with palpation of lower extremities. Venous stasis discoloration bilateral lower legs Feet: Right foot: Protective Sensation: 6 sites tested. 2 sites sensed. Skin integrity: Skin integrity normal. Toenail Condition: Right toenails are abnormally thick. Fungal disease present. Left foot: Protective Sensation: 6 sites tested. 0 sites sensed. Skin integrity: Skin integrity normal. Toenail Condition: Left toenails are abnormally thick. Fungal disease present. Neurological: Mental Status: He is alert. Psychiatric: Mood and Affect: Mood normal. DATA REVIEWED: Most recent labs Assessment/Pl (more content not included)... Normal [facility] ALBUMIN/CREATININE RATIO, UR INEon 03-01-2025 Albumin DL <= 20 mg/L (U) [Mass/Vol] 486.8 mg/L Normal [facility] Comment on above: Order Comment: Alexander uriostegui Type: BLOOD SPECIMEN Ordering Facility: [facility] Address: [address] [place] [address] Performed By: #### 2 4321-2 #### [facility] CLIA [id number] [address] [place] [address] [place] Albumin/Creatinine (U) [Mass ratio] 418 mg/g High <30 [facility] Comment on above: Order Comment: Alexander uriostegui Type: BLOOD SPECIMEN Ordering Facility: [facility] Address: [address] [place] [address] Result Comment: Adul t Male and Female Nephrotic Criteria: <30 mg/g is considered normal to mildly increased 30-300 mg/g is considered moderately increased >300 mg/g is considered severely increased KDIGO. (2013). KDIGO 2012 Clinical Practice Guideline for the Evaluation and Management of Chronic Kidney Disease. Official Journal of the International Society of Nephrology, 3(1), 1-150. Performed By: #### 2 4321-2 #### [facility] CLIA [id number] [address] [place] [address] [place] Creatinine (U) [Mass/Vol] 116.4 mg/dL Normal 20.0-300.0 [facility] Comment on above: Order Comment: Speci men Type: BLOOD SPECIMEN Ordering Facility: [facility] Address: [address] [place] [address] Performed By: #### 2 4321-2 #### [facility] CLIA [id number] [address] [place] [address] [place] Basic metabolic 2000 panelon 03-01-2025 Anion gap [Moles/Vol] 14 mmol/L Normal 8-15 [facility] Comment on above: Order Comment: Speci men Type: BLOOD SPECIMEN Ordering Facility: [facility] Address: [address] [place] [address] Performed By: #### 2 4321-2 #### [facility] CLIA [id number] [address] [place] [address] [place] Calcium [Mass/Vol] 9.6 mg/dL Normal 8.5-10.2 [facility] Comment on above: Order Comment: Speci men Type: BLOOD SPECIMEN Ordering Facility: [facility] Address: [address] [place] [address] Performed By: #### 2 4321-2 #### [facility] CLIA [id number] [address] [place] [address] [place] Chloride [Moles/Vol] 103 mmol/L Normal 98-107 [facility] Comment on above: Order Comment: Speci men Type: BLOOD SPECIMEN Ordering Facility: [facility] Address: [address] [place] [address] Performed By: #### 2 4321-2 #### [facility] CLIA [id number] [address] [place] [address] [place] CO2 [Moles/Vol] 22 mmol/L Normal 22-30 [facility] Comment on above: Order Comment: Speci men Type: BLOOD SPECIMEN Ordering Facility: [facility] Address: [address] [place] [address] Performed By: #### 2 4321-2 #### [facility] CLIA [id number] [address] [place] [address] [place] Creatinine [Mass/Vol] 1.03 mg/dL Normal 0.73-1.22 [facility] Comment on above: Order Comment: Alexander uriostegui Type: BLOOD SPECIMEN Ordering Facility: [facility] Address: [address] [place] [address] Performed By: #### 2 4321-2 #### [facility] CLIA [id number] [address] [place] [address] [place] eGFRcr SerPlBld CKD-EPI 2020 71 mL/min/1.73m??? Normal >=60 [facility] Comment on above: Order Comment: Alexander uriostegui Type: BLOOD SPECIMEN Ordering Facility: [facility] Address: [address] [place] [address] Result Comment: Joelle mated Glomerular Filtration Rate [...] reflect actual GFR. Performed By: #### 2 4321-2 #### [facility] CLIA [id number] [address] [place] [address] [place] Glucose [Mass/Vol] 111 mg/dL High 74-99 [facility] Comment on above: Order Comment: Alexander uriostegui Type: BLOOD SPECIMEN Ordering Facility: [facility] Address: [address] [place] [address] Result Comment: The [place] Diabetes Association (ADA) provides guidance for cutoff [...] Standards of Medical Care in Diabetes 2016, [place] Diabetes Association. Diabetes Care. 2016.39(Suppl 1). Performed By: #### 2 4321-2 #### [facility] CLIA [id number] [address] [place] [address] [place] Potassium [Moles/Vol] 4.6 mmol/L Normal 3.7-5.1 [facility] Comment on above: Order Comment: Krystali men Type: BLOOD SPECIMEN Ordering Facility: [facility] Address: [address] [place] [address] Performed By: #### 2 4321-2 #### [facility] CLIA [id number] [address] [place] [address] [place] Sodium [Moles/Vol] 139 mmol/L Normal 136-144 [facility] Comment on above: Order Comment: Krystali moody Type: BLOOD SPECIMEN Ordering Facility: [facility] Address: [address] [place] [address] Performed By: #### 2 4321-2 #### [facility] CLIA [id number] [address] [place] [address] [place] Urea nitrogen [Mass/Vol] 22 mg/dL Normal 9-24 [facility] Comment on above: Order Comment: Speci men Type: BLOOD SPECIMEN Ordering Facility: [facility] Address: [address] [place] [address] Performed By: #### 2 4321-2 #### [facility] CLIA [id number] [address] [place] [address] [place] HbA1c (Bld)on 03-01-2025 Average glucose Estimated from glycated hemoglobin (Bld) [Mass/Vol] 134 mg/dL Normal [facility] Comment on above: Order Comment: Speci men Type: BLOOD SPECIMEN Ordering Facility: [facility] Address: [address] [place] [address] Result Comment: eAG: (Estimated average glucose) is a calculated value from HgbA1c and is retail wireless sales representative of the average blood glucose level in the last 2-3 month period. Performed By: #### 2 4321-2 #### [facility] CLIA [id number] [address] [place] [address] [place] HbA1c (Bld) [Mass fraction] 6.3 % High 4.3-5.6 [facility] Comment on above: Order Comment: Speci men Type: BLOOD SPECIMEN Ordering Facility: [facility] Address: [address] [place] [address] Result Comment: [place] Diabetes Association guidelines indicate that patients with HgbA1c in the range 5.7-6.4% are at increased risk for development of diabetes, and intervention by lifestyle modification may be beneficial. HgbA1c greater or equal to 6.5% is considered diagnostic of diabetes. Performed By: #### 2 4321-2 #### [facility] CLIA [id number] [address] [place] [address] [place] [facility] Prostate specific Ag [Mass/Vol] 126.10 ng/mL High <2.60 [facility] Comment on above: Order Comment: Speci men Type: BLOOD SPECIMEN Ordering Facility: [facility] Address: [address] [place] [address] Result Comment: Jaspal wayne PSA test methodology used is the Electrochemiluminescence Immunoassay by [employer]. Total PSA values by differing methodologies cannot be interchanged. For an individual patient, the significance of a PSA level should be interpreted in a broad clinical context, including age, race, family history, digital rectal exam, prostate size, results of prior testing (prostate biopsy, free PSA, PCA3), and use of 5-alpha reductase inhibitors. Considering the high incidence of asymptomatic cancer in the general population that may not pose an ultimate risk to a patient, the decision to recommend urological evaluation or prostate biopsy should be individualized after consideration of all these factors. REFERENCE: Zachary Staley M.D., M.P.H., Misael Reaves M.D., Ph.D., Terence Mcnulty M.D., Alison Fishman M.P.H., Mary Hernandez Sc.D. Effect of Verification Bias on Screening for Prostate Cancer by Measurement of Prostatic Specific Antigen. N Engl J Med 2003,349:335-42. Performed By: #### 2 4321-2 #### [facility] CLIA [id number] [address] [place] [address] [place] Urinalysis complete panel (U )on 03-01-2025 BACTERIA UL 972.4 uL High Negative [facility] Comment on above: Order Comment: Speci men Type: BLOOD SPECIMEN Ordering Facility: [facility] Address: [address] [place] [address] Performed By: #### 2 4321-2 #### [facility] CLIA [id number] [address] [place] [address] [place] Bilirubin Ql (U) Negative Normal Negative [facility] Comment on above: Order Comment: Speci men Type: BLOOD SPECIMEN Ordering Facility: [facility] Address: [address] [place] [address] Performed By: #### 2 4321-2 #### [facility] CLIA [id number] [address] [place] [address] [place] Clarity (Unsp spec) Cloudy Abnormal Clear [facility] Comment on above: Order Comment: Speci men Type: BLOOD SPECIMEN Ordering Facility: [facility] Address: [address] [place] [address] Performed By: #### 2 4321-2 #### [facility] CLIA [id number] [address] [place] [address] [place] Color (U) Yellow Normal Yellow [facility] Comment on above: Order Comment: Speci men Type: BLOOD SPECIMEN Ordering Facility: [facility] Address: [address] [place] [address] Performed By: #### 2 4321-2 #### [facility] CLIA [id number] [address] [place] [address] Epithelial cells LM.HPF (Urine sed) [#/Area] None Seen Normal [facility] Comment on above: Order Comment: Speci men Type: BLOOD SPECIMEN Ordering Facility: [facility] Address: [address] [place] [address] Performed By: #### 2 4321-2 #### [facility] CLIA [id number] [address] [place] [address] [facility] Glucose Test strip (U) [Mass/Vol] Negative Normal Negative [facility] Comment on above: Order Comment: Speci men Type: BLOOD SPECIMEN Ordering Facility: [facility] Address: [address] [place] [address] Performed By: #### 2 4321-2 #### [facility] CLIA [id number] [address] [place] [address] [place] Hemoglobin Ql (U) 3+ Abnormal Negative [facility] Comment on above: Order Comment: Speci men Type: BLOOD SPECIMEN Ordering Facility: [facility] Address: [address] [place] [address] Performed By: #### 2 4321-2 #### [facility] CLIA [id number] [address] [place], [place] [address] [place] Hyaline casts (Urine sed) [#/Area] 0 /[LPF] Normal 0 /LPF [facility] Comment on above: Order Comment: Speci men Type: BLOOD SPECIMEN Ordering Facility: [facility] Address: [address] [place] [address] Performed By: #### 2 4321-2 #### [facility] CLIA [id number] [address] [id number] [address] [place] Ketones Ql (U) Negative Normal Negative [facility] Comment on above: Order Comment: Speci men Type: BLOOD SPECIMEN Ordering Facility: [facility] Address: [address] [place] [address] Performed By: #### 2 4321-2 #### [facility] CLIA [id number] [address] [place] [address] [place] Leukocyte esterase Test strip Ql (U) 3+ Abnormal Negative [facility] Comment on above: Order Comment: Speci men Type: BLOOD SPECIMEN Ordering Facility: [facility] Address: [address] [place] [address] Performed By: #### 2 4321-2 #### [facility] CLIA [id number] [address] [place] [address] [place] Nitrite Ql (U) Negative Normal Negative [facility] Comment on above: Order Comment: Speci men Type: BLOOD SPECIMEN Ordering Facility: [facility] Address: [address] [place] [address] Performed By: #### 2 4321-2 #### [facility] CLIA [id number] [address] [place] [address] [place] pH (U) 7.0 [pH] Normal 5.0-8.0 [facility] Comment on above: Order Comment: Speci men Type: BLOOD SPECIMEN Ordering Facility: [facility] Address: [address] [place] [address] Performed By: #### 2 4321-2 #### [facility] CLIA [id number] [address] [place] [address] [place] Protein (U) [Mass/Vol] 2+ Abnormal Negative [facility] Comment on above: Order Comment: Speci men Type: BLOOD SPECIMEN Ordering Facility: [facility] Address: [address] [place] [address] Performed By: #### 2 4321-2 #### [facility] CLIA [id number] [address] [place] [address] [place] RBC LM.HPF (Urine sed) [#/Area] /[HPF] Abnormal 0-2 /HPF [facility] Comment on above: Order Comment: Speci men Type: BLOOD SPECIMEN Ordering Facility: [facility] Address: [address] [place] [address] Performed By: #### 2 4321-2 #### [facility] CLIA [id number] [address] [place] [address] [place] Specific gravity (U) [Rel density] 1.020 Normal 1.005-1.030 [facility] Comment on above: Order Comment: Speci men Type: BLOOD SPECIMEN Ordering Facility: [facility] Address: [address] [place] [address] Performed By: #### 2 4321-2 #### [facility] CLIA [id number] [address] [place] [address] [place] Urobilinogen Ql (U) 1.0 EU/dL Normal 0.2-1.0 EU/dL [facility] Comment on above: Order Comment: Speci men Type: BLOOD SPECIMEN Ordering Facility: [facility] Address: [address] [place] [address] Performed By: #### 2 4321-2 #### [facility] CLIA [id number] [address] [place] [address] [place] WBC LM.HPF (Urine sed) [#/Area] /[HPF] Abnormal 0-5 /HPF [facility] Comment on above: Order Comment: Speci men Type: BLOOD SPECIMEN Ordering Facility: [facility] Address: [address] [place] [address] Performed By: #### 2 4321-2 #### [facility] CLIA [id number] [address] [place] [address] [place] CNPKhalida 01-08-2025 CNPN Telephone (INTMWS) CALLIE RASCON ([id number]) 1940 M Date Time Provider Department 01/08/25 CEDRIC BECERRA INTMWS During your visit today, we recorded the following information about you: Chelsey Caldwell RN 01/08/2025 12:31 PM Signed Patient's calls and states that patient continues have urination issues. Patient states that patient has urinary frequency. Patient urinates but only goes small amount. is asking if referral can be placed for urologist? Please review and advise, RENUKA Seymour Naz M, APRN.SED MIDDLE SCHOOL TEACHER 01/08/2025 12:36 PM Signed Consult order placed Ariana Catherine APRN.SED MIDDLE SCHOOL TEACHER Allergies As of Date: 01/08/2025 (No Known Allergies) Date Reviewed: 11/30/2024 Reviewed by: Ariana Catherine APRN.SED MIDDLE SCHOOL TEACHER - Fully Assessed Reason for Visit: Patient Question [1477] Primary Visit Diagnosis:Benign localized prostatic hyperplasia with lower urinary tract symptoms (LUTS) [N40.1] Order(s):CONSULT TO UROLOGY [9041] Order #: [id number]: 1 FUTURE Prescriptions as of 01/09/2025 - glyBURIDE 2.5 mg tablet Take 1 tablet by mouth once daily. - tamsulosin (FLOMAX) 0.4 mg Take 1 capsule by mouth daily at bedtime. - metoprolol succinate ER (TOPROL XL) 25 mg 24 hr tablet Take 1 tablet by mouth once daily. - atorvastatin (LIPITOR) 20 mg tablet Take 1 tablet by mouth once daily. - blood sugar diagnostic (BLOOD GLUCOSE TEST) test strip Test blood sugar(s) 1 times daily. Dx: Type 2 DM - Uncontrolled E11.65 Insulin: No - Lancets Test blood sugar(s) 1 times daily. Dx: Type 2 DM - Uncontrolled E11.65 Insulin: No - rivaroxaban (XARELTO) 20 mg tablet Take 1 tablet by mouth daily with dinner. - OTC PRODUCT PREVAGEN MEMORY SUPPLEMENT - cholecalciferol, Vitamin D3, (VITAMIN D3) 1,250 mcg (50,000 unit) cap capsule Take 50,000 Units by mouth one time a week. - polyethylene glycol 3350 17 gram/dose powder [...] tablet daily. Problem List As Of Date 01/08/2025 Noted Resolved Nonspecific abnormal finding in stool [...] mellitus without complication, *09/26/2024 Encounter Status:Closed by CHELSEY CALDWELL on 01/09/25 [facility] Serg 12-30-2024 CNPN Telephone (OBGYWM) LINDYCALLIE VASQUEZ ([id number]) 1940 M Date Time Provider Department 12/30/24 CEDRIC BECERRA OBAMENA During your visit today, we recorded the following information about you: Leslie Pelayo 12/30/2024 4:02 PM Signed Patient requesting xray disc of his left foot second toe. He got the xray done within the past year. Please advise thank you! Leslie. aKnchan Carter, PSS 12/30/2024 4:14 PM Signed CD READY FOR PAYROLL ASSISTANT AT [facility] Pt knows. Allergies As of Date: 12/30/2024 (No Known Allergies) Date Reviewed: 11/30/2024 Reviewed by: Ariana Catherine, FRONT CLERK.SED MIDDLE SCHOOL TEACHER - Fully Assessed Reason for Visit: Results [95] Cmt: Xray disc Prescriptions as of 01/08/2025 - glyBURIDE 2.5 mg tablet Take 1 tablet by mouth once daily. - tamsulosin (FLOMAX) 0.4 mg Take 1 capsule by mouth daily at bedtime. - metoprolol succinate ER (TOPROL XL) 25 mg 24 hr tablet Take 1 tablet by mouth once daily. - atorvastatin (LIPITOR) 20 mg tablet Take 1 tablet by mouth once daily. - blood sugar diagnostic (BLOOD GLUCOSE TEST) test strip Test blood sugar(s) 1 times daily. Dx: Type 2 DM - Uncontrolled E11.65 Insulin: No - Lancets Test blood sugar(s) 1 times daily. Dx: Type 2 DM - Uncontrolled E11.65 Insulin: No - rivaroxaban (XARELTO) 20 mg tablet Take 1 tablet by mouth daily with dinner. - OTC PRODUCT PREVAGEN MEMORY SUPPLEMENT - cholecalciferol, Vitamin D3, (VITAMIN D3) 1,250 mcg (50,000 unit) cap capsule Take 50,000 Units by mouth one time a week. - polyethylene glycol 3350 17 gram/dose powder [...] tablet daily. Problem List As Of Date 12/30/2024 Noted Resolved Nonspecific abnormal finding in stool [...] mellitus without complication, *09/26/2024 Encounter Status:Closed by CHELSEY CALDWELL on 01/08/25 [facility] (INTMWS ) CALLIE RASCON ([id number]) 1940 M Date Time Provider Department 11/30/24 9:40 AM ARIANA CATHERINE INTMWS During your visit today, we recorded the following information about you: Pulse Blood pressure Weight 93/minute 118/62 92.2 kg Ariana Catherine, KRISTIN.SED MIDDLE SCHOOL TEACHER 11/30/2024 9:27 AM Signed - Continue taking tamsulosin (Flomax) once daily at bedtime; prescription has been sent to your [facility] mail-order pharmacy. - Continue taking glyburide once daily; prescription has been sent to your [facility] mail-order pharmacy. - Check your blood sugar at home in the morning three times each week (for example Saturday, Saturday, Saturday). - Continue to limit sweets; when you have chocolate, eat one small section at a time. - Have fasting blood work drawn at the end of January or beginning of February (fast 10-12 hours beforehand) before your annual wellness visit. - Keep your annual wellness visit appointment in February. - Contact us if your urinary symptoms worsen (increased frequency, pain, blood in your urine, more nighttime trips, or trouble emptying) or if you experience symptoms of low blood sugar (shakiness, sweating). Ariana Catherine, FRONT CLERK.SED MIDDLE SCHOOL TEACHER 11/30/2024 9:43 AM Signed CC: Patient presents with: Recheck HPI Recording using Meteor software for draft documentation of the visit was discussed with the patient/authorized retail wireless sales representative; all questions welcomed and answered. Patient/authorized retail wireless sales representative agreed to proceed Callie Rascon is an 84-year-old male with a history of diabetes and BPH, presenting for follow-up on diabetes management and urinary frequency. Diabetes: - Diagnosed during last visit on 10/23/24; A1c was 6.8% on 09/24. - Started on glyburide; Callie is adherent to medication regimen. - Referred to internet merchant. - Monitoring blood glucose levels at home; average readings in the 110s. - Reduced intake of sweets; no episodes of hypoglycemia reported. - Denies feeling shaky or sweaty. Urinary Frequency: - Onset after Reyna catheter removal a few months ago. - Previously experienced frequent urination with small volumes. - Started on tamsulosin; taking medication at bedtime. - Noted improvement in frequency, but still voiding small amounts. - Nocturia reported, typically once per night. Review of Systems See HPI PAST MEDICAL HISTORY Diagnosis Date Atrial flutter, [...] LESION SNARE TQ 10/29/2006 CYSTOSCOPY 08/24/2024 cystogram. [place], [place] PULMONARY VEIN ISOLATION 01/12/2020 EPS, RF Ablation ALLERGIES Patient has no known allergies. MEDICATIONS metoprolol succinate ER (TOPROL XL) 25 mg 24 hr tablet Take 1 tablet by mouth once daily. atorvastatin (LIPITOR) 20 mg tablet Take 1 tablet by mouth once daily. rivaroxaban (XARELTO) 20 mg tablet Take 1 tablet by mouth daily with dinner. OTC PRODUCT PREVAGEN MEMORY SUPPLEMENT cholecalciferol, Vitamin D3, (VITAMIN D3) 1,250 mcg (50,000 unit) cap capsule Take 50,000 Units by mouth one time a week. polyethylene glycol 3350 17 gram/dose powder Take by mouth once daily. Dissolve dose in 4 - 8 ounces of liquid and take as directed. multivit-minerals/herbal 121 (URINOZINC PROSTATE FORMULA ORAL) Take by mouth once daily. VITAMIN C 500 MG TAB Take one(1) tablet daily. SAW PALMETTO 1,000 MG CAP Take one(1) tablet two(2) times daily. CINNAMON 500 MG CAP Take one(1) tablet daily. glyBURIDE 2.5 mg tablet Take 1 tablet by mouth once daily. tamsulosin (FLOMAX) 0.4 mg Take 1 capsule by mouth daily at bedtime. blood sugar diagnostic (BLOOD GLUCOSE TEST) test strip Test blood sugar(s) 1 times daily. Dx: Type 2 DM - Uncontrolled E11.65 Insulin: No Lancets Test blood sugar(s) 1 times daily. Dx: Type 2 DM - Uncontrolled E11.65 Insulin: No FAMILY HISTORY Problem Relation Age of Onset Breast Cancer Mother None Father None Sister Social History Tobacco Use Smoking status: Former Smokeless tobacco: Never Tobacco comments: quit 40 yrs. ago Vaping Use Vaping status: Never (more content not included)... [facility] Nurse Visit (ENDIMT) CALLIE RASCON ([id number]) 1940 M Date Time Provider Department 11/03/24 2:00 PM ABBEY CARDENAS During your visit today, we recorded the following information about you: Abbey Cardenas RN 11/03/2024 2:28 PM Signed DIABETES CARE AND EDUCATION VISIT Location: [place] Type of visit: In person individual PATIENT'S [...] Allergies) Date Reviewed: 10/23/2024 Reviewed by: Ariana Catherine, FRONT CLERK.SED MIDDLE SCHOOL TEACHER - Fully Assessed Reason for Visit: Non-insulin [...] Status:Closed by ABBEY CARDENAS on 11/03/24 Normal [facility] Cardiology Visit Reporton Cardiology Visit Report [facility] [address] [place] [address]. [address] [place], [place] [address] OFFICE VISIT Date of Service: 10/29/24 MR#: [id number] Acct: [id number] Name: CALLIE RASCON Rep #: [id number] : 1940 Provider: Dr. Roly solares MD Age/Sex: 83/M [place] [facility] Status: Signed HPI HPI History of Present Illness Details: Patient is 83-year-old white male is very pleasant comes in with his today for monitor of his cardiovascular status. The patient carries a history of paroxysmal atrial fibs flutter and status post ablation at [facility] in December 2019. The patient is totally [...] and hyperlipidemia which is managed through the [facility] and he is tolerating his statin therapy. 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 Normal [facility] Bacteria Ur Culton Bacteria identified Cx Nom (U) ORGANISM ID: 1 10,000 -<50,000 CFU/ml Normal urogenital sandy Normal [facility] Comment on above: Performed By: #### 6 30-4 ####[facility] [id number] [address] OF [facility] CNOVon 10-23-2024 CNOV Office Visit (INTMWS ) CALLIE RASCON ([id number]) 1940 M Date Time Provider Department 10/23/24 10:40 AM ARIANA CATHERINE INTMWS During your visit today, we recorded the following information about you: Pulse Respiration Blood pressure Weight 66/minute 14/minute 116/68 92.6 kg Ariana Catherine, FRONT CLERK.SED MIDDLE SCHOOL TEACHER 10/23/2024 11:29 AM Signed We discussed your urinary symptoms: - You have been experiencing frequent urination, often every 1-2 hours, with small amounts of urine each time. This started after your Reyna catheter was removed. - A urine dip [...] - I have referred you to a internet merchant to help you with diet and other [...] symptoms worsen, please contact our office. Ariana Catherine, KRISTIN.SED MIDDLE SCHOOL TEACHER 10/23/2024 11:55 AM Signed CC: Patient presents with: Urinary Frequency: X 4 weeks HPI Recording using Meteor software for draft documentation of the visit was discussed with the patient/authorized retail wireless sales representative; all questions welcomed and answered. Patient/authorized retail wireless sales representative agreed to proceed Callie is a 83-year-old male, with a recent diagnosis of diabetes, presenting with urinary frequency and urgency. Callie has been experiencing increased urinary frequency and urgency since the removal of a Reyna catheter about 6 weeks ago. He reports [...] Procedure La (more content not included)... Normal [facility] GLUCOSE, BLOOD (POC)on 10-23 Glucose [Mass/Vol] 385 mg/dL Abnormal 74 - 99 mg/dL [facility] Comment on above: Location:[address], [place], [address] The Accu-Chek Inform II glucose meter has [...] Interpretation and review of laboratory results Abnormal [facility] UA DIP, URINE (POC)on 2024 BILIRUBIN UA (POCT) Negative Negative [facility] CLARITY UA (POCT) Clear [facility] COLOR UA (POCT) Yellow [facility] GLUCOSE UA (POCT) >=1000 Abnormal Negative mg/dL [facility] Hemoglobin Ql (U) Small Abnormal Negative [facility] Interpretation and review of laboratory results Abnormal [facility] KETONE UA (POCT) Trace Negative mg/dL [facility] LEUKOCYTES UA (POCT) Large Abnormal Negative [facility] NITRITE UA (POCT) Negative Negative [facility] PH UA (POCT) 6 4.5 - 8.0 [facility] Protein Ql (U) 100 mg/dL Abnormal Negative [facility] SPECIFIC GRAVITY UA (POCT) 1.025 1.005 - 1.030 [facility] UROBILINOGEN UA (POCT) 1 Normal E.U./dL [facility] Location:[address], [address] [place] [address] POINT OF CARE [facility] Urinalysis complete panel (U )on 10-23-2024 Bacteria LM.HPF (Urine sed) [#/Area] Negative Normal Negative [facility] Comment on above: Order Comment: Speci men Type: BLOOD SPECIMEN Ordering Facility: [facility] Address: [address] [place] [address] Performed By: #### 2 4321-2 #### [facility] CLIA [id number] [address] [place] [address] [place] Bilirubin Ql (U) Negative Normal Negative [facility] Comment on above: Order Comment: Speci men Type: BLOOD SPECIMEN Ordering Facility: [facility] Address: [address] [place] [address] Performed By: #### 2 4321-2 #### [facility] CLIA [id number] [address] [place] [address] [place] CALCIUM OXALATE CRYSTALS (UA) Few Abnormal None Seen [facility] Comment on above: Order Comment: Speci men Type: BLOOD SPECIMEN Ordering Facility: [facility] Address: [address] [place] [address] Performed By: #### 2 4321-2 #### [facility] CLIA [id number] [address] [place] Clarity (Unsp spec) Turbid Abnormal Clear [facility] Comment on above: Order Comment: Speci men Type: BLOOD SPECIMEN Ordering Facility: [facility] Address: [address] [place] [id number] Performed By: #### 2 4321-2 #### [facility] CLIA [id number] [facility] [place] [id number] [place] Color (U) Yellow Normal Yellow [facility] Comment on above: Order Comment: Speci men Type: BLOOD SPECIMEN Ordering Facility: [facility] Address: [address] [place] [address] Performed By: #### 2 4321-2 #### [facility] CLIA [id number] [address] [place] [address] [place] Epithelial cells LM.HPF (Urine sed) [#/Area] None Seen Normal [facility] Comment on above: Order Comment: Speci men Type: BLOOD SPECIMEN Ordering Facility: [facility] Address: [address] [place], [place] [address] Performed By: #### 2 4321-2 #### [facility] CLIA [id number] [address] [place], [place] [address] [place] Glucose Test strip (U) [Mass/Vol] Negative Normal Negative [facility] Comment on above: Order Comment: Speci men Type: BLOOD SPECIMEN Ordering Facility: [facility] Address: [address] [id number] Performed By: #### 2 4321-2 #### [facility] CLIA [id number] [address] [place], [place] [address] [place] Hemoglobin Ql (U) 1+ Abnormal Negative [facility] Comment on above: Order Comment: Speci men Type: BLOOD SPECIMEN Ordering Facility: [facility] Address: [address] [place], [place] [address] Performed By: #### 2 4321-2 #### [facility] CLIA [id number] [address] [place] [address] [place] Hyaline casts (Urine sed) [#/Area] 1-3 /LPF Abnormal 0 /LPF [facility] Comment on above: Order Comment: Speci men Type: BLOOD SPECIMEN Ordering Facility: [facility] Address: [address] [place] [address] Performed By: #### 2 4321-2 #### [facility] CLIA [id number] [address] [place] [address] [place] Ketones Ql (U) Trace Abnormal Negative [facility] Comment on above: Order Comment: Speci men Type: BLOOD SPECIMEN Ordering Facility: [facility] Address: [address] [place] [address] Performed By: #### 2 4321-2 #### [facility] CLIA [id number] [address] [place] [address] [place] Leukocyte esterase Test strip Ql (U) 2+ Abnormal Negative [facility] Comment on above: Order Comment: Speci men Type: BLOOD SPECIMEN Ordering Facility: [facility] Address: [address] [place] [address] Performed By: #### 2 4321-2 #### [facility] CLIA [id number] [address] [place] [address] [place] Nitrite Ql (U) Negative Normal Negative [facility] Comment on above: Order Comment: Speci men Type: BLOOD SPECIMEN Ordering Facility: [facility] Address: [address] [place] [address] Performed By: #### 2 4321-2 #### [facility] CLIA [id number] [address] [place], [place] [address] [place] pH (U) 5.5 [pH] Normal <8.5 [facility] Comment on above: Order Comment: Speci men Type: BLOOD SPECIMEN Ordering Facility: [facility] Address: [address] [place] [address] Performed By: #### 2 4321-2 #### [facility] CLIA [id number] [address] [place] [address] [place] Protein (U) [Mass/Vol] 2+ Abnormal Negative [facility] Comment on above: Order Comment: Speci men Type: BLOOD SPECIMEN Ordering Facility: [facility] Address: [address] [place] [address] Performed By: #### 2 4321-2 #### [facility] CLIA [id number] [address] [place] [address] [place] RBC LM.HPF (Urine sed) [#/Area] 6-10 /HPF Abnormal 0-2 /HPF [facility] Comment on above: Order Comment: Speci men Type: BLOOD SPECIMEN Ordering Facility: [facility] Address: [address] [place] [address] Performed By: #### 2 4321-2 #### [facility] CLIA [id number] [address] [place] [address] [place] Specific gravity (U) [Rel density] 1.027 Normal 1.005-1.030 [facility] Comment on above: Order Comment: Speci men Type: BLOOD SPECIMEN Ordering Facility: [facility] Address: [address] [place] [address] Performed By: #### 2 4321-2 #### [facility] CLIA [id number] [address] [place] [address] [place] Urobilinogen Ql (U) 1.0 EU/dL Normal 0.2-1.0 EU/dL [facility] Comment on above: Order Comment: Speci men Type: BLOOD SPECIMEN Ordering Facility: [facility] Address: [address] [place] [address] Performed By: #### 2 4321-2 #### [facility] CLIA [id number] [address] [place] [address] [place] WBC LM.HPF (Urine sed) [#/Area] /[HPF] Abnormal 0-5 /HPF [facility] Comment on above: Order Comment: Speci men Type: BLOOD SPECIMEN Ordering Facility: [facility] Address: [address] [place] [address] Performed By: #### 2 4321-2 #### [facility] CLIA [id number] [address] [place] [address] [place] Yeast.budding LM.HPF (Urine sed) [#/Area] Present Abnormal None Seen [facility] Comment on above: Order Comment: Speci men Type: BLOOD SPECIMEN Ordering Facility: [facility] Address: [address] [place] [address] Performed By: #### 2 4321-2 #### [facility] CLIA [id number] [address] [place] [address] [place] CBC panel Auto (Bld)on 09-25 Erythrocyte distribution width (RBC) [Ratio] 13.6 % Normal 11.5-15.0 [facility] Comment on above: Order Comment: Speci men Type: BLOOD SPECIMEN Ordering Facility: [facility] Address: [address] [place] [address] Performed By: #### 5 8410-2 #### [facility] CLIA [id number] [address] [place] [address] [place] Hematocrit (Bld) [Volume fraction] 49.8 % Normal 39.0-51.0 [facility] Comment on above: Order Comment: Speci men Type: BLOOD SPECIMEN Ordering Facility: [facility] Address: [address] [place] [address] Performed By: #### 5 8410-2 #### [facility] CLIA [id number] [address] [place] [address] [place] Hemoglobin (Bld) [Mass/Vol] 16.2 g/dL Normal 13.0-17.0 [facility] Comment on above: Order Comment: Speci men Type: BLOOD SPECIMEN Ordering Facility: [facility] Address: [address] [place] [address] Performed By: #### 5 8410-2 #### [facility] CLIA [id number] [address] [place] [address] [place] MCH (RBC) [Entitic mass] 31.4 pg Normal 26.0-34.0 [facility] Comment on above: Order Comment: Speci men Type: BLOOD SPECIMEN Ordering Facility: [facility] Address: [address] [place] [address] Performed By: #### 5 8410-2 #### [facility] CLIA [id number] [address] [place] [address] [place] MCHC (RBC) [Mass/Vol] 32.5 g/dL Normal 30.5-36.0 [facility] Comment on above: Order Comment: Speci men Type: BLOOD SPECIMEN Ordering Facility: [facility] Address: [address] [place] [address] Performed By: #### 5 8410-2 #### [facility] CLIA [id number] [address] [place] [address] [place] MCV (RBC) [Entitic vol] 96.5 fL Normal 80.0-100.0 [facility] Comment on above: Order Comment: Speci men Type: BLOOD SPECIMEN Ordering Facility: [facility] Address: [address] [place] [address] Performed By: #### 5 8410-2 #### [facility] CLIA [id number] [address] [place] [address] [place] Nucleated RBC (Bld) [#/Vol] 10*3/uL Normal <0.01 [facility] Comment on above: Order Comment: Speci men Type: BLOOD SPECIMEN Ordering Facility: [facility] Address: [address] [place] [address] Performed By: #### 5 8410-2 #### [facility] CLIA [id number] [address] [place] [address] [place] Platelet mean volume (Bld) [Entitic vol] 9.7 fL Normal 9.0-12.7 [facility] Comment on above: Order Comment: Speci men Type: BLOOD SPECIMEN Ordering Facility: [facility] Address: [address] [place] [address] Performed By: #### 5 8410-2 #### [facility] CLIA [id number] [address] [place] [address] [place] Platelets (Bld) [#/Vol] 255 10*3/uL Normal 150-400 [facility] Comment on above: Order Comment: Speci men Type: BLOOD SPECIMEN Ordering Facility: [facility] Address: [address] [place] [address] Performed By: #### 5 8410-2 #### [facility] CLIA [id number] [address] [place] [address] [place] RBC (Bld) [#/Vol] 5.16 10*6/uL Normal 4.20-6.00 [facility] Comment on above: Order Comment: Speci men Type: BLOOD SPECIMEN Ordering Facility: [facility] Address: [address] [place] [address] Performed By: #### 5 8410-2 #### [facility] CLIA [id number] [address] [place] [address] [place] WBC (Bld) [#/Vol] 8.22 10*3/uL Normal 3.70-11.00 [facility] Comment on above: Order Comment: Speci men Type: BLOOD SPECIMEN Ordering Facility: [facility] Address: [address] [place] [address] Performed By: #### 5 8410-2 #### [facility] CLIA [id number] [address] [place] [id number] [place] Comprehensive metabolic 2000 panelon 09-25-2024 Albumin [Mass/Vol] 4.5 g/dL Normal 3.9-4.9 [facility] Comment on above: Order Comment: Speci men Type: BLOOD SPECIMENOrdering Facility: [facility] Address: [address] [place] [address] Performed By: #### 2 4323-8, 66362-5 ####[facility] [id number] [address] [address] [place] ALP [Catalytic activity/Vol] 74 U/L Normal 38-113 [facility] Comment on above: Order Comment: Speci men Type: BLOOD SPECIMENOrdering Facility: [facility] Address: [address] [place] [address] Performed By: #### 2 4323-8, 50598-2 ####[facility] [id number] [address] [address] [place] ALT [Catalytic activity/Vol] 12 U/L Normal 10-54 [facility] Comment on above: Order Comment: Speci men Type: BLOOD SPECIMENOrdering Facility: [facility] Address: [address] [place] [address] Performed By: #### 2 4323-8, 77796-5 ####[facility] [id number] [address] [address] [place] Anion gap [Moles/Vol] 13 mmol/L Normal 8-15 [facility] Comment on above: Order Comment: Speci men Type: BLOOD SPECIMENOrdering Facility: [facility] Address: [address] [place], [place] [address] Performed By: #### 2 4323-8, 26262-1 ####[facility] [id number] [address] [address] [place] AST [Catalytic activity/Vol] 18 U/L Normal 14-40 [facility] Comment on above: Order Comment: Speci men Type: BLOOD SPECIMENOrdering Facility: [facility] Address: [address] [place] [address] Performed By: #### 2 4323-8, 38857-1 ####[facility] [id number] [place] [address] [place] Bilirubin [Mass/Vol] 1.2 mg/dL Normal 0.2-1.3 [facility] Comment on above: Order Comment: Speci men Type: BLOOD SPECIMENOrdering Facility: [facility] Address: [address] [place] [address] Performed By: #### 2 4323-8, 65225-3 ####[facility] [id number] [place] [address] [place] Calcium [Mass/Vol] 9.7 mg/dL Normal 8.5-10.2 [facility] Comment on above: Order Comment: Speci men Type: BLOOD SPECIMENOrdering Facility: [facility] Address: [address] [place] [address] Performed By: #### 2 4323-8, 58914-6 ####[facility] [id number] [place] [address] [place] Chloride [Moles/Vol] 100 mmol/L Normal 98-107 [facility] Comment on above: Order Comment: Speci men Type: BLOOD SPECIMENOrdering Facility: [facility] Address: [address] [place], [place] [address] Performed By: #### 2 4323-8, 92114-4 ####[facility] [id number] [place] [id number] [place] CO2 [Moles/Vol] 26 mmol/L Normal 22-30 [facility] Comment on above: Order Comment: Speci men Type: BLOOD SPECIMENOrdering Facility: [facility] Address: [address] [place] [address] Performed By: #### 2 4323-8, 46331-7 ####[facility] [id number] [place] [address] [place] Creatinine [Mass/Vol] 1.01 mg/dL Normal 0.73-1.22 [facility] Comment on above: Order Comment: Speci men Type: BLOOD SPECIMENOrdering Facility: [facility] Address: [address] [place] [address] Performed By: #### 2 4323-8, 63683-3 ####[facility] [id number] [place] [address] [place] Creatinine and Glomerular filtration rate.predicted panel (S/P/Bld) 73 mL/min/1.73m??? Normal >=60 [facility] Comment on above: Order Comment: Krystali men Type: BLOOD SPECIMENOrdering Facility: [facility] Address: [address] [place] [address] Result Comment: Joelle mated Glomerular Filtration Rate [...] actual GFR. Performed By: #### 2 4323-8, 64459-4 ####[facility] [id number] [place] [id number] [place] Glucose [Mass/Vol] 137 mg/dL High 74-99 [facility] Comment on above: Order Comment: Speci men Type: BLOOD SPECIMENOrdering Facility: [facility] Address: [address] [place] [address] Result Comment: The [place] Diabetes Association (ADA) provides guidance for cutoff [...] Standards of Medical Care in Diabetes 2016, [place] Diabetes Association. Diabetes Care. 2016.39(Suppl 1). Performed By: #### 2 4323-8, 71698-2 ####[facility] [id number] [place] [address] [place] Potassium [Moles/Vol] 4.3 mmol/L Normal 3.7-5.1 [facility] Comment on above: Order Comment: Speci men Type: BLOOD SPECIMENOrdering Facility: [facility] Address: [address] [place] [address] Performed By: #### 2 4328, ####[facility] [id number] [place] [address] [place] Protein [Mass/Vol] 7.6 g/dL Normal 6.3-8.0 [facility] Comment on above: Order Comment: Speci men Type: BLOOD SPECIMENOrdering Facility: [facility] Address: [address] [place] [address] Performed By: #### 2 4328, ####[facility] [id number] [place] [id number] [place] Sodium [Moles/Vol] 139 mmol/L Normal 136-144 [facility] Comment on above: Order Comment: Speci men Type: BLOOD SPECIMENOrdering Facility: [facility] Address: [address] [place] [address] Performed By: #### 2 43238, ####[facility] [id number] [place] [id number] [place] Urea nitrogen [Mass/Vol] 23 mg/dL Normal 9-24 [facility] Comment on above: Order Comment: Alexander uriostegui Type: BLOOD SPECIMENOrdering Facility: [facility] Address: [address] [place] [address] Performed By: #### 2 4323-8, 15806-6 ####[facility] [id number] [place] [address] [place] HbA1c (Bld)on 09-25-2024 Average glucose Estimated from glycated hemoglobin (Bld) [Mass/Vol] 148 mg/dL Normal [facility] Comment on above: Order Comment: Alexander uriostegui Type: BLOOD SPECIMENOrdering Facility: [facility] Address: [address] [place] [address] Result Comment: eAG: (Estimated average glucose) is a calculated value from HgbA1c and is retail wireless sales representative of the average blood glucose level in the last 2-3 month period. Performed By: #### 5 5454-3 ####[facility] [id number] [place] [address] [place] HbA1c (Bld) [Mass fraction] 6.8 % High 4.3-5.6 [facility] Comment on above: Order Comment: Alexander moody Type: BLOOD SPECIMENOrdering Facility: [facility] Address: [address] [place] [address] Result Comment: [place] Diabetes Association guidelines indicate that patients with HgbA1c in the range 5.7-6.4% are at increased risk for development of diabetes, and intervention by lifestyle modification may be beneficial. HgbA1c greater or equal to 6.5% is considered diagnostic of diabetes. Performed By: #### 5 5454-3 ####[facility] [id number] [place] [id number] [place] Lipid 1996 panelon 5 Cholesterol [Mass/Vol] 178 mg/dL Normal <200 [facility] Comment on above: Order Comment: Speci men Type: BLOOD SPECIMENOrdering Facility: [facility] Address: [address] [place] [address] Result Comment: <200 mg/dL, Desirable 200-239 mg/dL, Borderline high >239 mg/dL, High Performed By: #### 2 4323-8, 00472-8 ####[facility] [id number] [facility] [id number] [address] [place] Cholesterol in HDL [Mass/Vol] 49 mg/dL Normal >39 [facility] Comment on above: Order Comment: Speci men Type: BLOOD SPECIMENOrdering Facility: [facility] Address: [address] [place] [address] Result Comment: 40-5 9 mg/dL, Acceptable >59 mg/dL, High: Negative risk factor for coronary heart disease <40 mg/dL, Low: Positive risk factor for coronary heart disease Performed By: #### 2 4323-8, 72727-1 ####[facility] [id number] [address] [place] [address] [place] Cholesterol in LDL [Mass/Vol] 84 mg/dL Normal <100 [facility] Comment on above: Order Comment: Speci men Type: BLOOD SPECIMENOrdering Facility: [facility] Address: [address] [place] [address] Result Comment: <100 mg/dL, Optimal 100-129 mg/dL, Near optimal/above optimal 130-159 mg/dL, Borderline high 160-189 mg/dL, High >189 mg/dL, Very high Secondary prevention optimal LDL Cholesterol levels are recommended to be <70 mg/dL LDL cholesterol is calculated using the Gipson-NIH equation. Performed By: #### 2 4323-8, 32771-5 ####[facility] [id number] [facility] [address] [place] [address] [facility] [place] Cholesterol in LDL/Cholesterol in HDL [Mass ratio] 1.71 {ratio} Normal <2.54 [facility] Comment on above: Order Comment: Speci men Type: BLOOD SPECIMENOrdering Facility: [facility] Address: [address] [place] [address] Result Comment: Jase sommer: 1. National Cholesterol Education Program ATP III Guideline At-A-Glance Quick Desk Reference: National Heart, Lung, and Blood [place]. National Institutes of Health. 2001: NIH Publication No. 01-3305. 2. An International Atherosclerosis Society position paper: global recommendations for the management of dyslipidemia: executive summary, Atherosclerosis. 2014: 232(2):410-413. Performed By: #### 2 4323-8, 50285-3 ####[facility] [id number] [place] [address] [place] Cholesterol in VLDL [Mass/Vol] 43 mg/dL High <30 [facility] Comment on above: Order Comment: Krystali men Type: BLOOD SPECIMENOrdering Facility: [facility] Address: [address] [place] [address] Performed By: #### 2 4323-8, 06319-3 ####[facility] [id number] [place] [address] [place] Cholesterol non HDL [Mass/Vol] 129 mg/dL Normal <130 [facility] Comment on above: Order Comment: Krystali moody Type: BLOOD SPECIMENOrdering Facility: [facility] Address: [address] [place] [address] Result Comment: <130 mg/dL, Optimal 130-159 mg/dL, Near optimal/above optimal 160-189 mg/dL, Borderline high 190-219 mg/dL, High >219 mg/dL, Very high Secondary prevention optimal non HDL Cholesterol levels are recommended to be <100 mg/dL Performed By: #### 2 4323-8, 15231-9 ####[facility] [id number] [place] [id number] [place] Cholesterol.total/ Cholesterol in HDL [Mass ratio] 3.63 {ratio} Normal <5.10 [facility] Comment on above: Order Comment: Krystali men Type: BLOOD SPECIMENOrdering Facility: [facility] Address: [address] [place] [id number] Performed By: #### 2 4323-8, 99788-6 ####[facility]IA [id number] [address] [address] [place] FASTING TIME 12 hrs Normal [facility] Comment on above: Order Comment: Speci men Type: BLOOD SPECIMENOrdering Facility: [facility] Address: [address] [place] [address] Performed By: #### 2 4323-8, 81114-2 ####[facility] LABCLIA [id number] [place] [id number] [place] Triglyceride [Mass/Vol] 273 mg/dL High <150 [facility] Comment on above: Order Comment: Speci men Type: BLOOD SPECIMENOrdering Facility: [facility] [facility] Address: [address] [place] [address] Result Comment: <150 mg/dL, Normal 150-199 mg/dL, Borderline high 200-499 mg/dL, High >499 mg/dL, Very high Performed By: #### 2 4323-8, 42326-6 ####[facility] LABIA [id number] [place] [id number] [place] CNOVon 09-24-2024 CNOV Office Visit (INTMWS ) CALLIE RASCON ([id number]) 1940 M Date Time Provider Department 09/24/24 8:40 AM CEDRIC BECERRA INTMWS During your visit today, we recorded the following information about you: Pulse Respiration Blood pressure Weight 88/minute 20/minute 116/60 94.3 kg Cedric Becerra MD 09/24/2024 9:02 AM Signed This note was created using [employer] Subjective Callie Rascon is a 83 year [...] block. 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 Sangita Prakash in several weeks. Review [...] D3, (VITAMIN (more content not included)... Normal [facility] CNOVon 09-07-2024 CNOV Office Visit (INTMWS ) CALLIE RASCON ([id number]) 1940 M Date Time Provider Department 09/07/24 7:00 PM CEDRIC BECERRA INTMWS During your visit today, we recorded the following information about you: Temperature Pulse Blood pressure Weight 98.3 degrees 104/minute 124/74 93.5 kg Cedric Becerra MD 09/08/2024 8:10 AM Signed This note was created using [employer] Subjective Patient presents with: Hospital F/U Recording using [employer] software for draft documentation of the visit was discussed with the patient/authorized retail wireless sales representative; all questions welcomed and answered. Patient/authorized retail wireless sales representative agreed to proceed Callie is a 83-year-old male, here with his , presenting for follow-up after hospitalization in [place], [place]. Callie was recently hospitalized for 5 days 08/22 to 08/25/24 at [facility] due to cellulitis affecting both legs, especially [...] issues. He was advised to discontinue the reyna after 2 weeks. He completed the antibiotic [...] No gallop (more content not included)... Normal [facility] XR Toes - left 3 Viewson IMPRESSION: No radiographic evidence of acute osseous injury Reacher: [facility] Transcribe Date/Time: Oct 01 2022 2:06P Dictated by : NATASHA ROUSE MD This examination was interpreted and the report reviewed and electronically signed by: NATASHA ROUSE MD on Oct 01 2022 2:07PM [facility] DIVISION OF RADIOLOGY * * *Final Report* [...] of the vasculature. DIVISION OF RADIOLOGY [facility] * * *Final Report* * [...] No radiographic evidence of acute osseous injury Reacher: [facility] Transcribe Date/Time: Oct 01 2022 2:06P Dictated by : NATASHA ROUSE MD This examination was interpreted and the report reviewed and electronically signed by: NATASHA ROUSE MD on Oct 01 2022 2:07PM EST [facility] XR Toes - left 3 ViewsOrdere d By: Ccem Provider on 10-01-2022 [facility] XR Toes - left 3 Viewson Radiology Study observation (narrative) [facility] HEMOGLOBIN A1C (POC)on 03-09 HbA1c (Bld) [Mass fraction] 6.3 % 4.2 - 5.6 % [facility] CNNURSEon 07-22-2020 CNNURSE Nurse Visit (COVAMD) CALLIE RASCON ([id number]) 1940 M Date Time Provider Department 07/22/20 MARY FAN During your visit today, we recorded the following information about you: Allergies As of Date: 07/22/2020 (No Known Allergies) Date Reviewed: 06/16/2020 Reviewed by: Carlos Canas (Pa) - Fully Assessed Order(s):Broadband Voice SARS-COV-2 VACCINE 2D DOSE APPT [[id number]] Order #: [id number] Prescriptions as of 07/22/2020 Sig: ATORVASTATIN 20 [...] 02/09/2020 Chronic anticoagulation [Z79.01] 02/09/2020 Encounter Status:Open Normal [facility] .Auto Diffon 01-12-2020 Ammonia (P) [Mass/Vol] 0.70 10 3/mcL Normal 0.09-1.40 [facility] ([place]) Comment on above: Performed By: #### C BC, ADIFF, ANEU, BMP, GFR, PRO #### [place] [address] Basophils (Bld) [#/Vol] 0.10 10 3/mcL Normal 0.00-0.27 [facility] ([place]) Comment on above: Performed By: #### C BC, ADIFF, ANEU, BMP, GFR, PRO #### [address] [address] Basophils/100 WBC (Bld) 1.1 % Normal 0.0-2.5 [facility] ([place]) Comment on above: Performed By: #### C BC, ADIFF, ANEU, BMP, GFR, PRO #### [address] [address] Eosinophils (Bld) [#/Vol] 0.20 10 3/mcL Normal 0.00-0.65 [facility] ([place]) Comment on above: Performed By: #### C BC, ADIFF, ANEU, BMP, GFR, PRO #### [address] [address] Eosinophils/100 WBC (Bld) 2.6 % Normal 0.0-6.0 [facility] ([place]) Comment on above: Performed By: #### C BC, ADIFF, ANEU, BMP, GFR, PRO #### [address] [address] Lymphocytes (Bld) [#/Vol] 2.30 10 3/mcL Normal 0.90-4.32 [facility] ([place]) Comment on above: Performed By: #### C BC, ADIFF, ANEU, BMP, GFR, PRO #### [address] [address] Lymphocytes/100 WBC (Bld) 27.7 % Normal 20.0-40.0 [facility] ([place]) Comment on above: Performed By: #### C BC, ADIFF, ANEU, BMP, GFR, PRO #### [address] [address] Monocytes/100 WBC (Bld) 8.2 % Normal 2.0-13.0 [facility] ([place]) Comment on above: Performed By: #### C BC, ADIFF, ANEU, BMP, GFR, PRO #### [address] [address] Neutrophils/100 WBC (Bld) 60.4 % Normal 50.0-75.0 [facility] ([place]) Comment on above: Performed By: #### C BC, ADIFF, ANEU, BMP, GFR, PRO #### [address] [address] .GFRon 01-12-2020 GFR >60 Normal [facility] ([place]) Comment on above: Result Comment: GFR Population [...] BC, ADIFF, ANEU, BMP, GFR, PRO #### [address] [address] GFR Non- >60 Normal [facility] ([place]) Comment on above: Result Comment: GFR Population [...] BC, ADIFF, ANEU, BMP, GFR, PRO #### [address] [address] .NEUABSon 01-12-2020 Neutrophils (Bld) [#/Vol] 4.90 10 3/mcL Normal 2.25-8.10 [facility] ([place]) Comment on above: Performed By: #### C BC, ADIFF, ANEU, BMP, GFR, PRO #### [address] [address] BMPon 01-12-2020 Calcium [Mass/Vol] 8.9 mg/dL Normal 8.4-10.1 [facility] Comment on above: Result Comment: No te - New Reference Range in effect 19 Performed By: #### C BC, ADIFF, ANEU, BMP, GFR, PRO #### [place] [address] Chloride [Moles/Vol] 107 mmol/L Normal 98-110 [facility] ([place]) Comment on above: Performed By: #### C BC, ADIFF, ANEU, BMP, GFR, PRO #### [place] [address] CO2 [Moles/Vol] 25 mmol/L Normal 22-32 [facility] ([place]) Comment on above: Performed By: #### C BC, ADIFF, ANEU, BMP, GFR, PRO #### [place] [address] Creatinine [Mass/Vol] 1.05 mg/dL Normal 0.60-1.40 [facility] ([place]) Comment on above: Performed By: #### C BC, ADIFF, ANEU, BMP, GFR, PRO #### [place] [address] Electrolyte Balance 7.0 mEq/L Normal 4.0-15.0 [facility] ([place]) Comment on above: Performed By: #### C BC, ADIFF, ANEU, BMP, GFR, PRO #### [place] [id number] Glucose [Mass/Vol] 133 mg/dL High 82-115 [facility] Comment on above: Performed By: #### C BC, ADIFF, ANEU, BMP, GFR, PRO #### [place] [id number] Potassium [Moles/Vol] 4.5 mmol/L Normal 3.5-5.0 [facility] ([place]) Comment on above: Performed By: #### C BC, ADIFF, ANEU, BMP, GFR, PRO #### [place] [id number] Sodium [Moles/Vol] 139 mmol/L Normal 136-145 [facility] Comment on above: Performed By: #### C BC, ADIFF, ANEU, BMP, GFR, PRO #### [place] [id number] Urea nitrogen [Mass/Vol] 19.0 mg/dL Normal 8.0-22.0 [facility] ([place]) Comment on above: Performed By: #### C BC, ADIFF, ANEU, BMP, GFR, PRO #### [place] [id number] Urea nitrogen/Creatinin e [Mass ratio] 18.1 ratio Normal 10.0-22.0 [facility] ([place]) Comment on above: Performed By: #### C BC, ADIFF, ANEU, BMP, GFR, PRO #### [place] [id number] CBCon 01-12-2020 Erythrocyte distribution width (RBC) [Ratio] 13.9 % Normal 11.5-15.5 [facility] ([place]) Comment on above: Performed By: #### C BC, ADIFF, ANEU, BMP, GFR, PRO #### [place] [id number] Hematocrit (Bld) [Volume fraction] 50.4 % Normal 40.0-52.0 [facility] ([place]) Comment on above: Performed By: #### C BC, ADIFF, ANEU, BMP, GFR, PRO #### [place] [id number] Hemoglobin (Bld) [Mass/Vol] 17.7 G/dL High 13.0-17.5 [facility] ([place]) Comment on above: Performed By: #### C BC, ADIFF, ANEU, BMP, GFR, PRO #### [address] [address] MCH (RBC) [Entitic mass] 32.1 pg Normal 27.0-33.0 [facility] ([place]) Comment on above: Performed By: #### C BC, ADIFF, ANEU, BMP, GFR, PRO #### [address] [address] MCHC (RBC) [Mass/Vol] 35.1 G/dL Normal 32.0-36.0 [facility] ([place]) Comment on above: Performed By: #### C BC, ADIFF, ANEU, BMP, GFR, PRO #### [place] [id number] MCV (RBC) [Entitic vol] 91.3 fL Normal 81.0-100.0 [facility] ([place]) Comment on above: Performed By: #### C BC, ADIFF, ANEU, BMP, GFR, PRO #### [address] [address] Platelet mean volume (Bld) [Entitic vol] 6.7 fL Normal 6.4-10.5 [facility] ([place]) Comment on above: Performed By: #### C BC, ADIFF, ANEU, BMP, GFR, PRO #### [address] [address] Platelets (Bld) [#/Vol] 193 10 3/mcL Normal 150-450 [facility] ([place]) Comment on above: Performed By: #### C BC, ADIFF, ANEU, BMP, GFR, PRO #### [address] [address] RBC (Bld) [#/Vol] 5.51 10 6/mcL Normal 4.50-6.00 [facility] ([place]) Comment on above: Performed By: #### C BC, ADIFF, ANEU, BMP, GFR, PRO #### [address] [address] WBC (Bld) [#/Vol] 8.10 10 3/mcL Normal 4.50-10.80 [facility] ([place]) Comment on above: Performed By: #### C ROX OSBORN ANEU, BMP, GFR, PRO #### [address] [address] PROon 01-12-2020 INR Coag (PPP) [Relative time] 1.6 {INR} Normal [facility] ([place]) Comment on above: Result Comment: [employer] (CHEST, 1992, 102:312S-25S) recommended therapeutic range for oral anticoagulant therapy is: LOW RISK: Prophylaxis of venous thrombosis INR: 2.0-3.0 Treatment of pulmonary embolism 2.0-3.0 Prevention of systemic embolism 2.0-3.0 HIGH RISK: Mechanical prosthetic valves 2.5-3.5 Performed By: #### C ROX OSBORN ANEU, BMP, GFR, PRO #### [address] [address] PT Coag (PPP) [Time] 18.3 s High 9.0-14.6 [facility] ([place]) Comment on above: Result Comment: Effe ctive 12/09/07, Protime results may be affected by some antibiotics (i.e. Ciprofloxacin, Azithromycin, Bactrim) which may potentiate the action of oral anticoagulants, with further increases in Protime/INR. Performed By: #### C ROX OSBORN ANEU, BMP, GFR, PRO #### [address] [address] .GFRon 11-19-2019 GFR >60 Normal [facility] ([place]) Comment on above: Result Comment: GFR Population [...] By: #### B MP, GFR, PRO #### [address] [address] GFR Non- >60 Normal [facility] ([place]) Comment on above: Result Comment: GFR Population [...] By: #### B MP, GFR, PRO #### [address] [address] [facility] 11-19-2019 Creatinine [Mass/Vol] 1.11 mg/dL Normal 0.60-1.40 [facility] ([place]) Comment on above: Performed By: #### B MP, GFR, PRO #### [address] [address] Urea nitrogen/Creatinin e [Mass ratio] 21.6 ratio Normal 10.0-22.0 [facility] ([place]) Comment on above: Performed By: #### B MP, GFR, PRO #### [address] [address] Calcium [Mass/Vol] 8.6 mg/dL Normal 8.4-10.1 [facility] ([place] Comment on above: Performed By: #### B MP, GFR, PRO #### [address] [address] Chloride [Moles/Vol] 107 mmol/L Normal 98-110 [facility] ([place]) Comment on above: Performed By: #### B MP, GFR, PRO #### [address] [address] CO2 [Moles/Vol] 26 mmol/L Normal 22-32 [facility] ([place]) Comment on above: Performed By: #### B MP, GFR, PRO #### [address] [address] Electrolyte Balance 6.0 mEq/L Normal 4.0-15.0 [facility] ([place]) Comment on above: Performed By: #### B MP, GFR, PRO #### [address] [address] Glucose [Mass/Vol] 117 mg/dL High 82-115 [facility] ([place]) Comment on above: Performed By: #### B MP, GFR, PRO #### [address] [address] Potassium [Moles/Vol] 4.4 mmol/L Normal 3.5-5.0 [facility] ([place]) Comment on above: Performed By: #### B MP, GFR, PRO #### [address] [address] Sodium [Moles/Vol] 139 mmol/L Normal 136-145 [facility] [place]) Comment on above: Performed By: #### B MP, GFR, PRO #### [address] [address] Urea nitrogen [Mass/Vol] 24.0 mg/dL High 8.0-22.0 [facility] ([place]) Comment on above: Performed By: #### B MP, GFR, PRO #### [address] [address] PROon 11-19-2019 INR Coag (PPP) [Relative time] 1.7 {INR} Normal [facility] ([place]) Comment on above: Result Comment: [employer] (CHEST, 1992, 102:312S-25S) recommended therapeutic range for oral anticoagulant therapy is: LOW RISK: Prophylaxis of venous thrombosis INR: 2.0-3.0 Treatment of pulmonary embolism 2.0-3.0 Prevention of systemic embolism 2.0-3.0 HIGH RISK: Mechanical prosthetic valves 2.5-3.5 Performed By: #### B MP, GFR, PRO #### [address], [place] [address] PT Coag (PPP) [Time] 19.8 s High 9.0-14.6 [facility] ([place]) Comment on above: Result Comment: Effe ctive 12/09/07, Protime results may be affected by some antibiotics (i.e. Ciprofloxacin, Azithromycin, Bactrim) which may potentiate the action of oral anticoagulants, with further increases in Protime/INR. Performed By: #### B MP, GFR, PRO #### [address] [address] Vital Signs Date Time Vital Sign Value Performing Clinician Reyna cole 11-30-2024 08:47-0400 Body mass index (BMI) [Ratio] 27.83 kg/m2 Ariana Catherine FRONT CLERK.[employer] Work Phone: [facility] 11-30-2024 08:47-0400 Body weight 92.2 kg Ariana Catherine FRONT CLERK.[employer] Work Phone: [facility] 11-30-2024 08:47-0400 Diastolic blood pressure 62 mm[Hg] Ariana Catherine FRONT CLERK.[employer] Work Phone: [facility] 11-30-2024 08:47-0400 Heart rate 93 /min Ariana Catherine FRONT CLERK.[employer] Work Phone: [facility] 11-30-2024 08:47-0400 SaO2% (BldA) [Mass fraction] 97 % Ariana Catherine FRONT CLERK.[employer] Work Phone: [facility] 11-30-2024 08:47-0400 Systolic blood pressure 118 mm[Hg] Ariana SnyderMuna FRONT CLERK.[employer] TE[employer]ER Work Phone: [facility] 10-29-2024 09:59-0400 Body height 187.[address] Cedric Becerra MD Work Phone: [facility] 10-29-2024 09:59-0400 Body mass index (BMI) [Ratio] 26.4 kg/m2 Dr. Cedric Becerra MD Work Phone: 0(421)[phone] [place] [address] 10-29-2024 09:59-0400 Body weight 93.[address] Cedric Becerra MD Work Phone: 3(961)238-919717 [place] [address] 10-29-2024 09:59-0400 Diastolic blood pressure 72 mm[Hg] Dr. Cedric Becerra MD Work Phone: 4(817)314-060960 [place] [address] 10-29-2024 09:59-0400 Heart rate 80 /min Dr. Cedric Becerra MD Work Phone: 0(727)280-637060 [place] [address] 10-29-2024 09:59-0400 Respiratory rate 18 /min Dr. Cedric Becerra MD Work Phone: 1(081)404-551660 [place] [address] 10-29-2024 09:59-0400 SaO2% (BldA) [Mass fraction] 94 % Dr. Cedric Becerra MD Work Phone: 1(020)942-382560 [place] [address] 10-29-2024 09:59-0400 Systolic blood pressure 107 mm[Hg] Dr. Cedric Becerra MD Work Phone: 5(297)020-979617 [place] [address] 10-23-2024 10:45-0400 Body mass index (BMI) [Ratio] 27.96 kg/m2 Ariana Catherine FRONT CLERK.[employer] Work Phone: [facility] 10-23-2024 10:45-0400 Body weight 92.6 kg Ariana Catherine FRONT CLERK.[employer] Work Phone: [facility] 10-23-2024 10:45-0400 Diastolic blood pressure 68 mm[Hg] Ariana Catherine FRONT CLERK.[employer] Work Phone: [facility] 10-23-2024 10:45-0400 Heart rate 66 /min Ariana Catherine FRONT CLERK.[employer] Work Phone: [facility] 10-23-2024 10:45-0400 Respiratory rate 14 /min Ariana Catherine FRONT CLERK.[employer] Work Phone: [facility] 10-23-2024 10:45-0400 SaO2% (BldA) [Mass fraction] 98 % Ariana Catherine APRN.[employer] Work Phone: [facility] 10-23-2024 10:45-0400 Systolic blood pressure 116 mm[Hg] Ariana Catherine APRN.[employer] Work Phone: [facility] 09-24-2024 08:31-0400 Body mass index (BMI) [Ratio] 28.47 kg/m2 Cedric Becerra MD Work Phone: [facility] 09-24-2024 08:31-0400 Body weight 94.3 kg Cedric Becerra MD Work Phone: [facility] 09-24-2024 08:31-0400 Diastolic blood pressure 60 mm[Hg] Cedric Becerra MD Work Phone: [facility] 09-24-2024 08:31-0400 Heart rate 88 /min Cedric Becerra MD Work Phone: [facility] 09-24-2024 08:31-0400 Respiratory rate 20 /min Cedric Becerra MD Work Phone: [facility] 09-24-2024 08:31-0400 Systolic blood pressure 116 mm[Hg] Cedric Becerra MD Work Phone: [facility] 09-07-2024 19:04-0400 Body mass index (BMI) [Ratio] 28.23 kg/m2 Cedric Becerra MD Work Phone: [facility] 09-07-2024 19:04-0400 Body temperature 98.29 [degF] Cedric Becerra MD Work Phone: [facility] 09-07-2024 19:04-0400 Body weight 93.5 kg Cedric Becerra MD Work Phone: [facility] 09-07-2024 19:04-0400 Diastolic blood pressure 74 mm[Hg] Cedric Becerra MD Work Phone: [facility] 09-07-2024 19:04-0400 Heart rate 104 /min Cedric Becerra MD Work Phone: [facility] 09-07-2024 19:04-0400 Systolic blood pressure 124 mm[Hg] Cedric Becerra MD Work Phone: [facility] 03-04-2024 07:53-0400 Body height 182 cm Ariana Catherine FRONT CLERK.[employer] Work Phone: [facility] 03-04-2024 07:53-0400 Body mass index (BMI) [Ratio] 29.22 kg/m2 Airana Catherine FRONT CLERK.[employer] Work Phone: [facility] 03-04-2024 07:53-0400 Body weight 96.8 kg Ariana Catherine APRN.[employer] Work Phone: [facility] 03-04-2024 07:53-0400 Diastolic blood pressure 70 mm[Hg] Ariana Catherine FRONT CLERK.[employer] Work Phone: [facility] 03-04-2024 07:53-0400 Heart rate 79 /min Ariana Catherine FRONT CLERK.[employer] Work Phone: [facility] 03-04-2024 07:53-0400 Respiratory rate 18 /min Ariana Catherine APRN.[employer] Work Phone: [facility] 03-04-2024 07:53-0400 SaO2% (BldA) [Mass fraction] 97 % Ariana Catherine FRONT CLERK.[employer] Work Phone: [facility] 03-04-2024 07:53-0400 Systolic blood pressure 128 mm[Hg] Ariana Catherine FRONT CLERK.[employer] Work Phone: [facility] 09-25-2023 09:28-0400 Body mass index (BMI) [Ratio] 27.24 kg/m2 Cedric Becerra MD Work Phone: [facility] 09-25-2023 09:28-0400 Body temperature 98.29 [degF] Cedric Becerra MD Work Phone: [facility] 09-25-2023 09:28-0400 Body weight 90.72 kg Cedric Becerra MD Work Phone: [facility] 09-25-2023 09:28-0400 Diastolic blood pressure 64 mm[Hg] Cedric Becerra MD Work Phone: [facility] 09-25-2023 09:28-0400 Heart rate 76 /min Cedric Becerra MD Work Phone: [facility] 09-25-2023 09:28-0400 Respiratory rate 18 /min Cedric Becerra MD Work Phone: [facility] 09-25-2023 09:28-0400 Systolic blood pressure 128 mm[Hg] Cedric Becerra MD Work Phone: [facility] 09-26-2022 11:11-0400 Body weight 88.36 kg Cedric Becerra MD Work Phone: [facility] 09-26-2022 11:11-0400 Diastolic blood pressure 58 mm[Hg] Cedric Becerra MD Work Phone: [facility] 09-26-2022 11:11-0400 Heart rate 76 /min Cedric Becerra MD Work Phone: [facility] 09-26-2022 11:11-0400 Respiratory rate 18 /min Cedric Becerra MD Work Phone: [facility] 09-26-2022 11:11-0400 Systolic blood pressure 112 mm[Hg] Cedric Becerra MD Work Phone: [facility] 09-21-2022 11:13-0400 Body height 187.96 cm [facility] 09-21-2022 11:13-0400 Body mass index (BMI) [Ratio] 24.9 kg/m2 [facility] 09-21-2022 11:13-0400 Body temperature 97.7 [degF] [facility] 09-21-2022 11:13-0400 Body weight 87.99 kg [facility] 09-21-2022 11:13-0400 Diastolic blood pressure 64 mm[Hg] [facility] 09-21-2022 11:13-0400 Heart rate 77 /min [facility] 09-21-2022 11:13-0400 Respiratory rate 14 /min [facility] 09-21-2022 11:13-0400 SaO2% (BldA) [Mass fraction] 97 % [facility] 09-21-2022 11:13-0400 Systolic blood pressure 131 mm[Hg] [facility] 09-21-2022 10:13-0400 Body weight 88 kg Shawna Alves FRONT CLERK.SWATCHER Work Phone: [facility] 09-21-2022 10:13-0400 Diastolic blood pressure 62 mm[Hg] Shawna Alves FRONT CLERK.SWATCHER Work Phone: [facility] 09-21-2022 10:13-0400 Heart rate 84 /min Shawna Alves FRONT CLERK.SWATCHER Work Phone: [facility] 09-21-2022 10:13-0400 Respiratory rate 16 /min Shawna Alves FRONT CLERK.SWATCHER Work Phone: [facility] 09-21-2022 10:13-0400 SaO2% (BldA) [Mass fraction] 98 % Shawna Alves FRONT CLERK.SWATCHER Work Phone: [facility] 09-21-2022 10:13-0400 Systolic blood pressure 118 mm[Hg] Shawna Alves FRONT CLERK.SWATCHER Work Phone: [facility] 03-09-2022 13:23-0400 Diastolic blood pressure 68 mm[Hg] Ariana Older FRONT CLERK.[employer] Work Phone: [facility] 03-09-2022 13:23-0400 Systolic blood pressure 120 mm[Hg] Ariana Older FRONT CLERK.[employer] TE[employer]ER Work Phone: [facility] 03-09-2022 12:44-0400 Body height 182.9 cm Ariana Older FRONT CLERK.[employer] Work Phone: [facility] 03-09-2022 12:44-0400 Body weight 93.89 kg Ariana Older FRONT CLERK.[employer] Work Phone: [facility] 03-09-2022 12:44-0400 Heart rate 78 /min Ariana Older FRONT CLERK.[employer] Work Phone: [facility] 03-09-2022 12:44-0400 Respiratory rate 18 /min Ariana Older FRONT CLERK.[employer] Work Phone: [facility] 10-26-2021 16:16-0400 Diastolic blood pressure 64 mm[Hg] Cedric Becerra MD Work Phone: [facility] 10-26-2021 16:16-0400 Systolic blood pressure 122 mm[Hg] Cedric Becerra MD Work Phone: [facility] 10-26-2021 15:42-0400 Body temperature 97.59 [degF] Cedric Becerra MD Work Phone: [facility] 10-26-2021 15:42-0400 Body weight 92.53 kg Cedric Becerra MD Work Phone: [facility] 10-26-2021 15:42-0400 Heart rate 68 /min Cedric Becerra MD Work Phone: [facility] [facility] 10-26-2021 15:42-0400 Respiratory rate 24 /min Cedric Becerra MD Work Phone: [facility] Encounters Encounter Date Encounter Type Care Provider Facility Start: 03-16-2025 End: 03-16-2025 ambulatory CEDRIC BECERRA Facility:[facility] Start: 03-08-2025 End: 03-08-2025 ambulatory CEDRIC BECERRA Facility:[facility] Start: 03-08-2025 Patient encounter procedure ARIANA CATHERINE [facility] Start: 03-01-2025 End: 03-01-2025 ambulatory CEDRIC BECERRA Facility:[facility] Start: 01-08-2025 End: 01-09-2025 Telephone encounter Cedric Becerra MD Work Phone: [facility] [place] Comment on above: Patient Question Start: 12-30-2024 End: 01-08-2025 Telephone encounter Cedric Becerra MD Work Phone: OB/Gynecology Comment on above: Results (Xray disc) Start: 11-30-2024 End: 11-30-2024 Office outpatient visit 25 minutes Ariana Catherine APRN.CNP Work Phone: [facility] [place] Comment on above: Benign prostatic hyp erplasia with urinary frequency (Primary Dx); Type 2 diabetes mellitus without complication, without long-term current use of insulin (HCC) Start: 11-30-2024 End: 11-30-2024 ambulatory CEDRIC BECERRA Facility:[facility] Start: 11-23-2024 End: 11-23-2024 Refill Cedric Becerra MD Work Phone: Internal [facility] Comment on above: Refill Request Start: 11-09-2024 End: 11-09-[address] Cedric Becerra MD Work Phone: [facility] Work Phone: Start: 11-09-2024 End: 11-09-[address] Roly Prakash MD -Pulmonary Services/Neurology Work Phone: Start: 11-09-2024 End: 11-09-2024 ambulatory Roly Prakash Facility:[facility] Start: 11-03-2024 End: 11-03-2024 Nursing evaluation of patient and report Abbey Cardenas RN Work Phone: Endocrinology Comment on above: Type 2 diabetes dilan itus without complication, without long- term current use of insulin (HCC) (Primary Dx) Start: 11-03-2024 End: 11-03-2024 ambulatory CEDRIC BECERRA Facility:[facility] Start: 11-02-2024 End: 11-04-2024 Refill Cedric Becerra MD Work Phone: Internal [facility] Comment on above: Refill Request Start: 10-29-2024 End: 10-29-[address] Roly Prakash MD -[facility] Work Phone: Start: 10-29-2024 End: 10-29-[address] Cedric Becerra MD Work Phone: [facility] Work Phone: Start: 10-28-2024 End: 10-28-2024 ambulatory Cedric Becerra MD Work Phone: [facility] Start: 10-28-2024 End: 10-28-2024 Patient encounter procedure Cedric Becerra MD Work Phone: [facility] Comment on above: Population Health Na vigation Outreach ([employer] [place] ) Start: 10-26-2024 End: 10-28-2024 Follow-up encounter Ariana Catherine APRN.CNP Work Phone: Internal Medicine [place] Start: 10-23-2024 End: 10-23-2024 Office outpatient visit 40 minutes Ariana Catherine APRN.[employer] Work Phone: Internal Medicine [place] Comment on above: Urinary frequency (P rimary Dx); Glucosuria; Newly diagnosed diabetes (HCC); Hyperglycemia; BPH with obstruction/lower urinary tract symptoms Start: 10-23-2024 End: 10-23-2024 ambulatory CEDRIC BECERRA Facility:[facility] Start: 09-28-2024 End: 09-28-2024 ambulatory Cedric Becerra MD Work Phone: [facility] Start: 09-28-2024 End: 09-28-2024 Patient encounter procedure Cedric Becerra MD Work Phone: [facility] Comment on above: Population Health Na vigation Outreach ([employer] [place] ) Start: 09-26-2024 End: 09-26-2024 Follow-up encounter Cedric Becerra MD Work Phone: Internal [facility] [place] Start: 09-25-2024 End: 09-25-2024 ambulatory CEDRIC BECERRA Facility:[facility] Start: 09-24-2024 End: 09-24-2024 Office outpatient visit 15 minutes Cedric Becerra MD Work Phone: Internal Medicine [place] Comment on above: Persistent atrial fi brillation (HCC) (Primary Dx); Toe pain, chronic, left; BPH with obstruction/lower urinary tract symptoms; Primary hypertension; Impaired fasting glucose Start: 09-24-2024 ambulatory CEDRIC BECERRA Faci lity:[facility] Start: 09-07-2024 End: 09-07-2024 ambulatory CEDRIC BECERRA Facility:[facility] Start: 09-07-2024 End: 09-07-2024 Office outpatient visit 25 minutes Cedric Becerra MD Work Phone: Internal [facility] [place] Comment on above: Cellulitis of right lower extremity (Primary Dx); Swelling of lower leg; Hematuria, unspecified type; Indwelling Reyna catheter present; Hyperlipidemia LDL goal <130; Persistent atrial fibrillation (HCC); Impaired fasting glucose Start: 08-12-2024 End: 08-12-2024 ambulatory Amador Ram CAL [facility] Start: 08-12-2024 End: 08-12-2024 Patient encounter procedure Amador Ram CAL [facility] Comment on above: Population Health Na vigation Outreach ([employer] High Risk Attempt #2) Start: 07-16-2024 End: 07-16-2024 ambulatory Amador Ram MA [facility] Start: 07-16-2024 End: 07-16-2024 Patient encounter procedure Amador Ram CAL [facility] Comment on above: Population Health Na vigation Outreach ([employer] High Risk Attempt #1/) Start: 03-04-2024 End: 03-04-2024 Patient encounter procedure Ariana Catherine APRN.CNP Work Phone: Internal [facility] [place] Comment on above: Medicare annual well ness visit, subsequent (Primary Dx); Persistent atrial fibrillation (HCC); Primary hypertension; Hyperlipidemia LDL goal <130; Impaired fasting glucose; Polycythemia; Memory disturbance; Encounter for immunization; Screening for depression; Encounter for screening examination for other mental health and behavioral disorders Start: 01-28-2024 End: 01-28-2024 Refill Cedric Becerra MD Work Phone: Internal [facility] [place] Comment on above: Refill Request Start: 01-09-2024 Refill Cedric chino MD Work Phone: [facility] Comment on above: Refill Request Start: 09-25-2023 End: 09-25-2023 Patient encounter procedure Cedric Becerra MD Work Phone: Internal [facility] [place] Comment on above: Toe pain, chronic, l eft (Primary Dx); Primary hypertension; Chronic anticoagulation; Impaired fasting glucose; Need for COVID-19 vaccine; Polycythemia; Hyperlipidemia LDL goal <130; Gait abnormality Start: 03-15-2023 Refill Cedric chino MD Work Phone: Internal Medicine [place] Comment on above: Refill Request Start: 09-26-2022 End: 09-26-2022 Subsequent hospital visit by physician Kenisha [facility] [place] Work Phone: Radiology Comment on above: Toe pain, chronic, l eft [M79.675, G89.29] Start: 09-26-2022 End: 09-26-2022 Patient encounter procedure Cedric Becerra MD Work Phone: [facility] [place] Comment on above: Toe pain, chronic, l eft (Primary Dx); Persistent atrial fibrillation (HCC); Primary hypertension; Impaired fasting glucose; Polycythemia Start: 09-21-2022 End: 09-21-2022 Emergency department patient visit [facility]Emergency Department Start: 09-21-2022 End: 09-21-2022 Office outpatient visit 25 minutes Shawna Alves APRN.SWATCHER Work Phone: Internal Medicine [place] Comment on above: Constipation, unspec ified constipation type (Primary Dx); Rectal pain Start: 05-16-2022 Refill Cedric chino MD Work Phone: Internal [facility] [place] Comment on above: Refill Request Start: 03-09-2022 End: 03-09-2022 Patient encounter procedure Ariana Alicea APRN.[employer] Work Phone: Internal Medicine [place] Comment on above: Medicare annual well ness visit, subsequent (Primary Dx); Impaired fasting glucose; Encounter for immunization Start: 03-02-2022 Telephone encounter Ariana Older FRONT CLERK.[employer] Work Phone: Internal Medicine [place] Comment on above: Lab Orders Start: 10-26-2021 End: 10-26-2021 Patient encounter procedure Cedric Becerra MD Work Phone: Internal [facility] [place] Comment on above: Memory disturbance ( Primary Dx); Primary hypertension; Persistent atrial fibrillation (HCC); Hyperlipidemia LDL goal <130; Toe pain, chronic, left Start: 10-24-2021 Telephone encounter Cedric mederos MD Work Phone: Internal [facility] [place] Comment on above: Patient Question Procedures Date Procedure Procedure Detail Performing Clinician Start: 10-23-2024 Gluc bld gluc mntr d ev cleared fda spec home use Ariana BatistaMuna FRONT CLERK.[employer] Work Phone: Start: 10-23-2024 Urnls dip stick/tabl et rgnt auto w/o microscopy Ariana M Muna FRONT CLERK.[employer] Work Phone: Start: 03-04-2024 PFIZER-BIONTECH COVI D-19 VACCINE AGE 12+ YR (COMIRNATY) Ariana Burkett Muna FRONT CLERK.[employer] Work Phone: Start: 03-04-2024 Adult depression screening assessment Arianasilvana Catherine APRN.[employer]ER Work Phone: Start: 09-25-2023 PFIZER-BIONTECH COVI D-19 VACCINE (2022- SEASON) AGE 12+ YR Cedric Becerra MD Work Phone: Start: 09-26-2022 Radex toe minimum 2 views Cedric Becerra MD Work Phone: Start: 03-09-2022 Hemoglobin A1c/Hemoglobin.total in Blood Ariana Older FRONT CLERK.[employer] Work Phone: Start: 03-09-2022 PFIZER-BIONTECH COVI D-19 BIVALENT BOOSTER VACCINE, AGE 12+ YR Ariana Older FRONT CLERK.[employer] Work Phone: Plan of Treatment Date Care Activity Detail Author Start: 09-25-2026 Diabetes Screening Diabetes Screenin g [facility] Start: 10-03-2025 Diabetes Screening Diabetes Screenin g [facility] Start: 10-02-2025 Urine microalbumin profile [facility] Start: 09-25-2025 Hepatitis B surface antibody level LDL Cholesterol [facility] Start: 09-24-2025 Covid-19 Vaccine () Covid-19 Vaccine () [facility] Comment on above: Postponed from 09/02 (Declined at this time) Start: 09-08-2025 End: 09-08-2025 Patient encounter procedure 09/08/2025 9:40 AM EDT Office Visit Internal [facility] [place] [address] [place], [place] [id number] Cedric Becerra MD [address] [place], [place] [id number] 6 month follow-up Internal [facility] [place] Comment on above: 6 month follow-up Start: 09-08-2025 End: 09-08-2025 Patient encounter procedure 09/08/2025 8:20 AM EDT Office Visit Internal [facility] [place] [address] [place] [address] Cedric Becerra MD [address] [place] [address] 6 month follow-up [facility] [place] Comment on above: 6 month follow-up Start: 03-28-2025 Hemoglobin A1c measurement HbA1C [facility] Start: 03-16-2025 End: 03-16-2025 Patient encounter procedure 03/16/2025 1:30 PM EDT Office Visit Urology [address] [place] [address] Carlos Canas PA-C [address] [place], [place] [id number] Benign localized prostatic hyperplasia with lower urinary tract symptoms (LUTS) [N40.1] Urology Comment on above: Benign localized pro static hyperplasia with lower urinary tract symptoms (LUTS) [N40.1] Start: 03-09-2025 DIABETES SCREEN DIABETES SCREEN [place] Start: 03-08-2025 End: 03-08-2025 Patient encounter procedure 03/08/2025 8:00 AM EDT Office Visit [facility] [place] [address] [place] [id number] Ariana Catherine, FRONT CLERK.[employer]ER [address] [place] [id number] Annual Wellness w/6 month [facility] [place] Comment on above: Annual Wellness w/6 month Start: 03-04-2025 Anxiety Screening Anxiety Screening [facility] Start: 03-04-2025 Depression Screening Depression Scre ening [facility] Start: 02-22-2025 End: 05-24-2025 Basic metabolic 2000 panel - Serum or Plasma BASIC METABOLIC PANEL Lab Routine Type 2 diabetes mellitus without complication, without long-term current use of insulin (HCC) Expected: 02/22/2025, Expires: 05/24/2025 [facility] Work Phone: Comment on above: Expected: 02/22/2025 , Expires: 05/24/2025 Start: 02-22-2025 End: 05-24-2025 Hemoglobin A1c in Blood HEMOGLOBIN A1C Lab Routine Type 2 diabetes mellitus without complication, without long-term current use of insulin (HCC) Expected: 02/22/2025, Expires: 05/24/2025 [facility] Comment on above: Expected: 02/22/2025 , Expires: 05/24/2025 Start: 02-22-2025 End: 05-24-2025 Microalbumin/Creatinin e [Mass Ratio] in Urine ALBUMIN/CREATININE RATIO, URINE Lab Routine Type 2 diabetes mellitus without complication, without long-term current use of insulin (HCC) Expected: 02/22/2025, Expires: 05/24/2025 [facility] Comment on above: Expected: 02/22/2025 , Expires: 05/24/2025 Start: 02-22-2025 End: 05-24-2025 Prostate specific Ag [Mass/volume] in Serum or Plasma PROSTATE-SPECIFIC ANTIGEN DIAGNOSTIC Lab Routine Benign prostatic hyperplasia with urinary frequency Expected: 02/22/2025 (Approximate), Expires: 05/24/2025 [facility] Comment on above: Expected: 02/22/2025 (Approximate), Expires: 05/24/2025 Start: 02-22-2025 End: 05-24-2025 Urinalysis complete panel - Urine URINALYSIS, WITH MICROSCOPIC Lab Routine Benign prostatic hyperplasia with urinary frequency Expected: 02/22/2025 (Approximate), Expires: 05/24/2025 [facility] Work Phone: Comment on above: Expected: 02/22/2025 (Approximate), Expires: 05/24/2025 Start: 01-25-2025 Influenza vaccination Influenza Vacc ine (#1) [facility] Start: 11-30-2024 End: 11-30-2024 Patient encounter procedure 11/30/2024 2:40 PM EDT Office Visit Internal Medicine [place] [address] [place], [place] [id number] Ariana Catherine, FRONT CLERK.[employer] [address] [place], [place] [address] follow up 1 month [facility] [place] Comment on above: follow up 1 month Start: 11-03-2024 End: 11-03-2024 Nursing evaluation of patient and report 11/03/2024 2:00 PM EDT Nurse Visit Endocrinology [address] [place], [place] [id number] Abbey Cardenas, RN [address] [id number] newly diagnoses diabetes, hyperglycemia Endocrinology Comment on above: newly diagnoses diab etes, hyperglycemia Start: 10-24-2024 DIABETES SCREEN DIABETES SCREEN [place] Start: 09-24-2024 End: 09-24-2024 Patient encounter procedure 09/24/2024 8:40 AM EDT Office Visit Internal Medicine [place] [address] [place], [place] [phone] Cedric Becerra MD [address] [place], [place] [id number] 6 month follow-up [facility] [place] Comment on above: 6 month follow-up Start: 09-08-2024 End: 12-08-2024 CBC panel - Blood by Automated count COMPLETE BLOOD COUNT Lab Routine Hematuria, unspecified type Expected: 09/08/2024, Expires: 12/08/2024 [facility] Work Phone: Comment on above: Expected: 09/08/2024 , Expires: 12/08/2024 Start: 09-08-2024 End: 12-08-2024 Comprehensive metabolic 2000 panel - Serum or Plasma COMPREHENSIVE METABOLIC PANEL Lab Routine Hyperlipidemia LDL goal <130 Expected: 09/08/2024, Expires: 12/08/2024 [facility] Comment on above: Expected: 09/08/2024 , Expires: 12/08/2024 Start: 09-08-2024 End: 12-08-2024 Hemoglobin A1c in Blood HEMOGLOBIN A1C Lab Routine Impaired fasting glucose Expected: 09/08/2024, Expires: 12/08/2024 [facility] Comment on above: Expected: 09/08/2024 , Expires: 12/08/2024 Start: 09-08-2024 End: 12-08-2024 Lipid 1996 panel - Serum or Plasma LIPID PANEL, FASTING Lab Routine Hyperlipidemia LDL goal <130 Expected: 09/08/2024, Expires: 12/08/2024 [facility] Comment on above: Expected: 09/08/2024 , Expires: 12/08/2024 Start: 09-02-2024 Covid-19 Vaccine ( season) Covid-19 Vaccine () [facility] Start: 05-27-2024 Advance Directive Discussion Advance Directive Discussion [facility] Start: 05-27-2024 Medicare Advantage Annual Wellness Visit Medicare Advantage Annual Wellness Visit [facility] Start: 03-04-2024 End: 03-04-2024 Patient encounter procedure 03/04/2024 8:00 AM EDT Office Visit Internal Medicine [place] [address] [place] [address] Ariana Catherine, FRONT CLERK.[employer]ER [address] [place] [address] Medicare Wellness w/5 month follow-up [facility] [place] Comment on above: Medicare Wellness w/ 5 month follow-up Start: 01-26-2024 Covid-19 Vaccine ( season) Covid-19 Vaccine ( season) [facility] Start: 01-26-2024 Influenza vaccination Influenza Vacc ine (#1) [facility] Start: 09-25-2023 End: 12-25-2023 CBC panel - Blood by Automated count COMPLETE BLOOD COUNT Lab Routine Chronic anticoagulation Expected: 09/25/2023, Expires: 12/25/2023 [facility] Work Phone: Comment on above: Expected: 09/25/2023 , Expires: 12/25/2023 Start: 09-25-2023 End: 12-25-2023 Comprehensive metabolic 2000 panel - Serum or Plasma COMPREHENSIVE METABOLIC PANEL Lab Routine Hyperlipidemia LDL goal <130 Expected: 09/25/2023, Expires: 12/25/2023 [facility] Comment on above: Expected: 09/25/2023 , Expires: 12/25/2023 Start: 09-25-2023 End: 12-25-2023 Hemoglobin A1c in Blood HEMOGLOBIN A1C Lab Routine Impaired fasting glucose Expected: 09/25/2023, Expires: 12/25/2023 [facility] Comment on above: Expected: 09/25/2023 , Expires: 12/25/2023 Start: 09-25-2023 End: 12-25-2023 LIPID PANEL, NONFASTING LIPID PANEL, NONFASTING Lab Routine Hyperlipidemia LDL goal <130 Expected: 09/25/2023, Expires: 12/25/2023 [facility] Comment on above: Expected: 09/25/2023 , Expires: 12/25/2023 Start: 05-27-2023 Advance Directive Discussion Advance Directive Discussion [facility] Start: 05-27-2023 Behavioral Health Screening Behavioral Health Screening [facility] Start: 03-09-2023 SHINGRIX VACCINE (2 of 3) SHINGRIX VACCINE (2 of 3) [facility] Comment on above: Postponed from 04/02 (Declined at this time) Start: 02-01-2023 DIABETES SCREEN DIABETES SCREEN [place] Start: 09-27-2022 End: 11-27-2022 Basic metabolic 2000 panel - Serum or Plasma BASIC METABOLIC PNL Lab Routine Impaired fasting glucose Expected: 09/27/2022, Expires: 11/27/2022 [facility] Work Phone: Comment on above: Expected: 09/27/2022 , Expires: 11/27/2022 Start: 09-27-2022 End: 11-27-2022 CBC panel - Blood by Automated count CBC Lab Routine Polycythemia Expected: 09/27/2022, Expires: 11/27/2022 [facility] Work Phone: Comment on above: Expected: 09/27/2022 , Expires: 11/27/2022 Start: 09-27-2022 End: 11-27-2022 Hemoglobin A1c in Blood HGB A1C Lab Routine Impaired fasting glucose Expected: 09/27/2022, Expires: 11/27/2022 [facility] Work Phone: Comment on above: Expected: 09/27/2022 , Expires: 11/27/2022 Start: 05-27-2022 ADVANCE DIRECTIVE DISCUSSION ADVANCE DIRECTIVE DISCUSSION [facility] Start: 05-27-2022 DEPRESSION ASSESSMENT DEPRESSION ASS ESSMENT [facility] Start: 03-02-2022 End: 05-02-2022 CBC W Auto Differential panel - Blood CBC + DIFF Lab Routine Primary hypertension Expected: 03/02/2022, Expires: 05/02/2022 [facility] Work Phone: Comment on above: Expected: 03/02/2022 , Expires: 05/02/2022 Start: 03-02-2022 End: 05-02-2022 Comprehensive metabolic 2000 panel - Serum or Plasma COMP METABOLIC PANEL Lab Routine Primary hypertension Hyperlipidemia LDL goal <130 Expected: 03/02/2022, Expires: 05/02/2022 [facility] Work Phone: Comment on above: Expected: 03/02/2022 , Expires: 05/02/2022 Start: 03-02-2022 End: 05-02-2022 Lipid 1996 panel - Serum or Plasma LIPID PANEL BASIC Lab Routine Hyperlipidemia LDL goal <130 Expected: 03/02/2022, Expires: 05/02/2022 [facility] Work Phone: Comment on above: Expected: 03/02/2022 , Expires: 05/02/2022 Start: 01-25-2022 Influenza vaccination INFLUENZA (#1) [facility] Start: 10-24-2021 End: 12-24-2021 CBC W Auto Differential panel - Blood [facility] Work Phone: Comment on above: Expected: 10/24/2021 , Expires: 12/24/2021 Start: 10-24-2021 End: 12-24-2021 Comprehensive metabolic 2000 panel - Serum or Plasma [facility] Work Phone: Comment on above: Expected: 10/24/2021 , Expires: 12/24/2021 Start: 07-16-2021 COVID-19 VACCINE (4 - Booster for Pfizer series) COVID-19 VACCINE (4 - Booster for Pfizer series) [facility] Start: 05-27-2021 ADVANCE DIRECTIVE DISCUSSION ADVANCE DIRECTIVE DISCUSSION [facility] Start: 05-27-2021 DEPRESSION ASSESSMENT DEPRESSION ASS ESSMENT [facility] Start: 05-10-2021 COVID-19 VACCINE (4 - Booster for Pfizer series) COVID-19 VACCINE (4 - Booster for Pfizer series) [facility] Start: 11-06-2014 RSV Vaccine (1 - 1-dose 75+ series) RSV Vaccine (1 - 1-dose 75+ series) [facility] Start: 04-02-2012 SHINGRIX VACCINE (2 of 3) SHINGRIX VACCINE (2 of 3) [facility] Start: 1999 RSV Vaccine (1 - 1-dose 60+ series) RSV Vaccine (1 - 1-dose 60+ series) [facility] Start: 11-06-1957 Anxiety Screening Anxiety Screening [facility] Start: 11-06-1957 Depression Screening Depression Scre ening [facility] Start: 11-06-1949 Diabetic foot examination Diabetic Foot Exam [facility] Start: 11-06-1949 Glaucoma screening Dilated Retinal E xam [facility] Start: 11-06-1949 Hepatitis B screening Urine Al bumin:Creatinine Ratio [facility] 24 Hour ECG [facility] Bacteria identified in Urine by Culture BACTERIAL CULTURE, URINE Microbiology Routine Urinary frequency 10/23/2024 11:28 AM EDT [facility] Work Phone: Patient Education ED Constipation (Adult) [facility] Work Phone: Patient referral [facility] Work Phone: Urinalysis complete panel - Urine URINALYSIS, WITH MICROSCOPIC Lab Routine Urinary frequency 10/23/2024 11:28 AM EDT [facility] End: 10-26-2023 XR TOE AP/LAT/OBL LEFT XR TOE AP/LAT/OBL LEFT Radiology Routine Toe pain, chronic, left 1 Occurrences starting 09/26/2022 until 10/26/2023 [facility] Work Phone: Comment on above: 1 Occurrences starti ng 09/26/2022 until 10/26/2023 XR TOE AP/LAT/OBL LEFT XR TOE AP /LAT/OBL LEFT Radiology Routine Toe pain, chronic, left 09/26/2022 12:19 PM EDT [facility] Work Phone: [facility] Immunizations Immunization Date Immunization Notes Care Provider Neetu [email or web address] 03-04-2024 COVID-19 vaccine, ag e 12+ yr (PFIZER-BIONTECH COMNAT) Ariana Catherine FRONT CLERK.[employer] Work Phone: [facility] 03-04-2024 influenza, high dose seasonal, preservative-free Ariana Catherine FRONT CLERK.[employer] Work Phone: [facility] 03-04-2024 influenza virus vaccine, unspecified formulation Ariana Catherine FRONT CLERK.[employer] Work Phone: [facility] 09-25-2023 COVID-19 vaccine, ag e 12+ yr, season (PFIZER-BIONTECH) Cedric Becerra MD Work Phone: [facility] 03-04-2023 COVID-19 vaccine, ag e 12+ yr, season (PFIZER-BIONTECH) Cedric Becerra MD Work Phone: [facility] 02-25-2023 influenza (aIIV4) vaccine, age 65+ yr, quadrivalent, PF (FLUAD QUAD) Cedric Becerra MD Work Phone: [facility] 02-25-2023 influenza virus vaccine, unspecified formulation Cedric Becerra MD Work Phone: [facility] 03-09-2022 COVID-19 booster vaccine, age 12+ yr, bivalent (PFIZER-BIONTECH) Ariana Older FRONT CLERK.[employer] TE[employer] Work Phone: [facility] 02-24-2022 influenza (aIIV4) vaccine, age 65+ yr, quadrivalent, PF (FLUAD QUAD) Cedric Becerra MD Work Phone: [facility] 03-15-2021 COVID-19 vaccine, ag e 12+ yr (PFIZER-BIONTECH - PURPLE TOP) Cedric Becerra MD Work Phone: [facility] 02-24-2021 influenza, high dose seasonal, preservative-free Cedric Becerra MD Work Phone: [facility] 07-22-2020 COVID-19 vaccine, ag e 12+ yr (PFIZER-BIONTECH - PURPLE TOP) Cedric Becerra MD Work Phone: [facility] 07-01-2020 COVID-19 vaccine, ag e 12+ yr (PFIZER-BIONTECH - PURPLE TOP) Cedric Becerra MD Work Phone: [facility] Work Phone: 02-28-2019 influenza virus vaccine, unspecified formulation Cedric Becerra MD Work Phone: [facility] Work Phone: 03-07-2018 influenza, high dose seasonal, preservative-free Cedric Becerra MD Work Phone: [facility] 02-14-2017 influenza, high dose seasonal, preservative-free Cedric Becerra MD Work Phone: [facility] [facility] 05[facility]2016 tetanus toxoid, redu syed diphtheria toxoid, and acellular pertussis vaccine, adsorbed Cedric Becerra MD Work Phone: [facility] 02-28-2015 influenza, high dose seasonal, preservative-free Cedric Becerra MD Work Phone: [facility] Work Phone: 09-28-2014 pneumococcal conjuga te vaccine, 13 valent Cedric Becerra MD Work Phone: [facility] 02-25-2014 influenza, high dose seasonal, preservative-free Cedric Becerra MD Work Phone: [facility] 03-31-2012 influenza virus vaccine, unspecified formulation Cedric Becerra MD Work Phone: [facility] 02-06-2012 zoster vaccine, live Cedric Becerra MD Work Phone: [facility] Work Phone: 03-27-2011 influenza virus vaccine, unspecified formulation Cedric Becerra MD Work Phone: [facility] Work Phone: 03-23-2010 influenza virus vaccine, unspecified formulation Cedric Becerra MD Work Phone: [facility] 03-09-2009 influenza virus vaccine, unspecified formulation Cedric Becerra MD Work Phone: [facility] Work Phone: 04-08-2008 influenza virus vaccine, unspecified formulation Cedric Becerra MD Work Phone: [facility] 05-14-2005 influenza virus vaccine, whole virus Cedric Becerra MD Work Phone: [facility] 05-14-2005 pneumococcal polysaccharide vaccine, 23 valent Cedric Becerra MD Work Phone: [facility] 05-14-2005 tetanus and diphther ia toxoids, adsorbed, preservative free, for adult use (2 Lf of tetanus toxoid and 2 Lf of diphtheria toxoid) Cedric Becerra MD Work Phone: [facility] Payers Date Payer Category Payer Self-pay [id number] 2021 Medicare HUMANA MEDICARE HUMANA MEDICARE PPO [id number] 2021-Present [phone] [address] [address] [place] [address] PPO [id number] 2017 Medicare [id number] 2017 Medicare (Managed Care) [id number]. [id number] 2017 Medicare [id number] Unknown [id number] Unknown [id number] Unknown [id number] Social History Date Type Detail Facility Start: 11-23-2010 End: 03-09-2022 Tobacco smoking status NHIS Ex-smoker [facility] Start: 03-07-2021 End: 11-30-2024 Alcohol intake Current non-drinker of alcohol (finding) [facility] Start: 02-02-2020 End: 03-07-2022 History SDOH Alcohol Frequency 1 [facility] Start: 02-02-2020 History SDOH Alcohol Std Drinks 98 [facility] Start: 02-02-2020 History SDOH Social Connections Phone 4 [facility] Start: 02-02-2020 End: 03-07-2022 History SDOH Social Connections [facility] 3 [facility] Start: 03-16-2020 End: 03-07-2022 History SDOH Financial 5 [facility] Start: 03-16-2020 End: 03-07-2022 History SDOH Transport Med 2 [facility] Start: 02-02-2020 Education 21 [facility] Start: 1940 Sex Assigned At Male [facility] Start: 10-16-2021 End: 10-26-2021 Exposure to SARS-CoV-2 (event) Not sure [facility] Work Phone: History of tobacco use Current smoker [facility] Start: 11-23-2010 End: 03-09-2022 Tobacco use and exposure Smokeless tobacco non-user [facility] Start: 03-07-2022 History SDOH Alcohol Std Drinks 0 [facility] Start: 03-09-2022 Tobacco Comment quit 40 yrs. ago [facility] Start: 09-21-2022 Tobacco smoking stat us RIIS Unknown if ever smoked [facility] Start: 09-26-2022 End: 03-02-2023 History of Social function [facility] Start: 09-26-2022 End: 03-02-2023 [facility] [employer] [facility] Has the [employer], or [employer] threatened to shut off services in your home in past 12Mo No [facility] Are you now , , , , never or living with a partner? [facility] How often to you hav e a drink containing alcohol? Never [facility] Start: 04-27-2012 How many standard drinks containing alcohol do you have on a typical day? Patient does not drink [facility] Do you feel stress - tense, restless, nervous, or anxious, or unable to sleep at night because your mind is troubled all the time - these days [OSQ] Only a little [facility] (I/We) worried wheth er (my/our) food would run out before (I/we) got money to buy more. Never true [facility] Start: 01-31-2020 Gender identity Identifies as male gender (finding) [facility] Start: 01-31-2020 Sexual orientation Heterosexual (kathy lopez) [facility] Do you feel stress - tense, restless, nervous, or anxious, or unable to sleep at night because your mind is troubled all the time - these days [OSQ] Not at all [facility] Medical Equipment Procedure Code Equipment Code Equipment Origin al Text Equipment Identifier Dates Test blood sugar (s) 1 times daily. Dx: Type 2 DM - Uncontrolled E11.65 Insulin: No [id number] Start: 10-28-2024 Test blood sugar (s) 1 times daily. Dx: Type 2 DM - Uncontrolled E11.65 Insulin: No [id number] Start: 10-28-2024 Functional Status Date Assessment Result Facility 11-10-2014 Are you deaf, or do you have serious difficulty hearing No 11/10/2014 3:21 PM EDT [facility] 11-10-2014 Are you blind, or do you have serious difficulty seeing, even when wearing glasses No 11/10/2014 3:21 PM EDT [facility] 11-10-2014 Do you have serious difficulty walking or climbing stairs No 11/10/2014 3:21 PM EDT [facility] Burd[facility] 11-10-2014 Do you have difficul ty dressing or bathing No 11/10/2014 3:21 PM EDT [facility] Burd[facility] 11-10-2014 Because of a physica l, mental, or emotional condition, do you have difficulty doing errands alone such as visiting a physician's office or shopping No 11/10/2014 3:21 PM EDT [facility] Mental Status Date Assessment Result Facility 11-10-2014 Because of a physica l, mental, or emotional condition, do you have serious difficulty concentrating, remembering, or making decisions No 11/10/2014 3:21 PM EDT Suni Burdick [facility] Clinical Notes 10-03-2015 to 03-16-2025 Telephone Encounter - Ariana Catherine APRN.[facility] - 01/08/2025 12:35 PM EDTTelephone Encounter - Ariana Catherine APRN.[facility] - 01/08/2025 12:35 PM EDTPatient Instructions Note Date & Type Note Facility 03-16-2025 Note HNO ID: [id number] Author: CARLOS CANAS PA-C Service: ? Author Type: Physician Shaker Plate Operator Type: Progress Notes Filed: 03/16/2025 15:22 Note Text: [facility] NOTE (M) Note was generated by [employer] and edited as appropriate SERVICE DATE: March 16, 2025 NAME: Callie Rascon GENDER: male CHIEF COMPLAINT: The patient is an 84-year-old male with atrial fibrillation status post ablation, presenting for evaluation of persistent urinary frequency with low-volume voids and weak urinary stream. Accompanied by his , who is providing history. HISTORY OF PRESENT ILLNESS: The patient is an 84-year-old male with atrial fibrillation status post ablation, presenting for evaluation of persistent urinary frequency with low-volume voids and weak urinary stream. Accompanied by his , who is providing history. The patient is an 84-year-old male with a history of AFib, presenting with urinary hesitancy and decreased urine output. Urinary Hesitancy and Decreased Urine Output: - Urinary hesitancy and decreased urine output x3 months. - Urinary urgency with minimal output, described as a tablespoon full. - Symptoms began after catheter removal following hospitalization for a leg infection. - Taking tamsulosin since November with no improvement in symptoms. - Fluid intake includes: - 8 oz caffeinated coffee in the morning. - 4 oz grape juice with breakfast. - Milk or Arnold Romeo iced tea with lunch and dinner. - Occasional water intake; notes he should drink probably more water. - Urine color described as not real dark. AFib: - History of AFib; underwent ablation. - Regular annual check-ups with a depositing machine operator. > We discussed the common causes of urinary frequency and urgency, and restricting water intake In hopes to mitigate the need to urinate, we discussed how this behavior more often worsen the problem not improving it, > We discussed increasing daily water intake to 64-84 oz 7a -7p and try to reduce bladder irritants, caffeine, alcohol and acid foods and drink. > Bladder irritants handout available to patient. LABS: PSA (ng/mL) Date Value 03/01/2025 126.10 12/16/2020 18.53 06/02/2020 18.40 02/02/2020 15.41 Creatinine Date Value Ref Range Status 03/01/2025 1.03 0.73 - 1.22 mg/dL Final 09/25/2024 1.01 0.73 - 1.22 mg/dL Final 09/26/2023 0.92 0.73 - 1.22 mg/dL Final MEDICATIONS: glyBURIDE 2.5 mg tablet Take 1 tablet by mouth once daily. tamsulosin (FLOMAX) 0.4 mg Take 1 capsule by mouth daily at bedtime. metoprolol succinate ER (TOPROL XL) 25 mg 24 hr tablet Take 1 tablet by mouth once daily. atorvastatin (LIPITOR) 20 mg tablet Take 1 tablet by mouth once daily. blood sugar diagnostic (BLOOD GLUCOSE TEST) test strip Test blood sugar(s) 1 times daily. Dx: Type 2 DM - Uncontrolled E11.65 Insulin: No Lancets Test blood sugar(s) 1 times daily. Dx: Type 2 DM - Uncontrolled E11.65 Insulin: No rivaroxaban (XARELTO) 20 mg tablet Take 1 tablet by mouth daily with dinner. OTC PRODUCT PREVAGEN MEMORY SUPPLEMENT cholecalciferol, Vitamin D3, (VITAMIN D3) 1,250 mcg (50,000 unit) cap capsule Take 50,000 Units by mouth one time a week. polyethylene glycol 3350 17 gram/dose powder Take [...] CAP Take one(1) tablet daily. 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 Diverticulosis of colon (without mention of hemorrhage) 2007 Elevated prostate specific antigen (PSA) 06/17/2007 Hematuria 08/22/2024 Hyperlipidemia LDL goal <130 03/09/2015 Hypertension 02/09/2020 Internal hemorrhoids 03/31/2012 Internal hemorrhoids without mention of complication Persistent atrial fibrillation (HCC) 10/21/2018 Primary cardiomyopathy (HCC) 2018 Type 2 diabetes mellitus without complication, without long-term current use of insulin (HCC) PAST SURGICAL HISTORY: PAST SURGICAL HISTORY Procedure Laterality Date APPENDECTOMY 1954 CARDIOVERSION 2019 cataract extraction 05/27/2009 bilateral with IOL COLONOSCOPY FLX DX W/COLLJ SPEC WHEN PFRMD 03/03/2010 Colonoscopy COLONOSCOPY FLX DX W/COLLJ SPEC WHEN PFRMD 12/16/2014 Colonoscopy COLSC FLX W/RMVL OF TUMOR POLYP LESION SNARE TQ 10/29/2006 CYSTOSCOPY 08/24/2024 cystogram. PatricebonillatyronRAMSES PULMONARY VEIN ISOLATION 01/12/2020 EPS, RF Ablation FAMILY HISTORY: FAMILY HISTORY Problem Relation Age of Onset Breast Cancer Mother N (more content not included)... [facility] 03-16-2025 Note HNO ID: [id number] Author: SOCORRO BAEZ MA Service: ? Author Type: Table Saw Operator Type: Progress Notes Filed: 03/16/2025 15:22 Note Text: Patient's post-void bladder scan: 43 ML. Socorro Baez MA [facility] 03-08-2025 Note HNO ID: [id number] Author: ARIANA CATHERINE APRN.JAE Service: ? Author Type: Nurse Practitioner Type: Progress Notes Filed: 03/08/2025 08:56 Note Text: Callie Rascon is a 84 year old male here for a Medicare wellness visit. Medicare Health Risk Assessment General Health Good Exercise: Minutes/Day 30 min Exercise: Days/Week 7 days Alcohol: Daily Use Never Alcohol: Drinks/Day Patient does not drink Alcohol: 6 or more drinks Never Feel off balance Yes Concerns: Teeth/Dentures No Concerns: Sexual function No [...] Current care team: Patient Care Team: Cedric Becerra MD as PCP - General (Internal Medicine) Ariana Catherine APRN.CNP as Interventional Cardiologist (Internal Medicine) Carlos ROCK-urology [facility] Rock Oakes OD ophthalmology Medical/Family history review Reviewed and updated problem list, medical/surgical/family/social history, medications, and allergies. Opioid use review Prescribed: No opioid use on file in the last 90 days Patient-reported: No opioid use on file in the last 90 days Depression screening PHQ-2 Score: 0 Based on score and interview, patient is: Not at risk for depression Screening tool discussed with patient, and I recommend: No further intervention at this time Anxiety screening MEGAN-2 Score: 0 Based on score and interview, patient is: Not at risk for anxiety Screening tool discussed with patient, and I recommend: No further intervention at this time Cognitive screening Mini Cog Score: 0 Cognitive screening reviewed and Recommended referral for further evaluation (score 0-2). Patient declined. Functional Observation Was the patient's Timed Up AND Go test unsteady or >= 12 seconds? No Advance Directives Surrogate decision maker documented and/or advance directives scanned in chart Measurements BP 122/78 Pulse 91 Resp 14 Ht 182 cm (5' 11.65) Wt 95.8 kg (211 lb 3.2 oz) SpO2 98% BMI 28.92 kg/m? Vision Screening: Follows with optometry/ophthalmology Assessment/Plan Medicare annual wellness visit, subsequent (Z00.00) - Counseled on healthy diet and regular exercise - Fall avoidance information provided - Personalized prevention plan provided Additional Concerns BPH: - Frequent urination with minimal output. - Takes tamsulosin. - Upcoming urology appointment on the with Dr. Carlos Canas. Atrial Fibrillation: - History of multiple ablations. - On Xarelto and metoprolol. - Denies unusual bleeding or hematuria. 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 Physical Exam Vitals reviewed. Constitutional: Appearance: Normal appearance. Cardiovascular: Rate and Rhythm: Normal rate. Rhythm irregular. Pulses: Normal pulses. Dorsalis pedis pulses are 2+ on the right side and 2+ on the left side. Heart sounds: Normal heart sounds. No murmur heard. Pulmonary: Effort: Pulmonary effort is normal. Breath sounds: Normal breath sounds. No wheezing, rhonchi or rales. Musculoskeletal: Right lower le+ Pitting Edema present. Left lower le+ Pitting Edema present. Right foot: Normal range of motion. No deformity or Charcot foot. Left foot: Normal range of motion. No deformity or Charcot foot. Comments: No tenderness with palpation of lower extremities. Venous stasis discoloration bilateral lower legs Feet: Right foot: Protective Sensation: 6 sites tested. 2 sites sensed. Skin integrity: Skin integrity normal. Toenail Condition: Right toenails are abnormally thick. Fungal disease present. Left foot: Protective Sensation: 6 sites tested. 0 sites sensed. Skin integrity: Skin integrity normal. Toenail Condition: Left toenails are abnormally thick. Fungal disease present. Neurological: Mental Status: He is alert. Psychiatric: Mood and Affect: Mood normal. DATA REVIEWED: Most recent labs Assessment/Plan: 1. Medicare annual wellness visit, subsequent (Z00.00): See Medicare Wellness plan 2. Benign localized prostatic hyperplasia with lower urinary tract symptoms (LUTS) (N40.1): Continuing tamsulosin for urinary frequency and incomplete bladder emptying. Noted frequent, sma (more content not included)... [facility] 01-08-2025 Telephone encounter Note Consult order placed Ariana Catherine APRN.CNP [facility] 01-08-2025 Miscellaneous Notes Consult order placed Ariana Catherine APRN.CNP Patient's calls and states that patient continues have urination issues. Patient states that patient has urinary frequency. Patient urinates but only goes small amount. is asking if referral can be placed for urologist? Please review and advise, Chelsey Caldwell RN documented in this encounter [facility] 01-08-2025 Telephone encounter Note Patient's calls and states that patient continues have urination issues. Patient states that patient has urinary frequency. Patient urinates but only goes small amount. is asking if referral can be placed for urologist? Please review and advise, Chelsey Caldwell RN [facility] 12-30-2024 Telephone encounter Note CD READY FOR PAYROLL ASSISTANT AT [facility] Pt knows. [facility] 12-30-2024 Miscellaneous Notes CD READY FOR PAYROLL ASSISTANT AT [facility] Pt knows. Patient requesting xray disc of his left foot second toe. He got the xray done within the past year. Please advise thank you! Leslie. documented in this encounter [facility] 12-30-2024 Telephone encounter Note Patient requesting xray disc of his left foot second toe. He got the xray done within the past year. Please advise thank you! Leslie. [facility] 11-30-2024 Note HNO ID: [id number] Author: ARIANA CATHERINE APRN.[employer] Service: ? Author Type: Nurse Practitioner Type: Progress Notes Filed: 11/30/2024 09:43 Note Text: CC: Patient presents with: Recheck HPI Recording using Meteor software for draft documentation of the visit was discussed with the patient/authorized retail wireless sales representative; all questions welcomed and answered. Patient/authorized retail wireless sales representative agreed to proceed Callie Rascon is an 84-year-old male with a history of diabetes and BPH, presenting for follow-up on diabetes management and urinary frequency. Diabetes: - Diagnosed during last visit on 10/23/24; A1c was 6.8% on 09/24. - Started on glyburide; Callie is adherent to medication regimen. - Referred to internet merchant. - Monitoring blood glucose levels at home; average readings in the 110s. - Reduced intake of sweets; no episodes of hypoglycemia reported. - Denies feeling shaky or sweaty. Urinary Frequency: - Onset after Reyna catheter removal a few months ago. - Previously experienced frequent urination with small volumes. - Started on tamsulosin; taking medication at bedtime. - Noted improvement in frequency, but still voiding small amounts. - Nocturia reported, typically once per night. Review of Systems See HPI PAST MEDICAL HISTORY Diagnosis Date Atrial flutter, [...] LESION SNARE TQ 10/29/2006 CYSTOSCOPY 08/24/2024 cystogram. TildenRAMSES PULMONARY VEIN ISOLATION 01/12/2020 EPS, RF Ablation ALLERGIES Patient has no known allergies. MEDICATIONS metoprolol succinate ER (TOPROL XL) 25 mg 24 hr tablet Take 1 tablet by mouth once daily. atorvastatin (LIPITOR) 20 mg tablet Take 1 tablet by mouth once daily. rivaroxaban (XARELTO) 20 mg tablet Take 1 tablet by mouth daily with dinner. OTC PRODUCT PREVAGEN MEMORY SUPPLEMENT cholecalciferol, Vitamin D3, (VITAMIN D3) 1,250 mcg (50,000 unit) cap capsule Take 50,000 Units by mouth one time a week. polyethylene glycol 3350 17 gram/dose powder Take by mouth once daily. Dissolve dose in 4 - 8 ounces of liquid and take as directed. multivit-minerals/herbal 121 (URINOZINC PROSTATE FORMULA ORAL) Take by mouth once daily. VITAMIN C 500 MG TAB Take one(1) tablet daily. SAW PALMETTO 1,000 MG CAP Take one(1) tablet two(2) times daily. CINNAMON 500 MG CAP Take one(1) tablet daily. glyBURIDE 2.5 mg tablet Take 1 tablet by mouth once daily. tamsulosin (FLOMAX) 0.4 mg Take 1 capsule by mouth daily at bedtime. blood sugar diagnostic (BLOOD GLUCOSE TEST) test strip Test blood sugar(s) 1 times daily. Dx: Type 2 DM - Uncontrolled E11.65 Insulin: No Lancets Test blood sugar(s) 1 times daily. Dx: Type 2 DM - Uncontrolled E11.65 Insulin: No FAMILY HISTORY Problem Relation Age of Onset Breast Cancer Mother None Father None Sister Social History Tobacco Use Smoking status: Former Smokeless tobacco: Never Tobacco comments: quit 40 yrs. ago Vaping Use Vaping status: Never Used Substance Use Topics Alcohol use: No Drug use: No BP 118/62 Pulse 93 Wt 92.2 kg (203 lb 4.2 oz) SpO2 97% BMI 27.83 kg/m? Physical Exam Vitals reviewed. Constitutional: Appearance: Normal appearance. Neurological: Mental Status: He is alert. Health maintenance reviewed with patient: Urine Albumin:Creatinine Ratio Never done Dilated Retinal Exam Never done Diabetic Foot Exam Never done Shingrix Vaccine(2 of 3) due on 04/02/2012 RSV Vaccine(1 - 1-dose 75+ series) Never done Advance Directive Discussion due on 05/27/2024 Medicare Advantage Annual Wellness Visit due on 05/27/2024 Covid-19 Vaccine( season) due on 09/24/2025 Influenza Vaccine(1) due on 01/25/2025 Depression Screening due on 03/04/2025 Anxiety Screening due on 03/04/2025 HbA1C due on 03/28/2025 LDL Cholesterol due on 09/25/2025 DTaP,Tdap,Td Vaccine(2 - Td or Tdap) due on 10/02/2025 Pneumococcal Vaccine: 50+ Completed DATA REVIEWED: Most recent labs Labs: (10/23/24) - Urine dip: - Glucose: >1000 mg/dL - Ketones: Trace - Fingerstick glucose: 385 mg/dL - Urine culture: Negative for infection (09/24) (more content not included)... [facility] 11-30-2024 History of Presen t illness Narrative CC: Patient presents with: Recheck HPI Recording using Meteor software for draft documentation of the visit was discussed with the patient/authorized retail wireless sales representative; all questions welcomed and answered. Patient/authorized retail wireless sales representative agreed to proceed Callie Rascon is an 84-year-old male with a history of diabetes and BPH, presenting for follow-up on diabetes management and urinary frequency. Diabetes: - Diagnosed during last visit on 10/23/24; A1c was 6.8% on 09/24. - Started on glyburide; Callie is adherent to medication regimen. - Referred to internet merchant. - Monitoring blood glucose levels at home; average readings in the 110s. - Reduced intake of sweets; no episodes of hypoglycemia reported. - Denies feeling shaky or sweaty. Urinary Frequency: - Onset after Reyna catheter removal a few months ago. - Previously experienced frequent urination with small volumes. - Started on tamsulosin; taking medication at bedtime. - Noted improvement in frequency, but still voiding small amounts. - Nocturia reported, typically once per night. Review of Systems See HPI PAST MEDICAL HISTORY Diagnosis Date Atrial flutter, [...] ALLERGIES Patient has no known allergies. MEDICATIONS metoprolol succinate ER (TOPROL XL) 25 mg 24 hr tablet Take 1 tablet by mouth once daily. atorvastatin (LIPITOR) 20 mg tablet Take 1 tablet by mouth once daily. rivaroxaban (XARELTO) 20 mg tablet Take 1 tablet by mouth daily with dinner. OTC PRODUCT PREVAGEN MEMORY SUPPLEMENT cholecalciferol, Vitamin D3, (VITAMIN D3) 1,250 mcg (50,000 unit) cap capsule Take 50,000 Units by mouth one time a week. polyethylene glycol 3350 17 gram/dose powder Take by mouth once daily. Dissolve dose in 4 - 8 ounces of liquid and take as directed. multivit-minerals/herbal 121 (URINOZINC PROSTATE FORMULA ORAL) Take by mouth once daily. VITAMIN C 500 MG TAB Take one(1) tablet daily. SAW PALMETTO 1,000 MG CAP Take one(1) tablet two(2) times daily. CINNAMON 500 MG CAP Take one(1) tablet daily. glyBURIDE 2.5 mg tablet Take 1 tablet by mouth once daily. tamsulosin (FLOMAX) 0.4 mg Take 1 capsule by mouth daily at bedtime. blood sugar diagnostic (BLOOD GLUCOSE TEST) test strip Test blood sugar(s) 1 times daily. Dx: Type 2 DM - Uncontrolled E11.65 Insulin: No Lancets Test blood sugar(s) 1 times daily. Dx: Type 2 DM - Uncontrolled E11.65 Insulin: No FAMILY HISTORY Problem Relation Age of Onset Breast Cancer Mother None Father None Sister Social History Tobacco Use Smoking status: Former Smokeless tobacco: Never Tobacco comments: quit 40 yrs. ago Vaping Use Vaping status: Never Used Substance Use Topics Alcohol use: No Drug use: No BP 118/62 Pulse 93 Wt 92.2 kg (203 lb 4.2 oz) SpO2 97% BMI 27.83 kg/m Physical Exam Vitals reviewed. Constitutional: Appearance: Normal appearance. Neurological: Mental Status: He is alert. Health maintenance reviewed with patient: Urine Albumin:Creatinine Ratio Never done Dilated Retinal Exam Never done Diabetic Foot Exam Never done Shingrix Vaccine(2 of 3) due on 04/02/2012 RSV Vaccine(1 - 1-dose 75+ series) Never done Advance Directive Discussion due on 05/27/2024 Medicare Advantage Annual Wellness Visit due on 05/27/2024 Covid-19 Vaccine( season) due on 09/24/2025 Influenza Vaccine(1) due on 01/25/2025 Depression Screening due on 03/04/2025 Anxiety Screening due on 03/04/2025 HbA1C due on 03/28/2025 LDL Cholesterol due on 09/25/2025 DTaP,Tdap,Td Vaccine(2 - Td or Tdap) due on 10/02/2025 Pneumococcal Vaccine: 50+ Completed DATA REVIEWED: Most recent labs Labs: (10/23/24) - Urine dip: - Glucose: >1000 mg/dL - Ketones: Trace - Fingerstick glucose: 385 mg/dL - Urine culture: Negative for infection (09/24) - A1C: 6.8 Assessment/Plan 1. Benign prostatic hyperplasia with urinary frequency (N40.1) - Urinary frequency and urgency have improved but still experiencing small volume voids. - Continues tamsulosin at bedtime; recent refill completed. - Referral to urology recommended for further evaluation to rule out incomplete bladder emptying and potential complications; patient declined at this time - Advised to monitor for any worsening symptoms such as hematuria, dysuria, or increased nocturia and report immediately. 2. Type 2 diabetes mellitus without complication, without long-term current use of insulin (HCC) (E11.9) - Blood glucose levels well-controlled with glyburide; recent readings averaging in the 110s. - No episodes of hypoglycemia reported. - Continue glyburide once daily; prescription refilled. - Reduced frequency of blood glucose monitoring to three times a week. - Follow-up with fasting blood work at the end of January prior to the annual wellness check in February. - Patient and caregiver educated on maintaining dietary modifications; advised to continue limiting sweets. Prescription instructions reviewed with patient as applicable. Potential red flag symptoms discussed with the patient. Reviewed appropriate action plan to take if red flag symptoms occur. Patient agreeable to treatment plan. Ariana Catherine APRN.JAE documented in this encounter [facility] 11-30-2024 Instructions Ariana Catherine APRN.CNP - 11/30/2024 9:27 AM EDT - Continue taking tamsulosin (Flomax) once daily at bedtime; prescription has been sent to your [facility] mail-order pharmacy. - Continue taking glyburide once daily; prescription has been sent to your [facility] mail-order pharmacy. - Check your blood sugar at home in the morning three times each week (for example Saturday, Saturday, Saturday). - Continue to limit sweets; when you have chocolate, eat one small section at a time. - Have fasting blood work drawn at the end of January or beginning of February (fast 10-12 hours beforehand) before your annual wellness visit. - Keep your annual wellness visit appointment in February. - Contact us if your urinary symptoms worsen (increased frequency, pain, blood in your urine, more nighttime trips, or trouble emptying) or if you experience symptoms of low blood sugar (shakiness, sweating). documented in this encounter [facility] 11-23-2024 Telephone encounter Note The patient has been [...] 11/30/2024 Requested Prescriptions Pending Prescriptions Disp Refills metoprolol succinate ER (TOPROL XL) 25 mg 24 hr tablet 90 tablet 3 Sig: Take 1 tablet by mouth once daily. Michelle Young RN November 23, 2024 9:12 AM [facility] 11-23-2024 Miscellaneous Notes The patient has been identified [...] 11/30/2024 Requested Prescriptions Pending Prescriptions Disp Refills metoprolol succinate ER (TOPROL XL) 25 mg 24 hr tablet 90 tablet 3 Sig: Take 1 tablet by mouth once daily. Michelle Young RN November 23, 2024 9:12 AM documented in this encounter [facility] 11-03-2024 Note HNO ID: [id number] Author: ABBEY CARDENAS RN Service: ? Author Type: Registered Nurse Type: Progress Notes Filed: 11/03/2024 14:28 Note Text: DIABETES CARE AND EDUCATION VISIT Location: [place] Type of visit: In person individual PATIENT'S [...] DATE: November 03, 2024 TIME: 1:47 PM [facility] 11-03-2024 History of Presen t illness Narrative DIABETES CARE AND EDUCATION VISIT Location: [place] Type of visit: In person individual PATIENT'S [...] TIME: 1:47 PM documented in this encounter [facility] 11-02-2024 Telephone encounter Note The patient has [...] 1 tablet by mouth once daily. Chelsey Caldwell RN November 02, 2024 8:59 AM [facility] 11-02-2024 Miscellaneous Notes The patient has been [...] 1 tablet by mouth once daily. Chelsey Caldwell RN November 02, 2024 8:59 AM documented in this encounter [facility] 10-29-2024 Evaluation note Diagnosis Onset Date Resolution Paroxysmal atrial flutter acute October 29, 2024 9 :50am Essential hypertension chronic Ju 2024 9:50am Hyperlipemia chronic October 29 9:50am [facility] Work Phone: 1(336) 878-846306-04-2025 Telephone encounter Note* Telephone Encounter - Laverne Ordonez MA - 10/28/2024 5:55 PM EDT notified and appointment made in month and please send supplies to [facility] Laverne Ordonez MA [facility]06-04-2025 Miscellaneous Notes* Telephone Encounter - Laverne Ordonez MA - 10/28/2024 5:55 PM EDT notified and appointment made in month and please send supplies to [facility] Laverne Ordonez MA * Telephone Encounter - Ariana Catherine APRN.JAE - 10/28/2024 8:19 AM EDT He should follow-up in one month. I [...] needed before the one month follow-up Ariana Catherine APRN.SED MIDDLE SCHOOL TEACHER * Telephone Encounter - Laverne Ordonez MA - 10/26/2024 4:44 PM EDT Called and spoke to and she said that his urinary frequency has gotten better since was seen in office. Asking if he needs sooner follow up than February which has blood work to know if dose needs adjusted? Laverne Ordonez MA * Telephone Encounter - Ariana Catherine APRN.CNP - 10/26/2024 4:01 PM EDT Is he still experiencing urinary symptoms? Would recommend waiting to send to mail away until we know what dose he will remain on. Ariana Catherine APRN.JAE * Telephone Encounter - Laverne Ordonez MA - 10/26/2024 9:32 AM EDT Spoke to and notified of results. asked if DM medication can be re- sent to mail-away Laverne Ordonez MA [facility] NoteHNO ID: [id number] Author: ?, ?, ? Service: ? Author [...] message sent HCC related Navigation Signature: Quita Megan Qauch October 28, 2024 10:49 [facility]06-04-2025 History of Present illness Narrative* Quita Aponte - 10/28/2024 10:49 AM EDT POPULATION HEALTH NAVIGATION OUTREACH Action/FYI Patient outreach for Hcc gaps; VINICIUS, KED. KED has already been pended. Lvm and sent mychart to closegaps. Reason for Outreach Care Gap/HCC or Scheduling Wellness Visits Care Gaps due: Diabetic Eye Exam KED Patient Contacted: Unable or unnecessary to reach patient: Left message MyChart message sent HCC related Navigation Signature: Quita Megan Quach October 28, 2024 10:49 AM [facility] Telephone encounter Note * Telephone Encounter - Ariana Catherine APRN.CNP - 10/28/2024 8:19 AM EDT He should follow-up in one month. I [...] needed before the one month follow-up Ariana Catherine APRN.CNP [facility]06-04-2025 NotePatient Outreach (NETNAV) CALLIE RASCON ([id number]) 1940 M Date Time Provider Department 10/28/24 CEDRIC BECERRA During your visit today, we recorded the following information about you: Terryrama QuachQuita 10/28/2024 10:52 AM Signed POPULATION HEALTH NAVIGATION OUTREACH Action/FYI Patient outreach for Hcc gaps; VINICIUS, KED. KED has already been pended. Lvm and sent mychart to close gaps. Reason for Outreach Care Gap/HCC or Scheduling Wellness Visits Care Gaps due: Diabetic Eye Exam KED Patient Contacted: Unable or unnecessary to reach patient: Left message MyChart message sent HCC related Navigation Signature: Quita Stewartjacklynalexis Main October 28, 2024 10:49 AM Allergies As of Date: 10/28/2024 (No Known Allergies) Date Reviewed: 10/23/2024 Reviewed by: Ariana Catherine, FRONT CLERK.SED MIDDLE SCHOOL TEACHER - Fully Assessed Reason for Visit: Population [...] *09/26/2024 Encounter Status:Closed by QUITA APONTE on 10/28/24[facility]06-02-2025 Telephone encounter Note* Telephone Encounter - Laverne Ordonez MA - 10/26/2024 4:44 PM EDT Called and spoke to and she said that his urinary frequency has gotten better since was seen in office. Asking if he needs sooner follow up than February which has blood work to know if dose needs adjusted? Laverne Ordonez MA [facility]06-02-2025 Telephone encounter Note* Telephone Encounter - Ariana Catherine APRN.CNP - 10/26/2024 4:01 PM EDT Is he still experiencing urinary symptoms? Would recommend waiting to send to mail away until we know what dose he will remain on. Ariana Catherine APRN.CNP [facility]06-02-2025 Telephone encounter Note* Telephone Encounter - Laverne Ordonez MA - 10/26/2024 9:32 AM EDT Spoke to and notified of results. asked if DM medication can be re- sent to mail-away Laverne Ordonez MA [facility]05-30-2025 NoteHNO ID: [id number] Author: ARIANA CATHERINE APRN.CNP Service: ? Author Type: Nurse Practitioner Type: Progress Notes Filed: 10/23/2024 11:55 Note Text: CC: Patient presents with: Urinary Frequency: X 4 weeks HPI Recording using Meteor software for draft documentation of the visit was discussed with the patient/authorized retail wireless sales representative; all questions welcomed and answered. Patient/authorized retail wireless sales representative agreed to proceed Callie is a 83-year-old male, with a recent diagnosis of diabetes, presenting with urinary frequency and urgency. Callie has been experiencing increased urinary frequency and urgency since the removal of a Renya catheter about 6 weeks ago. He reports [...] Exam Vitals reviewed. Constitutional: (more content not included)...[facility] 10-23-2024 History of Present illness Narrative* Ariana Catherine, FRONT CLERK.SED MIDDLE SCHOOL TEACHER - 10/23/2024 11:46 AM EDT CC: Patient presents with: Urinary Frequency: X 4 weeks HPI Recording using Meteor software for draft documentation of the visit was discussed with the patient/authorized retail wireless sales representative; all questions welcomed and answered. Patient/authorized retail wireless sales representative agreed to proceed Callie is a 83-year-old male, with a recent diagnosis of diabetes, presenting with urinary frequency and urgency. Callie has been experiencing increased urinary frequency and urgency since the removal of a Reyna catheter about 6 weeks ago. He reports the urge to urinate approximately every couple hours, with each void producing only a small amount of urine, described as a tablespoon. This pattern has been consistent since the catheter removal however they are unsure if symptoms have been gradually worsening.He denies any difficulty initiating urination or the [...] water, which may contribute to the small volumeof urine produced each time. He is unsure if his bladder feels completely empty after urination. Hedenies any episodes of incontinence where he is [...] Take 1 tablet by mouth two times aday for 7 days. tamsulosin (FLOMAX) 0.4 mg [...] (N40.1) Increased urinary frequency and urgency since Reyna catheter removal on the first of the month. No dysuria, hematuria, or nocturnal enuresis. Urine dip showed large leukocytes, small blood, and 100 protein. Abdominal exam revealed mild tenderness but no significant distension and no obvious bladderdistention - Initiated Flomax to address urinary frequency [...] the morning with food. - Referral to internet merchant for dietary and lifestyle management. - Follow-up appointment to be scheduled based on response to medication and urine culture results. I spent a total of 40 minutes on the date of the service which included preparing to see the patient, rysc-bh-imkx patient care, completing clinical documentation, performing a medically appropriate examination, counseling and educating the patient/family/caregiver, and ordering medications, tests,or procedures. Prescription instructions reviewed with patient as applicable. Potential red flag symptoms discussed with the patient. Reviewed appropriate action plan to take if red flag symptoms occur. Patient agreeable to treatment plan. Ariana Catherine APRN.SED MIDDLE SCHOOL TEACHER [facility] Instructions* Patient Instructions* Ariana Catherine APRN.JAE - 10/23/2024 11:29 AM EDT We discussed your urinary symptoms: - You have been experiencing frequent urination, often every 1-2 hours, with small amounts of urineeach time. This started after your Reyna catheter was removed. - A urine dip [...] - I have referred you to a internet merchant to help you with diet and other [...] after reviewing your urine culture results and yourresponse to the medications. - Continue with your scheduled appointment with your heart doctor next week. If you have any questions or if your symptoms worsen, please contact our office. [facility]25 NoteHNO ID: [id number] Author: HANNAH HARRIS RN Service: ? Author [...] Hannah Harris RN October 15, 2024 1:24 [facility]05-22-2025 NotePatient Outreach (AMBCMG) CALLIE RASCON ([id number]) 1940 M Date Time Provider Department 10/15/24 HANNAH HARRIS During your visit today, we recorded the [...] Fully Assessed Reason for Visit: Care Coordination [3491] Prescriptions as of 10/15/2024 - rivaroxaban (XARELTO) [...] *09/26/2024 Encounter Status:Closed by HANNAH HARRIS on 10/15/24[facility]05-05-2025 History of Present illness Narrative* Quita Aponte - 09/28/2024 12:06 PM EDT POPULATION HEALTH NAVIGATION OUTREACH Action/FYI Patient outreach for HCC gaps; VINICIUSMALIK. LVM and sent mychart to close gaps. Appointment notes updated. Reason for Outreach Care Gap/HCC or Scheduling Wellness Visits Care Gaps due: Diabetic Eye Exam KED Patient Contacted: Unable or unnecessary to reach patient: Left message MyChart message sent HCC related Updated appointment notes Navigation Signature: Quita Quach September 28, 2024 12:06 PM [facility]25 NoteHNO ID: [id number] Author: ?, ?, ? Service: ? Author Type: ? Type: Progress Notes Filed: 09/28/2024 12:09 Note Text: POPULATION HEALTH NAVIGATION OUTREACH Action/FYI Patient outreach for HCC gaps; MALIK COLVIN. LVM and sent mychart to close gaps. Appointment notes updated. Reason for Outreach Care Gap/HCC or Scheduling Wellness Visits Care Gaps due: Diabetic Eye Exam KED Patient Contacted: Unable or unnecessary to reach patient: Left message MyChart message sent HCC related Updated appointment notes Navigation Signature: Quita Quach September 28, 2024 12:06 [facility]05-05-2025 NotePatient Outreach (NETNAV) CALLIE RASCON ([id number]) 1940 M Date Time Provider Department 09/28/24 CEDRIC BECERRA NETNAYELI During your visit today, we recorded the following information about you: Quita Aponte 09/28/2024 12:09 PM Signed POPULATION HEALTH NAVIGATION OUTREACH Action/FYI Patient outreach for HCC gaps; VINICIUSMALIK. LVM and sent mychart to close gaps. [...] *09/26/2024 Encounter Status:Closed by QUITA APONTE on 09/28/24[facility]05-01-2025 Instructions* Patient Instructions* Cedric Becerra MD - 09/24/2024 8:52 AM EDT FASTING BLOOD WORK SOON. [facility]-2025 NoteHNO ID: [id number] Author: CEDRIC BECERRA MD Service: ? Author Type: Physician Type: Progress Notes Filed: 09/24/2024 09:02 Note Text: This note was created using [employer] Subjective Callie Rascon is a 83 year [...] block. 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 Sangita Prakash in several weeks. Review [...] R73.01 - Labs to be done. Cedric Becerra [facility]05-01-2025 History of Present illness Narrative* Cedric Becerra MD - 09/24/2024 8:41 AM EDT This note was created using [employer] Subjective Callie Rascon is a 83 year [...] block. 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 Sangita Prakash in several weeks. Review [...] R73.01 - Labs to be done. Cedric Becerra MD [facility]04-[facility]-2025 NoteHNO ID: [id number] Author: LITA MELISSA LPN Service: ? Author Type: LICENSED NURSE Type: Progress Notes Filed: 09/08/2024 08:10 Note Text: Discontinued reyna per Dr. Becerra order, Patient tolerated well. [facility] History of Present illness Narrative* Lita Melissa LPN - 09/07/2024 7:52 PM EDT Discontinued reyna per Dr. Becerra order, Patient tolerated well. Lita Melissa LPN * Cedric Becerra MD - 09/07/2024 7:28 PM EDT This note was created using [employer]. Subjective Patient presents with: Hospital F/U Recording using ambient [email or web address] software for draft documentation of the visit was discussed with the patient/authorized retail wireless sales representative; all questions welcomed and answered. Patient/authorized retail wireless sales representative agreed to proceed Callie is a 83-year-old male, here with his , presenting for follow-up after hospitalization in [place], [place]. Callie was recently hospitalized for 5 days 08/22 to 08/25/24 at [facility] due to cellulitis affecting both legs, especially the right. Prior to hospitalization, he visited urgent care twice and was prescribed oral antibiotics, which provided some improvement. However, during thethird visit, he was advised to go to [...] issues. He was advised to discontinue the reyna after 2 weeks. He completed the antibiotic course of cefuroxime and m inocycline for 7 days. . Review of Systems [...] tablet by mouth once daily. (Patient taking differently:Take 20 mg by mouth once daily. Currently [...] is no abdominal tenderness. Genitourinary: Comments: Indwelling reyna in place. Urine yellow. Musculoskeletal: Right lower le+ Edema present. Left lower leg: No edema. Skin: Findings: No erythema. Comments: Stasis pigmentation, right more than left. Lichenification of tibial skin right more thanleft. No drainage. Neurological: Mental Status: He is alert. Assessment and Plan 1. Cellulitis of right lower extremity - ICD9: 682.6, ICD10: L03.115 (primary diagnosis) - Resolved. - Skin moisturizers. 2. Swelling of lower leg - ICD9: 729.81, ICD10: M79.89 - Resolved. Elevate legs. 3. Hematuria, unspecified type - ICD9: 599.70, ICD10: R31.9 Resolved. - COMPLETE BLOOD COUNT 4. Indwelling Reyna catheter present - ICD9: V45.89, ICD10: Z97.8 [...] ICD10: R73.01 Recheck. - HEMOGLOBIN A1C Cedric Becerra MD [facility]04[facility] Instructions* Patient Instructions* Cedric Becerra MD - 09/07/2024 7:49 PM EDT We discussed your recent hospitalization for cellulitis and follow-up care: - Your cellulitis has improved, and the redness in your legs has resolved. You do not need additional antibiotics at this time. - Please apply an mwem-ebp-dnjirte moisturizing cream to your legs to keep the skin hydrated. Avoidscratching or picking at the skin. We discussed your urinary catheter: - The urinary catheter was placed during your hospital stay and has been in place for 2 weeks. It was removed during today s visit. - If you experience any issues with urination, such as difficulty urinating, blood in the urine, orpain, please contact our office. We discussed your [...] before your next visit. [facility]04-[facility]25 NoteHNO ID: [id number] Author: CEDRIC BECERRA MD Service: ? Author Type: Physician Type: Progress Notes Filed: 09/08/2024 08:10 Note Text: This note was created using [employer]. Subjective Patient presents with: Hospital F/U Recording using Meteor software for draft documentation of the visit was discussed with the patient/authorized retail wireless sales representative; all questions welcomed and answered. Patient/authorized retail wireless sales representative agreed to proceed Callie is a 83-year-old male, here with his , presenting for follow-up after hospitalization in [place], [place]. Callie was recently hospitalized for 5 days 08/22 to 08/25/24 at [facility] due to cellulitis affecting both legs, especially [...] issues. He was advised to discontinue the reyna after 2 weeks. He completed the antibiotic [...] is no abdominal tenderness. Genitourinary: Comments: Indwelling reyna in place. Urine yellow. Musculoskeletal: Right low (more content not included)...[facility]03-19-2025 NoteHNO ID: [id number] Author: AMADOR RAM MA Service: ? Author Type: Table Saw Operator Type: Progress Notes Filed: 08/12/2024 09:31 Note [...] Amador Ram MA August 12, 2024 9:26 [facility]03-19-2025 History of Present illness Narrative* Amador Ram MA - 08/12/2024 9:26 AM EDT POPULATION HEALTH NAVIGATION OUTREACH Action/FYI [employer] High [...] 12, 2024 9:26 AM [facility]03-[facility]-2025 NotePatient Outreach (NETNAV) CALLIE RASCON ([id number]) 1940 M Date Time Provider Department 08/12/24 [...] left message on voice mail and sent Swift[employer] message. Reason for Outreach Care Gap/HCC or Scheduling Wellness Visits Care Gaps due: Medicare Annual Wellness Visit Patient Contacted: Unable or unnecessary to reach patient: Left message Act[employer] Biomed[employer] message sent Navigation Signature: Amador Ram MA August 12, 2024 9:26 AM Allergies As of Date: 08/12/2024 (No Known Allergies) Date Reviewed: 03/04/2024 Reviewed by: Ariana Catherine, FRONT CLERK.SED MIDDLE SCHOOL TEACHER - Fully Assessed Reason for Visit: Population [...] 09/25/2023 Encounter Status:Closed by AMADOR RAM on 08/12/24[facility] 07-16-2024 NoteHNO ID: [id number] Author: AMADOR RAM MA Service: ? Author Type: Table Saw Operator Type: Progress Notes Filed: 07/16/2024 08:53 Note Text: POPULATION HEALTH NAVIGATION OUTREACH Action/I [employer] High Risk Outreach - Attempt # 1 Last PCP Visit: 03/04/2024 Per last office note: None Has Appointment Scheduled: Yes, Follow Up Outreach to Schedule: Medicare Wellness - February Health Maintenance Topics Due: None Outcomes: Called patient - left message on voice mail and sent [employer] message. Reason for Outreach Care Gap/HCC or Scheduling Wellness Visits Care Gaps due: Medicare Annual Wellness Visit Patient Contacted: Unable or unnecessary to reach patient: Left message MyChart message sent Navigation Signature: Amador Ram MA July 16, 2024 8:48 [facility]02-20-2025 History of Present illness Narrative* Amador Ram MA - 07/16/2024 8:48 AM EST POPULATION HEALTH NAVIGATION OUTREACH Action/FYI [employer] High [...] 16, 2024 8:48 AM [facility] NotePatient Outreach (NETNAV) CALLIE RASCON ([id number]) 1940 M Date Time Provider Department 07/16/24 [...] Allergies) Date Reviewed: 03/04/2024 Reviewed by: Ariana Catherine, KRISTIN.SED MIDDLE SCHOOL TEACHER - Fully Assessed Reason for Visit: Population Health Navigation Outreach [3910] Cmt: Erin High Risk Attempt #1 Prescriptions as of [...] 09/25/2023 Encounter Status:Closed by AMADOR RAM on 07/16/24[facility] 03-04-2024 Instructions* Patient Instructions* Ariana Catherine, FRONT CLERK.SED MIDDLE SCHOOL TEACHER - 03/04/2024 8:14 AM EDT Screening schedule [...] review all the medicines you take, even oxgp-orx-ohfuinn medicines. As you get older, the way medicines work in your body can change. Some medicines, or combinations of medicines, can make you sleepy or dizzy andcan cause you to fall. 3. Have your [...] have certain medical conditions. [facility] History of Present illness Narrative* Ariana Catherine APRN.CNP - 03/04/2024 8:10 AM EDT Images from the original note were not [...] Current care team: Patient Care Team: Cedric Becerra MD as PCP - General (Internal Medicine) [...] wellness visit, subsequent - ICD9: V70.0, ICD10: Z. (primary diagnosis) See Medicare wellness plan 2. [...] immunization - ICD9: V03.89, ICD10: Z23 - PFIZER-BIONTVanu Coverage COVID-19 VACCINE AGE 12+ YR (COMIRNATY) - INFLUENZA VACCINE, PRSV FREE, AGE 65+ YR, HIGH DOSE, TRIVALENT (FLUZONE HIGH-DOSE) 9. Screening for depression - ICD9: V79.0, ICD10: Z13.31 - DEPRESSION SCREENING 10. Encounter for screening examination for other mental health and behavioral disorders - ICD9: V79.8, ICD10: Z13.39 - ANXIETY SCREENING Ariana Catherine APRN.SED MIDDLE SCHOOL TEACHER [facility] Tele[facility] encounter Note * Telephone Encounter - Emily Wang - 01/28/2024 12:50 PM EDT Prescription Refill Information The patient has been [...] Emily Wang January 28, 2024 12:51 PM [facility] Miscellaneous Notes* Telephone Encounter - Emily Wang - 01/28/2024 12:50 PM EDT Prescription Refill Information The patient has been [...] 28, 2024 12:51 PM [facility] in [facility]The [facility] Telephone encounter Note * Telephone Encounter - Lita Melissa LPN - 01/09/2024 3:41 PM EDT Patient has been identified by name and date of : Yes Patient phones for refill(s): Requested Prescriptions Pending Prescriptions Disp Refills atorvastatin (LIPITOR) 20 mg tablet 90 tablet 3 Sig: Take 1 tablet by mouth once daily. Date of last office visit in primary care: 09/25/2023 Date of next office visit in primary care: 03/04/2024 Please advise. Thank you. Lita Melissa LPN. [facility] Miscellaneous Notes* Telephone Encounter - Lita Melissa LPN - 01/09/2024 3:41 PM EDT Patient has been identified by name and date of : Yes Patient phones for refill(s): Requested Prescriptions Pending Prescriptions Disp Refills atorvastatin (LIPITOR) 20 mg tablet 90 tablet 3 Sig: Take 1 tablet by mouth once daily. Date of last office visit in primary care: 09/25/2023 Date of next office visit in primary care: 03/04/2024 Please advise. Thank you. Lita Melissa LPN. * Telephone Encounter - Pinky Santoro - 01/09/2024 12:07 PM EDT Prescription Refill Information The patient has been [...] 09, 2024 12:07 PM documented in [facility]The [facility] Telephone encounter Note * Telephone Encounter - Pinky Santoro - 01/09/2024 12:07 PM EDT Prescription Refill Information The patient has been [...] 1 tablet by mouth once daily. Pinky Brennerc January 09, 2024 12:07 PM [facility] Instructions* Patient Instructions* Cedric Becerra MD - 09/25/2023 10:09 AM EDT Blood work today. documented in this encounterThe [facility]05-[facility] History of Present illness Narrative* Cedric Becerra MD - 09/25/2023 9:38 AM EDT This note was created using [employer] Fausto Rascon is a 82 year old male here with . He has daily left 2nd toe pain, not related toactivity and more at rest. rubs this and he alternates Advil and Aleve once daily. They returned from [place] where they spend bautista. His other conditions [...] vaccine - ICD9: V04.89, ICD10: Z23 - PFIZER-BIONTECH COVID-19 VACCINE (2022- SE[place]ON) AGE 12+ YR [...] R26.9 - Fall precautions. Consider PT. Cedric Becerra MD documented in this encounterThe [facility]10-20-[facility]23 Miscellaneous Notes* Telephone Encounter - Jorge Luis Ruiz Ma - 03/15/2023 2:17 PM EDT MAXWELL: 03/04/2023 Last refill: 05/16/2022 QTY: 90 Refills: 3 * Telephone Encounter - Lyndsey Carballo - 03/15/2023 10:37 AM EDT Patient has been identified by name and date of : Yes Requested Prescriptions Pending Prescriptions Disp Refills atorvastatin (LIPITOR) 20 mg tablet 90 tablet 3 Sig: Take 1 tablet by mouth once daily. RX INSTRUCTIONS: Patient aware RX will be sent to [facility] pharmacy. No need to notify patient. Lyndsey Carballo documented in this encounterThe [facility]05-03-2023 History of Present illness Narrative* Shari Graves RT(R) - 09/26/2022 12:00 PM EDT Radiology Service Progress Note PATIENT NAME: Callie Rascon DATE OF SERVICE: September 26, 2022 TIME: 12:05 PM PATIENT IDENTITY VERIFICATION COMPLETED USING TWO (2) IDENTIFIERS: Name and Date of confirmedby patient verbally. FALL SCREENING: Has the patient had 2 falls in the last year or 1 fall with injury or currently using an Ambulatory Assistive Device (Walker, Cane, Wheelchair, Crutches, etc.)? No PATIENT GENDER DATA: Male PATIENT RELEVANT IMPLANT DATA REVIEWED: Not Applicable RADIOLOGY DEPARTMENT: General X-ray: Exam(s) Completed: Lower Extremity X- Ray(s): Toes, Left PERIPHERAL IV DATA: Not applicable SIGNED BY: RT Fede(R) September 26, 2022 12:05 PM documented in this encounterThe [facility]05-03-2023 Miscellaneous Notes* Result Encounter Note - Cedric Becerra MD - 09/26/2022 12:00 PM EDT Result(s) viewed by patient: Yes. No acute findings. documented in this [facility]05-03-2023 Progress note* Result Encounter Note - Cedric Becerra MD - 09/26/2022 12:00 PM EDT Result(s) viewed by patient: Yes. No acute findings. [facility] Instructions* Patient Instructions* Cedric Becerra MD - 09/26/2022 11:45 AM EDT Fasting blood work any time soon. documented in this [facility]05-03-2023 History of Present illness Narrative* Cedric Becerra MD - 09/26/2022 11:29 AM EDT This note was created using [employer]. Subjective Callie Rascon is a 81 year [...] relief. He had no swelling an no limitationswith ambulation. His hypertension, atrial fibrillation, and chronic [...] by mouth once daily. Dissolve dose in 4- 8 ounces of liquid and take as [...] with patient, and I recommended no further interventionat this time. Assessment and Plan 1. Toe [...] 238.4, ICD10: D75.1 Monitor. - CBC Cedric Becerra MD documented in this encounterThe [facility]04-28-2023 Instructions* Patient Instructions* Shawna Alves APRN.SWATCHER - 09/21/2022 10:14 AM EDT Go directly [...] is 20 to 35 grams. If you areincreasing your fiber intake do so slowly to [...] above 100.5, rigid/hard abdomen. documented in this encounterThe [facility]04-28-2023 History of Present illness Narrative* Shawna Alves APRN.CNS - 09/21/2022 10:00 AM EDT SUBJECTIVE: PCP: Cedric Becerra MD ADVANCE DIRECTIVE DISCUSSION due on 05/27/2022 DEPRESSION ASSESSMENT due on 05/27/2022 JACLYN Rascon is a 81 year old male. 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 He reports no bowel movement for 1 week. Notes severe rectalpain with occasional liquid coming out of his rectum but no bowel movement. He notes abdominal distention. Decreased appetite. Afebrile. He reports problem started about 1 month ago when he was seen at urgent care in [place] for constipation and back pain. He was provided with pain medication. States taking [id number] Dulcolax forconstipation without much effect. He reports about 1 [...] take private vehicle. Prefers to go to [facility]. Records sent and report via portal sent. Shawna Alves APRN.CNS Medical Decision Making: Problems: Moderate: Acute illness with systemic symptoms Risk: High: Decision on hospitalization Medical Decision Making Level: 4 - Moderate documented in this encounterThe [facility]12-21-2022 Miscellaneous Notes* Telephone Encounter - Lita Melissa LPN - 05/16/2022 3:36 PM EST Patient has been identified by name and [...] Please advise. Thank you. Lita Melissa LPN * Telephone Encounter - Damaris Daniels - 05/16/2022 3:27 PM EST Patient has been identified by name and [...] Thank you. Damaris Daniels documented in this encounterThe [facility]10-14-2022 Instructions* Patient Instructions* Ariana Alicea APRN.CNP - 03/09/2022 1:07 PM EDT Recombinant shingles [...] review all the medicines you take, even aptr-oqq-uyqxmoe medicines. As you get older, the way medicines work in your body can change. Some medicines, or combinations of medicines, can make you sleepy or dizzy andcan cause you to fall. 3. Have your [...] have certain medical conditions. documented in this encounterThe [facility]10-14-[facility]22 History of Present illness Narrative* Ariana Older, FRONT CLERK.SED MIDDLE SCHOOL TEACHER - 03/09/2022 12:56 PM EDT Medicare Yearly Visit Medical B eligibilty date 2005 Date of last exam 03/07/21 PAST MEDICAL [...] of current specialists seen: Cardiology- Dr. Glasgow Process Engineering Intern- Rock Oakes OD End of Live Planning [...] bars in the bathroom, lack of handrails onthe stairs or have poor lighting? No Hearing [...] at this time. - Patient was counseled [id number] by myself (the billing provider) for the following immunizations and vaccine components, including side effects: COVID- 19. Patient consents for immunization and understands risks [...] YR Ariana Alicea APRN.CNP documented in this encounterThe [facility]10-07-2022 Miscellaneous Notes* Telephone Encounter - Jorge Luis Ruiz Ma - 03/02/2022 2:47 PM EDT Patient notified, verbalized understanding. Jorge Luis Ruiz Ma * Telephone Encounter - Ariana Alicea APRN.CNP - 03/02/2022 1:54 PM EDT Fasting labs ordered Ariana Alicea APRN.CNP * Telephone Encounter - Suni Liriaon LPN - 03/02/2022 1:47 PM EDT Patient calling, has Medicare Wellness on 03/09. Asking if he should have lab work done prior to the appointment. Please advise. documented in this encounterThe [facility]06-02-2022 History of Present illness Narrative* Cedric Becerra MD - 10/26/2021 4:06 PM EDT This note was created using [employer] Subjective Callie Rascon is a 80 year old male. He complained of mild problems with short term memory. He wasasking about trying a well commercialized supplement. He [...] 1 application to affected area twice daily. Forrash/itching. Apply sparingly. Avoid face/skin fold. (Patient not [...] Abs Lymph 1.00 - 4.00 k/uL 2.54 Brule% % 8.6 Abs Brule <0.87 k/uL 0.78 Eosin% % 4.1 Abs [...] Tylenol if needed. Podiatry if worse. Cedric Becerra MD documented in this encounterThe [facility]05-31-2022 Miscellaneous Notes* Telephone Encounter - Jorge Luis Ruiz Ma - 10/24/2021 3:39 PM EDT Patient notified, verbalized understanding,. ,Jorge Luis Ruiz Ma * Telephone Encounter - Ariana Alicea APRN.CNP - 10/24/2021 3:25 PM EDT Labs ordered Ariana Alicea APRN.CNP * Telephone Encounter - Silva Avila RN - 10/24/2021 1:51 PM EDT Patient calling and states he has an upcoming 9 month follow up appt scheduled on 10/26 and is askingif provider would like any labs ordered? Please advise. Thank you. 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 Benign positional vertigo 03/31/20122017 Meniscus, medial, derangement 09/19/2010 Elevated prostate specific antigen (PSA) 008 12/20/2020 Nonspecific abnormal finding in stool contents 0 10/23/2005 10/03/2015 documented as of this encounter (statuses as of 10/26/2021) [facility] of [facility] illness Narrative* Problem Noted Date Resolved Date 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 Benign positional vertigo 03/31/20122017 Meniscus, medial, derangement 09/19/2010 Elevated prostate specific antigen (PSA) 008 12/20/2020 Nonspecific abnormal finding in stool contents 0 10/23/2005 10/03/2015 documented as of this encounter (statuses as of 03/02/2022) [facility] of [facility] illness Narrative* Problem Noted Date Resolved Date 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 Benign positional vertigo 03/31/20122017 Meniscus, medial, derangement 09/19/2010 Elevated prostate specific antigen (PSA) 008 12/20/2020 Nonspecific abnormal finding in stool contents 0 10/23/2005 10/03/2015 documented as of this encounter (statuses as of 03/09/2022) [facility] of [facility] illness Narrative* Problem Noted Date Resolved Date 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 Benign positional vertigo 03/31/20122017 Meniscus, medial, derangement 09/19/2010 Elevated prostate specific antigen (PSA) 008 12/20/2020 Nonspecific abnormal finding in stool contents 0 10/23/2005 10/03/2015 documented as of this encounter (statuses as of 05/16/2022) [facility] of [facility] illness Narrative* Problem Noted Date Resolved Date 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 Benign positional vertigo 03/31/20122017 Meniscus, medial, derangement 09/19/2010 Elevated prostate specific antigen (PSA) 2 008 12/20/2020 Nonspecific abnormal finding in stool contents 0 10/23/2005 10/03/2015 documented as of this encounter (statuses as of 09/21/2022) [facility] of [facility] illness Narrative* Problem Noted Date Resolved Date 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 Benign positional vertigo 03/31/20122017 Meniscus, medial, derangement 09/19/2010 Elevated prostate specific antigen (PSA) 008 12/20/2020 Nonspecific abnormal finding in stool contents 0 10/23/2005 10/03/2015 documented as of this encounter (statuses as of 09/27/2022) [facility] of [facility] illness Narrative* Problem Noted Date Diagnosed Date Resolved Date 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 10/17/2017 Benign positional vertigo 03/31/2012 Meniscus, medial, derangement 09/19/2010 10/17/2017 Elevated prostate specific antigen (PSA) 06/17/2007 12/20/2020 Nonspecific abnormal finding in stool contents 10/23/2005 10/03/2015 documented as of this encounter (statuses as of 03/15/2023) [facility] note* Diagnosis Hypertension, unspecified type- Primary [facility] Diagnosis Memory disturbance- Primary Memory loss Primary hypertension Unspecified essential hypertension Persistent atrial fibrillation (HCC) Atrial fibrillation Hyperlipidemia LDL goal <130 Other and unspecified hyperlipidemia Toe pain, chronic, left [facility]* Diagnosis Primary hypertension- Primary Unspecified essential hypertension Hyperlipidemia LDL goal <130 Other and unspecified hyperlipidemia [facility]* Diagnosis Medicare annual wellness visit, subsequent- Primary Routine general medical examination at a health care facility Impaired fasting glucose Encounter for immunization Need for other specified prophylactic vaccination against single bacterial disease documented in this encounter [facility] note* Diagnosis Hyperlipidemia LDL goal <130 Other and unspecified hyperlipidemia documented in this encounter [facility] noteNo assessment information availableWWVUMedicine [facility] Work Phone: Evaluation note* Diagnosis Constipation, unspecified constipation type- Primary Rectal pain Anal or rectal pain [facility]* Diagnosis Toe pain, chronic, left- Primary Persistent atrial fibrillation (HCC) Atrial fibrillation Primary hypertension Unspecified essential hypertension Impaired fasting glucose Polycythemia Polycythemia vera [facility]* Diagnosis Hyperlipidemia LDL goal <130 Other and unspecified hyperlipidemia [facility]* Diagnosis Toe pain, chronic, left- Primary Primary hypertension Unspecified essential hypertension Chronic anticoagulation Long-term (current) use of anticoagulants Impaired fasting glucose Need for COVID-19 vaccine Polycythemia Polycythemia vera Hyperlipidemia LDL goal <130 Other and unspecified hyperlipidemia Gait abnormality Abnormality of gait [facility] Hyperlipidemia LDL goal <130 Other and unspecified hyperlipidemia [facility] Toe pain, chronic, left [facility] Diagnosis Medicare annual wellness visit, subsequent- [...] and behavioral disorders [facility] Diagnosis Cellulitis of right lower extremity- Primary Cellulitis and abscess of leg, except foot Swelling of lower leg Hematuria, unspecified type Indwelling Reyna catheter present Hyperlipidemia LDL goal <130 Other and unspecified hyperlipidemia Persistent atrial fibrillation (HCC) Atrial fibrillation Impaired fasting glucose [facility]* Diagnosis Persistent atrial fibrillation (HCC)- Primary Atrial fibrillation Toe pain, chronic, left BPH with obstruction/lower urinary tract symptoms Hypertrophy of prostate with urinary obstruction and other lower urinary tract symptoms (LUTS) Primary hypertension Unspecified essential hypertension Impaired fasting glucose [facility]* Diagnosis Type 2 diabetes mellitus without complication, without long-term current use of insulin ([facility])- Primary [facility]* Diagnosis Urinary frequency- Primary Glucosuria Glycosuria Newly diagnosed diabetes ([facility]) Type II or unspecified type diabetes mellitus without mention of complication, not stated as uncontrolled Hyperglycemia Other abnormal glucose BPH with obstruction/lower urinary tract symptoms Hypertrophy of prostate with urinary obstruction and other lower urinary tract symptoms (LUTS) [facility]* Diagnosis Type 2 diabetes mellitus without complication, without long-term current use of insulin (HCC)- Primary [facility]* Diagnosis Type 2 diabetes mellitus without complication, without long-term current use of insulin ([facility])- Primary [facility]* Diagnosis Hyperlipidemia LDL goal <130 Other and unspecified hyperlipidemia [facility]* Diagnosis Benign prostatic hyperplasia with urinary frequency- Primary Type 2 diabetes mellitus without complication, without long-term current use of insulin (HCC) [facility]* Diagnosis 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 If you do start having diarrhea he can cut back on it and take it every other day or half capful daily. If you are not having regular bowel movements you can increase your daily dosage. Try to drink more water as well and eat a high-fiber diet.[facility] Work Phone: Reason for referral (narrative)* Diagnostic Procedure Only (Routine) - Closed Specialty Diagnoses / Procedures Referred By Contac t Referred To Contact XR IMAGING Diagnoses Toe pain, chronic, left Procedures XR TOE AP/LAT/OBL LEFT RADEX TOE MINIMUM 2 VIEWS Cedric Becerra MD [address] [place] [id number] Xr Imaging Referral ID Status Reason Start Date Expiration Date V isits Requested Visits Authorized [id number] Closed Auto-Generate d Referral 09/26/2022 10/26/2023 1 1 [facility] for referral (narrative)* Diagnostic Procedure Only (Routine) - Closed Specialty Diagnoses / Procedures Referred By Contac t Referred To Contact XR IMAGING Diagnoses Toe pain, chronic, left Procedures XR TOE AP/LAT/OBL LEFT RADEX TOE MINIMUM 2 VIEWS Cedric Becerra MD [address] [place] [address] [place] [id number] Referral ID Status Reason Start Date Expiration Date V isits Requested Visits Authorized [id number] Closed Auto-Generate d Referral 09/26/2022 10/26/2023 1 1 [facility] for referral (narrative)No reason for referral information availableBloomington Medical Services Work Phone: Reason for visit Narrative* Diagnostic Procedure Only (Routine) - Closed Specialty Diagnoses / Procedures Referred By Contac t Referred To Contact XR IMAGING Diagnoses Toe pain, chronic, left Procedures XR TOE AP/LAT/OBL LEFT RADEX TOE MINIMUM 2 VIEWS Cedric Becerra MD [address] [place] [address] [place] [id number] Referral ID Status Reason Start Date Expiration Date V isits Requested Visits Authorized [id number] Closed Auto-Generate d Referral 09/26/2022 10/26/2023 1 1 [facility] Summary Purpose Family History No Family History Records Found Relationship Condition Age at Onset Recorded Date/T martinez mother Malignant neoplasm Unknown Advance Directives No Advanced Directives Records FoundDocuments on File Type Date Recorded Patient Show Host/Hostess Expl anation Advance Directive(s) 09/19/2010 12:00 AM Advance Directive(s) 07/11/2006 12:00 AM Documents on File Type Date Recorded Patient Show Host/Hostess Expl anation Advance Directive(s) 09/19/2010 Advance Directive(s) 07/11/2006 Advance Directive Response Recorded Date/ Time Advance Directives Yes October 19 0 10:47am Living Will No September 21, 2022 11:22am Power of Game Farm Helper Yes September 21 11:22am Name of Medical Power of Game Farm Helper mika rascon September 21, 2022 11:22am Documents on File Type Date Recorded Patient Show Host/Hostess Expl anation Advance Directive(s) 09/19/2010 Advance Directive(s) 07/11/2006 Advance Directive Response Recorded Date/ Time Advance Directives Yes October 19 0 10:47am Chief Complaint and Reason for Visit Chief Complaint CONSTIPATION Chief Complaint Admit Date 1 Y October 29, 2024 9:50a m Chief Complaint Admit Date 1 Y October 29, 2024 9:50a m UNSPECIFIED ATRIAL FIBRILLATION October 8:01am Reason for Visit Admit Date Paroxysmal atrial flutter October 29, 2024 9:50am Essential hypertension October 29, 2024 9: 50am Hyperlipemia October 29, 2024 9:50a m Additional Source Comments (unrecognized sect ion and content) No Status Records FoundNo Status Records FoundNo Status Records FoundNo Status Records Found INFORMATION SOURCE (unrecogn ized section and content) DATE CREATED AUTHOR 02/05/2020 [facility] ([place]) DATE CREATED AUTHOR AUTHOR'S ORGANIZ ATION 09/03/2020 [facility] DATE CREATED AUTHOR AUTHOR'S ORGANIZ ATION 11/19/2024 [facility] DATE CREATED AUTHOR AUTHOR'S ORGANIZ ATION 03/17/2025 [facility] Source Comments (unrecognize d section and content) In the event this informatio n is protected by the Federal Confidentiality of Alcohol and Drug Abuse Patient Records regulations: The Federal rules restrict any use of the information to criminally investigate or prosecute any alcohol or drug abuse patient.[facility] HospitalIn the event this information is protected by the Federal Confidentiality of Alcohol and Drug Abuse Patient Records regulations: The Federal rules restrict any use of the information to criminally investigate or prosecute any alcohol or drug abuse patient.[facility]In the event this information is protected by the Federal Confidentiality of Alcohol and Drug Abuse Patient Records regulations: The Federal rules restrict any use of the information to criminally investigate or prosecute any alcohol or drug abuse patient.[facility]In the event this information is protected by the Federal Confidentiality of Alcohol and Drug Abuse Patient Records regulations: The Federal rules restrict any use of the information to criminally investigate or prosecute any alcohol or drug abuse patient.[facility]In the event this information is protected by the Federal Confidentiality of Alcohol and Drug Abuse Patient Records regulations: The Federal rules restrict any use of the information to criminally investigate or prosecute any alcohol or drug abuse patient.[facility] HospitalIn the event this information is protected by the Federal Confidentiality of Alcohol and Drug Abuse Patient Records regulations: The Federal rules restrict any use of the information to criminally investigate or prosecute any alcohol or drug abuse patient.[facility] HospitalIn the event this information is protected by the Federal Confidentiality of Alcohol and Drug Abuse Patient Records regulations: The Federal rules restrict any use of the information to criminally investigate or prosecute any alcohol or drug abuse patient.[facility] HospitalIn the event this information is protected by the Federal Confidentiality of Alcohol and Drug Abuse Patient Records regulations: The Federal rules restrict any use of the information to criminally investigate or prosecute any alcohol or drug abuse patient.[facility] HospitalIn the event this information is protected by the Federal Confidentiality of Alcohol and Drug Abuse Patient Records regulations: The Federal rules restrict any use of the information to criminally investigate or prosecute any alcohol or drug abuse patient.[facility] HospitalIn the event this information is protected by the Federal Confidentiality of Alcohol and Drug Abuse Patient Records regulations: The Federal rules restrict any use of the information to criminally investigate or prosecute any alcohol or drug abuse patient.[facility] HospitalIn the event this information is protected by the Federal Confidentiality of Alcohol and Drug Abuse Patient Records regulations: The Federal rules restrict any use of the information to criminally investigate or prosecute any alcohol or drug abuse patient.[facility] HospitalIn the event this information is protected by the Federal Confidentiality of Alcohol and Drug Abuse Patient Records regulations: The Federal rules restrict any use of the information to criminally investigate or prosecute any alcohol or drug abuse patient.[facility] HospitalIn the event this information is protected by the Federal Confidentiality of Alcohol and Drug Abuse Patient Records regulations: The Federal rules restrict any use of the information to criminally investigate or prosecute any alcohol or drug abuse patient.[facility] HospitalIn the event this information is protected by the Federal Confidentiality of Alcohol and Drug Abuse Patient Records regulations: The Federal rules restrict any use of the information to criminally investigate or prosecute any alcohol or drug abuse patient.[facility] HospitalIn the event this information is protected by the Federal Confidentiality of Alcohol and Drug Abuse Patient Records regulations: The Federal rules restrict any use of the information to criminally investigate or prosecute any alcohol or drug abuse patient.[facility] HospitalIn the event this information is protected by the Federal Confidentiality of Alcohol and Drug Abuse Patient Records regulations: The Federal rules restrict any use of the information to criminally investigate or prosecute any alcohol or drug abuse patient.[facility] HospitalIn the event this information is protected by the Federal Confidentiality of Alcohol and Drug Abuse Patient Records regulations: The Federal rules restrict any use of the information to criminally investigate or prosecute any alcohol or drug abuse patient.[facility] HospitalIn the event this information is protected by the Federal Confidentiality of Alcohol and Drug Abuse Patient Records regulations: The Federal rules restrict any use of the information to criminally investigate or prosecute any alcohol or drug abuse patient.[facility] HospitalIn the event this information is protected by the Federal Confidentiality of Alcohol and Drug Abuse Patient Records regulations: The Federal rules restrict any use of the information to criminally investigate or prosecute any alcohol or drug abuse patient.[facility] HospitalIn the event this information is protected by the Federal Confidentiality of Alcohol and Drug Abuse Patient Records regulations: The Federal rules restrict any use of the information to criminally investigate or prosecute any alcohol or drug abuse patient.[facility] HospitalIn the event this information is protected by the Federal Confidentiality of Alcohol and Drug Abuse Patient Records regulations: The Federal rules restrict any use of the information to criminally investigate or prosecute any alcohol or drug abuse patient.[facility] HospitalIn the event this information is protected by the Federal Confidentiality of Alcohol and Drug Abuse Patient Records regulations: The Federal rules restrict any use of the information to criminally investigate or prosecute any alcohol or drug abuse patient.[facility] HospitalIn the event this information is protected by the Federal Confidentiality of Alcohol and Drug Abuse Patient Records regulations: The Federal rules restrict any use of the information to criminally investigate or prosecute any alcohol or drug abuse patient.[facility] HospitalIn the event this information is protected by the Federal Confidentiality of Alcohol and Drug Abuse Patient Records regulations: The Federal rules restrict any use of the information to criminally investigate or prosecute any alcohol or drug abuse patient.[facility] HospitalIn the event this information is protected by the Federal Confidentiality of Alcohol and Drug Abuse Patient Records regulations: The Federal rules restrict any use of the information to criminally investigate or prosecute any alcohol or drug abuse patient.[facility] HospitalIn the event this information is protected by the Federal Confidentiality of Alcohol and Drug Abuse Patient Records regulations: The Federal rules restrict any use of the information to criminally investigate or prosecute any alcohol or drug abuse patient.[facility] HospitalIn the event this information is protected by the Federal Confidentiality of Alcohol and Drug Abuse Patient Records regulations: The Federal rules restrict any use of the information to criminally investigate or prosecute any alcohol or drug abuse patient.[facility] HospitalIn the event this information is protected by the Federal Confidentiality of Alcohol and Drug Abuse Patient Records regulations: The Federal rules restrict any use of the information to criminally investigate or prosecute any alcohol or drug abuse patient.[facility] Reason for Visit (unrecogniz ed section and [...] Population Health Navigation Outreach 09/28/2024 [employer] Reason Comments Urinary Frequency X 4 weeks Reason Onset Date Comments Population Health Navigation Outreach 10/28/2024 [employer] Reason Comments Non-insulin Dependent Diabetes Mellitus Reason Onset Date Comments Refill Request 11/02/2024 Reason Onset Date Comments Refill Request 11/23/2024 Reason Comments Recheck Reason Comments Results Xray disc Reason Comments Patient Question Care Teams (unrecognized sec tion and content) Bread Slicer Machine Relationship Specialty Start Date End Date Cedric Becerra MD [address] [place] [address] PCP - General Internal Medicine 12/08/20 Bread Slicer Machine Relationship Specialty Start Date End Date Cedric Becerra MD [address] [place] [address] PCP - General Internal Medicine 12/08/20 Bread Slicer Machine Relationship Specialty Start Date End Date Cedric Becerra MD [address] [place] [address] PCP - General Internal Medicine 12/08/20 Bread Slicer Machine Relationship Specialty Start Date End Date Cedric Becerra MD [address] [place] [address] PCP - General Internal Medicine 12/08/20 Team Status: Active Member Role Status Dates Dr. Cedric Becerra MD Primary Care Provider Active Team Status: Inactive Member Role Status Dates Dr. Cedric Becerra MD Primary Care Provider Active Dr. Sierra Zaidi DO Referring Provider, Emergency P [facility] Active Bread Slicer Machine Relationship Specialty Start Date End Date Cedric Becerra MD [address] [place] [address] PCP - General Internal Medicine 12/08/20 Bread Slicer Machine Relationship Specialty Start Date End Date Cedric Becerra MD [address] [place] [address] PCP - General Internal Medicine 12/08/20 Bread Slicer Machine Relationship Specialty Start Date End Date Cedric Becerra MD [address] [place] [address] PCP - General Internal Medicine 12/08/20 Bread Slicer Machine Relationship Specialty Start Date End Date Cedric Becerra MD [address] [place] [address] PCP - General Internal Medicine 12/08/20 Bread Slicer Machine Relationship Specialty Start Date End Date Cedric Becerra MD [address] [place] [address] PCP - General Internal Medicine 12/08/20 Bread Slicer Machine Relationship Specialty Start Date End Date Cedric Becerra MD [address] [place] [address] PCP - General Internal Medicine 12/08/20 Bread Slicer Machine Relationship Specialty Start Date End Date Cedric Becerra MD [address] [place] [address] PCP - General Internal Medicine 12/08/20 Bread Slicer Machine Relationship Specialty Start Date End Date Cedric Becerra MD [address] [place] [address] PCP - General Internal Medicine 12/08/20 Bread Slicer Machine Relationship Specialty Start Date End Date Cedric Becerra MD [address] [place] [address] PCP - General Internal Medicine 12/08/20 Ariana Catherine, FRONT CLERK.[employer] [address] [place] [address] Interventional Cardiologist Internal Medicine 05/04/24 Bread Slicer Machine Relationship Specialty Start Date End Date Cedric Becerra MD [address] [facility] [address] PCP - General Internal Medicine 12/08/20 Ariana Catherine, FRONT CLERK.[employer]ER [address] [facility] [place] [address] Interventional Cardiologist Internal Medicine 05/04/24 An Sepulveda, tram inspector Assistant Men'S Soccer Coach 08/27/24 Bread Slicer Machine Relationship Specialty Start Date End Date Cedric Becerra MD [address] [facility] [place] [address] PCP - General Internal Medicine 12/08/20 Ariana Catherine, FRONT CLERK.[employer]ER [address] [place] [address] Interventional Cardiologist Internal Medicine 05/04/24 Bread Slicer Machine Relationship Specialty Start Date End Date Cedric Becerra MD [address] [facility] [place] [address] PCP - General Internal Medicine 12/08/20 Ariana Catherine, FRONT CLERK.[employer]ER [address] [facility] [place] [address] Interventional Cardiologist Internal Medicine 05/04/24 Bread Slicer Machine Relationship Specialty Start Date End Date Cedric Becerra MD [address] [facility] [place] [address] PCP - General Internal Medicine 12/08/20 Ariana Catherine, FRONT CLERK.[employer] TE[employer]ER [address] [facility] [place] [address] Interventional Cardiologist Internal Medicine 05/04/24 Bread Slicer Machine Relationship Specialty Start Date End Date Cedric Becerra MD [address] [facility] [place] [address] PCP - General Internal Medicine 12/08/20 Ariana Catherine, FRONT CLERK.[employer]ER [address] [place] [address] Interventional Cardiologist Internal Medicine 05/04/24 Bread Slicer Machine Relationship Specialty Start Date End Date Cedric Becerra MD [address] [facility] [place] [address] PCP - General Internal Medicine 12/08/20 Ariana Catherine, FRONT CLERK.[employer] [address] [place] [address] Interventional Cardiologist Internal Medicine 05/04/24 Team Status: Inactive Member Role Status Dates Dr. Cedric Becerra MD Primary Care Provider Active Start: October 29, 2024 End: October 29, 2024 Dr. Cedric Becerra MD Referring Provider Active Start: October 29, 2024 End: October 29, 2024 Dr. Roly Prakash MD Attending Provider Active Start: October 29, 2024 End: October 29, 2024 Bread Slicer Machine Relationship Specialty Start Date End Date Cedric Becerra MD [address] [facility] [place] [address] PCP - General Internal Medicine 12/08/20 Ariana Catherine, FRONT CLERK.[employer] TE[employer]ER [address] [facility] [place] [address] [facility] Internal Medicine 05/04/24 Bread Slicer Machine Relationship Specialty Start Date End Date Cedric Becerra MD [address] [facility] [place] [address] PCP - General Internal Medicine 12/08/20 Ariana Catherine, FRONT CLERK.[employer]ER [address] [place], [place] [address] [facility] Internal [facility] 05/04/24 Team Status: Inactive Member Role Status Dates Dr. Cedric Becerra MD Primary Care Provider Active Start: November 09, 2024 End: November 09, 2024 Dr. Roly Prakash MD Attending Provider Active Start: November 09, 2024 End: November 09, 2024 Dr. Roly Prakash MD Referring Provider Active Start: November 09, 2024 End: November 09, 2024 Bread Slicer Machine Relationship Specialty Start Date End Date Cedric Becerra MD [address] [place], [place] [address] PCP - General Internal Medicine 12/08/20 Ariana Catherine, FRONT CLERK.[employer]ER [address] [place], [place] [address] [facility] Internal [facility] 05/04/24 Bread Slicer Machine Relationship Specialty Start Date End Date Cedric Becerra MD [address] [place], [place] [id number] PCP - General Internal Medicine 12/08/20 Ariana Catherine, FRONT CLERK.[employer]ER [address] [place], [place] [address] [facility] Internal Medicine 05/04/24 Goals (unrecognized section and content) Goals may be documented in a n alternate sectionGoals may be documented in an alternate sectionGoals may be documented in an [...] BE BASED ON THE PRIMARY CLINICAL RECORDS. [employer] [facility]. provides no warranty or guarantee of the accuracy or completeness of information in this document.
--- NOTE | 2025-04-09 19:12 | HP.PCM.HOS_ITS ---
HPI - General General Date of Admission: 04/09/25 Date of Service: 04/09/25 Chief Complaint: Lower leg swelling, inability to urinate properly, generalized weakness JACLYN RASCON, is a 84 M who presents to the emergency room at [facility] after being brought in by his family with complaints of lower leg swelling, frequent falls, generalized weakness, and inability to urinate properly at home. Patient's family states that the patient is only able to pass small amounts of urine at a time, this has been going on for few days. Patient's family states the leg edema has been present at least 2 months, when patient was in [place] in August of this year he was admitted for 3 days in a hospital for cellulitis and during that hospitalization a Reyna catheter had to be placed, this was removed when the patient came back to [place]. Patient has had decreased p.o. intake over the last several days and has fallen 4-5 times over the last month according to his niece. Labs obtained in the emergency room included a CBC which showed an elevated white count at 13.4, hemoglobin was 12.8, creatinine was elevated at 1.88 and BUN was 39. Patient's troponin was 54, beta natruretic peptide was 2299. Chest x-ray showed no acute abnormality, bladder scan showed urinary retention, nursing staff was unable to insert a Reyna catheter and urology was consulted and attempted to place a catheter without success in the emergency room. It was felt that the patient would need to undergo surgery today. Patient will be admitted to [place] [id number] for generalized weakness and obstructive uropathy, I will maintain him on Rocephin after his surgery. Patient is on Xarelto and he will have to be monitored for bleeding after the surgery. Patient will be seen by PT and OT. [facility] Medical History halfway current use of anticoagulant Cardiomyopathy History of cardioversion (~10/20/19) Paroxysmal atrial flutter Essential hypertension Benign positional vertigo Diverticulosis of colon BPH (benign prostatic hyperplasia) Hyperlipemia Home Medications ?Medication ?Instructions ?Recorded ?Last Taken ?Type ascorbic acid (vitamin C) 500 mg 500 mg PO DAILY 10/11 Unknown History tablet atorvastatin 20 mg tablet 20 mg PO QHS 10/12/19 History cinnamon bark 500 mg capsule 500 mg PO DAILY 10/12/19 Unknown History multivitamin 1 tab PO DAILY 10/12/19 Unkn own History saw palmetto 450 mg capsule 450 mg PO BID 10/12/19 Unk nown History polyethylene glycol 3350 17 17 g PO DAILY #119 grams 0 09/21/22 Unknown Rx gram/dose oral powder (Miralax) glyburide 2.5 mg tablet 2.5 mg PO QDAY 10/29/24 Unkn own History metoprolol succinate 25 mg 25 mg PO BID #180 tabs 10/1804/09/25 Rx tablet,extended release 24 hr rivaroxaban 20 mg tablet (Xarelto) 20 mg PO DAILY #90 tabs 11/30/24 04/09/25 Rx Allergy/AdvReac Type Severity Reaction Status Date / Time No Known Allergies Allergy Verified 04/09/25 12:16 Family History Mother Cancer Breast Surgical History History of bilateral cataract extraction History of appendectomy Social History household members: spouse housing: house Smoking Status: Former smoker alcohol intake: never substance use type: does not use caffeine: No ROS Constitutional Constitutional: Reports fatigue and weakness; Denies anorexia, change in weight, chills, fever(s) or night sweats Eyes Eyes: Denies blurry vision, change in vision, discharge from eye(s) or eye pain Cardiovascular Cardiovascular: Reports edema; Denies chest pain, claudication, dyspnea on exertion, lightheadedness or palpitations Respiratory/Chest Respiratory/Chest: Denies cough, hemoptysis, shortness of breath at rest or shortness of breath with exertion Gastrointestinal Gastrointestinal: Denies abdominal pain, constipation, diarrhea, hematemesis, hematochezia, melena, nausea or vomiting Genitourinary Genitourinary: Denies dysuria, hematuria, urinary frequency, urinary hesitancy, urinary incontinence or urinary urgency Musculoskeletal Musculoskeletal: Denies back pain, joint pain, joint stiffness, joint swelling, myalgias or neck pain Neurologic Neurologic: Denies abnormal gait, abnormal speech, dizziness, focal weakness, headache(s), loss of vision, numbness, other visual disturbances, paresthesias, syncope or tingling Psychiatric Psychiatric: Denies anxiety, cognitive impairment, depression, irritability, mood swings or suicidal ideation Endocrine Endocrinology: Denies change in body appearance, cold intolerance, excessive sweating, heat intolerance, polydipsia or polyuria Hematologic/Lymphatic Hematologic/Lymphatic: Denies none, anemia, easy bleeding, easy bruising or lymphadenopathy Allergic/Immunologic Allergic/Immunologic: Denies rhinitis, urticaria, eczemia or asthma Vital Signs Vital Signs Vital Signs: 04/09/25 12:14 04/09/25 14:14 04/09/25 15:31 Temperature 98 F 98 F Temperature Source Oral Oral Pulse Rate 88 96 96 Respiratory Rate 16 18 Respiratory Pattern Blood Pressure 126/79 H 136/85 H 126/72 H Blood Pressure Mean 94 102 90 Blood Pressure Source Monitor Blood Pressure Position Supine Blood Pressure Location Left Arm Baseline BP Pulse Ox 98 92 95 Oxygen Delivery Method Room Air Room Air 04/09/25 15:47 04/09/25 16:47 04/09/25 18:07 Temperature 98 F 98 F 97.9 F Temperature Source Temporal Pulse Rate 96 96 92 Respiratory Rate 18 18 16 Respiratory Pattern Normal Blood Pressure 126/72 H 126/72 H 101/72 Blood Pressure Mean 90 81 Blood Pressure Source Monitor Blood Pressure Position Semi-Fowlers Blood Pressure Location Left Arm Baseline BP 126/72 Pulse Ox 95 95 96 Oxygen Delivery Method Room Air Room Air 04/09/25 18:10 04/09/25 18:11 04/09/25 18:15 Temperature 97.5 F L Temperature Source Pulse Rate 93 90 89 Respiratory Rate 16 12 16 Respiratory Pattern Blood Pressure 112/64 101/72 110/77 Blood Pressure Mean 80 88 Blood Pressure Source Monitor Monitor Blood Pressure Position Semi-Fowlers Semi-Fowlers Blood Pressure Location Left Arm Left Arm Baseline BP 126/72 126/72 Pulse Ox 94 96 98 Oxygen Delivery Method Room Air Room Air Room Air 04/09/25 18:20 04/09/25 18:30 04/09/25 19:11 Temperature 97.7 F L 97.5 F L Temperature Source Temporal Oral Pulse Rate 94 94 97 Respiratory Rate 16 16 16 Respiratory Pattern Blood Pressure 111/92 H 116/61 129/62 H Blood Pressure Mean 98 79 84 Blood Pressure Source Monitor Monitor Monitor Blood Pressure Position Semi-Fowlers Semi-Fowlers Semi-Fowlers Blood Pressure Location Left Arm Left Arm Right Arm Baseline BP 126/72 126/72 Pulse Ox 98 95 98 Oxygen Delivery Method Room Air Room Air Room Air Weight Weight: 91.9 kg Body Mass Index (BMI) 25.9 Physical Exam Const alert, oriented x3, no apparent distress and average body habitus General Appearance: cooperative, well kempt and well developed Orientation / Consciousness: awake, oriented to person, oriented to place and oriented to time HEENT normocephalic, head/scalp atraumatic and moist oral mucous membranes Eyes PERRL, EOMs intact bilaterally and conjunctivae normal Neck supple, no JVD, thyroid normal and no carotid bruits General: trachea midline Resp normal respiratory effort, no retractions, no use of accessory muscles and clear to auscultation bilaterally Auscultation: Negative for rales, rhonchi or wheezes Cardio S1 normal heart sound, S2 normal heart sound, no murmurs, no rub and no gallops Cardio Narrative: Heart rate and rhythm is irregular GI normal to inspection, nondistended, normoactive bowel sounds, soft to palpation, non-tender and non-distended Extremity Extremity Narrative: Patient has +2 mm pitting edema in the lower legs bilaterally Skin no rashes or lesions noted General Skin Exam: no breakdown Neuro oriented x3, CN's II-XII intact bilaterally, moves all extremities, no focal motor deficits and no sensory deficits noted Sensorium / Orientation: awake and alert Speech: speech normal Psych affect normal Results Lab / Micro Data 04/09/25 13:05 04/09/25 13:05 Labs: Laboratory Results - last 24 hr 04/09/25 13:03: Lactic Acid 1.4, Troponin T High Sens 54 H* 04/09/25 13:05: WBC 13.4 H, RBC 4.17 L, Hgb 12.8 L, Hct 40.3, MCV 96.6 H, MCH 30.7, MCHC 31.8 L, RDW Std Deviation 46.7 H, RDW Coeff of Eduardo 13.2, Plt Count 208, MPV 8.5, Immature Gran % (Auto) 0.500, Neut % (Auto) 76.2 H, Lymph % (Auto) 10.4 L, Mcminn % (Auto) 10.0, Eos % (Auto) 1.9, Baso % (Auto) 1.0, Absolute Neuts (auto) 10.2 H, Absolute Lymphs (auto) 1.39, Nucleated RBC % 0, Sodium 139, Potassium 4.7, Chloride 105, Carbon Dioxide 23.2, Anion Gap 10, BUN 39 H, C reatinine 1.88 H, Estim Creat Clear Calc 33.40 L, Est GFR (MDRD) Non-Af 35 L, B UN/Creatinine Ratio 20.5 H, Glucose 73, Calcium 9.6, NT pro BNP II 2299 H 04/09/25 15:00: Troponin T Hi Sens 2 Hr 51 H Imaging Radiology Impression Chest X-Ray 04/09/25 14:50 IMPRESSION: No acute abnormality is seen. Reading Location: [facility] Assessment & Plan Assessment/Plan (1) Urethral stricture: PLAN: Plan 1. Obstructive uropathy secondary to urethral strictures-patient will be admitted to [facility], he will undergo placement of a Reyna catheter and surgery, I have elected to place the patient on Rocephin on a daily basis due to the instrumentation today. #2 elevated creatinine-I do not have record of a recent creatinine on the patient, BMP will be monitored #3 paroxysmal atrial fibrillation-patient appears to be in atrial fibrillation controlled ventricular response of 84, patient is on Xarelto and metoprolol #4 elevated troponin-I feel this is from atrial fibrillation, I do not feel the patient has demand ischemia or type II CA. #5 elevated beta natruretic peptide-patient does not appear to be in congestive heart failure at this time, he is on room air and his chest x-ray shows no evidence of congestive heart failure. I feel at this elevated beta natruretic peptide is from his A-fib. #6 generalized weakness-patient will be seen by PT and OT, it may be necessary for the patient to go to an extended care facility for short-term skilled services. #7 type 2 diabetes-patient's blood sugars will be monitored, sliding scale insulin will be administered as indicated Total clinical time spent by myself addressing the patient's medical issues, reviewing all of his data, and collaborating with patient's care team: 75- minutes Charges/Coding Visit Charges Inpatient E&M: 68393 Init Hosp L3
[2025-04-09 19:16] LABS: Troponin T High Sens 4 HR 48 ng/L (<=22)
[2025-04-09] MEDS: 0.9% Normal Saline (1000mL) 1,000 ML 75 ML IV (20:05)
[2025-04-09] MEDS: Furosemide 20 MG/2 ML VIAL IV (20:08)
[2025-04-09] MEDS: Metoprolol(XL)Succ 25 MG Tablet PO (23:42)
[2025-04-10] VITALS (8 sets, daily range): BP systolic 101–118; BP diastolic 61–79; PULSE 83–98; RESP 16–18; TEMP 36.6–37.1; O2SAT 87–99; BMI 25.7
--- NOTE | 2025-04-10 01:25 | POSTOPAN2_ITS ---
Anesthesia Postop Eval I Sum Postop Eval Completion status Anesthesia document: Postop Eval 1 completed: Yes Anesthesia Postop Eval I Summary Anesthesia Postop Eval I Summary: Anesthesia Postop Eval I: Assessment Summary Airway patent Yes 04/09/25 18:11 PERCUSSION [email or web address] Spontaneous unlabored Yes 04/09/25 18:11 PERCUSSION [email or web address] respirations Mental status Asleep 04/09/25 18:11 PERCUSSION [email or web address] nausea No 04/09/25 18:11 PERCUSSION [email or web address].SHOF Vomiting No 04/09/25 18:11 PERCUSSION [email or web address] Anesthesia Postop Eval I: Fluid Summary Crystalloid volume administer 400 04/09/25 18:11 PERCUSSION [email or web address].SHOF (ml) Colloids volume administered ( ml) Blood Product volume administered (ml) Total IV fluid infused 400 04/09/25 18:11 PERCUSSION [email or web address] Anesthesia Postop Eval I: Summary Notes Anesthesia Complication No 04/09/25 18:11 PERCUSSION [email or web address] Anesthesia Complication Comment: Post-operative progress note Anesthesia: Postop Eval II Evaluation Mental status: Awake and Calm Pain Level: 1 nausea: No Vomiting: No Complications Anesthesia Complication: No
--- NOTE | 2025-04-10 01:25 | PCM.POSTANE2 ---
Anesthesia Postop Eval I Sum Postop Eval Completion status Anesthesia document: Postop Eval 1 completed: Yes Anesthesia Postop Eval I Summary Anesthesia Postop Eval I Summary: Anesthesia Postop Eval I: Assessment Summary Airway patent Yes 04/09/25 18:11 PEST CONTROL [email or web address] Spontaneous unlabored Yes 04/09/25 18:11 PEST CONTROL PILOT.SHOF respirations Mental status Asleep 04/09/25 18:11 PEST CONTROL [email or web address] nausea No 04/09/25 18:11 PEST CONTROL PILOT.SHOF Vomiting No 04/09/25 18:11 PEST CONTROL PILOT.SHOF Anesthesia Postop Eval I: Fluid Summary Crystalloid volume administer 400 04/09/25 18:11 PEST CONTROL PILOT.SHOF (ml) Colloids volume administered ( ml) Blood Product volume administered (ml) Total IV fluid infused 400 04/09/25 18:11 PEST CONTROL PILOT.SHOF Anesthesia Postop Eval I: Summary Notes Anesthesia Complication No 04/09/25 18:11 PEST CONTROL [email or web address] Anesthesia Complication Comment: Post-operative progress note Anesthesia: Postop Eval II Evaluation Mental status: Awake and Calm Pain Level: 1 nausea: No Vomiting: No Complications Anesthesia Complication: No
[2025-04-10 03:17] LABS: Mucous, Urine 0 SEEN /hpf (<or=2+); Red Blood Cells-Urine 0 SEEN /hpf (0-5); Squamous Epithelial Cells - UA 0 SEEN /hpf (0-5)
[2025-04-10 03:43] LABS: Glucose, Dipstick Normal (Normal); Ketone-Dipstick Negative (Negative); Leukocyte Esterase-Dipstick 500 /ul (Negative); Nitrite-Dipstick Negative (Negative); Occult Blood-Urine 250 /ul (Negative); Protein-Dipstick 100 mg/dl (Negative); Specific Gravity, Urine 1.015 (1.002-1.030); Urine Bilirubin Dipstick Negative (Negative)
[2025-04-10 03:51] LABS: Color, Urine SEE COMMENT BELOW (Yellow)
[2025-04-10 04:27] LABS: Hematocrit 36.7 % (40-54); Hemoglobin 11.8 g/dL (13.0-16.5); Immature Granulocytes Count 0.070 X10^3/uL (0.0-0.0); Mean Corp Hgb Conc 32.2 g/dL (32-36); Mean Corpuscular Volume 94.8 fL (80-94); Mean Platelet Vol. 8.9 fl (6.2-12.0); NRBC Flagged by Analyzer 0 % (0-5); Platelet Count 210 K/mm3 (150-450); RBC Distribution Width CV 13.2 % (11.6-14.6); RBC Distribution Width SD 45.3 fl (35.1-43.9); Red Blood Count 3.87 M/mm3 (4.6-6.2); White Blood Count 12.0 K/mm3 (4.4-11.0)
[2025-04-10 05:06] LABS: Anion Gap 14 (5-15); BUN 35 mg/dL (4-19); BUN/Creat Ratio 20.7 RATIO (10-20); Calcium,Total 9.0 mg/dL (7.6-11.0); Carbon Dioxide 20.8 mmol/L (21.0-32.0); Chloride 107 mmol/L (98-108); Estimated Creatinine Clearance 37.60 ml/min (50-250); Glucose 85 mg/dL (70-99); Potassium 4.4 mmol/L (3.3-5.1)
--- OUTSIDE RECORDS SUMMARY | 2025-04-10 07:19 | XMS RPT_ITS | CCD ---
Author Organization [facility] Care Team Providers Care Information Director Name Role Phone Hernan BARRERA, Cedric Mancilla Primary Care Provider Hernan BARRERA, Cedric Mancilla Primary Care Provider Muna PHYSICAL THERAPY ATTENDANT.JAE, Ariana Burkett Unavailable Derick RN, An Burkett Unavailable Unavailabl e Hernan BARRERA, Dr. Steele Primary Care Provider Hernan BARRERA, Dr. Steele Referring Provider [phone] Dr. Roly Prakash MD Attending Provider Olinda [...] complication, without long-term current use of insulin ([facility]) Glucose Meter Kit (choose brand covered [...] AGEN MEMORY SUPPLEMENT Active polyethylene glycol 3350 96995 mg powder for oral solution (20 sources) [...] one(1) tablet t wo(2) times daily. Saw Rosanky (3 sources) Start: 0 take 1 capsule by mouth twice daily at mealtime Saw Rosanky 450 mg capsule Active 450 mg PO TWICE A DAY October 12, 2019 12:00am give with food (meal/snack) Start: 10-12-2019 take 450 mg by mouth twice daily at mealtime Saw Rosanky Active 450 MG PO TWICE A DAY [...] weeks then 1 tablet po qday C,E,Copper,Zinc 53-Eugdg9b-Fsx (Ocuvite Adult 50 Plus) 250-5-1 mg capsule (2 sources) Start: 10-12-2019 End: 01-10-2022 C,E,Copper,Zinc 58-Itkiy7s-Luv (Ocuvite Adult 50 Plus) 250-5-1 mg capsule Discontinued 1 NMA PO DAILY October 12, 2019 12:00am January 10, 2022 2:50pm C,E,Zinc,Copper 65-Pwauz6y-Fqe (Ocuvite Adult 50 Plus) 250-5-1 mg capsule (1 source) Start: 10-12-2019 End: 01-10-2022 C,E,Zinc,Copper 18-Ycbiv1h-Bkw (Ocuvite Adult 50 Plus) 250-5-1 mg capsule [...] Comment on above: Take 1 capsule by [facility] twice daily as needed for [...] Apply sparingly. Avoid face/skin fold. vitamin a 14429 unt oral tablet (3 sources) Vitamin A Start: 10-12-2019 End: 09-26-2020 Vitamin A Palmitate 10,000 unit tablet Discontinued 74836 U PO DAILY October 12, 2019 12:00am [...] sources) Long-term current use of anticoagulant; Translations: [continuous churn buttermaker (current) use of anticoagulants] Onset: 02-09-2020 02-09-2020 Episodic Other aftercare (1 source) assisted (current) use of anticoagulants; Translations: [Chronic anticoagulation] [...] pulmonary vein isolation by Dr. Ortega @ [place] 01/12/20 Residual codes; unclassified (1 source) Other amnesia; Translations: [Memory disturbance] Onset: 10-26-2021 Episodic Results Test Name Value Interpretation Reference Range Facility Bacteria Ur Culton 5 Bacteria identified Cx Nom (U) ORGANISM ID: 1 <10,000 CFU/ml Mixed microbiota Insignificant colony count. No further workup. Normal [facility] Comment on above: Performed By: #### 6 30-4 ####[facility] LAB[facility] [id number] [address] [place] CNOVon 03-16-2025 CNOV Office Visit (UROLWS ) CALLIE RASCON ([id number]) 1940 M Date Time Provider Department 03/16/25 1:30 PM CARLOS CANAS UROLWS During your visit today, we recorded the following information about you: Pulse Blood pressure Weight 82/minute 117/80 95.7 kg Socorro Baez MA 03/16/2025 3:22 PM Signed Patient's post-void bladder scan: 43 ML. CAL Diamond Brandon, PA-C 03/16/2025 3:22 PM Signed [facility] PATIENT CLINIC NOTE (M) Note was generated by [employer] and edited as appropriate SERVICE DATE: [...] ablation. - Regular annual check-ups with a trial examiner. > We discussed the common causes of [...] WHEN PFRMD (more content not included)... Normal [facility] CNOVon 03-08-2025 CNOV Office Visit (INTMWS ) CALLIE RASCON ([id number]) 1940 M Date Time Provider Department 03/08/25 8:00 AM ARIANA CATHERINE INTMWS During your visit today, we recorded the following information about you: Pulse Respiration Blood pressure Weight 91/minute 14/minute 122/78 95.8 kg Height 1.82 m Ariana Catherine APRN.MOTH PROOFER 03/08/2025 8:56 AM Signed Callie Rascon is [...] PCP - General (Internal Medicine) Ariana Catherine, PHYSICAL THERAPY ATTENDANT.MOTH PROOFER as Para Professional (Internal Medicine) Carlos ROCK-urology [facility] Rock Oakes OD ophthalmology Medical/Family [...] palpitations, Shortness of Breath, PND, orthopnea - Geomagnetist with [facility], annual visit in October Type [...] labs Assessment/Pl (more content not included)... Normal [facility] ALBUMIN/CREATININE RATIO, UR INEon 03-01-2025 Albumin DL <= 20 mg/L (U) [Mass/Vol] 486.8 mg/L Normal [facility] Comment on above: Order Comment: Alexander uriostegui Type: BLOOD SPECIMEN Ordering Facility: [facility] Address: [address] [place] [address] Performed By: #### 2 4321-2 #### [facility] CLIA [id number] [address] [place] [address] [place] Albumin/Creatinine (U) [Mass ratio] 418 mg/g High <30 [facility] Comment on above: Order Comment: Alexander uriostegui Type: BLOOD SPECIMEN Ordering Facility: [facility] Address: [address] [place] [address] Result Comment: Adul t Male and Female Nephrotic Criteria: <30 mg/g is considered normal to mildly increased 30-300 mg/g is considered moderately increased >300 mg/g is considered severely increased KDIGO. (2013). KDIGO 2012 Clinical Practice Guideline for the Evaluation and Management of Chronic Kidney Disease. Official Journal of the International Society of Nephrology, 3(1), 1-150. Performed By: #### 2 4321-2 #### [facility] CLIA [id number] [address] [place] [address] [place] Creatinine (U) [Mass/Vol] 116.4 mg/dL Normal 20.0-300.0 [facility] Comment on above: Order Comment: Speci men Type: BLOOD SPECIMEN Ordering Facility: [facility] Address: [address] [place] [address] Performed By: #### 2 4321-2 #### [facility] CLIA [id number] [address] [place] [address] [place] Basic metabolic 2000 panelon 03-01-2025 Anion gap [Moles/Vol] 14 mmol/L Normal 8-15 [facility] Comment on above: Order Comment: Speci men Type: BLOOD SPECIMEN Ordering Facility: [facility] Address: [address] [place] [address] Performed By: #### 2 4321-2 #### [facility] CLIA [id number] [address] [place] [address] [place] Calcium [Mass/Vol] 9.6 mg/dL Normal 8.5-10.2 [facility] Comment on above: Order Comment: Speci men Type: BLOOD SPECIMEN Ordering Facility: [facility] Address: [address] [place] [address] Performed By: #### 2 4321-2 #### [facility] CLIA [id number] [address] [place] [address] [place] Chloride [Moles/Vol] 103 mmol/L Normal 98-107 [facility] Comment on above: Order Comment: Speci men Type: BLOOD SPECIMEN Ordering Facility: [facility] Address: [address] [place] [address] Performed By: #### 2 4321-2 #### [facility] CLIA [id number] [address] [place] [address] [place] CO2 [Moles/Vol] 22 mmol/L Normal 22-30 [facility] Comment on above: Order Comment: Speci men Type: BLOOD SPECIMEN Ordering Facility: [facility] Address: [address] [place] [address] Performed By: #### 2 4321-2 #### [facility] CLIA [id number] [address] [place] [address] [place] Creatinine [Mass/Vol] 1.03 mg/dL Normal 0.73-1.22 [facility] Comment on above: Order Comment: Alexander uriostegui Type: BLOOD SPECIMEN Ordering Facility: [facility] Address: [address] [place] [address] Performed By: #### 2 4321-2 #### [facility] CLIA [id number] [address] [place] [address] [place] eGFRcr SerPlBld CKD-EPI 2020 71 mL/min/1.73m??? Normal >=60 [facility] Comment on above: Order Comment: Alexander uriostegui Type: BLOOD SPECIMEN Ordering Facility: [facility] Address: [address] [place] [address] Result Comment: Joelle mated Glomerular Filtration Rate [...] Performed By: #### 2 4321-2 #### [facility] CLIA [id number] [address] [place] [address] [place] Glucose [Mass/Vol] 111 mg/dL High 74-99 [facility] Comment on above: Order Comment: Alexander uriostegui Type: BLOOD SPECIMEN Ordering Facility: [facility] Address: [address] [place] [address] Result Comment: The [place] Diabetes Association (ADA) provides guidance for cutoff [...] Standards of Medical Care in Diabetes 2016, [place] Diabetes Association. Diabetes Care. 2016.39(Suppl 1). Performed By: #### 2 4321-2 #### [facility] CLIA [id number] [address] [place] [address] [place] Potassium [Moles/Vol] 4.6 mmol/L Normal 3.7-5.1 [facility] Comment on above: Order Comment: Krystali men Type: BLOOD SPECIMEN Ordering Facility: [facility] Address: [address] [place] [address] Performed By: #### 2 4321-2 #### [facility] CLIA [id number] [address] [place] [address] [place] Sodium [Moles/Vol] 139 mmol/L Normal 136-144 [facility] Comment on above: Order Comment: Krystali moody Type: BLOOD SPECIMEN Ordering Facility: [facility] Address: [address] [place] [address] Performed By: #### 2 4321-2 #### [facility] CLIA [id number] [address] [place] [address] [place] Urea nitrogen [Mass/Vol] 22 mg/dL Normal 9-24 [facility] Comment on above: Order Comment: Speci men Type: BLOOD SPECIMEN Ordering Facility: [facility] Address: [address] [place] [address] Performed By: #### 2 4321-2 #### [facility] CLIA [id number] [address] [place] [address] [place] HbA1c (Bld)on 03-01-2025 Average glucose Estimated from glycated hemoglobin (Bld) [Mass/Vol] 134 mg/dL Normal [facility] Comment on above: Order Comment: Speci men Type: BLOOD SPECIMEN Ordering Facility: [facility] Address: [address] [place] [address] Result Comment: eAG: (Estimated average glucose) is a calculated value from HgbA1c and is inside outside sales representative of the average blood glucose level in the last 2-3 month period. Performed By: #### 2 4321-2 #### [facility] CLIA [id number] [address] [place] [address] [place] HbA1c (Bld) [Mass fraction] 6.3 % High 4.3-5.6 [facility] Comment on above: Order Comment: Speci men Type: BLOOD SPECIMEN Ordering Facility: [facility] Address: [address] [place] [address] Result Comment: [place] Diabetes Association guidelines indicate that patients with HgbA1c in the range 5.7-6.4% are at increased risk for development of diabetes, and intervention by lifestyle modification may be beneficial. HgbA1c greater or equal to 6.5% is considered diagnostic of diabetes. Performed By: #### 2 4321-2 #### [facility] CLIA [id number] [address] [place] [address] [place] [facility] Prostate specific Ag [Mass/Vol] 126.10 ng/mL High <2.60 [facility] Comment on above: Order Comment: Speci men Type: BLOOD SPECIMEN Ordering Facility: [facility] Address: [address] [place] [address] Result Comment: Jaspal wayne PSA test methodology [...] Performed By: #### 2 4321-2 #### [facility] CLIA [id number] [address] [place] [address] [place] Urinalysis complete panel (U )on 03-01-2025 BACTERIA UL 972.4 uL High Negative [facility] Comment on above: Order Comment: Speci men Type: BLOOD SPECIMEN Ordering Facility: [facility] Address: [address] [place] [address] Performed By: #### 2 4321-2 #### [facility] CLIA [id number] [address] [place] [address] [place] Bilirubin Ql (U) Negative Normal Negative [facility] Comment on above: Order Comment: Speci men Type: BLOOD SPECIMEN Ordering Facility: [facility] Address: [address] [place] [address] Performed By: #### 2 4321-2 #### [facility] CLIA [id number] [address] [place] [address] [place] Clarity (Unsp spec) Cloudy Abnormal Clear [facility] Comment on above: Order Comment: Speci men Type: BLOOD SPECIMEN Ordering Facility: [facility] Address: [address] [place] [address] Performed By: #### 2 4321-2 #### [facility] CLIA [id number] [address] [place] [address] [place] Color (U) Yellow Normal Yellow [facility] Comment on above: Order Comment: Speci men Type: BLOOD SPECIMEN Ordering Facility: [facility] Address: [address] [place] [address] Performed By: #### 2 4321-2 #### [facility] CLIA [id number] [address] [place] [address] Epithelial cells LM.HPF (Urine sed) [#/Area] None Seen Normal [facility] Comment on above: Order Comment: Speci men Type: BLOOD SPECIMEN Ordering Facility: [facility] Address: [address] [place] [address] Performed By: #### 2 4321-2 #### [facility] CLIA [id number] [address] [place] [address] OF [facility] Glucose Test strip (U) [Mass/Vol] Negative Normal Negative [facility] Comment on above: Order Comment: Speci men Type: BLOOD SPECIMEN Ordering Facility: [facility] Address: [address] [place] [address] Performed By: #### 2 4321-2 #### [facility] CLIA [id number] [address] [place] [address] [place] Hemoglobin Ql (U) 3+ Abnormal Negative [facility] Comment on above: Order Comment: Speci men Type: BLOOD SPECIMEN Ordering Facility: [facility] Address: [address] [place] [address] Performed By: #### 2 4321-2 #### [facility] CLIA [id number] [address] [place], [place] [address] [place] Hyaline casts (Urine sed) [#/Area] 0 /[LPF] Normal 0 /LPF [facility] Comment on above: Order Comment: Speci men Type: BLOOD SPECIMEN Ordering Facility: [facility] Address: [address] [place] [address] Performed By: #### 2 4321-2 #### [facility] CLIA [id number] [address] [id number] [address] [place] Ketones Ql (U) Negative Normal Negative [facility] Comment on above: Order Comment: Speci men Type: BLOOD SPECIMEN Ordering Facility: [facility] Address: [address] [place] [address] Performed By: #### 2 4321-2 #### [facility] CLIA [id number] [address] [place] [address] [place] Leukocyte esterase Test strip Ql (U) 3+ Abnormal Negative [facility] Comment on above: Order Comment: Speci men Type: BLOOD SPECIMEN Ordering Facility: [facility] Address: [address] [place] [address] Performed By: #### 2 4321-2 #### [facility] CLIA [id number] [address] [place] [address] [place] Nitrite Ql (U) Negative Normal Negative [facility] Comment on above: Order Comment: Speci men Type: BLOOD SPECIMEN Ordering Facility: [facility] Address: [address] [place] [address] Performed By: #### 2 4321-2 #### [facility] CLIA [id number] [address] [place] [address] [place] pH (U) 7.0 [pH] Normal 5.0-8.0 [facility] Comment on above: Order Comment: Speci men Type: BLOOD SPECIMEN Ordering Facility: [facility] Address: [address] [place] [address] Performed By: #### 2 4321-2 #### [facility] CLIA [id number] [address] [place] [address] [place] Protein (U) [Mass/Vol] 2+ Abnormal Negative [facility] Comment on above: Order Comment: Speci men Type: BLOOD SPECIMEN Ordering Facility: [facility] Address: [address] [place] [address] Performed By: #### 2 4321-2 #### [facility] CLIA [id number] [address] [place] [address] [place] RBC LM.HPF (Urine sed) [#/Area] /[HPF] Abnormal 0-2 /HPF [facility] Comment on above: Order Comment: Speci men Type: BLOOD SPECIMEN Ordering Facility: [facility] Address: [address] [place] [address] Performed By: #### 2 4321-2 #### [facility] CLIA [id number] [address] [place] [address] [place] Specific gravity (U) [Rel density] 1.020 Normal 1.005-1.030 [facility] Comment on above: Order Comment: Speci men Type: BLOOD SPECIMEN Ordering Facility: [facility] Address: [address] [place] [address] Performed By: #### 2 4321-2 #### [facility] CLIA [id number] [address] [place] [address] [place] Urobilinogen Ql (U) 1.0 EU/dL Normal 0.2-1.0 EU/dL [facility] Comment on above: Order Comment: Speci men Type: BLOOD SPECIMEN Ordering Facility: [facility] Address: [address] [place] [address] Performed By: #### 2 4321-2 #### [facility] CLIA [id number] [address] [place] [address] [place] WBC LM.HPF (Urine sed) [#/Area] /[HPF] Abnormal 0-5 /HPF [facility] Comment on above: Order Comment: Speci men Type: BLOOD SPECIMEN Ordering Facility: [facility] Address: [address] [place] [address] Performed By: #### 2 4321-2 #### [facility] CLIA [id number] [address] [place] [address] [place] CNPKhalida 01-08-2025 CNPN Telephone (INTMWS) CALILE RASCON ([id number]) 1940 M Date Time Provider Department 01/08/25 [...] review and advise, RENUKA Seymour Naz M, APRN.MOTH PROOFER 01/08/2025 12:36 PM Signed Consult order placed Ariana Catherine APRN.MOTH PROOFER Allergies As of Date: 01/08/2025 (No Known Allergies) Date Reviewed: 11/30/2024 Reviewed by: Ariana Catherine APRN.MOTH PROOFER - Fully Assessed Reason for Visit: Patient Question [1477] Primary Visit Diagnosis:Benign localized prostatic hyperplasia with lower urinary tract symptoms (LUTS) [N40.1] Order(s):CONSULT TO UROLOGY [9041] Order #: [id number]: 1 FUTURE Prescriptions as of 01/09/2025 - [...] Encounter Status:Closed by CHELSEY CALDWELL on 01/09/25 [facility] Serg 12-30-2024 CNPN Telephone (OBGYWM) LINDYCALLIE VASQUEZ ([id number]) 1940 M Date Time Provider Department 12/30/24 CEDRIC BECERRA OBAMENA During your visit today, we recorded the following information about you: Leslie Pelayo 12/30/2024 4:02 PM Signed Patient requesting xray disc of his left foot second toe. He got the xray done within the past year. Please advise thank you! Leslie. Kanchan Carter, PSS 12/30/2024 4:14 PM Signed CD READY FOR DONOR FLOOR TECHNICIAN AT [facility] Pt knows. Allergies As of Date: 12/30/2024 (No Known Allergies) Date Reviewed: 11/30/2024 Reviewed by: Ariana Catherine, PHYSICAL THERAPY ATTENDANT.MOTH PROOFER - Fully Assessed Reason for Visit: Results [...] Status:Closed by CHELSEY CALDWELL on 01/08/25 [facility] (INTMWS ) CALLIE RASCON ([id number]) 1940 M Date Time Provider Department 11/30/24 9:40 AM ARIANA CATHERINE INTMWS During your visit today, we recorded the following information about you: Pulse Blood pressure Weight 93/minute 118/62 92.2 kg Ariana Catherine, KRISTIN.MOTH PROOFER 11/30/2024 9:27 AM Signed - Continue taking tamsulosin (Flomax) once daily at bedtime; prescription has been sent to your [facility] mail-order pharmacy. - Continue taking glyburide once daily; prescription has been sent to your [facility] mail-order pharmacy. - Check your blood sugar [...] low blood sugar (shakiness, sweating). Ariana Catherine, PHYSICAL THERAPY ATTENDANT.MOTH PROOFER 11/30/2024 9:43 AM Signed CC: Patient presents with: Recheck HPI Recording using [employer] software for draft documentation of the visit was discussed with the patient/authorized inside outside sales representative; all questions welcomed and answered. Patient/authorized inside outside sales representative agreed to proceed Callie Rascon is an 84-year-old male with a history of diabetes and BPH, presenting for follow-up on diabetes management and urinary frequency. Diabetes: - Diagnosed during last visit on 10/23/24; A1c was 6.8% on 09/24. - Started on glyburide; Callie is adherent to medication regimen. - Referred to in flight crew member. - Monitoring blood glucose levels at home; [...] [facility] TQ 10/29/2006 CYSTOSCOPY 08/24/2024 cystogram. [place], [place] PULMONARY VEIN ISOLATION 01/12/2020 EPS, RF [...] status: Never (more content not included)... [facility] Nurse Visit (ENDIMT) CALLIE RASCON ([id number]) 1940 M Date Time Provider Department 11/03/24 2:00 PM ABBEY CARDENAS During your visit today, we recorded the following information about you: Abbey Cardenas RN 11/03/2024 2:28 PM Signed DIABETES CARE AND EDUCATION VISIT Location: [place] Type of visit: In person individual PATIENT'S [...] Date Reviewed: 10/23/2024 Reviewed by: Ariana Catherine, PHYSICAL THERAPY ATTENDANT.MOTH PROOFER - Fully Assessed Reason for Visit: Non-insulin [...] Status:Closed by ABBEY CARDENAS on 11/03/24 Normal [facility] Cardiology Visit Reporton Cardiology Visit Report [facility] [address] [place] [address]. [address] [place], [place] [address] OFFICE VISIT Date of Service: 10/29/24 MR#: [id number] Acct: [id number] Name: CALLIE RASCON Rep #: [id number] : 1940 Provider: Dr. Roly solares MD Age/Sex: 83/M Location: [facility] Status: Signed HPI HPI History of Present Illness Details: Patient is 83-year-old white male is very pleasant comes in with his today for monitor of his cardiovascular status. The patient carries a history of paroxysmal atrial fibs flutter and status post ablation at [facility] in December 2019. The patient is [...] and hyperlipidemia which is managed through the [facility] [facility] and he is tolerating his statin therapy. [...] report Intake Visit Reasons: 1 Y FU Hand Decorator Required: No Accompanied by: Is patient in [...] the past year?: No PFSH Medical History continuous churn buttermaker current use of anticoagulant Cardiomyopathy History of [...] 10,000 -<50,000 CFU/ml Normal urogenital sandy Normal [facility] Comment on above: Performed By: #### 6 30-4 ####[facility]IA [id number] [address] [facility] CNOVon 10-23-2024 CNOV Office Visit (INTMWS ) CALLIE RASCON ([id number]) 1940 M Date Time Provider Department 10/23/24 10:40 AM ARIANA CATHERINE INTMWS During your visit today, we recorded the following information about you: Pulse Respiration Blood pressure Weight 66/minute 14/minute 116/68 92.6 kg Ariana Catherine, PHYSICAL THERAPY ATTENDANT.MOTH PROOFER 10/23/2024 11:29 AM Signed We discussed your [...] - I have referred you to a in flight crew member to help you with diet and other [...] worsen, please contact our office. Ariana Catherine, KRISTIN.MOTH PROOFER 10/23/2024 11:55 AM Signed CC: Patient presents with: Urinary Frequency: X 4 weeks HPI Recording using [employer] software for draft documentation of the visit was discussed with the patient/authorized inside outside sales representative; all questions welcomed and answered. Patient/authorized inside outside sales representative agreed to proceed Callie is [...] Procedure La (more content not included)... Normal [facility] GLUCOSE, BLOOD (POC)on 10-23 Glucose [Mass/Vol] 385 mg/dL Abnormal 74 - 99 mg/dL [facility] Comment on above: Location:[address], [place], [address] The Accu-Chek Inform II glucose meter has [...] Interpretation and review of laboratory results Abnormal [facility] UA DIP, URINE (POC)on 2024 BILIRUBIN UA (POCT) Negative Negative [facility] CLARITY UA (POCT) Clear [facility] COLOR UA (POCT) Yellow [facility] GLUCOSE UA (POCT) >=1000 Abnormal Negative mg/dL [facility] Hemoglobin Ql (U) Small Abnormal Negative [facility] Interpretation and review of laboratory results Abnormal [facility] KETONE UA (POCT) Trace Negative mg/dL [facility] LEUKOCYTES UA (POCT) Large Abnormal Negative [facility] NITRITE UA (POCT) Negative Negative [facility] PH UA (POCT) 6 4.5 - 8.0 [facility] Protein Ql (U) 100 mg/dL Abnormal Negative [facility] SPECIFIC GRAVITY UA (POCT) 1.025 1.005 - 1.030 [facility] UROBILINOGEN UA (POCT) 1 Normal E.U./dL [facility] Location:[address], [address] [place] [address] POINT OF CARE [facility] Urinalysis complete panel (U )on 10-23-2024 Bacteria LM.HPF (Urine sed) [#/Area] Negative Normal Negative [facility] Comment on above: Order Comment: Speci men Type: BLOOD SPECIMEN Ordering Facility: [facility] Address: [address] [place] [address] Performed By: #### 2 4321-2 #### [facility] CLIA [id number] [address] [place] [address] [place] Bilirubin Ql (U) Negative Normal Negative [facility] Comment on above: Order Comment: Speci men Type: BLOOD SPECIMEN Ordering Facility: [facility] Address: [address] [place] [address] Performed By: #### 2 4321-2 #### [facility] CLIA [id number] [address] [place] [address] [place] CALCIUM OXALATE CRYSTALS (UA) Few Abnormal None Seen [facility] Comment on above: Order Comment: Speci men Type: BLOOD SPECIMEN Ordering Facility: [facility] Address: [address] [place] [address] Performed By: #### 2 4321-2 #### [facility] CLIA [id number] [address] [place] Clarity (Unsp spec) Turbid Abnormal Clear [facility] Comment on above: Order Comment: Speci men Type: BLOOD SPECIMEN Ordering Facility: [facility] Address: [address] [place] [id number] Performed By: #### 2 4321-2 #### [facility] CLIA [id number] [facility] [place] [id number] [place] Color (U) Yellow Normal Yellow [facility] Comment on above: Order Comment: Speci men Type: BLOOD SPECIMEN Ordering Facility: [facility] Address: [address] [place] [address] Performed By: #### 2 4321-2 #### [facility] CLIA [id number] [address] [place] [address] [place] Epithelial cells LM.HPF (Urine sed) [#/Area] None Seen Normal [facility] Comment on above: Order Comment: Speci men Type: BLOOD SPECIMEN Ordering Facility: [facility] Address: [address] [place], [place] [address] Performed By: #### 2 4321-2 #### [facility] CLIA [id number] [address] [place], [place] [address] [place] Glucose Test strip (U) [Mass/Vol] Negative Normal Negative [facility] Comment on above: Order Comment: Speci men Type: BLOOD SPECIMEN Ordering Facility: [facility] Address: [address] [place] [place] [id number] Performed By: #### 2 4321-2 #### [facility] CLIA [id number] [address] [place], [place] [address] [place] Hemoglobin Ql (U) 1+ Abnormal Negative [facility] Comment on above: Order Comment: Speci men Type: BLOOD SPECIMEN Ordering Facility: [facility] Address: [address] [place], [place] [address] Performed By: #### 2 4321-2 #### [facility] CLIA [id number] [address] [place] [address] [place] Hyaline casts (Urine sed) [#/Area] 1-3 /LPF Abnormal 0 /LPF [facility] Comment on above: Order Comment: Speci men Type: BLOOD SPECIMEN Ordering Facility: [facility] Address: [address] [place] [address] Performed By: #### 2 4321-2 #### [facility] CLIA [id number] [address] [place] [address] [place] Ketones Ql (U) Trace Abnormal Negative [facility] Comment on above: Order Comment: Speci men Type: BLOOD SPECIMEN Ordering Facility: [facility] Address: [address] [place] [address] Performed By: #### 2 4321-2 #### [facility] CLIA [id number] [address] [place] [address] [place] Leukocyte esterase Test strip Ql (U) 2+ Abnormal Negative [facility] Comment on above: Order Comment: Speci men Type: BLOOD SPECIMEN Ordering Facility: [facility] Address: [address] [place] [address] Performed By: #### 2 4321-2 #### [facility] CLIA [id number] [address] [place] [address] [place] Nitrite Ql (U) Negative Normal Negative [facility] Comment on above: Order Comment: Speci men Type: BLOOD SPECIMEN Ordering Facility: [facility] Address: [address] [place] [address] Performed By: #### 2 4321-2 #### [facility] CLIA [id number] [address] [place], [place] [address] [place] pH (U) 5.5 [pH] Normal <8.5 [facility] Comment on above: Order Comment: Speci men Type: BLOOD SPECIMEN Ordering Facility: [facility] Address: [address] [place] [address] Performed By: #### 2 4321-2 #### [facility] CLIA [id number] [address] [place] [address] [place] Protein (U) [Mass/Vol] 2+ Abnormal Negative [facility] Comment on above: Order Comment: Speci men Type: BLOOD SPECIMEN Ordering Facility: [facility] Address: [address] [place] [address] Performed By: #### 2 4321-2 #### [facility] CLIA [id number] [address] [place] [address] [place] RBC LM.HPF (Urine sed) [#/Area] 6-10 /HPF Abnormal 0-2 /HPF [facility] Comment on above: Order Comment: Speci men Type: BLOOD SPECIMEN Ordering Facility: [facility] Address: [address] [place] [address] Performed By: #### 2 4321-2 #### [facility] CLIA [id number] [address] [place] [address] [place] Specific gravity (U) [Rel density] 1.027 Normal 1.005-1.030 [facility] Comment on above: Order Comment: Speci men Type: BLOOD SPECIMEN Ordering Facility: [facility] Address: [address] [place] [address] Performed By: #### 2 4321-2 #### [facility] CLIA [id number] [address] [place] [address] [place] Urobilinogen Ql (U) 1.0 EU/dL Normal 0.2-1.0 EU/dL [facility] Comment on above: Order Comment: Speci men Type: BLOOD SPECIMEN Ordering Facility: [facility] Address: [address] [place] [address] Performed By: #### 2 4321-2 #### [facility] CLIA [id number] [address] [place] [address] [place] WBC LM.HPF (Urine sed) [#/Area] /[HPF] Abnormal 0-5 /HPF [facility] Comment on above: Order Comment: Speci men Type: BLOOD SPECIMEN Ordering Facility: [facility] Address: [address] [place] [address] Performed By: #### 2 4321-2 #### [facility] CLIA [id number] [address] [place] [address] [place] Yeast.budding LM.HPF (Urine sed) [#/Area] Present Abnormal None Seen [facility] Comment on above: Order Comment: Speci men Type: BLOOD SPECIMEN Ordering Facility: [facility] Address: [address] [place] [address] Performed By: #### 2 4321-2 #### [facility] CLIA [id number] [address] [place] [address] [place] CBC panel Auto (Bld)on 09-25 Erythrocyte distribution width (RBC) [Ratio] 13.6 % Normal 11.5-15.0 [facility] Comment on above: Order Comment: Speci men Type: BLOOD SPECIMEN Ordering Facility: [facility] Address: [address] [place] [address] Performed By: #### 5 8410-2 #### [facility] CLIA [id number] [address] [place] [address] [place] Hematocrit (Bld) [Volume fraction] 49.8 % Normal 39.0-51.0 [facility] Comment on above: Order Comment: Speci men Type: BLOOD SPECIMEN Ordering Facility: [facility] Address: [address] [place] [address] Performed By: #### 5 8410-2 #### [facility] CLIA [id number] [address] [place] [address] [place] Hemoglobin (Bld) [Mass/Vol] 16.2 g/dL Normal 13.0-17.0 [facility] Comment on above: Order Comment: Speci men Type: BLOOD SPECIMEN Ordering Facility: [facility] Address: [address] [place] [address] Performed By: #### 5 8410-2 #### [facility] CLIA [id number] [address] [place] [address] [place] MCH (RBC) [Entitic mass] 31.4 pg Normal 26.0-34.0 [facility] Comment on above: Order Comment: Speci men Type: BLOOD SPECIMEN Ordering Facility: [facility] Address: [address] [place] [address] Performed By: #### 5 8410-2 #### [facility] CLIA [id number] [address] [place] [address] [place] MCHC (RBC) [Mass/Vol] 32.5 g/dL Normal 30.5-36.0 [facility] Comment on above: Order Comment: Speci men Type: BLOOD SPECIMEN Ordering Facility: [facility] Address: [address] [place] [address] Performed By: #### 5 8410-2 #### [facility] CLIA [id number] [address] [place] [address] [place] MCV (RBC) [Entitic vol] 96.5 fL Normal 80.0-100.0 [facility] Comment on above: Order Comment: Speci men Type: BLOOD SPECIMEN Ordering Facility: [facility] Address: [address] [place] [address] Performed By: #### 5 8410-2 #### [facility] CLIA [id number] [address] [place] [address] [place] Nucleated RBC (Bld) [#/Vol] 10*3/uL Normal <0.01 [facility] Comment on above: Order Comment: Speci men Type: BLOOD SPECIMEN Ordering Facility: [facility] Address: [address] [place] [address] Performed By: #### 5 8410-2 #### [facility] CLIA [id number] [address] [place] [address] [place] Platelet mean volume (Bld) [Entitic vol] 9.7 fL Normal 9.0-12.7 [facility] Comment on above: Order Comment: Speci men Type: BLOOD SPECIMEN Ordering Facility: [facility] Address: [address] [place] [address] Performed By: #### 5 8410-2 #### [facility] CLIA [id number] [address] [place] [address] [place] Platelets (Bld) [#/Vol] 255 10*3/uL Normal 150-400 [facility] Comment on above: Order Comment: Speci men Type: BLOOD SPECIMEN Ordering Facility: [facility] Address: [address] [place] [address] Performed By: #### 5 8410-2 #### [facility] CLIA [id number] [address] [place] [address] [place] RBC (Bld) [#/Vol] 5.16 10*6/uL Normal 4.20-6.00 [facility] Comment on above: Order Comment: Speci men Type: BLOOD SPECIMEN Ordering Facility: [facility] Address: [address] [place] [address] Performed By: #### 5 8410-2 #### [facility] CLIA [id number] [address] [place] [address] [place] WBC (Bld) [#/Vol] 8.22 10*3/uL Normal 3.70-11.00 [facility] Comment on above: Order Comment: Speci men Type: BLOOD SPECIMEN Ordering Facility: [facility] Address: [address] [place] [address] Performed By: #### 5 8410-2 #### [facility] CLIA [id number] [address] [place] [id number] [place] Comprehensive metabolic 2000 panelon 09-25-2024 Albumin [Mass/Vol] 4.5 g/dL Normal 3.9-4.9 [facility] Comment on above: Order Comment: Speci men Type: BLOOD SPECIMENOrdering Facility: [facility] Address: [address] [place] [address] Performed By: #### 2 4323-8, 86616-7 ####[facility] LABCLIA [id number] [address] [address] [place] ALP [Catalytic activity/Vol] 74 U/L Normal 38-113 [facility] Comment on above: Order Comment: Speci men Type: BLOOD SPECIMENOrdering Facility: [facility] Address: [address] [place] [address] Performed By: #### 2 4323-8, 30752-2 ####[facility]CLIA [id number] [address] [address] [place] ALT [Catalytic activity/Vol] 12 U/L Normal 10-54 [facility] Comment on above: Order Comment: Speci men Type: BLOOD SPECIMENOrdering Facility: [facility] Address: [address] [place] [address] Performed By: #### 2 4323-8, 76026-2 ####[facility]IA [id number] [address] [address] [place] Anion gap [Moles/Vol] 13 mmol/L Normal 8-15 [facility] Comment on above: Order Comment: Speci men Type: BLOOD SPECIMENOrdering Facility: [facility] Address: [address] [place], [place] [address] Performed By: #### 2 4323-8, 95046-0 ####[facility]CLIA [id number] [address] [address] [place] AST [Catalytic activity/Vol] 18 U/L Normal 14-40 [facility] Comment on above: Order Comment: Speci men Type: BLOOD SPECIMENOrdering Facility: [facility] Address: [address] [place] [address] Performed By: #### 2 4323-8, 51745-6 ####[facility]CLIA [id number] [place] [address] [place] Bilirubin [Mass/Vol] 1.2 mg/dL Normal 0.2-1.3 [facility] Comment on above: Order Comment: Speci men Type: BLOOD SPECIMENOrdering Facility: [facility] Address: [address] [place] [address] Performed By: #### 2 4323-8, 29191-9 ####[facility] LABCLIA [id number] [place] [address] [place] Calcium [Mass/Vol] 9.7 mg/dL Normal 8.5-10.2 [facility] Comment on above: Order Comment: Speci men Type: BLOOD SPECIMENOrdering Facility: [facility] Address: [address] [place] [address] Performed By: #### 2 4323-8, 14004-1 ####[facility] LABCLIA [id number] [place] [address] [place] Chloride [Moles/Vol] 100 mmol/L Normal 98-107 [facility] Comment on above: Order Comment: Speci men Type: BLOOD SPECIMENOrdering Facility: [facility] Address: [address] [place], [place] [address] Performed By: #### 2 4323-8, 56514-7 ####[facility] LABCLIA [id number] [place] [id number] [place] CO2 [Moles/Vol] 26 mmol/L Normal 22-30 [facility] Comment on above: Order Comment: Speci men Type: BLOOD SPECIMENOrdering Facility: [facility] Address: [address] [place] [address] Performed By: #### 2 4323-8, 78143-6 ####[facility] [id number] [place] [id number] [place] Creatinine [Mass/Vol] 1.01 mg/dL Normal 0.73-1.22 [facility] Comment on above: Order Comment: Speci men Type: BLOOD SPECIMENOrdering Facility: [facility] Address: [address] [place] [address] Performed By: #### 2 4323-8, 09786-5 ####[facility] [id number] [place] [address] [place] Creatinine and Glomerular filtration rate.predicted panel (S/P/Bld) 73 mL/min/1.73m??? Normal >=60 [facility] Comment on above: Order Comment: Krystali men Type: BLOOD SPECIMENOrdering Facility: [facility] Address: [address] [place] [address] Result Comment: Joelle mated Glomerular Filtration Rate [...] actual GFR. Performed By: #### 2 4323-8, 86168-7 ####[facility] [id number] [place] [id number] [place] Glucose [Mass/Vol] 137 mg/dL High 74-99 [facility] Comment on above: Order Comment: Speci men Type: BLOOD SPECIMENOrdering Facility: [facility] Address: [address] [place] [address] Result Comment: The [place] Diabetes Association (ADA) provides guidance for cutoff [...] Standards of Medical Care in Diabetes 2016, [place] Diabetes Association. Diabetes Care. 2016.39(Suppl 1). Performed By: #### 2 4323-8, 92265-3 ####[facility] LABCLIA [id number] [place] [address] [place] Potassium [Moles/Vol] 4.3 mmol/L Normal 3.7-5.1 [facility] Comment on above: Order Comment: Speci men Type: BLOOD SPECIMENOrdering Facility: [facility] Address: [address] [place] [address] Performed By: #### 2 4328, ####[facility] LABCLIA [id number] [place] [address] [place] Protein [Mass/Vol] 7.6 g/dL Normal 6.3-8.0 [facility] Comment on above: Order Comment: Speci men Type: BLOOD SPECIMENOrdering Facility: [facility] Address: [address] [place] [address] Performed By: #### 2 4328, ####[facility] LABCLIA [id number] [place] [id number] [place] Sodium [Moles/Vol] 139 mmol/L Normal 136-144 [facility] Comment on above: Order Comment: Speci men Type: BLOOD SPECIMENOrdering Facility: [facility] Address: [address] [place] [address] Performed By: #### 2 43238, ####[facility] LABCLIA [id number] [place] [id number] [place] Urea nitrogen [Mass/Vol] 23 mg/dL Normal 9-24 [facility] Comment on above: Order Comment: Alexander uriostegui Type: BLOOD SPECIMENOrdering Facility: [facility] Address: [address] [place] [address] Performed By: #### 2 4323-8, 13638-2 ####[facility] LABCLIA [id number] [place] [address] [place] HbA1c (Bld)on 09-25-2024 Average glucose Estimated from glycated hemoglobin (Bld) [Mass/Vol] 148 mg/dL Normal [facility] Comment on above: Order Comment: Alexander uriostegui Type: BLOOD SPECIMENOrdering Facility: [facility] Address: [address] [place] [address] Result Comment: eAG: (Estimated average glucose) is a calculated value from HgbA1c and is inside outside sales representative of the average blood glucose level in the last 2-3 month period. Performed By: #### 5 5454-3 ####[facility] LABCLIA [id number] [place] [address] [place] HbA1c (Bld) [Mass fraction] 6.8 % High 4.3-5.6 [facility] Comment on above: Order Comment: Alexander moody Type: BLOOD SPECIMENOrdering Facility: [facility] Address: [address] [place] [address] Result Comment: [place] Diabetes Association guidelines indicate that patients with HgbA1c in the range 5.7-6.4% are at increased risk for development of diabetes, and intervention by lifestyle modification may be beneficial. HgbA1c greater or equal to 6.5% is considered diagnostic of diabetes. Performed By: #### 5 5454-3 ####[facility] LABCLIA [id number] [place] [id number] [place] Lipid 1996 panelon 5 Cholesterol [Mass/Vol] 178 mg/dL Normal <200 [facility] Comment on above: Order Comment: Speci men Type: BLOOD SPECIMENOrdering Facility: [facility] Address: [address] [place] [address] Result Comment: <200 mg/dL, Desirable 200-239 mg/dL, Borderline high >239 mg/dL, High Performed By: #### 2 4323-8, 12144-8 ####[facility] LABCLIA [id number] [facility] [place] [address] [place] Cholesterol in HDL [Mass/Vol] 49 mg/dL Normal >39 [facility] Comment on above: Order Comment: Speci men Type: BLOOD SPECIMENOrdering Facility: [facility] Address: [address] [place] [address] Result Comment: 40-5 9 mg/dL, Acceptable >59 mg/dL, High: Negative risk factor for coronary heart disease <40 mg/dL, Low: Positive risk factor for coronary heart disease Performed By: #### 2 4323-8, 07625-4 ####[facility] LABCLIA [id number] [address] [place] [address] [place] Cholesterol in LDL [Mass/Vol] 84 mg/dL Normal <100 [facility] Comment on above: Order Comment: Speci men Type: BLOOD SPECIMENOrdering Facility: [facility] Address: [address] [place] [address] Result Comment: <100 mg/dL, Optimal 100-129 mg/dL, Near optimal/above optimal 130-159 mg/dL, Borderline high 160-189 mg/dL, High >189 mg/dL, Very high Secondary prevention optimal LDL Cholesterol levels are recommended to be <70 mg/dL LDL cholesterol is calculated using the Gipson-NIH equation. Performed By: #### 2 4323-8, 59490-5 ####[facility] LABCLIA [id number] [facility] [address] [place] [address] [facility] [place] Cholesterol in LDL/Cholesterol in HDL [Mass ratio] 1.71 {ratio} Normal <2.54 [facility] Comment on above: Order Comment: Speci men Type: BLOOD SPECIMENOrdering Facility: [facility] Address: [address] [place] [address] Result Comment: Jase sommer: 1. National Cholesterol Education Program ATP III Guideline At-A-Glance Quick Desk Reference: National Heart, Lung, and Blood [place]. National Institutes of Health. 2001: NIH Publication No. 01-3305. 2. An International Atherosclerosis Society position paper: global recommendations for the management of dyslipidemia: executive summary, Atherosclerosis. 2014: 232(2):410-413. Performed By: #### 2 4323-8, 20470-5 ####[facility] LABIA [id number] [place] [address] [place] Cholesterol in VLDL [Mass/Vol] 43 mg/dL High <30 [facility] Comment on above: Order Comment: Krystali men Type: BLOOD SPECIMENOrdering Facility: [facility] Address: [address] [place] [address] Performed By: #### 2 4323-8, 81308-6 ####[facility] LABIA [id number] [place] [address] [place] Cholesterol non HDL [Mass/Vol] 129 mg/dL Normal <130 [facility] Comment on above: Order Comment: Krystali moody Type: BLOOD SPECIMENOrdering Facility: [facility] Address: [address] [place] [address] Result Comment: <130 mg/dL, Optimal 130-159 mg/dL, Near optimal/above optimal 160-189 mg/dL, Borderline high 190-219 mg/dL, High >219 mg/dL, Very high Secondary prevention optimal non HDL Cholesterol levels are recommended to be <100 mg/dL Performed By: #### 2 4323-8, 99540-2 ####[facility] LABIA [id number] [place] [id number] [place] Cholesterol.total/ Cholesterol in HDL [Mass ratio] 3.63 {ratio} Normal <5.10 [facility] Comment on above: Order Comment: Krystali men Type: BLOOD SPECIMENOrdering Facility: [facility] Address: [address] [place] [id number] Performed By: #### 2 4323-8, 29778-0 ####[facility] LABCLIA [id number] [address] [address] [place] FASTING TIME 12 hrs Normal [facility] Comment on above: Order Comment: Speci men Type: BLOOD SPECIMENOrdering Facility: [facility] Address: [address] [place] [address] Performed By: #### 2 4323-8, 48548-9 ####[facility] LABCLIA [id number] [place] [id number] [place] Triglyceride [Mass/Vol] 273 mg/dL High <150 [facility] Comment on above: Order Comment: Speci men Type: BLOOD SPECIMENOrdering Facility: [facility] Address: [address] [place] [address] Result Comment: <150 mg/dL, Normal 150-199 mg/dL, Borderline high 200-499 mg/dL, High >499 mg/dL, Very high Performed By: #### 2 4323-8, 24964-5 ####[facility] LABIA [id number] [place] [id number] [place] CNOVon 09-24-2024 CNOV Office Visit (INTMWS ) CALLIE RASCON ([id number]) 1940 M Date Time Provider Department 09/24/24 8:40 AM CEDRIC BECERRA INTMWS During your visit today, we recorded the following information about you: Pulse Respiration Blood pressure Weight 88/minute 20/minute 116/60 94.3 kg Cedric Becerra MD 09/24/2024 9:02 AM Signed This note was created using [employer]. Subjective Callie Rascon is a 83 year [...] block. He was scheduled to see his trial examiner, Dr. Sangita Prakash in several weeks. Review [...] D3, (VITAMIN (more content not included)... Normal [facility] CNOVon 09-07-2024 CNOV Office Visit (INTMWS ) CALLIE RASCON ([id number]) 1940 M Date Time Provider Department 09/07/24 7:00 PM CEDRIC BECERRA INTMWS During your visit today, we recorded the following information about you: Temperature Pulse Blood pressure Weight 98.3 degrees 104/minute 124/74 93.5 kg Cedric Becerra MD 09/08/2024 8:10 AM Signed This note was created using [employer]. Subjective Patient presents with: Hospital F/U Recording using [employer] software for draft documentation of the visit was discussed with the patient/authorized inside outside sales representative; all questions welcomed and answered. Patient/authorized inside outside sales representative agreed to proceed Callie is a 83-year-old male, here with his , presenting for follow-up after hospitalization in [place], [place]. Callie was recently hospitalized for 5 days 08/22 to 08/25/24 at [facility] due to cellulitis affecting both legs, especially [...] No gallop (more content not included)... 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: [facility] Transcribe Date/Time: Oct 01 2022 2:06P Dictated by : NATASHA ROUSE MD This examination was interpreted and the report reviewed and electronically signed by: NATASHA ROUSE MD on Oct 01 2022 2:07PM EST [facility] XR Toes - left 3 ViewsOrdere d By: Ccem Provider on 10-01-2022 [facility] XR Toes - left 3 Viewson Radiology Study observation (narrative) [facility] HEMOGLOBIN A1C (POC)on 03-09 HbA1c (Bld) [Mass fraction] 6.3 % 4.2 - 5.6 % [facility] CNNURSEon 07-22-2020 CNNURSE Nurse Visit (COVAMD) CALLIE RASCON ([id number]) 1940 M Date Time Provider Department 07/22/20 MARY FAN During your visit today, we recorded the following information about you: Allergies As of Date: 07/22/2020 (No Known Allergies) Date Reviewed: 06/16/2020 Reviewed by: Carlos Canas (Pa) - Fully Assessed Order(s):bluebird bio SARS-COV-2 VACCINE 2D DOSE APPT [[id number]] Order #: [id number] Prescriptions as of 07/22/2020 Sig: ATORVASTATIN 20 [...] Chronic anticoagulation [Z79.01] 02/09/2020 Encounter Status:Open Normal [facility] .Auto Diffon 01-12-2020 Ammonia (P) [Mass/Vol] 0.70 10 3/mcL Normal 0.09-1.40 [facility] ([place]) Comment on above: Performed By: #### C BC, ADIFF, ANEU, BMP, GFR, PRO #### [place] [address] Basophils (Bld) [#/Vol] 0.10 10 3/mcL Normal 0.00-0.27 [facility] ([place]) Comment on above: Performed By: #### C BC, ADIFF, ANEU, BMP, GFR, PRO #### [address] [address] Basophils/100 WBC (Bld) 1.1 % Normal 0.0-2.5 [facility] ([place]) Comment on above: Performed By: #### C BC, ADIFF, ANEU, BMP, GFR, PRO #### [address] [address] Eosinophils (Bld) [#/Vol] 0.20 10 3/mcL Normal 0.00-0.65 [facility] ([place]) Comment on above: Performed By: #### C BC, ADIFF, ANEU, BMP, GFR, PRO #### [address] [address] Eosinophils/100 WBC (Bld) 2.6 % Normal 0.0-6.0 [facility] ([place]) Comment on above: Performed By: #### C BC, ADIFF, ANEU, BMP, GFR, PRO #### [address] [address] Lymphocytes (Bld) [#/Vol] 2.30 10 3/mcL Normal 0.90-4.32 [facility] ([place]) Comment on above: Performed By: #### C BC, ADIFF, ANEU, BMP, GFR, PRO #### [address] [address] Lymphocytes/100 WBC (Bld) 27.7 % Normal 20.0-40.0 [facility] ([place]) Comment on above: Performed By: #### C BC, ADIFF, ANEU, BMP, GFR, PRO #### [address] [address] Monocytes/100 WBC (Bld) 8.2 % Normal 2.0-13.0 [facility] ([place]) Comment on above: Performed By: #### C BC, ADIFF, ANEU, BMP, GFR, PRO #### [address] [address] Neutrophils/100 WBC (Bld) 60.4 % Normal 50.0-75.0 [facility] ([place]) Comment on above: Performed By: #### C BC, ADIFF, ANEU, BMP, GFR, PRO #### [address] [address] .GFRon 01-12-2020 GFR >60 Normal [facility] ([place]) Comment on above: Result Comment: GFR Population [...] BC, ADIFF, ANEU, BMP, GFR, PRO #### [address] [address] GFR Non- >60 Normal [facility] ([place]) Comment on above: Result Comment: GFR Population [...] BC, ADIFF, ANEU, BMP, GFR, PRO #### [address] [address] .NEUABSon 01-12-2020 Neutrophils (Bld) [#/Vol] 4.90 10 3/mcL Normal 2.25-8.10 [facility] ([place]) Comment on above: Performed By: #### C BC, ADIFF, ANEU, BMP, GFR, PRO #### [address] [address] BMPon 01-12-2020 Calcium [Mass/Vol] 8.9 mg/dL Normal 8.4-10.1 [facility] ([place]) Comment on above: Result Comment: No te - New Reference Range in effect 19 Performed By: #### C BC, ADIFF, ANEU, BMP, GFR, PRO #### [place] [address] Chloride [Moles/Vol] 107 mmol/L Normal 98-110 [facility] ([place]) Comment on above: Performed By: #### C BC, ADIFF, ANEU, BMP, GFR, PRO #### [place] [address] CO2 [Moles/Vol] 25 mmol/L Normal 22-32 [facility] ([place]) Comment on above: Performed By: #### C BC, ADIFF, ANEU, BMP, GFR, PRO #### [place] [address] Creatinine [Mass/Vol] 1.05 mg/dL Normal 0.60-1.40 [facility] ([place]) Comment on above: Performed By: #### C BC, ADIFF, ANEU, BMP, GFR, PRO #### [place] [address] Electrolyte Balance 7.0 mEq/L Normal 4.0-15.0 [facility] ([place]) Comment on above: Performed By: #### C BC, ADIFF, ANEU, BMP, GFR, PRO #### [place] [id number] Glucose [Mass/Vol] 133 mg/dL High 82-115 [facility] ([place]) Comment on above: Performed By: #### C BC, ADIFF, ANEU, BMP, GFR, PRO #### [place] [id number] Potassium [Moles/Vol] 4.5 mmol/L Normal 3.5-5.0 [facility] ([place]) Comment on above: Performed By: #### C BC, ADIFF, ANEU, BMP, GFR, PRO #### [place] [id number] Sodium [Moles/Vol] 139 mmol/L Normal 136-145 [facility] ([place]) Comment on above: Performed By: #### C BC, ADIFF, ANEU, BMP, GFR, PRO #### [place] [id number] Urea nitrogen [Mass/Vol] 19.0 mg/dL Normal 8.0-22.0 [facility] ([place]) Comment on above: Performed By: #### C BC, ADIFF, ANEU, BMP, GFR, PRO #### [place] [id number] Urea nitrogen/Creatinin e [Mass ratio] 18.1 ratio Normal 10.0-22.0 [facility] ([place]) Comment on above: Performed By: #### C BC, ADIFF, ANEU, BMP, GFR, PRO #### [place] [id number] CBCon 01-12-2020 Erythrocyte distribution width (RBC) [Ratio] 13.9 % Normal 11.5-15.5 [facility] ([place]) Comment on above: Performed By: #### C BC, ADIFF, ANEU, BMP, GFR, PRO #### [place] [id number] Hematocrit (Bld) [Volume fraction] 50.4 % Normal 40.0-52.0 [facility] ([place]) Comment on above: Performed By: #### C BC, ADIFF, ANEU, BMP, GFR, PRO #### [place] [id number] Hemoglobin (Bld) [Mass/Vol] 17.7 G/dL High 13.0-17.5 [facility] ([place]) Comment on above: Performed By: #### C BC, ADIFF, ANEU, BMP, GFR, PRO #### [address] [address] MCH (RBC) [Entitic mass] 32.1 pg Normal 27.0-33.0 [facility] ([place]) Comment on above: Performed By: #### C BC, ADIFF, ANEU, BMP, GFR, PRO #### [address] [address] MCHC (RBC) [Mass/Vol] 35.1 G/dL Normal 32.0-36.0 [facility] ([place] Comment on above: Performed By: #### C BC, ADIFF, ANEU, BMP, GFR, PRO #### [place] [id number] MCV (RBC) [Entitic vol] 91.3 fL Normal 81.0-100.0 [facility] ([place] Comment on above: Performed By: #### C BC, ADIFF, ANEU, BMP, GFR, PRO #### [address] [address] Platelet mean volume (Bld) [Entitic vol] 6.7 fL Normal 6.4-10.5 [facility] ([place] Comment on above: Performed By: #### C BC, ADIFF, ANEU, BMP, GFR, PRO #### [address] [address] Platelets (Bld) [#/Vol] 193 10 3/mcL Normal 150-450 [facility] ([place] Comment on above: Performed By: #### C BC, ADIFF, ANEU, BMP, GFR, PRO #### [address] [address] RBC (Bld) [#/Vol] 5.51 10 6/mcL Normal 4.50-6.00 [facility] [place] Comment on above: Performed By: #### C BC, ADIFF, ANEU, BMP, GFR, PRO #### [address] [address] WBC (Bld) [#/Vol] 8.10 10 3/mcL Normal 4.50-10.80 [facility] [place] Comment on above: Performed By: #### C ROX OSBORN ANEU, BMP, GFR, PRO #### [address] [address] PROon 01-12-2020 INR Coag (PPP) [Relative time] 1.6 {INR} Normal [facility] ([place]) Comment on above: Result Comment: [employer] [place] [employer] (CHEST, 1992, 102:312S-25S) recommended therapeutic range for oral anticoagulant therapy is: LOW RISK: Prophylaxis of venous thrombosis INR: 2.0-3.0 Treatment of pulmonary embolism 2.0-3.0 Prevention of systemic embolism 2.0-3.0 HIGH RISK: Mechanical prosthetic valves 2.5-3.5 Performed By: #### C ROX OSBORN ANEU, BMP, GFR, PRO #### [address] [address] PT Coag (PPP) [Time] 18.3 s High 9.0-14.6 [facility] ([place]) Comment on above: Result Comment: Effe ctive 12/09/07, Protime results may be affected by some antibiotics (i.e. Ciprofloxacin, Azithromycin, Bactrim) which may potentiate the action of oral anticoagulants, with further increases in Protime/INR. Performed By: #### C ROX OSBORN ANEU, BMP, GFR, PRO #### [address] [address] .GFRon 11-19-2019 GFR >60 Normal [facility] ([place]) Comment on above: Result Comment: GFR Population [...] By: #### B MP, GFR, PRO #### [address] [address] GFR Non- >60 Normal [facility] ([place]) Comment on above: Result Comment: GFR Population [...] By: #### B MP, GFR, PRO #### [address] [address] [facility] 11-19-2019 Creatinine [Mass/Vol] 1.11 mg/dL Normal 0.60-1.40 [facility] ([place]) Comment on above: Performed By: #### B MP, GFR, PRO #### [address] [address] Urea nitrogen/Creatinin e [Mass ratio] 21.6 ratio Normal 10.0-22.0 [facility] ([place]) Comment on above: Performed By: #### B MP, GFR, PRO #### [address] [address] Calcium [Mass/Vol] 8.6 mg/dL Normal 8.4-10.1 [facility] ([place]) Comment on above: Performed By: #### B MP, GFR, PRO #### [address] [address] Chloride [Moles/Vol] 107 mmol/L Normal 98-110 [facility] ([place]) Comment on above: Performed By: #### B MP, GFR, PRO #### [address] [address] CO2 [Moles/Vol] 26 mmol/L Normal 22-32 [facility] ([place]) Comment on above: Performed By: #### B MP, GFR, PRO #### [address] [address] Electrolyte Balance 6.0 mEq/L Normal 4.0-15.0 [facility] ([place]) Comment on above: Performed By: #### B MP, GFR, PRO #### [address] [address] Glucose [Mass/Vol] 117 mg/dL High 82-115 [facility] ([place]) Comment on above: Performed By: #### B MP, GFR, PRO #### [address] [address] Potassium [Moles/Vol] 4.4 mmol/L Normal 3.5-5.0 [facility] ([place]) Comment on above: Performed By: #### B MP, GFR, PRO #### [address] [address] Sodium [Moles/Vol] 139 mmol/L Normal 136-145 [facility] ([place]) Comment on above: Performed By: #### B MP, GFR, PRO #### [address] [address] Urea nitrogen [Mass/Vol] 24.0 mg/dL High 8.0-22.0 [facility] ([place]) Comment on above: Performed By: #### B MP, GFR, PRO #### [address] [address] PROon 11-19-2019 INR Coag (PPP) [Relative time] 1.7 {INR} Normal [facility] ([place]) Comment on above: Result Comment: [employer] [place] [employer] (CHEST, 1992, 102:312S-25S) recommended therapeutic range for oral anticoagulant therapy is: LOW RISK: Prophylaxis of venous thrombosis INR: 2.0-3.0 Treatment of pulmonary embolism 2.0-3.0 Prevention of systemic embolism 2.0-3.0 HIGH RISK: Mechanical prosthetic valves 2.5-3.5 Performed By: #### B MP, GFR, PRO #### [address], [place] [address] PT Coag (PPP) [Time] 19.8 s High 9.0-14.6 [facility] ([place]) Comment on above: Result Comment: Effe ctive 12/09/07, Protime results may be affected by some antibiotics (i.e. Ciprofloxacin, Azithromycin, Bactrim) which may potentiate the action of oral anticoagulants, with further increases in Protime/INR. Performed By: #### B MP, GFR, PRO #### [address] [address] Vital Signs Date Time Vital Sign Value Performing Clinician Reyna cole 11-30-2024 08:47-0400 Body mass index (BMI) [Ratio] 27.83 kg/m2 Ariana Catherine PHYSICAL THERAPY ATTENDANT.MOTH PROOFER Work Phone: [facility] 11-30-2024 08:47-0400 Body weight 92.2 kg Ariana Catherine PHYSICAL THERAPY ATTENDANT.MOTH PROOFER Work Phone: [facility] 11-30-2024 08:47-0400 Diastolic blood pressure 62 mm[Hg] Ariana Catherine PHYSICAL THERAPY ATTENDANT.MOTH PROOFER Work Phone: [facility] 11-30-2024 08:47-0400 Heart rate 93 /min Ariana Catherine PHYSICAL THERAPY ATTENDANT.MOTH PROOFER Work Phone: [facility] 11-30-2024 08:47-0400 SaO2% (BldA) [Mass fraction] 97 % Ariana Catherine PHYSICAL THERAPY ATTENDANT.MOTH PROOFER Work Phone: [facility] 11-30-2024 08:47-0400 Systolic blood pressure 118 mm[Hg] Ariana SnyderMuna PHYSICAL THERAPY ATTENDANT.MOTH PROOFER Work Phone: [facility] 10-29-2024 09:59-0400 Body height 187.[address] Cedric Becerra MD Work Phone: [facility] 10-29-2024 09:59-0400 Body mass index (BMI) [Ratio] 26.4 kg/m2 Dr. Cedric Becerra MD Work Phone: 9(785)[phone] [place] [address] 10-29-2024 09:59-0400 Body weight 93.[address] Cedric Becerra MD Work Phone: 4(987)760-401278 [place] [address] 10-29-2024 09:59-0400 Diastolic blood pressure 72 mm[Hg] Dr. Cedric Becerra MD Work Phone: 7(790)200-522124 [place] [address] 10-29-2024 09:59-0400 Heart rate 80 /min Dr. Cedric Becerra MD Work Phone: 2(121)634-144524 [place] [address] 10-29-2024 09:59-0400 Respiratory rate 18 /min Dr. Cedric Becerra MD Work Phone: 5(004)339-140824 [place] [address] 10-29-2024 09:59-0400 SaO2% (BldA) [Mass fraction] 94 % Dr. Cedric Becerra MD Work Phone: 4(025)891-739324 [place] [address] 10-29-2024 09:59-0400 Systolic blood pressure 107 mm[Hg] Dr. Cedric Becerra MD Work Phone: 0(292)[phone] [place] [address] 10-23-2024 10:45-0400 Body mass index (BMI) [Ratio] 27.96 kg/m2 Ariana Catherine PHYSICAL THERAPY ATTENDANT.MOTH PROOFER Work Phone: [facility] 10-23-2024 10:45-0400 Body weight 92.6 kg Ariana Catherine PHYSICAL THERAPY ATTENDANT.MOTH PROOFER Work Phone: [facility] 10-23-2024 10:45-0400 Diastolic blood pressure 68 mm[Hg] Ariana Catherine PHYSICAL THERAPY ATTENDANT.MOTH PROOFER Work Phone: [facility] 10-23-2024 10:45-0400 Heart rate 66 /min Ariana Catherine PHYSICAL THERAPY ATTENDANT.MOTH PROOFER Work Phone: [facility] 10-23-2024 10:45-0400 Respiratory rate 14 /min Ariana Catherine PHYSICAL THERAPY ATTENDANT.MOTH PROOFER Work Phone: [facility] 10-23-2024 10:45-0400 SaO2% (BldA) [Mass fraction] 98 % Ariana Catherine APRN.MOTH PROOFER Work Phone: [facility] 10-23-2024 10:45-0400 Systolic blood pressure 116 mm[Hg] Ariana Catherine APRN.MOTH PROOFER Work Phone: [facility] 09-24-2024 08:31-0400 Body mass index (BMI) [Ratio] 28.47 kg/m2 Cedric Becerra MD Work Phone: [facility] 09-24-2024 08:31-0400 Body weight 94.3 kg Cedric Becerra MD Work Phone: [facility] 09-24-2024 08:31-0400 Diastolic blood pressure 60 mm[Hg] Cedric Becerra MD Work Phone: [facility] 09-24-2024 08:31-0400 Heart rate 88 /min Cedric Becerra MD Work Phone: [facility] 09-24-2024 08:31-0400 Respiratory rate 20 /min Cedric Becerra MD Work Phone: [facility] 09-24-2024 08:31-0400 Systolic blood pressure 116 mm[Hg] Cedric Becerra MD Work Phone: [facility] 09-07-2024 19:04-0400 Body mass index (BMI) [Ratio] 28.23 kg/m2 Cedric Becerra MD Work Phone: [facility] 09-07-2024 19:04-0400 Body temperature 98.29 [degF] Cedric Becerra MD Work Phone: [facility] 09-07-2024 19:04-0400 Body weight 93.5 kg Cedric Becerra MD Work Phone: [facility] 09-07-2024 19:04-0400 Diastolic blood pressure 74 mm[Hg] Cedric Becerra MD Work Phone: [facility] 09-07-2024 19:04-0400 Heart rate 104 /min Cedric Becerra MD Work Phone: [facility] 09-07-2024 19:04-0400 Systolic blood pressure 124 mm[Hg] Cedric Becerra MD Work Phone: [facility] 03-04-2024 07:53-0400 Body height 182 cm Ariana Catherine PHYSICAL THERAPY ATTENDANT.MOTH PROOFER Work Phone: [facility] 03-04-2024 07:53-0400 Body mass index (BMI) [Ratio] 29.22 kg/m2 Ariana Catherine PHYSICAL THERAPY ATTENDANT.MOTH PROOFER Work Phone: [facility] 03-04-2024 07:53-0400 Body weight 96.8 kg Ariana Catherine APRN.MOTH PROOFER Work Phone: [facility] 03-04-2024 07:53-0400 Diastolic blood pressure 70 mm[Hg] Ariana Catherine PHYSICAL THERAPY ATTENDANT.MOTH PROOFER Work Phone: [facility] 03-04-2024 07:53-0400 Heart rate 79 /min Ariana Catherine PHYSICAL THERAPY ATTENDANT.MOTH PROOFER Work Phone: [facility] 03-04-2024 07:53-0400 Respiratory rate 18 /min Ariana Catherine APRN.MOTH PROOFER Work Phone: [facility] 03-04-2024 07:53-0400 SaO2% (BldA) [Mass fraction] 97 % Ariana Catherine PHYSICAL THERAPY ATTENDANT.MOTH PROOFER Work Phone: [facility] 03-04-2024 07:53-0400 Systolic blood pressure 128 mm[Hg] Ariana Catherine PHYSICAL THERAPY ATTENDANT.MOTH PROOFER Work Phone: [facility] 09-25-2023 09:28-0400 Body mass index (BMI) [Ratio] 27.24 kg/m2 Cedric Becerra MD Work Phone: [facility] 09-25-2023 09:28-0400 Body temperature 98.29 [degF] Cedric Becerra MD Work Phone: [facility] 09-25-2023 09:28-0400 Body weight 90.72 kg Cedric Becerra MD Work Phone: [facility] 09-25-2023 09:28-0400 Diastolic blood pressure 64 mm[Hg] Cedric Becerra MD Work Phone: [facility] 09-25-2023 09:28-0400 Heart rate 76 /min Cedric Becerra MD Work Phone: [facility] 09-25-2023 09:28-0400 Respiratory rate 18 /min Cedric Becerra MD Work Phone: [facility] 09-25-2023 09:28-0400 Systolic blood pressure 128 mm[Hg] Cedric Becerra MD Work Phone: [facility] 09-26-2022 11:11-0400 Body weight 88.36 kg Cedric Becerra MD Work Phone: [facility] 09-26-2022 11:11-0400 Diastolic blood pressure 58 mm[Hg] Cedric Becerra MD Work Phone: [facility] 09-26-2022 11:11-0400 Heart rate 76 /min Cedric Becerra MD Work Phone: [facility] 09-26-2022 11:11-0400 Respiratory rate 18 /min Cedric Becerra MD Work Phone: [facility] 09-26-2022 11:11-0400 Systolic blood pressure 112 mm[Hg] Cedric Becerra MD Work Phone: [facility] 09-21-2022 11:13-0400 Body height 187.96 cm [facility] 09-21-2022 11:13-0400 Body mass index (BMI) [Ratio] 24.9 kg/m2 [facility] 09-21-2022 11:13-0400 Body temperature 97.7 [degF] [facility] 09-21-2022 11:13-0400 Body weight 87.99 kg [facility] 09-21-2022 11:13-0400 Diastolic blood pressure 64 mm[Hg] [facility] 09-21-2022 11:13-0400 Heart rate 77 /min [facility] 09-21-2022 11:13-0400 Respiratory rate 14 /min [facility] 09-21-2022 11:13-0400 SaO2% (BldA) [Mass fraction] 97 % [facility] 09-21-2022 11:13-0400 Systolic blood pressure 131 mm[Hg] [facility] 09-21-2022 10:13-0400 Body weight 88 kg Shawna Alves PHYSICAL THERAPY ATTENDANT.FORENSIC SCIENTIST Work Phone: [facility] 09-21-2022 10:13-0400 Diastolic blood pressure 62 mm[Hg] Shawna Alves PHYSICAL THERAPY ATTENDANT.FORENSIC SCIENTIST Work Phone: [facility] 09-21-2022 10:13-0400 Heart rate 84 /min Shawna Alves PHYSICAL THERAPY ATTENDANT.FORENSIC SCIENTIST Work Phone: [facility] 09-21-2022 10:13-0400 Respiratory rate 16 /min Shawna Alves PHYSICAL THERAPY ATTENDANT.FORENSIC SCIENTIST Work Phone: [facility] 09-21-2022 10:13-0400 SaO2% (BldA) [Mass fraction] 98 % Shwana Alves PHYSICAL THERAPY ATTENDANT.FORENSIC SCIENTIST Work Phone: [facility] 09-21-2022 10:13-0400 Systolic blood pressure 118 mm[Hg] Shawna Alves PHYSICAL THERAPY ATTENDANT.FORENSIC SCIENTIST Work Phone: [facility] 03-09-2022 13:23-0400 Diastolic blood pressure 68 mm[Hg] Ariana Older PHYSICAL THERAPY ATTENDANT.MOTH PROOFER Work Phone: [facility] 03-09-2022 13:23-0400 Systolic blood pressure 120 mm[Hg] Ariana Older PHYSICAL THERAPY ATTENDANT.MOTH PROOFER Work Phone: [facility] 03-09-2022 12:44-0400 Body height 182.9 cm Ariana Older PHYSICAL THERAPY ATTENDANT.MOTH PROOFER Work Phone: [facility] 03-09-2022 12:44-0400 Body weight 93.89 kg Ariana Older PHYSICAL THERAPY ATTENDANT.MOTH PROOFER Work Phone: [facility] 03-09-2022 12:44-0400 Heart rate 78 /min Ariana Older PHYSICAL THERAPY ATTENDANT.MOTH PROOFER Work Phone: [facility] 03-09-2022 12:44-0400 Respiratory rate 18 /min Ariana Older PHYSICAL THERAPY ATTENDANT.MOTH PROOFER Work Phone: [facility] 10-26-2021 16:16-0400 Diastolic blood pressure 64 mm[Hg] Cedric Becerra MD Work Phone: [facility] 10-26-2021 16:16-0400 Systolic blood pressure 122 mm[Hg] Cedric Becerra MD Work Phone: [facility] 10-26-2021 15:42-0400 Body temperature 97.59 [degF] Cedric Becerra MD Work Phone: [facility] 10-26-2021 15:42-0400 Body weight 92.53 kg Cedric Becerra MD Work Phone: [facility] 10-26-2021 15:42-0400 Heart rate 68 /min Cedric Becerra MD Work Phone: [facility] 10-26-2021 15:42-0400 Respiratory rate 24 /min Cedric Becerra MD Work Phone: [facility] Encounters Encounter Date Encounter Type Care Provider Facility Start: 03-16-2025 End: 03-16-2025 ambulatory CEDRIC BECERRA Facility:[facility] Start: 03-08-2025 End: 03-08-2025 ambulatory CEDRIC BECERRA Facility:[facility] Start: 03-08-2025 Patient encounter procedure ARIANA CATHERINE [facility] Start: 03-01-2025 End: 03-01-2025 ambulatory CEDRIC BECERRA Facility:[facility] Start: 01-08-2025 End: 01-09-2025 Telephone encounter Cedric Becerra MD Work Phone: [facility] [place] Comment on above: Patient Question Start: 12-30-2024 End: 01-08-2025 Telephone encounter Cedric Becerra MD Work Phone: OB/Gynecology Comment on above: Results (Xray disc) Start: 11-30-2024 End: 11-30-2024 Office outpatient visit 25 minutes Ariana Catherine APRN.CNP Work Phone: [facility] [place] Comment on above: Benign prostatic hyp erplasia with urinary frequency (Primary Dx); Type 2 diabetes mellitus without complication, without long-term current use of insulin (HCC) Start: 11-30-2024 End: 11-30-2024 ambulatory CEDRIC BECERRA Facility:[facility] Start: 11-23-2024 End: 11-23-2024 Refill Cedric Becerra MD Work Phone: Internal [facility] Comment on above: Refill Request Start: 11-09-2024 [...] Start: 11-03-2024 End: 11-03-2024 ambulatory CEDRIC BECERRA Facility:[facility] Start: 11-02-2024 End: 11-04-2024 Refill Cedric Becerra MD Work Phone: Internal [facility] Comment on above: Refill Request Start: 10-29-2024 End: 10-29-[address] Roly Prakash MD -[facility] Work Phone: Start: 10-29-2024 End: 10-29-[address] Cedric Becerra MD Work Phone: [facility] Work Phone: Start: 10-28-2024 End: 10-28-2024 ambulatory Cedric Becerra MD Work Phone: [facility] Start: 10-28-2024 End: 10-28-2024 Patient encounter procedure Cedric Becerra MD Work Phone: [facility] Comment on above: Population Health Na vigation Outreach ([employer] [place] ) Start: 10-26-2024 End: 10-28-2024 Follow-up encounter Ariana Catherine APRN.CNP Work Phone: [facility] [place] Start: 10-23-2024 End: 10-23-2024 Office outpatient visit 40 minutes Ariana Catherine APRN.MOTH PROOFER Work Phone: [facility] [place] Comment on above: Urinary frequency (P rimary Dx); Glucosuria; Newly diagnosed diabetes (HCC); Hyperglycemia; BPH with obstruction/lower urinary tract symptoms Start: 10-23-2024 End: 10-23-2024 ambulatory CEDRIC BECERRA Facility:[facility] Start: 09-28-2024 End: 09-28-2024 ambulatory Cedric Becerra MD Work Phone: [facility] Start: 09-28-2024 End: 09-28-2024 Patient encounter procedure Cedric Becerra MD Work Phone: [facility] Comment on above: Population Health Na vigation Outreach ([employer] [place] ) Start: 09-26-2024 End: 09-26-2024 Follow-up encounter Cedric Becerra MD Work Phone: [facility] [place] Start: 09-25-2024 End: 09-25-2024 ambulatory CEDRIC BECERRA Facility:[facility] Start: 09-24-2024 End: 09-24-2024 Office outpatient visit 15 minutes Cedric Becerra MD Work Phone: [facility] [place] Comment on above: Persistent atrial fi brillation (HCC) (Primary Dx); Toe pain, chronic, left; BPH with obstruction/lower urinary tract symptoms; Primary hypertension; Impaired fasting glucose Start: 09-24-2024 ambulatory CEDRIC BECERRA Faci lity:[facility] Start: 09-07-2024 End: 09-07-2024 ambulatory CEDRIC BECERRA Facility:[facility] Start: 09-07-2024 End: 09-07-2024 Office outpatient visit 25 minutes Cedric Becerra MD Work Phone: [facility] [place] Comment on above: Cellulitis of right lower extremity (Primary Dx); Swelling of lower leg; Hematuria, unspecified type; Indwelling Reyna catheter present; Hyperlipidemia LDL goal <130; Persistent atrial fibrillation (HCC); Impaired fasting glucose Start: 08-12-2024 End: 08-12-2024 ambulatory Amador Ram CAL [facility] Start: 08-12-2024 End: 08-12-2024 Patient encounter procedure Amador Ram CAL [facility] Comment on above: Population Health Na vigation Outreach ([employer] High Risk Attempt #2) Start: 07-16-2024 End: 07-16-2024 ambulatory Amador Ram MA [facility] Start: 07-16-2024 End: 07-16-2024 Patient encounter procedure Amador Ram CAL [facility] Comment on above: Population Health Na vigation Outreach ([employer] High Risk Attempt #1/) Start: 03-04-2024 End: 03-04-2024 Patient encounter procedure Ariana Catherine APRN.CNP Work Phone: [facility] [place] Comment on above: Medicare annual well ness visit, subsequent (Primary Dx); Persistent atrial fibrillation (HCC); Primary hypertension; Hyperlipidemia LDL goal <130; Impaired fasting glucose; Polycythemia; Memory disturbance; Encounter for immunization; Screening for depression; Encounter for screening examination for other mental health and behavioral disorders Start: 01-28-2024 End: 01-28-2024 Refill Cedric Becerra MD Work Phone: [facility] [place] Comment on above: Refill Request Start: 01-09-2024 Refill Cedric chino MD Work Phone: [facility] Comment on above: Refill Request Start: 09-25-2023 End: 09-25-2023 Patient encounter procedure Cedric Becerra MD Work Phone: [facility] [place] Comment on above: Toe pain, chronic, l eft (Primary Dx); Primary hypertension; Chronic anticoagulation; Impaired fasting glucose; Need for COVID-19 vaccine; Polycythemia; Hyperlipidemia LDL goal <130; Gait abnormality Start: 03-15-2023 Refill Cedric chino MD Work Phone: [facility] [place] Comment on above: Refill Request Start: 09-26-2022 End: 09-26-2022 Subsequent hospital visit by physician [facility] [place] Work Phone: Radiology Comment on above: Toe pain, chronic, l eft [M79.675, G89.29] Start: 09-26-2022 End: 09-26-2022 Patient encounter procedure Cedric Becerra MD Work Phone: [facility] [place] Comment on above: Toe pain, chronic, l eft (Primary Dx); Persistent atrial fibrillation (HCC); Primary hypertension; Impaired fasting glucose; Polycythemia Start: 09-21-2022 End: 09-21-2022 Emergency department patient visit [facility] Start: 09-21-2022 End: 09-21-2022 Office outpatient visit 25 minutes Shawna Alves APRN.FORENSIC SCIENTIST Work Phone: [facility] [place] Comment on above: Constipation, unspec ified constipation type (Primary Dx); Rectal pain Start: 05-16-2022 Refill Cedric chino MD Work Phone: [facility] [place] Comment on above: Refill Request Start: 03-09-2022 End: 03-09-2022 Patient encounter procedure Ariana Alicea APRN.MOTH PROOFER Work Phone: [facility] [place] Comment on above: Medicare annual well ness visit, subsequent (Primary Dx); Impaired fasting glucose; Encounter for immunization Start: 03-02-2022 Telephone encounter Ariana Older PHYSICAL THERAPY ATTENDANT.MOTH PROOFER Work Phone: [facility] [place] Comment on above: Lab Orders Start: 10-26-2021 End: 10-26-2021 Patient encounter procedure Cedric Becerra MD Work Phone: [facility] [place] Comment on above: Memory disturbance ( Primary Dx); Primary hypertension; Persistent atrial fibrillation (HCC); Hyperlipidemia LDL goal <130; Toe pain, chronic, left Start: 10-24-2021 Telephone encounter Cedric mederos MD Work Phone: [facility] [place] Comment on above: Patient Question Procedures Date Procedure Procedure Detail Performing Clinician Start: 10-23-2024 Gluc bld gluc mntr d ev cleared fda spec home use Ariana BatistaMuna PHYSICAL THERAPY ATTENDANT.MOTH PROOFER Work Phone: Start: 10-23-2024 Urnls dip stick/tabl et rgnt auto w/o microscopy Ariana M Muna PHYSICAL THERAPY ATTENDANT.MOTH PROOFER Work Phone: Start: 03-04-2024 PFIZER-BIONTECH COVI D-19 VACCINE AGE 12+ YR (COMIRNATY) Ariana Burkett Muna PHYSICAL THERAPY ATTENDANT.MOTH PROOFER Work Phone: Start: 03-04-2024 Adult depression screening assessment Arianasilvana Catherine APRN.MOTH PROOFER Work Phone: Start: 09-25-2023 PFIZER-BIONTECH COVI D-19 VACCINE (2022- [place]) AGE 12+ YR Cedric Becerra MD Work Phone: Start: 09-26-2022 Radex toe minimum 2 views Cedric Becerra MD Work Phone: Start: 03-09-2022 Hemoglobin A1c/Hemoglobin.total in Blood Ariana Older PHYSICAL THERAPY ATTENDANT.MOTH PROOFER Work Phone: Start: 03-09-2022 PFIZER-BIONTECH COVI D-19 BIVALENT BOOSTER VACCINE, AGE 12+ YR Ariana Older PHYSICAL THERAPY ATTENDANT.MOTH PROOFER Work Phone: Plan of Treatment Date Care Activity Detail Author Start: 09-25-2026 Diabetes Screening Diabetes Screenin g [facility] Start: 10-03-2025 Diabetes Screening Diabetes Screenin g [facility] Start: 10-02-2025 Urine microalbumin profile [facility] Start: 09-25-2025 Hepatitis B surface antibody level LDL Cholesterol [facility] Start: 09-24-2025 Covid-19 Vaccine () Covid-19 Vaccine () [facility] Comment on above: Postponed from 09/02 (Declined at this time) Start: 09-08-2025 End: 09-08-2025 Patient encounter procedure 09/08/2025 9:40 AM EDT Office Visit [facility] [place] [address] [place], [place] [id number] Cedric Becerra MD [address] [place], [place] [id number] 6 month follow-up [facility] [place] Comment on above: 6 month follow-up Start: 09-08-2025 End: 09-08-2025 Patient encounter procedure 09/08/2025 8:20 AM EDT Office Visit [facility] [place] [address] [place] [address] Cedric Becerra MD [address] [place] [address] 6 month follow-up [facility] [place] Comment on above: 6 month follow-up Start: 03-28-2025 Hemoglobin A1c measurement HbA1C [facility] Start: 03-16-2025 End: 03-16-2025 Patient encounter procedure 03/16/2025 1:30 PM EDT Office Visit Urology [address] [place] [address] Carlos Canas PA-C [address] [place], [place] [id number] Benign localized prostatic hyperplasia with lower urinary tract symptoms (LUTS) [N40.1] Urology Comment on above: Benign localized pro static hyperplasia with lower urinary tract symptoms (LUTS) [N40.1] Start: 03-09-2025 DIABETES SCREEN DIABETES SCREEN [facility] Start: 03-08-2025 End: 03-08-2025 Patient encounter procedure 03/08/2025 8:00 AM EDT Office Visit [facility] [place] [address] [facility] [place] [address] Ariana Catherine, PHYSICAL THERAPY ATTENDANT.MOTH PROOFER [address] [place] [address] Annual Wellness w/6 month [facility] [place] Comment on above: Annual Wellness w/6 month Start: 03-04-2025 Anxiety Screening Anxiety Screening [facility] Start: 03-04-2025 Depression Screening Depression Scre ening [facility] Start: 02-22-2025 End: 05-24-2025 Basic metabolic 2000 panel - Serum or Plasma BASIC METABOLIC PANEL Lab Routine Type 2 diabetes mellitus without complication, without long-term current use of insulin (HCC) Expected: 02/22/2025, Expires: 05/24/2025 [facility] Work Phone: Comment on above: Expected: 02/22/2025 , Expires: 05/24/2025 Start: 02-22-2025 End: 05-24-2025 Hemoglobin A1c in Blood HEMOGLOBIN A1C Lab Routine Type 2 diabetes mellitus without complication, without long-term current use of insulin (HCC) Expected: 02/22/2025, Expires: 05/24/2025 [facility] Comment on above: Expected: 02/22/2025 , Expires: 05/24/2025 Start: 02-22-2025 End: 05-24-2025 Microalbumin/Creatinin e [Mass Ratio] in Urine ALBUMIN/CREATININE RATIO, URINE Lab Routine Type 2 diabetes mellitus without complication, without long-term current use of insulin (HCC) Expected: 02/22/2025, Expires: 05/24/2025 [facility] Comment on above: Expected: 02/22/2025 , Expires: 05/24/2025 Start: 02-22-2025 End: 05-24-2025 Prostate specific Ag [Mass/volume] in Serum or Plasma PROSTATE-SPECIFIC ANTIGEN DIAGNOSTIC Lab Routine Benign prostatic hyperplasia with urinary frequency Expected: 02/22/2025 (Approximate), Expires: 05/24/2025 [facility] Comment on above: Expected: 02/22/2025 (Approximate), Expires: 05/24/2025 Start: 02-22-2025 End: 05-24-2025 Urinalysis complete panel - Urine URINALYSIS, WITH MICROSCOPIC Lab Routine Benign prostatic hyperplasia with urinary frequency Expected: 02/22/2025 (Approximate), Expires: 05/24/2025 [facility] Work Phone: Comment on above: Expected: 02/22/2025 (Approximate), Expires: 05/24/2025 Start: 01-25-2025 Influenza vaccination Influenza Vacc ine (#1) [facility] Start: 11-30-2024 End: 11-30-2024 Patient encounter procedure 11/30/2024 2:40 PM EDT Office Visit [facility] [place] [address] [place], [place] [id number] Ariana Catherine, PHYSICAL THERAPY ATTENDANT.MOTH PROOFER [address] [place], [place] [address] follow up 1 month [facility] [place] Comment on above: follow up 1 month Start: 11-03-2024 End: 11-03-2024 Nursing evaluation of patient and report 11/03/2024 2:00 PM EDT Nurse Visit Endocrinology [address] [place], [place] [phone] Abbey Cardenas, RN [address] [id number] newly diagnoses diabetes, hyperglycemia Endocrinology Comment on above: newly diagnoses diab etes, hyperglycemia Start: 10-24-2024 DIABETES SCREEN DIABETES SCREEN [facility] Start: 09-24-2024 End: 09-24-2024 Patient encounter procedure 09/24/2024 8:40 AM EDT Office Visit [facility] [place] [address] [place], [place] [phone] Cedric Becerra MD [address] [place], [place] [id number] 6 month follow-up [facility] [place] Comment on above: 6 month follow-up Start: 09-08-2024 End: 12-08-2024 CBC panel - Blood by Automated count COMPLETE BLOOD COUNT Lab Routine Hematuria, unspecified type Expected: 09/08/2024, Expires: 12/08/2024 [facility] Work Phone: Comment on above: Expected: 09/08/2024 , Expires: 12/08/2024 Start: 09-08-2024 End: 12-08-2024 Comprehensive metabolic 2000 panel - Serum or Plasma COMPREHENSIVE METABOLIC PANEL Lab Routine Hyperlipidemia LDL goal <130 Expected: 09/08/2024, Expires: 12/08/2024 [facility] Comment on above: Expected: 09/08/2024 , Expires: 12/08/2024 Start: 09-08-2024 End: 12-08-2024 Hemoglobin A1c in Blood HEMOGLOBIN A1C Lab Routine Impaired fasting glucose Expected: 09/08/2024, Expires: 12/08/2024 [facility] Comment on above: Expected: 09/08/2024 , Expires: 12/08/2024 Start: 09-08-2024 End: 12-08-2024 Lipid 1996 panel - Serum or Plasma LIPID PANEL, FASTING Lab Routine Hyperlipidemia LDL goal <130 Expected: 09/08/2024, Expires: 12/08/2024 [facility] Comment on above: Expected: 09/08/2024 , Expires: 12/08/2024 Start: 09-02-2024 Covid-19 Vaccine ( season) Covid-19 Vaccine () [facility] Start: 05-27-2024 Advance Directive Discussion Advance Directive Discussion [facility] Start: 05-27-2024 Medicare Advantage Annual Wellness Visit Medicare Advantage Annual Wellness Visit [facility] Start: 03-04-2024 End: 03-04-2024 Patient encounter procedure 03/04/2024 8:00 AM EDT Office Visit [facility] [place] [address] [place] [address] Ariana Catherine, PHYSICAL THERAPY ATTENDANT.MOTH PROOFER [address] [place] [address] Medicare Wellness w/5 month follow-up [facility] [place] Comment on above: Medicare Wellness w/ 5 month follow-up Start: 01-26-2024 Covid-19 Vaccine ( season) Covid-19 Vaccine ( season) [facility] Start: 01-26-2024 Influenza vaccination Influenza Vacc ine (#1) [facility] Start: 09-25-2023 End: 12-25-2023 CBC panel - Blood by Automated count COMPLETE BLOOD COUNT Lab Routine Chronic anticoagulation Expected: 09/25/2023, Expires: 12/25/2023 [facility] Work Phone: Comment on above: Expected: 09/25/2023 , Expires: 12/25/2023 Start: 09-25-2023 End: 12-25-2023 Comprehensive metabolic 2000 panel - Serum or Plasma COMPREHENSIVE METABOLIC PANEL Lab Routine Hyperlipidemia LDL goal <130 Expected: 09/25/2023, Expires: 12/25/2023 [facility] Comment on above: Expected: 09/25/2023 , Expires: 12/25/2023 Start: 09-25-2023 End: 12-25-2023 Hemoglobin A1c in Blood HEMOGLOBIN A1C Lab Routine Impaired fasting glucose Expected: 09/25/2023, Expires: 12/25/2023 [facility] Comment on above: Expected: 09/25/2023 , Expires: 12/25/2023 Start: 09-25-2023 End: 12-25-2023 LIPID PANEL, NONFASTING LIPID PANEL, NONFASTING Lab Routine Hyperlipidemia LDL goal <130 Expected: 09/25/2023, Expires: 12/25/2023 [facility] Comment on above: Expected: 09/25/2023 , Expires: 12/25/2023 Start: 05-27-2023 Advance Directive Discussion Advance Directive Discussion [facility] Start: 05-27-2023 Behavioral Health Screening Behavioral Health Screening [facility] Start: 03-09-2023 SHINGRIX VACCINE (2 of 3) SHINGRIX VACCINE (2 of 3) [facility] Comment on above: Postponed from 04/02 (Declined at this time) Start: 02-01-2023 DIABETES SCREEN DIABETES SCREEN [facility] Start: 09-27-2022 End: 11-27-2022 Basic metabolic 2000 panel - Serum or Plasma BASIC METABOLIC PNL Lab Routine Impaired fasting glucose Expected: 09/27/2022, Expires: 11/27/2022 [facility] Work Phone: Comment on above: Expected: 09/27/2022 , Expires: 11/27/2022 Start: 09-27-2022 End: 11-27-2022 CBC panel - Blood by Automated count CBC Lab Routine Polycythemia Expected: 09/27/2022, Expires: 11/27/2022 [facility] Work Phone: Comment on above: Expected: 09/27/2022 , Expires: 11/27/2022 Start: 09-27-2022 End: 11-27-2022 Hemoglobin A1c in Blood HGB A1C Lab Routine Impaired fasting glucose Expected: 09/27/2022, Expires: 11/27/2022 [facility] Work Phone: Comment on above: Expected: 09/27/2022 , Expires: 11/27/2022 Start: 05-27-2022 ADVANCE DIRECTIVE DISCUSSION ADVANCE DIRECTIVE DISCUSSION [facility] Start: 05-27-2022 DEPRESSION ASSESSMENT DEPRESSION ASS ESSMENT [facility] Start: 03-02-2022 End: 05-02-2022 CBC W Auto Differential panel - Blood CBC + DIFF Lab Routine Primary hypertension Expected: 03/02/2022, Expires: 05/02/2022 [facility] Work Phone: Comment on above: Expected: 03/02/2022 , Expires: 05/02/2022 Start: 03-02-2022 End: 05-02-2022 Comprehensive metabolic 2000 panel - Serum or Plasma COMP METABOLIC PANEL Lab Routine Primary hypertension Hyperlipidemia LDL goal <130 Expected: 03/02/2022, Expires: 05/02/2022 [facility] Work Phone: Comment on above: Expected: 03/02/2022 , Expires: 05/02/2022 Start: 03-02-2022 End: 05-02-2022 Lipid 1996 panel - Serum or Plasma LIPID PANEL BASIC Lab Routine Hyperlipidemia LDL goal <130 Expected: 03/02/2022, Expires: 05/02/2022 [facility] Work Phone: Comment on above: Expected: 03/02/2022 , Expires: 05/02/2022 Start: 01-25-2022 Influenza vaccination INFLUENZA (#1) [facility] Start: 10-24-2021 End: 12-24-2021 CBC W Auto Differential panel - Blood [facility] Work Phone: Comment on above: Expected: 10/24/2021 , Expires: 12/24/2021 Start: 10-24-2021 End: 12-24-2021 Comprehensive metabolic 2000 panel - Serum or Plasma [facility] Work Phone: Comment on above: Expected: 10/24/2021 , Expires: 12/24/2021 Start: 07-16-2021 COVID-19 VACCINE (4 - Booster for Pfizer series) COVID-19 VACCINE (4 - Booster for Pfizer series) [facility] Start: 05-27-2021 ADVANCE DIRECTIVE DISCUSSION ADVANCE DIRECTIVE DISCUSSION [facility] Start: 05-27-2021 DEPRESSION ASSESSMENT DEPRESSION ASS ESSMENT [facility] Start: 05-10-2021 COVID-19 VACCINE (4 - Booster for Pfizer series) COVID-19 VACCINE (4 - Booster for Pfizer series) [facility] Start: 11-06-2014 RSV Vaccine (1 - 1-dose 75+ series) RSV Vaccine (1 - 1-dose 75+ series) [facility] Start: 04-02-2012 SHINGRIX VACCINE (2 of 3) SHINGRIX VACCINE (2 of 3) [facility] Start: 1999 RSV Vaccine (1 - 1-dose 60+ series) RSV Vaccine (1 - 1-dose 60+ series) [facility] Start: 11-06-1957 Anxiety Screening Anxiety Screening [facility] Start: 11-06-1958 Depression Screening Depression Scre ening [facility] Start: 11-06-1949 Diabetic foot examination Diabetic Foot Exam [facility] Start: 11-06-1949 Glaucoma screening Dilated Retinal E xam [facility] Start: 11-06-1949 Hepatitis B screening Urine Al bumin:Creatinine Ratio [facility] 24 Hour ECG [facility] Bacteria identified in Urine by Culture BACTERIAL CULTURE, URINE Microbiology Routine Urinary frequency 10/23/2024 11:28 AM EDT [facility] Work Phone: Patient Education ED Constipation (Adult) [facility] Work Phone: Patient referral [facility] Work Phone: Urinalysis complete panel - Urine URINALYSIS, WITH MICROSCOPIC Lab Routine Urinary frequency 10/23/2024 11:28 AM EDT [facility] End: 10-26-2023 XR TOE AP/LAT/OBL LEFT XR TOE AP/LAT/OBL LEFT Radiology Routine Toe pain, chronic, left 1 Occurrences starting 09/26/2022 until 10/26/2023 [facility] Work Phone: Comment on above: 1 Occurrences starti ng 09/26/2022 until 10/26/2023 XR TOE AP/LAT/OBL LEFT XR TOE AP /LAT/OBL LEFT Radiology Routine Toe pain, chronic, left 09/26/2022 12:19 PM EDT [facility] Work Phone: [facility] Immunizations Immunization Date Immunization Notes Care Provider Neetu rodriguez 03-04-2024 COVID-19 vaccine, ag e 12+ yr (PFIZER-BIONTECH COMNAT) Ariana Catherine PHYSICAL THERAPY ATTENDANT.MOTH PROOFER Work Phone: [facility] 03-04-2024 influenza, high dose seasonal, preservative-free Ariana Catherine PHYSICAL THERAPY ATTENDANT.MOTH PROOFER Work Phone: [facility] 03-04-2024 influenza virus vaccine, unspecified formulation Ariana Catherine PHYSICAL THERAPY ATTENDANT.MOTH PROOFER Work Phone: [facility] 09-25-2023 COVID-19 vaccine, ag e 12+ yr, season (PFIZER-BIONTECH) Cedric Becerra MD Work Phone: [facility] 03-04-2023 COVID-19 vaccine, ag e 12+ yr, season (PFIZER-BIONTECH) Cedric Becerra MD Work Phone: [facility] 02-25-2023 influenza (aIIV4) vaccine, age 65+ yr, quadrivalent, PF (FLUAD QUAD) Cedric Becerra MD Work Phone: [facility] 02-25-2023 influenza virus vaccine, unspecified formulation Cedric Becerra MD Work Phone: [facility] 03-09-2022 COVID-19 booster vaccine, age 12+ yr, bivalent (PFIZER-BIONTECH) Ariana Older PHYSICAL THERAPY ATTENDANT.MOTH PROOFER Work Phone: [facility] 02-24-2022 influenza (aIIV4) vaccine, age 65+ yr, quadrivalent, PF (FLUAD QUAD) Cedric Becerra MD Work Phone: [facility] 03-15-2021 COVID-19 vaccine, ag e 12+ yr (PFIZER-BIONTECH - PURPLE TOP) Cedric Becerra MD Work Phone: [facility] 02-24-2021 influenza, high dose seasonal, preservative-free Cedric Becerra MD Work Phone: [facility] 07-22-2020 COVID-19 vaccine, ag e 12+ yr (PFIZER-BIONTECH - PURPLE TOP) Cedric Becerra MD Work Phone: [facility] 07-01-2020 COVID-19 vaccine, ag e 12+ yr (PFIZER-BIONTECH - PURPLE TOP) Cedric Becerra MD Work Phone: [facility] Work Phone: 02-28-2019 influenza virus vaccine, unspecified formulation Cedric Becerra MD Work Phone: [facility] Work Phone: 03-07-2018 influenza, high dose seasonal, preservative-free Cedric Becerra MD Work Phone: [facility] 02-14-2017 influenza, high dose seasonal, preservative-free Cedric Becerra MD Work Phone: [facility] 05-09-2016 tetanus toxoid, redu syed diphtheria toxoid, and acellular pertussis vaccine, adsorbed Cedric Becerra MD Work Phone: [facility] 02-28-2015 influenza, high dose seasonal, preservative-free Cedric Becerra MD Work Phone: [facility] Work Phone: 09-28-2014 pneumococcal conjuga te vaccine, 13 valent Cedric Becerra MD Work Phone: [facility] 02-25-2014 influenza, high dose seasonal, preservative-free Cedric Becerra MD Work Phone: [facility] 03-31-2012 influenza virus vaccine, unspecified formulation Cedric Becerra MD Work Phone: [facility] 02-06-2012 zoster vaccine, live Cedric Becerra MD Work Phone: [facility] Work Phone: 03-27-2011 influenza virus vaccine, unspecified formulation Cedric Becerra MD Work Phone: [facility] Work Phone: 03-23-2010 influenza virus vaccine, unspecified formulation Cedric Becerra MD Work Phone: [facility] 03-09-2009 influenza virus vaccine, unspecified formulation Cedric Becerra MD Work Phone: [facility] Work Phone: 04-08-2008 influenza virus vaccine, unspecified formulation Cedric Becerra MD Work Phone: [facility] 05-14-2005 influenza virus vaccine, whole virus Cedric Becerra MD Work Phone: [facility] 05-14-2005 pneumococcal polysaccharide vaccine, 23 valent Cedric Becerra MD Work Phone: [facility] 05-14-2005 tetanus and diphther ia toxoids, adsorbed, preservative free, for adult use (2 Lf of tetanus toxoid and 2 Lf of diphtheria toxoid) Cedric Becerra MD Work Phone: [facility] Payers Date Payer Category Payer Self-pay [id number] 2021 Medicare HUMANA MEDICARE HUMANA MEDICARE PPO [id number] 2021-Present [phone] [address] [address] [place] [address] PPO [id number] 2017 Medicare [id number] 2017 Medicare (Managed Care) [id number] 2017 Medicare [id number] Unknown [id number] Unknown [id number] Unknown [id number] Social History Date Type Detail Facility Start: 11-23-2010 End: 03-09-2022 Tobacco smoking status NHIS Ex-smoker [facility] Start: 03-07-2021 End: 11-30-2024 Alcohol intake Current non-drinker of alcohol (finding) [facility] Start: 02-02-2020 End: 03-07-2022 History SDOH Alcohol Frequency 1 [facility] Start: 02-02-2020 History SDOH Alcohol Std Drinks 98 [facility] Start: 02-02-2020 History SDOH Social Connections Phone 4 [facility] Start: 02-02-2020 End: 03-07-2022 History SDOH Social Connections [facility] Start: 03-16-2020 End: 03-07-2022 History SDOH Financial 5 [facility] Start: 03-16-2020 End: 03-07-2022 History SDOH Transport Med 2 [facility] Start: 02-02-2020 Education 21 [facility] Start: 1940 Sex Assigned At Male [facility] Start: 10-16-2021 End: 10-26-2021 Exposure to SARS-CoV-2 (event) Not sure [facility] Work Phone: History of tobacco use Current smoker [facility] Start: 11-23-2010 End: 03-09-2022 Tobacco use and exposure Smokeless tobacco non-user [facility] Start: 03-07-2022 History SDOH Alcohol Std Drinks 0 [facility] Start: 03-09-2022 Tobacco Comment quit 40 yrs. ago [facility] Start: 09-21-2022 Tobacco smoking stat us NMIS Unknown if ever smoked [facility] Start: 09-26-2022 End: 03-02-2023 History of Social function [facility] Start: 09-26-2022 End: 03-02-2023 [facility] feedPack[employer] [facility] Has the foodpanda / hellofood, or griddig threatened to shut off services in your home in past 12Mo No [facility] Are you now , , , , never or living with a partner? [facility] How often to you hav e a drink containing alcohol? Never [facility] Start: 04-27-2012 How many standard drinks containing alcohol do you have on a typical day? Patient does not drink [facility] Do you feel stress - tense, restless, nervous, or anxious, or unable to sleep at night because your mind is troubled all the time - these days [OSQ] Only a little [facility] (I/We) worried wheth er (my/our) food would run out before (I/we) got money to buy more. Never true [facility] Start: 01-31-2020 Gender identity Identifies as male gender (finding) [facility] Start: 01-31-2020 Sexual orientation Heterosexual (kathy lopez) [facility] Do you feel stress - tense, restless, nervous, or anxious, or unable to sleep at night because your mind is troubled all the time - these days [OSQ] Not at all [facility] Medical Equipment Procedure Code Equipment Code Equipment Origin al Text Equipment Identifier Dates Test blood sugar (s) 1 times daily. Dx: Type 2 DM - Uncontrolled E11.65 Insulin: No [id number] Start: 10-28-2024 Test blood sugar (s) 1 times daily. Dx: Type 2 DM - Uncontrolled E11.65 Insulin: No [id number] Start: 10-28-2024 Functional Status Date Assessment Result Facility 11-10-2014 Are you deaf, or do you have serious difficulty hearing No 11/10/2014 3:21 PM EDT Suni Burdick [facility] 11-10-2014 Are you blind, or do you have serious difficulty seeing, even when wearing glasses No 11/10/2014 3:21 PM EDT Suni Burdick [facility] 11-10-2014 Do you have serious difficulty walking or climbing stairs No 11/10/2014 3:21 PM EDT Suni Burdick [facility] 11-10-2014 Do you have difficul ty dressing or bathing No 11/10/2014 3:21 PM EDT Suni Burdick [facility] 11-10-2014 Because of a physica l, mental, or emotional condition, do you have difficulty doing errands alone such as visiting a physician's office or shopping No 11/10/2014 3:21 PM EDT Suni Burdick [facility] Mental Status Date Assessment Result Facility 11-10-2014 Because of a physica l, mental, or emotional condition, do you have serious difficulty concentrating, remembering, or making decisions No 11/10/2014 3:21 PM EDT Suni Burdick [facility] Clinical Notes 10-03-2015 to 03-16-2025 Telephone Encounter - Ariana Catherine APRN.[facility] - 01/08/2025 12:35 PM EDTTelephone Encounter - Ariana Catherine APRN.[facility] - 01/08/2025 12:35 PM EDTPatient Instructions Note Date & Type Note Facility 03-16-2025 Note HNO ID: [id number] Author: CARLOS CANAS PA-C Service: ? Author Type: Physician Looping Inspector Type: Progress Notes Filed: 03/16/2025 15:22 Note Text: [facility] NOTE (M) Note was generated by [employer] and edited as appropriate SERVICE DATE: [...] ablation. - Regular annual check-ups with a trial examiner. > We discussed the common causes of [...] Cancer Mother N (more content not included)... [facility] 03-16-2025 Note HNO ID: [id number] Author: SOCORRO BAEZ MA Service: ? Author Type: Gerontology Aide Type: Progress Notes Filed: 03/16/2025 15:22 Note Text: Patient's post-void bladder scan: 43 ML. Socorro Baez MA [facility] 03-08-2025 Note HNO ID: [id number] Author: ARIANA CATHERINE APRN.JAE Service: ? Author [...] General (Internal Medicine) Ariana Catherine APRN.CNP as Para Professional (Internal Medicine) Carlos ROCK-urology [facility] Rock Oakes OD ophthalmology Medical/Family [...] palpitations, Shortness of Breath, PND, orthopnea - Geomagnetist with [facility], annual visit in October Type [...] Noted frequent, sma (more content not included)... [facility] 01-08-2025 Telephone encounter Note Consult order placed Ariana Catherine APRN.CNP [facility] 01-08-2025 Miscellaneous Notes Consult order placed Ariana Catherine APRN.CNP Patient's calls and states that patient continues have urination issues. Patient states that patient has urinary frequency. Patient urinates but only goes small amount. is asking if referral can be placed for urologist? Please review and advise, Chelsey Caldwell RN documented in this encounter [facility] 01-08-2025 Telephone encounter Note Patient's calls and states that patient continues have urination issues. Patient states that patient has urinary frequency. Patient urinates but only goes small amount. is asking if referral can be placed for urologist? Please review and advise, Chelsey Caldwell RN [facility] 12-30-2024 Telephone encounter Note CD READY FOR DONOR FLOOR TECHNICIAN AT [facility] Pt knows. [facility] 12-30-2024 Miscellaneous Notes CD READY FOR DONOR FLOOR TECHNICIAN AT [facility] Pt knows. Patient requesting xray disc of his left foot second toe. He got the xray done within the past year. Please advise thank you! Leslie. documented in this encounter [facility] 12-30-2024 Telephone encounter Note Patient requesting xray disc of his left foot second toe. He got the xray done within the past year. Please advise thank you! Leslie. [facility] 11-30-2024 Note HNO ID: [id number] Author: ARIANA CATHERINE APRN.MOTH PROOFER Service: ? Author Type: Nurse Practitioner Type: Progress Notes Filed: 11/30/2024 09:43 Note Text: CC: Patient presents with: Recheck HPI Recording using [employer] software for draft documentation of the visit was discussed with the patient/authorized inside outside sales representative; all questions welcomed and answered. Patient/authorized inside outside sales representative agreed to proceed Callie Rascon is an 84-year-old male with a history of diabetes and BPH, presenting for follow-up on diabetes management and urinary frequency. Diabetes: - Diagnosed during last visit on 10/23/24; A1c was 6.8% on 09/24. - Started on glyburide; Callie is adherent to medication regimen. - Referred to in flight crew member. - Monitoring blood glucose levels at home; [...] [facility] TQ 10/29/2006 CYSTOSCOPY 08/24/2024 [place]. [place] [facility] [place] 01/12/2020 EPS, RF Ablation [...] for infection (09/24) (more content not included)... [facility] 11-30-2024 History of Presen t illness Narrative CC: Patient presents with: Recheck HPI Recording using [employer] software for draft documentation of the visit was discussed with the patient/authorized inside outside sales representative; all questions welcomed and answered. Patient/authorized inside outside sales representative agreed to proceed Callie Rascon is an 84-year-old male with a history of diabetes and BPH, presenting for follow-up on diabetes management and urinary frequency. Diabetes: - Diagnosed during last visit on 10/23/24; A1c was 6.8% on 09/24. - Started on glyburide; Callie is adherent to medication regimen. - Referred to in flight crew member. - Monitoring blood glucose levels at home; [...] Ariana Catherine APRN.JAE documented in this encounter [facility] 11-30-2024 Instructions Ariana Catherine APRN.CNP - 11/30/2024 9:27 AM EDT - Continue taking tamsulosin (Flomax) once daily at bedtime; prescription has been sent to your [facility] mail-order pharmacy. - Continue taking glyburide once daily; prescription has been sent to your [facility] mail-order pharmacy. - Check your blood sugar [...] sugar (shakiness, sweating). documented in this encounter [facility] 11-23-2024 Telephone encounter Note The patient [...] Young RN November 23, 2024 9:12 AM [facility] 11-23-2024 Miscellaneous Notes The patient has [...] 2024 9:12 AM documented in this encounter [facility] 11-03-2024 Note HNO ID: [id number] Author: ABBEY CARDENAS RN Service: ? Author [...] DATE: November 03, 2024 TIME: 1:47 PM [facility] 11-03-2024 History of Presen t illness Narrative DIABETES CARE AND EDUCATION VISIT Location: [place] Type of visit: In person individual PATIENT'S [...] TIME: 1:47 PM documented in this encounter [facility] 11-02-2024 Telephone encounter Note The patient [...] Caldwell RN November 02, 2024 8:59 AM [facility] 11-02-2024 Miscellaneous Notes The patient has [...] 2024 8:59 AM documented in this encounter [facility] 10-29-2024 Evaluation note Diagnosis Onset Date Resolution Paroxysmal atrial flutter acute October 29, 2024 9 :50am Essential hypertension chronic Ju 2024 9:50am Hyperlipemia chronic October 29 9:50am [facility] Work Phone: [phone]) 206-483406-04-2025 Telephone encounter Note* Telephone Encounter - Laverne Ordonez MA - 10/28/2024 5:55 PM EDT notified and appointment made in month and please send supplies to [facility] Laverne Ordonez MA [facility]06-04-2025 Miscellaneous Notes* Telephone Encounter - Laverne Ordonez MA - 10/28/2024 5:55 PM EDT notified and appointment made in month and please send supplies to [facility] Laverne Ordonez MA * Telephone Encounter - [...] before the one month follow-up Ariana Catherine APRN.MOTH PROOFER * Telephone Encounter - Laverne Ordonez MA [...] mail-away Laverne Ordonez MA documented in this encounterTri[facility]2025 NoteHNO ID: [id number] Author: ?, ?, ? Service: ? Author [...] Quita Megan Quach October 28, 2024 10:49 [facility]06-04-2025 History of Present illness Narrative* Quita Aponte [...] 28, 2024 10:49 AM documented in this encounterTri[facility] Telephone encounter Note * Telephone Encounter [...] the one month follow-up Ariana Catherine APRN.CNP [facility]06-04-2025 NotePatient Outreach (NETNAV) CALLIE RASCON ([id number]) 1940 M Date Time Provider Department 10/28/24 [...] Date Reviewed: 10/23/2024 Reviewed by: Ariana Catherine, PHYSICAL THERAPY ATTENDANT.MOTH PROOFER - Fully Assessed Reason for Visit: Population [...] *09/26/2024 Encounter Status:Closed by QUITA APONTE on 10/28/24[facility]06-02[facility] Telephone encounter Note* Telephone Encounter - Laverne Ordonez MA - 10/26/2024 4:44 PM EDT Called and spoke to and she said that his urinary frequency has gotten better since was seen in office. Asking if he needs sooner follow up than February which has blood work to know if dose needs adjusted? Laverne Ordonez MA [facility]06-02-2025 Telephone encounter Note* Telephone Encounter - Ariana Catherine APRN.CNP - 10/26/2024 4:01 PM EDT Is he still experiencing urinary symptoms? Would recommend waiting to send to mail away until we know what dose he will remain on. Ariana Catherine APRN.CNP [facility]06-02-2025 Telephone encounter Note* Telephone Encounter - Laverne Ordonez MA - 10/26/2024 9:32 AM EDT Spoke to and notified of results. asked if DM medication can be re- sent to mail-away Laverne Ordonez MA [facility]05-30-2025 NoteHNO ID: [id number] Author: ARIANA CATHERINE APRN.CNP Service: ? Author Type: Nurse Practitioner Type: Progress Notes Filed: 10/23/2024 11:55 Note Text: CC: Patient presents with: Urinary Frequency: X 4 weeks HPI Recording using [employer] software for draft documentation of the visit was discussed with the patient/authorized inside outside sales representative; all questions welcomed and answered. Patient/authorized inside outside sales representative agreed to proceed Callie is [...] Exam Vitals reviewed. Constitutional: (more content not included)...[facility] 10-23-2024 History of Present illness Narrative* Ariana Catherine, PHYSICAL THERAPY ATTENDANT.MOTH PROOFER - 10/23/2024 11:46 AM EDT CC: Patient presents with: Urinary Frequency: X 4 weeks HPI Recording using [employer] software for draft documentation of the visit was discussed with the patient/authorized inside outside sales representative; all questions welcomed and answered. Patient/authorized inside outside sales representative agreed to proceed Callie is [...] the morning with food. - Referral to in flight crew member for dietary and lifestyle management. - Follow-up appointment to be scheduled based on response to medication and urine culture results. I spent a total of 40 minutes on the date of the service which included preparing to see the patient, fkct-to-yrtw patient care, completing clinical documentation, performing a medically appropriate examination, counseling and educating the patient/family/caregiver, and ordering medications, tests,or procedures. Prescription instructions reviewed with patient as applicable. Potential red flag symptoms discussed with the patient. Reviewed appropriate action plan to take if red flag symptoms occur. Patient agreeable to treatment plan. Ariana Catherine APRN.MOTH PROOFER documented in this encounterTri[facility] Instructions* Patient Instructions* Ariana Catherine APRN.JAE [...] - I have referred you to a in flight crew member to help you with diet and other [...] please contact our office. documented in this encounterTrihealth [facility]05-22-2025 NoteHNO ID: [id number] Author: HANNAH HARRIS RN Service: ? Author [...] Hannah Harris RN October 15, 2024 1:24 [facility]05-22-2025 NotePatient Outreach (AMBCMG) CALLIE RASCON ([id number]) 1940 M Date Time Provider Department 10/15/24 [...] *09/26/2024 Encounter Status:Closed by HANNAH HARRIS on 10/15/24[facility] History of Present illness Narrative* Quita Apnote - 09/28/2024 12:06 PM EDT [facility] [...] 28, 2024 12:06 PM documented in this encounterTrihealth [facility]-05-2025 NoteHNO ID: [id number] Author: ?, ?, ? Service: ? Author [...] Signature: Quita Quach September 28, 2024 12:06 [facility]05-05-2025 NotePatient Outreach (NETNAV) CALLIE RASCON ([id number]) 1940 M Date Time Provider Department 09/28/24 [...] *09/26/2024 Encounter Status:Closed by QUITA APONTE on 09/28/24[facility] Instructions* Patient Instructions* Cedric Becerra MD - 09/24/2024 8:52 AM EDT FASTING BLOOD WORK SOON. documented in this encounterTrihealth [facility]05-01-2025 NoteHNO ID: [id number] Author: CEDRIC BECERRA MD Service: ? Author Type: Physician Type: Progress Notes Filed: 09/24/2024 09:02 Note Text: This note was created using [employer]. Subjective Callie Rascon is a 83 year [...] block. He was scheduled to see his trial examiner, Dr. Sangita Prakash in several weeks. Review [...] - Labs to be done. Cedric Becerra [facility]05-01-2025 History of Present illness Narrative* Cedric Becerra MD - 09/24/2024 8:41 AM EDT This note was created using [employer]. Subjective Callie Rascon is a 83 year [...] block. He was scheduled to see his trial examiner, Dr. Sangita Prakash in several weeks. Review [...] done. Cedric Becerra MD documented in this encounterTrihealth [facility]04-14-2025 NoteHNO ID: [id number] Author: LITA MELISSA LPN Service: ? Author Type: LICENSED NURSE Type: Progress Notes Filed: 09/08/2024 08:10 Note Text: Discontinued reyna per Dr. Becerra order, Patient tolerated well. [facility] History of Present illness Narrative* Lita Melissa LPN - 09/07/2024 7:52 PM EDT Discontinued reyna per Dr. Becerra order, Patient tolerated well. Lita Melissa LPN * Cedric Becerra MD - 09/07/2024 7:28 PM EDT This note was created using [employer]. Subjective Patient presents with: Hospital F/U Recording using ambient [employer] software for draft documentation of the visit was discussed with the patient/authorized inside outside sales representative; all questions welcomed and answered. Patient/authorized inside outside sales representative agreed to proceed Callie is a 83-year-old male, here with his , presenting for follow-up after hospitalization in [place], [place]. Callie was recently hospitalized for 5 days 08/22 to 08/25/24 at [facility] due to cellulitis affecting both legs, especially [...] A1C Cedric Becerra MD documented in this encounterTrihealth [facility]04-14-[facility]25 Instructions* Patient Instructions* Cedric Becerra MD - 09/07/2024 7:49 PM EDT We discussed your recent hospitalization for cellulitis and follow-up care: - Your cellulitis has improved, and the redness in your legs has resolved. You do not need additional antibiotics at this time. - Please apply an mydl-pov-cmgsvps moisturizing cream to your legs to keep [...] before your next visit. documented in this encounterTrihealth Bethes[facility]04-14-2025 NoteHNO ID: [id number] Author: CEDRIC BECERRA MD Service: ? Author Type: Physician Type: Progress Notes Filed: 09/08/2024 08:10 Note Text: This note was created using Powerphotonic[employer]. Subjective Patient presents with: Hospital F/U Recording using [employer] software for draft documentation of the visit was discussed with the patient/authorized inside outside sales representative; all questions welcomed and answered. Patient/authorized inside outside sales representative agreed to proceed Callie is a 83-year-old male, here with his , presenting for follow-up after hospitalization in [place], [place]. Callie was recently hospitalized for 5 days 08/22 to 08/25/24 at [facility] due to cellulitis affecting both legs, especially [...] yellow. Musculoskeletal: Right low (more content not included)...[facility]03-19-2025 NoteHNO ID: [id number] Author: AMADOR RAM MA Service: ? Author Type: Gerontology Aide Type: Progress Notes Filed: 08/12/2024 09:31 Note [...] Amador Ram MA August 12, 2024 9:26 [facility]03-19-2025 History of Present illness Narrative* Amador Ram [...] 12, 2024 9:26 AM documented in this encounterTrihealth Bethes[facility]03-19-2025 NotePatient Outreach (NETNAV) CALLIE RASCON ([id number]) 1940 M Date Time Provider Department 08/12/24 [...] left message on voice mail and sent Plug Apps message. Reason for Outreach Care Gap/HCC or Scheduling Wellness Visits Care Gaps due: Medicare Annual Wellness Visit Patient Contacted: Unable or unnecessary to reach patient: Left message LightPath Appshart message sent Navigation Signature: Amador Ram MA August 12, 2024 9:26 AM Allergies As of Date: 08/12/2024 (No Known Allergies) Date Reviewed: 03/04/2024 Reviewed by: Ariana Catherine, PHYSICAL THERAPY ATTENDANT.MOTH PROOFER - Fully Assessed Reason for Visit: Population [...] 09/25/2023 Encounter Status:Closed by AMADOR RAM on 08/12/24[facility] 07-16-2024 NoteHNO ID: [id number] Author: AMADOR RAM MA Service: ? Author Type: Gerontology Aide Type: Progress Notes Filed: 07/16/2024 08:53 Note Text: POPULATION HEALTH NAVIGATION OUTREACH Action/I [employer] High Risk Outreach - Attempt # 1 Last PCP Visit: 03/04/2024 Per last office note: None Has Appointment Scheduled: Yes, Follow Up Outreach to Schedule: Medicare Wellness - February Health Maintenance Topics Due: None Outcomes: Called patient - left message on voice mail and sent LightPath Appshart message. Reason for Outreach Care Gap/HCC or Scheduling Wellness Visits Care Gaps due: Medicare Annual Wellness Visit Patient Contacted: Unable or unnecessary to reach patient: Left message MyChart message sent Navigation Signature: Amador Ram MA July 16, 2024 8:48 [facility]02-20-2025 History of Present illness Narrative* Amador Ram [...] 16, 2024 8:48 AM documented in this encounterTrihealth Bethes[facility]02-20-2025 NotePatient Outreach (NETNAV) CALLIE RASCON ([id number]) 1940 M Date Time Provider Department 07/16/24 [...] Date Reviewed: 03/04/2024 Reviewed by: Ariana Catherine, KRISTIN.MOTH PROOFER - Fully Assessed Reason for Visit: Population [...] 09/25/2023 Encounter Status:Closed by AMADOR RAM on 07/16/24[facility] 03-04-2024 Instructions* Patient Instructions* Ariana Catherine, PHYSICAL THERAPY ATTENDANT.MOTH PROOFER - 03/04/2024 8:14 AM EDT Screening schedule [...] review all the medicines you take, even zohk-snc-qxlmsyw medicines. As you get older, the way [...] have certain medical conditions. documented in this encounterTrihealth [facility]10-09-2024 History of Present illness Narrative* Ariana [...] immunization - ICD9: V03.89, ICD10: Z23 - PFIZER-BIONTAura[employer] COVID-19 VACCINE AGE 12+ YR (COMIRNATY) - INFLUENZA VACCINE, PRSV FREE, AGE 65+ YR, HIGH DOSE, TRIVALENT (FLUZONE HIGH-DOSE) 9. Screening for depression - ICD9: V79.0, ICD10: Z13.31 - DEPRESSION SCREENING 10. Encounter for screening examination for other mental health and behavioral disorders - ICD9: V79.8, ICD10: Z13.39 - ANXIETY SCREENING Ariana Catherine APRN.MOTH PROOFER documented in this encounterTrihealth [facility]hes[facility]09-03-2024 Telephone encounter Note * Telephone Encounter [...] Emily Wang January 28, 2024 12:51 PM [facility]09-03-[facility]24 Miscellaneous Notes* Telephone Encounter - Emily [...] 28, 2024 12:51 PM documented in this encounterTrihealth Bethes[facility]08-15-2024 Telephone encounter Note * Telephone Encounter [...] Please advise. Thank you. Lita Melissa LPN. [facility]08-15-2024 Miscellaneous Notes* Telephone Encounter - Lita [...] 09, 2024 12:07 PM documented in this encounterTrihealth Bethes[facility]08-15-2024 Telephone encounter Note * Telephone Encounter [...] Pinky Brennerc January 09, 2024 12:07 PM [facility]05-01-2024 Instructions* Patient Instructions* Cedric Becerra MD - 09/25/2023 10:09 AM EDT Blood work today. documented in this encounterTrihealth Bethes[facility]05-01-2024 History of Present illness Narrative* Cedric Becerra MD - 09/25/2023 9:38 AM EDT This note was created using [employer]. Fausto Rascon is a 82 year old male here with . He has daily left 2nd toe pain, not related toactivity and more at rest. rubs this and he alternates Advil and Aleve once daily. They returned from [place] where [place] spend [place]. His other conditions were stable. His gait [...] PT. Cedric Becerra MD documented in this encounterTrihealth Bethes[facility]10-20-2023 Miscellaneous Notes* Telephone Encounter - Jorge [...] Patient aware RX will be sent to [facility] pharmacy. No need to notify patient. Lyndsey Carballo documented in this encounterTrihealth Bethes[facility]05-03-2023 History of Present illness Narrative* Shari [...] 26, 2022 12:05 PM documented in this encounterTrihealth Bethes[facility]05-03-2023 Miscellaneous Notes* Result Encounter Note - Cedric Becerra MD - 09/26/2022 12:00 PM EDT Result(s) viewed by patient: Yes. No acute findings. documented in this [facility]05-03-2023 Progress note* Result Encounter Note - Cedric Becerra MD - 09/26/2022 12:00 PM EDT Result(s) viewed by patient: Yes. No acute findings. [facility]05-03-2023 Instructions* Patient Instructions* Cedric Becerra MD - 09/26/2022 11:45 AM EDT Fasting blood work any time soon. documented in this [facility]05-03-2023 History of Present illness Narrative* Cedric Becerra MD - 09/26/2022 11:29 AM EDT This note was created using Delphiriter. Subjective Callie Rascon is a 81 year [...] CBC Cedric Becerra MD documented in this encounterTrihealth [facility]04-28-2023 Instructions* Patient Instructions* Shawna Alves APRN.FORENSIC SCIENTIST - 09/21/2022 10:14 AM EDT Go directly [...] above 100.5, rigid/hard abdomen. documented in this encounterTrihealth [facility]04-28-2023 History of Present illness Narrative* Shawna [...] he was seen at urgent care in [place] for constipation and back pain. He was provided with pain medication. States taking nntz-igs-ehglifb Dulcolax forconstipation without much effect. He reports [...] take private vehicle. Prefers to go to [facility]. Records sent and report via portal sent. Shawna Alves APRN.CNS Medical Decision Making: Problems: Moderate: Acute illness with systemic symptoms Risk: High: Decision on hospitalization Medical Decision Making Level: 4 - Moderate documented in this encounterTrihealth Bethes[facility]12-21-2022 Miscellaneous Notes* Telephone Encounter - Lita [...] Melissa LPN * Telephone Encounter - Damaris aDniels - 05/16/2022 3:27 PM EST Patient has [...] Thank you. Damaris Daniels documented in this encounterTrihealth Bethes[facility] Hospital10-14-2022 Instructions* Patient Instructions* Ariana Alicea APRN.CNP [...] review all the medicines you take, even andp-ejl-minrobw medicines. As you get older, the way [...] have certain medical conditions. documented in this encounterTrihealth [facility]10-14-2022 History of Present illness Narrative* Ariana Older, PHYSICAL THERAPY ATTENDANT.MOTH PROOFER - 03/09/2022 12:56 PM EDT Medicare Yearly [...] of current specialists seen: Cardiology- Dr. Glasgow Marine Fire Fighter- Rock Oakes OD End of Live Planning [...] at this time. - Patient was counseled txad-xh-ocbs by myself (the billing provider) for the [...] YR Ariana Alicea APRN.CNP documented in this encounterTrihealth Bethes[facility] Hospital10-07-2022 Miscellaneous Notes* Telephone Encounter - Jorge Luis Ruiz Ma - 03/02/2022 2:47 PM EDT Patient notified, verbalized understanding. Jorge Luis Ruiz Ma * Telephone Encounter - Ariana Alicea APRN.CNP - 03/02/2022 1:54 PM EDT Fasting labs ordered Ariana Alicea APRN.CNP * Telephone Encounter - Suni Liriano LPN - 03/02/2022 1:47 PM EDT Patient calling, has Medicare Wellness on 03/09. Asking if he should have lab work done prior to the appointment. Please advise. documented in this encounterTrihealth Bethes[facility] Hospital06-02-2022 History of Present illness Narrative* Cedric Becerra MD - 10/26/2021 4:06 PM EDT This note was created using [employer]. Subjective Callie Rascon is a 80 year [...] Abs Lymph 1.00 - 4.00 k/uL 2.54 Carlisle% % 8.6 Abs Carlisle <0.87 k/uL 0.78 Eosin% % 4.1 Abs [...] worse. Cedric Becerra MD documented in this encounterTrihealth Bethes[facility]05-31-2022 Miscellaneous Notes* Telephone Encounter - Jorge [...] Please advise. Thank you. 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 Benign positional vertigo 03/31/20122017 Meniscus, medial, derangement 09/19/2010 Elevated prostate specific antigen (PSA) 008 12/20/2020 Nonspecific abnormal finding in stool contents 0 10/23/2005 10/03/2015 documented as of this encounter (statuses as of 10/26/2021) [facility]05-[facility] History of Past illness Narrative* Problem Noted Date Resolved Date 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 Benign positional vertigo 03/31/20122017 Meniscus, medial, derangement 09/19/2010 Elevated prostate specific antigen (PSA) 008 12/20/2020 Nonspecific abnormal finding in stool contents 0 10/23/2005 10/03/2015 documented as of this encounter (statuses as of 03/02/2022) [facility] History of Past illness Narrative* Problem Noted Date Resolved Date 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 Benign positional vertigo 03/31/20122017 Meniscus, medial, derangement 09/19/2010 Elevated prostate specific antigen (PSA) 008 12/20/2020 Nonspecific abnormal finding in stool contents 0 10/23/2005 10/03/2015 documented as of this encounter (statuses as of 03/09/2022) [facility] History of Past illness Narrative* Problem Noted Date Resolved Date 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 Benign positional vertigo 03/31/20122017 Meniscus, medial, derangement 09/19/2010 Elevated prostate specific antigen (PSA) 008 12/20/2020 Nonspecific abnormal finding in stool contents 0 10/23/2005 10/03/2015 documented as of this encounter (statuses as of 05/16/2022) [facility] History of Past illness Narrative* Problem Noted Date Resolved Date 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 Benign positional vertigo 03/31/20122017 Meniscus, medial, derangement 09/19/2010 Elevated prostate specific antigen (PSA) 2 008 12/20/2020 Nonspecific abnormal finding in stool contents 0 10/23/2005 10/03/2015 documented as of this encounter (statuses as of 09/21/2022) [facility] History of Past illness Narrative* Problem Noted Date Resolved Date 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 Benign positional vertigo 03/31/20122017 Meniscus, medial, derangement 09/19/2010 Elevated prostate specific antigen (PSA) 008 12/20/2020 Nonspecific abnormal finding in stool contents 0 10/23/2005 10/03/2015 documented as of this encounter (statuses as of 09/27/2022) [facility] History of Past illness Narrative* Problem Noted Date Diagnosed Date Resolved Date 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 10/17/2017 Benign positional vertigo 03/31/2012 Meniscus, medial, derangement 09/19/2010 10/17/2017 Elevated prostate specific antigen (PSA) 06/17/2007 12/20/2020 Nonspecific abnormal finding in stool contents 10/23/2005 10/03/2015 documented as of this encounter (statuses as of 03/15/2023) [facility] note* Diagnosis Hypertension, unspecified type- Primary [facility] Diagnosis Memory disturbance- Primary Memory loss Primary hypertension Unspecified essential hypertension Persistent atrial fibrillation (HCC) Atrial fibrillation Hyperlipidemia LDL goal <130 Other and unspecified hyperlipidemia Toe pain, chronic, left [facility]* Diagnosis Primary hypertension- Primary Unspecified essential hypertension Hyperlipidemia LDL goal <130 Other and unspecified hyperlipidemia [facility]* Diagnosis Medicare annual wellness visit, subsequent- Primary Routine general medical examination at a health care facility Impaired fasting glucose Encounter for immunization Need for other specified prophylactic vaccination against single bacterial disease documented in this encounter [facility] note* Diagnosis Hyperlipidemia LDL goal <130 Other and unspecified hyperlipidemia documented in this encounter [facility] noteNo assessment information availableWWilson Memorial Hospital Work Phone: Evaluation note* Diagnosis Constipation, unspecified constipation type- Primary Rectal pain Anal or rectal pain [facility]* Diagnosis Toe pain, chronic, left- Primary Persistent atrial fibrillation (HCC) Atrial fibrillation Primary hypertension Unspecified essential hypertension Impaired fasting glucose Polycythemia Polycythemia vera [facility]* Diagnosis Hyperlipidemia LDL goal <130 Other and unspecified hyperlipidemia [facility]* Diagnosis Toe pain, chronic, left- Primary Primary hypertension Unspecified essential hypertension Chronic anticoagulation Long-term (current) use of anticoagulants Impaired fasting glucose Need for COVID-19 vaccine Polycythemia Polycythemia vera Hyperlipidemia LDL goal <130 Other and unspecified hyperlipidemia Gait abnormality Abnormality of gait [facility] Hyperlipidemia LDL goal <130 Other and unspecified hyperlipidemia [facility] Toe pain, chronic, left [facility] Diagnosis Medicare annual wellness visit, [...] and behavioral disorders [facility] Diagnosis Cellulitis of right lower extremity- Primary Cellulitis and abscess of leg, except foot Swelling of lower leg Hematuria, unspecified type Indwelling Reyna catheter present Hyperlipidemia LDL goal <130 Other and unspecified hyperlipidemia Persistent atrial fibrillation (HCC) Atrial fibrillation Impaired fasting glucose documented in this encounter [facility]* Diagnosis Persistent atrial fibrillation (HCC)- Primary Atrial fibrillation Toe pain, chronic, left BPH with obstruction/lower urinary tract symptoms Hypertrophy of prostate with urinary obstruction and other lower urinary tract symptoms (LUTS) Primary hypertension Unspecified essential hypertension Impaired fasting glucose documented in this encounter [facility]* Diagnosis Type 2 diabetes mellitus without complication, without long-term current use of insulin ([facility])- Primary documented in this encounter [facility]* Diagnosis Urinary frequency- Primary Glucosuria Glycosuria Newly diagnosed diabetes ([facility]) Type II or unspecified type diabetes mellitus without mention of complication, not stated as uncontrolled Hyperglycemia Other abnormal glucose BPH with obstruction/lower urinary tract symptoms Hypertrophy of prostate with urinary obstruction and other lower urinary tract symptoms (LUTS) documented in this encounter [facility]* Diagnosis Type 2 diabetes mellitus without complication, without long-term current use of insulin (HCC)- Primary documented in this encounter [facility]* Diagnosis Type 2 diabetes mellitus without complication, without long-term current use of insulin ([facility])- Primary documented in this encounter [facility]* Diagnosis Hyperlipidemia LDL goal <130 Other and unspecified hyperlipidemia documented in this encounter [facility]* Diagnosis Benign prostatic hyperplasia with urinary frequency- Primary Type 2 diabetes mellitus without complication, without long-term current use of insulin (HCC) documented in this encounter [facility]* Diagnosis Benign localized prostatic hyperplasia with lower urinary tract symptoms (LUTS)- Primary Benign localized hyperplasia of prostate with urinary obstruction and other lower urinary tract symptoms (LUTS) [facility] Additional Instructions Please take [...] TOE MINIMUM 2 VIEWS Cedric Becerra MD [address] [place] [id number] Xr Imaging Referral ID Status Reason Start Date Expiration Date V isits Requested Visits Authorized [id number] Closed Auto-Generate d Referral 09/26/2022 10/26/2023 1 1 [facility] for referral (narrative)* Diagnostic Procedure Only (Routine) - Closed Specialty Diagnoses / Procedures Referred By Contac t Referred To Contact XR IMAGING Diagnoses Toe pain, chronic, left Procedures XR TOE AP/LAT/OBL LEFT RADEX TOE MINIMUM 2 VIEWS Cedric Becerra MD [address] [place] [address] [place] [address] Referral ID Status Reason Start Date Expiration Date V isits Requested Visits Authorized [id number] Closed Auto-Generate d Referral 09/26/2022 10/26/2023 1 1 [facility] for referral (narrative)No reason for referral information availableBloomington Medical Services Work Phone: Reason for visit Narrative* Diagnostic Procedure Only (Routine) - Closed Specialty Diagnoses / Procedures Referred By Contac t Referred To Contact XR IMAGING Diagnoses Toe pain, chronic, left Procedures XR TOE AP/LAT/OBL LEFT RADEX TOE MINIMUM 2 VIEWS Cedric Becerra MD [address] [place] [address] [place] [address] Referral ID Status Reason Start Date Expiration Date V isits Requested Visits Authorized [id number] Closed Auto-Generate d Referral 09/26/2022 10/26/2023 1 1 [facility] Summary Purpose Family History No Family History Records Found Relationship Condition Age at Onset Recorded Date/T martinez mother Malignant neoplasm Unknown Advance Directives No Advanced Directives Records FoundDocuments on File Type Date Recorded Patient Geoscience Specialist Expl anation Advance Directive(s) 09/19/2010 12:00 AM Advance Directive(s) 07/11/2006 12:00 AM Documents on File Type Date Recorded Patient Geoscience Specialist Expl anation Advance Directive(s) 09/19/2010 Advance Directive(s) 07/11/2006 Advance Directive Response Recorded Date/ Time Advance Directives Yes October 19 0 10:47am Living Will No September 21, 2022 11:22am Power of Project Finance Analyst Yes September 21 11:22am Name of Medical Power of Project Finance Analyst mika rascon September 21, 2022 11:22am Documents on File Type Date Recorded Patient Geoscience Specialist Expl anation Advance Directive(s) 09/19/2010 Advance Directive(s) [...] section and content) DATE CREATED AUTHOR 02/05/2020 [facility] ([place]) DATE CREATED AUTHOR AUTHOR'S ORGANIZ ATION 09/03/2020 [facility] DATE CREATED AUTHOR AUTHOR'S ORGANIZ ATION 11/19/2024 [facility] DATE CREATED AUTHOR AUTHOR'S ORGANIZ ATION 03/17/2025 [facility] Source Comments (unrecognize d section and content) In the event this informatio n is protected by the Federal Confidentiality of Alcohol and Drug Abuse Patient Records regulations: The Federal rules restrict any use of the information to criminally investigate or prosecute any alcohol or drug abuse patient.[facility] HospitalIn the event this information is protected by the Federal Confidentiality of Alcohol and Drug Abuse Patient Records regulations: The Federal rules restrict any use of the information to criminally investigate or prosecute any alcohol or drug abuse patient.[facility] HospitalIn the event this information is protected [...] or prosecute any alcohol or drug abuse patient.[facility] HospitalIn the event this information is protected by the Federal Confidentiality of Alcohol and Drug Abuse Patient Records regulations: The Federal rules restrict any use of the information to criminally investigate or prosecute any alcohol or drug abuse patient.[facility] HospitalIn the event this information is protected by the Federal Confidentiality of Alcohol and Drug Abuse Patient Records regulations: The Federal rules restrict any use of the information to criminally investigate or prosecute any alcohol or drug abuse patient.[facility] HospitalIn the event this information is protected by the Federal Confidentiality of Alcohol and Drug Abuse Patient Records regulations: The Federal rules restrict any use of the information to criminally investigate or prosecute any alcohol or drug abuse patient.[facility] HospitalIn the event this information is protected by the Federal Confidentiality of Alcohol and Drug Abuse Patient Records regulations: The Federal rules restrict any use of the information to criminally investigate or prosecute any alcohol or drug abuse patient.[facility] HospitalIn the event this information is protected by the Federal Confidentiality of Alcohol and Drug Abuse Patient Records regulations: The Federal rules restrict any use of the information to criminally investigate or prosecute any alcohol or drug abuse patient.[facility] HospitalIn the event this information is protected by the Federal Confidentiality of Alcohol and Drug Abuse Patient Records regulations: The Federal rules restrict any use of the information to criminally investigate or prosecute any alcohol or drug abuse patient.[facility] HospitalIn the event this information is protected by the Federal Confidentiality of Alcohol and Drug Abuse Patient Records regulations: The Federal rules restrict any use of the information to criminally investigate or prosecute any alcohol or drug abuse patient.[facility] HospitalIn the event this information is protected by the Federal Confidentiality of Alcohol and Drug Abuse Patient Records regulations: The Federal rules restrict any use of the information to criminally investigate or prosecute any alcohol or drug abuse patient.[facility] HospitalIn the event this information is protected by the Federal Confidentiality of Alcohol and Drug Abuse Patient Records regulations: The Federal rules restrict any use of the information to criminally investigate or prosecute any alcohol or drug abuse patient.[facility] HospitalIn the event this information is protected by the Federal Confidentiality of Alcohol and Drug Abuse Patient Records regulations: The Federal rules restrict any use of the information to criminally investigate or prosecute any alcohol or drug abuse patient.[facility] HospitalIn the event this information is protected by the Federal Confidentiality of Alcohol and Drug Abuse Patient Records regulations: The Federal rules restrict any use of the information to criminally investigate or prosecute any alcohol or drug abuse patient.[facility] HospitalIn the event this information is protected by the Federal Confidentiality of Alcohol and Drug Abuse Patient Records regulations: The Federal rules restrict any use of the information to criminally investigate or prosecute any alcohol or drug abuse patient.[facility] HospitalIn the event this information is protected by the Federal Confidentiality of Alcohol and Drug Abuse Patient Records regulations: The Federal rules restrict any use of the information to criminally investigate or prosecute any alcohol or drug abuse patient.[facility] HospitalIn the event this information is protected by the Federal Confidentiality of Alcohol and Drug Abuse Patient Records regulations: The Federal rules restrict any use of the information to criminally investigate or prosecute any alcohol or drug abuse patient.[facility] HospitalIn the event this information is protected by the Federal Confidentiality of Alcohol and Drug Abuse Patient Records regulations: The Federal rules restrict any use of the information to criminally investigate or prosecute any alcohol or drug abuse patient.[facility] HospitalIn the event this information is protected by the Federal Confidentiality of Alcohol and Drug Abuse Patient Records regulations: The Federal rules restrict any use of the information to criminally investigate or prosecute any alcohol or drug abuse patient.[facility] HospitalIn the event this information is protected by the Federal Confidentiality of Alcohol and Drug Abuse Patient Records regulations: The Federal rules restrict any use of the information to criminally investigate or prosecute any alcohol or drug abuse patient.[facility] HospitalIn the event this information is protected by the Federal Confidentiality of Alcohol and Drug Abuse Patient Records regulations: The Federal rules restrict any use of the information to criminally investigate or prosecute any alcohol or drug abuse patient.[facility] HospitalIn the event this information is protected by the Federal Confidentiality of Alcohol and Drug Abuse Patient Records regulations: The Federal rules restrict any use of the information to criminally investigate or prosecute any alcohol or drug abuse patient.[facility] HospitalIn the event this information is protected by the Federal Confidentiality of Alcohol and Drug Abuse Patient Records regulations: The Federal rules restrict any use of the information to criminally investigate or prosecute any alcohol or drug abuse patient.[facility] HospitalIn the event this information is protected by the Federal Confidentiality of Alcohol and Drug Abuse Patient Records regulations: The Federal rules restrict any use of the information to criminally investigate or prosecute any alcohol or drug abuse patient.[facility] HospitalIn the event this information is protected by the Federal Confidentiality of Alcohol and Drug Abuse Patient Records regulations: The Federal rules restrict any use of the information to criminally investigate or prosecute any alcohol or drug abuse patient.[facility] HospitalIn the event this information is protected by the Federal Confidentiality of Alcohol and Drug Abuse Patient Records regulations: The Federal rules restrict any use of the information to criminally investigate or prosecute any alcohol or drug abuse patient.[facility] HospitalIn the event this information is protected by the Federal Confidentiality of Alcohol and Drug Abuse Patient Records regulations: The Federal rules restrict any use of the information to criminally investigate or prosecute any alcohol or drug abuse patient.[facility] Reason for Visit (unrecogniz ed section [...] Population Health Navigation Outreach 09/28/2024 [employer] [place] Reason Comments Urinary Frequency X 4 weeks Reason Onset Date Comments Population Health Navigation Outreach 10/28/2024 [employer] [place] Reason Comments Non-insulin Dependent Diabetes Mellitus Reason Onset Date Comments Refill Request 11/02/2024 Reason Onset Date Comments Refill Request 11/23/2024 Reason Comments Recheck Reason Comments Results Xray disc Reason Comments Patient Question Care Teams (unrecognized sec tion and content) Information Director Relationship Specialty Start Date End Date Cedric Becerra MD [address] [place] [address] PCP - General Internal Medicine 12/08/20 Information Director Relationship Specialty Start Date End Date Cedric Becerra MD [address] [place] [address] PCP - General Internal Medicine 12/08/20 Information Director Relationship Specialty Start Date End Date Cedric Becerra MD [address] [place] [address] PCP - General Internal Medicine 12/08/20 Information Director Relationship Specialty Start Date End Date Cedirc Becerra MD [address] [place] [address] PCP - General Internal Medicine 12/08/20 Team Status: Active Member Role Status Dates Dr. Cedric Becerra MD Primary Care Provider Active Team Status: Inactive Member Role Status Dates Dr. Cedric Becerra MD Primary Care Provider Active Dr. Sierra Zaidi DO Referring Provider, Emergency P [facility] Active Information Director Relationship Specialty Start Date End Date Cedric Becerra MD [address] [place] [address] PCP - General Internal Medicine 12/08/20 Information Director Relationship Specialty Start Date End Date Cedric Becerra MD [address] [place] [address] PCP - General Internal Medicine 12/08/20 Information Director Relationship Specialty Start Date End Date Cedric Becerra MD [address] [place] [address] PCP - General Internal Medicine 12/08/20 Information Director Relationship Specialty Start Date End Date Cedric Becerra MD [address] [facility] [address] PCP - General Internal Medicine 12/08/20 Information Director Relationship Specialty Start Date End Date Cedric Becerra MD [address] [place] [address] PCP - General Internal Medicine 12/08/20 Information Director Relationship Specialty Start Date End Date Cedric Becerra MD [address] [place] [address] PCP - General Internal Medicine 12/08/20 Information Director Relationship Specialty Start Date End Date Cedric Becerra MD [address] [facility] [address] PCP - General Internal Medicine 12/08/20 Information Director Relationship Specialty Start Date End Date Cedric Becerra MD [address] [place] [address] PCP - General Internal Medicine 12/08/20 Information Director Relationship Specialty Start Date End Date Cedric Becerra MD [address] [facility] [address] PCP - General Internal Medicine 12/08/20 Ariana Catherine, PHYSICAL THERAPY ATTENDANT.MOTH PROOFER [address] [place] [address] [facility] 05/04/24 Information Director Relationship Specialty Start Date End Date Cedric Becerra MD [address] [facility] [address] PCP - General Internal Medicine 12/08/20 Ariana Catherine, PHYSICAL THERAPY ATTENDANT.MOTH PROOFER [address] [facility] [place] [address] [facility] 05/04/24 nA Sepulveda, administrator of home health Tax Evaluator 08/27/24 Information Director Relationship Specialty Start Date End Date Cedric Becerra MD [address] [facility] [place] [address] PCP - General Internal Medicine 12/08/20 Ariana Catherine, PHYSICAL THERAPY ATTENDANT.MOTH PROOFER [address] [place] [address] [facility] 05/04/24 Information Director Relationship Specialty Start Date End Date Cedric Becerra MD [address] [facility] [place] [address] PCP - General Internal Medicine 12/08/20 Ariana Catherine, PHYSICAL THERAPY ATTENDANT.MOTH PROOFER [address] [facility] [place] [address] [facility] 05/04/24 Information Director Relationship Specialty Start Date End Date Cedric Becerra MD [address] [facility] [place] [address] PCP - General Internal Medicine 12/08/20 Ariana Catherine, PHYSICAL THERAPY ATTENDANT.MOTH PROOFER [address] [facility] [place] [address] [facility] 05/04/24 Information Director Relationship Specialty Start Date End Date Cedric Becerra MD [address] [facility] [place] [address] PCP - General Internal Medicine 12/08/20 Ariana Catherine, PHYSICAL THERAPY ATTENDANT.MOTH PROOFER [address] [place] [address] [facility] 05/04/24 Information Director Relationship Specialty Start Date End Date Cedric Becerra MD [address] [facility] [place] [address] PCP - General Internal Medicine 12/08/20 Ariana Catherine, PHYSICAL THERAPY ATTENDANT.MOTH PROOFER [address] [place] [address] [facility] 05/04/24 Team Status: Inactive Member Role Status Dates Dr. Cedric Becerra MD Primary Care Provider Active Start: October 29, 2024 End: October 29, 2024 Dr. Cedric Becerra MD Referring Provider Active Start: October 29, 2024 End: October 29, 2024 Dr. Roly Prakash MD Attending Provider Active Start: October 29, 2024 End: October 29, 2024 Information Director Relationship Specialty Start Date End Date Cedric Becerra MD [address] [facility] [place] [address] PCP - General Internal Medicine 12/08/20 Ariana Catherine, PHYSICAL THERAPY ATTENDANT.MOTH PROOFER [address] [facility] [place] [address] [facility] 05/04/24 Information Director Relationship Specialty Start Date End Date Cedric Becerra MD [address] [facility] [place] [address] PCP - General Internal Medicine 12/08/20 Ariana Catherine, PHYSICAL THERAPY ATTENDANT.MOTH PROOFER [address] [place], [place] [id number] [facility] Internal [facility] 05/04/24 Team Status: Inactive Member Role Status Dates Dr. Cedric Becerra MD Primary Care Provider Active Start: November 09, 2024 End: November 09, 2024 Dr. Royl Prakash MD Attending Provider Active Start: November 09, 2024 End: November 09, 2024 Dr. Roly Prakash MD Referring Provider Active Start: November 09, 2024 End: November 09, 2024 Information Director Relationship Specialty Start Date End Date Cedric Becerra MD [address] [place], [place] [address] PCP - General Internal Medicine 12/08/20 Ariana Catherine, PHYSICAL THERAPY ATTENDANT.MOTH PROOFER [address] [place], [place] [id number] [facility] 05/04/24 Information Director Relationship Specialty Start Date End Date Cedric Becerra MD [address] [place], [place] [address] PCP - General Internal Medicine 12/08/20 Ariana Catherine, PHYSICAL THERAPY ATTENDANT.MOTH PROOFER [address] [place], [place] [address] [facility] Internal Medicine 05/04/24 Goals (unrecognized section and [...] BE BASED ON THE PRIMARY CLINICAL RECORDS. [facility]. provides no warranty or guarantee of the accuracy or completeness of information in this document.
--- NOTE | 2025-04-10 08:42 | PCM.CONS.B ---
Consult Date of Consult: 04/10/25 Reason for Consult 84-year-old male who presented to the hospital with retention of urine, was unable to place a Reyna at the bedside very difficult strictures very large prostate so took him to surgery yesterday dilation of urethral stricture and meatal stenosis he also has severe phimosis of the foreskin quite difficult, was able to do a dilation and then a cystoscopy and then placed a Reyna catheter into the bladder over a wire he had significant amount of pus and purulent urine in his bladder. Family is wondering if more surgery could be done at this point said no since he has recent infection and to be a high risk for complications so he had to go home with a catheter once he stable await urine culture results he can follow-up in my office for follow-up he will need to go home with a Reyna catheter. This is explained to the family.
--- NOTE | 2025-04-10 10:26 | PN.HOSP_ITS ---
Reason for Visit Chief Complaint: Lower leg swelling, inability to urinate properly, generalized weakness Objective Data Objective Data Vital Signs: Vital Signs Temp Pulse Resp BP Pulse Ox O2 Del Method O2 Flow Rate 97.8 F 92 16 103/61 96 Nasal Cannula 2 04/10/25 06:19 04/10/25 06:19 04/10/25 06:19 04/10/25 06:19 04/10/25 06:19 04/10/25 06:19 04/10/25 06:19 Oxygen Flow Rate (L/min) 2 Oxygen Delivery Method Nasal Cannula Weight: 200 lb 9.93 oz Body Mass Index (BMI) 25.7 Intake & Output: Intake and Output for Last 24 Hours 04/08/25 04/09/25 04/10/25 23:59 23:59 23:59 Intake Total 450 / 650 1602.5 / 1602.5 Output Total 2150 / 2700 1150 / 1150 Balance -1700 / -2050 452.5 / 452.5 Lab / Micro Data 04/10/25 03:22 04/10/25 03:22 Labs: Laboratory Results - last 24 hr 04/09/25 13:03: Lactic Acid 1.4, Troponin T High Sens 54 H* 04/09/25 13:05: WBC 13.4 H, RBC 4.17 L, Hgb 12.8 L, Hct 40.3, MCV 96.6 H, MCH 30.7, MCHC 31.8 L, RDW Std Deviation 46.7 H, RDW Coeff of Eduardo 13.2, Plt Count 208, MPV 8.5, Immature Gran % (Auto) 0.500, Neut % (Auto) 76.2 H, Lymph % (Auto) 10.4 L, [place] % (Auto) 10.0, Eos % (Auto) 1.9, Baso % (Auto) 1.0, Absolute Neuts (auto) 10.2 H, Absolute Lymphs (auto) 1.39, Nucleated RBC % 0, Sodium 139, Potassium 4.7, Chloride 105, Carbon Dioxide 23.2, Anion Gap 10, BUN 39 H, C reatinine 1.88 H, Estim Creat Clear Calc 33.40 L, Est GFR (MDRD) Non-Af 35 L, B UN/Creatinine Ratio 20.5 H, Glucose 73, Calcium 9.6, NT pro BNP II 2299 H 04/09/25 15:00: Troponin T Hi Sens 2 Hr 51 H 04/09/25 17:55: Urine Color SEE COMMENT BELOW, Urine Clarity Turbid, Urine pH 6.0, Ur Specific [place] 1.015, Urine Protein 100 H, Urine Glucose (UA) Normal, Urine Ketones Negative, Urine Occult Blood 250 H, Urine Nitrite Negative, Urine Bilirubin Negative, Urine Urobilinogen Normal, Ur Leukocyte Esterase 500 H, Urine RBC 0 SEEN, Urine WBC >100 SEEN, Ur Squamous Epith Cells 0 SEEN, Urine Bacteria 0 SEEN, Urine Mucus 0 SEEN 04/09/25 18:44: Troponin T Hi Sens 4Hr 48 H 04/09/25 20:18: POC Glucose 81 04/10/25 03:22: WBC 12.0 H, RBC 3.87 L, Hgb 11.8 L, Hct 36.7 L, MCV 94.8 H, MCH 30.5, MCHC 32.2, RDW Std Deviation 45.3 H, RDW Coeff of Eduardo 13.2, Plt Count 210, MPV 8.9, Immature Gran % (Auto) 0.600, Neut % (Auto) 75.5 H, Lymph % (Auto) 12.0 L, [place] % (Auto) 9.6, Eos % (Auto) 1.5, Baso % (Auto) 0.8, Absolute Neuts (auto) 9.1 H, Absolute Lymphs (auto) 1.44, Nucleated RBC % 0, Sodium 141, Potassium 4.4, Chloride 107, Carbon Dioxide 20.8 L, Anion Gap 14, BUN 35 H, Creatinine 1.67 H, Estim Creat Clear Calc 37.60 L, Est GFR (MDRD) Non-Af 40 L, B UN/Creatinine Ratio 20.7 H, Glucose 85, Calcium 9.0 04/10/25 06:16: POC Glucose 84 Radiography Diagnostic Testing: Radiology Impression Chest X-Ray 04/09/25 14:50 IMPRESSION: No acute abnormality is seen. Reading Location: [place] [address] Physical Exam Narrative Seen and examined Patient accompanied with his and daughter and son. Denies any chest pain tightness or shortness of breath. Recurrent fall at home, unsteady gait/disequilibrium. Patient also had urinary retention therefore Reyna catheterization Physical exam General: Alert, Oriented x3, Cooperative. BMI 25.8 kg/m? HEENT: Atraumatic, PERRLA, EOMI, Normocephalic. Oral: No Gingival or Mucosal Lesions/ Ulcerations Neck: Supple, No JVD, Negative Carotid Bruits Chest wall/Lungs: Air entry diminished in bilateral lung bases. No crepitation/rhonchi Cardiovascular: Irregular rate and rhythm, systolic murmur, grade 3/6 LLSB Abdomen: Bowel Sounds Present, Soft, Non Tender, Non-Distended : No dysuria. No renal angle tenderness. No suprapubic tenderness. Extremities: Mild pedal/ankle pitting, bilateral edema, Capillary Refill Less than 3 Seconds Skin: Multiple bruises/scab right leg more than left on lower legs. Musculoskeletal: No Tenderness to Palpation of Joints or Extremities Neurological: Cranial nerves II-XII grossly intact, DTR 2+/4. No acute focal neurological deficit. Psych/Mental Status: Normal Affect, Appropriate. Assessment & Plan Assessment/Plan (1) Urethral stricture: PLAN: Plan This is a 84-year-old gentleman came to ED with bilateral lower leg edema, frequent falls and generalized weakness for 2 to 3 months 1. Obstructive uropathy secondary to urethral strictures, prostatic stricture, BPH and bladder outlet obstruction and cystitis-the patient is being admitted on [facility]. Had cystoscopy on 04/09. IntraOp finding urethral stricture with BPH with bladder outlet obstruction and retention of urine. Postop diagnosis, same with cystitis. Cystoscopy with dilatation of meatal stenosis, dilatation of prostatic stricture and placement of Reyna catheter was done. Urologist Dr. Brantley consult reviewed. Patient is draining urine. Empirically on IV ceftriaxone. UA shows LE 500, WBC more than 1 red cells, bacteria 0, squamous epithelium 0, nitrite negative. Urine culture pending. #2 unclear whether acute or chronic kidney dysfunction: 04/10: Patient admitted with BUN/creatinine 39/1.88. Today improving 35/1.67. Last creatinine was normal more than about 5 years ago #3 paroxysmal atrial fibrillation:-patient appears to be in atrial fibrillation controlled ventricular response of 84, patient is on Xarelto and metoprolol. Had ablation in the past #4. Elevated troponin-I feel this is from atrial fibrillation,, does not seem to be from demand ischemia or type II MS. #5. Chronic HFpEF. Elevated beta natruretic peptide-last echo reviewed from August 2020. EF 60%, LA moderately enlarged, 1-2+ MR, TR, RVSP 47 mmHg overall suggestive of chronic HFpEF 2+. Patient does not seem to be in acute heart failure #6 generalized weakness- Patient's family and not eager for ECF but home with PT. PT and OT ordered #7 type 2 diabetes: Accu-Chek before meals and at bedtime with Humalog sliding scale coverage and hypoglycemia protocol. Glucose is relatively controlled Laboratory Results 04/09/25 13:03: Lactic Acid 1.4, Troponin T High Sens 54 H* 04/09/25 13:05: WBC 13.4 H, RBC 4.17 L, Hgb 12.8 L, Hct 40.3, MCV 96.6 H, MCH 30.7, MCHC 31.8 L, RDW Std Deviation 46.7 H, RDW Coeff of Eduardo 13.2, Plt Count 208, MPV 8.5, Immature Gran % (Auto) 0.500, Neut % (Auto) 76.2 H, Lymph % (Auto) 10.4 L, [place] % (Auto) 10.0, Eos % (Auto) 1.9, Baso % (Auto) 1.0, Absolute Neuts (auto) 10.2 H, Absolute Lymphs (auto) 1.39, Nucleated RBC % 0, Sodium 139, Potassium 4.7, Chloride 105, Carbon Dioxide 23.2, Anion Gap 10, BUN 39 H, C reatinine 1.88 H, Estim Creat Clear Calc 33.40 L, Est GFR (MDRD) Non-Af 35 L, B UN/Creatinine Ratio 20.5 H, Glucose 73, Calcium 9.6, NT pro BNP II 2299 H 04/09/25 15:00: Troponin T Hi Sens 2 Hr 51 H 04/09/25 17:55: Urine Color SEE COMMENT BELOW, Urine Clarity Turbid, Urine pH 6.0, Ur Specific [place] 1.015, Urine Protein 100 H, Urine Glucose (UA) Normal, Urine Ketones Negative, Urine Occult Blood 250 H, Urine Nitrite Negative, Urine Bilirubin Negative, Urine Urobilinogen Normal, Ur Leukocyte Esterase 500 H, Urine RBC 0 SEEN, Urine WBC >100 SEEN, Ur Squamous Epith Cells 0 SEEN, Urine Bacteria 0 SEEN, Urine Mucus 0 SEEN 04/09/25 18:44: Troponin T Hi Sens 4Hr 48 H 04/09/25 20:18: POC Glucose 81 04/10/25 03:22: WBC 12.0 H, RBC 3.87 L, Hgb 11.8 L, Hct 36.7 L, MCV 94.8 H, MCH 30.5, MCHC 32.2, RDW Std Deviation 45.3 H, RDW Coeff of Eduardo 13.2, Plt Count 210, MPV 8.9, Immature Gran % (Auto) 0.600, Neut % (Auto) 75.5 H, Lymph % (Auto) 12.0 L, [place] % (Auto) 9.6, Eos % (Auto) 1.5, Baso % (Auto) 0.8, Absolute Neuts (auto) 9.1 H, Absolute Lymphs (auto) 1.44, Nucleated RBC % 0, Sodium 141, Potassium 4.4, Chloride 107, Carbon Dioxide 20.8 L, Anion Gap 14, BUN 35 H, Creatinine 1.67 H, Estim Creat Clear Calc 37.60 L, Est GFR (MDRD) Non-Af 40 L, B UN/Creatinine Ratio 20.7 H, Glucose 85, Calcium 9.0 04/10/25 06:16: POC Glucose 84 04/10/25 11:34: POC Glucose 116 H Charges/Coding Visit Charges Inpatient E&M: 94576 Subs Hosp L2
[2025-04-10] MEDS: 0.9% Normal Saline (1000mL) 1,000 ML 75 ML IV (10:30)
[2025-04-10] MEDS: 0.9% Saline Lock 10 ML Syringe IV ×2 (10:37→18:32)
[2025-04-10] MEDS: Metoprolol(XL)Succ 25 MG Tablet PO ×2 (10:37→22:43)
[2025-04-10] MEDS: Furosemide 20 MG/2 ML VIAL IV ×2 (10:37→18:31)
--- NOTE | 2025-04-10 10:37 | CASEMGMT ---
Addendum entered by Yon Colin 04/12/25 11:50: [facility] returns response and states that they are able to accept with a SOC TBD contingent on pt's DC date. MS3 RENUKA LANDIS updated. Original Note: RN SABIHA Assessment Face to Face with patient for initial transition planning/care coordination assessment. RN SABIHA introduced self and role at [facility], pt voices understanding. Pt is A&Ox4 and is resting comfortably in bed and is calm. Pt's , nephew, and niece in law are at the bedside. Care providers, pharmacy, and demographics verified. Admitting dx: Urinary Retention LACE Strata: 1 PCP: Cedric Becerra Specialists: Fercho (Uro), LISA Preferred Pharmacy: Insurance: [employer], [facility] Prescription Benefit: Yes LNOK: Tammie (W) Living Arrangements: Pt lives with his in a split level home with 7 steps to manage between floors. Pt states that there is one step to enter ADLs/IADLs: Pt has had increased falls lately and states that he has been requiring more assistance from the lately. Pt states that he does not have a medical alert. Medical alert resources provided. Current 6-Click score is 12 and therapy is pending Transportation: DME: Functioning BGM with sufficient testing supplies including lancets, test strips, and EtOH swabs.?Pt is currently requiring additional oxygen and may qualify for home oxygen use. A verbal list of local in-network DME companies were provided to the pt at this time. Pt prefers [facility]. Cane. [employer]. Lift Chair. HHC/SNF: Denies hx of Pt?s goal: Home with HHC. Pt denies SNF. Plan: Anticipate Home with skilled HHC (SN, PT, OT). Follow for oxygen needs. Pt may also go home with a Reyna and is aware that nursing will provide care education before DC. Pt declines wanting to review a list of local in-network HHC Agencies and states that he prefers [facility]. TC to [facility]. VM left with referral. Pt states that he feels safe returning home with his even if HHC cannot get set up until next week. Pt denies further questions or concerns. Dr Flynn updated. Green sheet placed on the chart for HH and potential oxygen needs to help facilitate possible weekend DC. Moy Colin RN, CM
[2025-04-11] VITALS (7 sets, daily range): BP systolic 93–115; BP diastolic 57–76; PULSE 83–101; RESP 16–19; TEMP 36.7–37.1; O2SAT 94–98
[2025-04-11 06:58] LABS: Hematocrit 36.7 % (40-54); Hemoglobin 12.2 g/dL (13.0-16.5); Immature Granulocytes Count 0.050 X10^3/uL (0.0-0.0); Mean Corp Hgb Conc 33.2 g/dL (32-36); Mean Corpuscular Volume 93.6 fL (80-94); Mean Platelet Vol. 8.9 fl (6.2-12.0); NRBC Flagged by Analyzer 0 % (0-5); Platelet Count 209 K/mm3 (150-450); RBC Distribution Width CV 13.1 % (11.6-14.6); RBC Distribution Width SD 44.6 fl (35.1-43.9); Red Blood Count 3.92 M/mm3 (4.6-6.2); White Blood Count 11.2 K/mm3 (4.4-11.0)
[2025-04-11 08:24] LABS: Anion Gap 12 (5-15); BUN 33 mg/dL (4-19); BUN/Creat Ratio 23.7 RATIO (10-20); Calcium,Total 8.9 mg/dL (7.6-11.0); Carbon Dioxide 25.7 mmol/L (21.0-32.0); Chloride 103 mmol/L (98-108); Estimated Creatinine Clearance 44.85 ml/min (50-250); Glucose 98 mg/dL (70-99); Potassium 4.0 mmol/L (3.3-5.1)
--- NOTE | 2025-04-11 09:21 | NURSING ---
This RN walked in and saw Bengay ointment on patients bedside table. present and states she brought it in and rubbed it on his toe like he normally does every day. This RN explained that any medication must be given and applied by licensed staff and will ask Dr. Flynn for an order for him so we can apply it to the patient and have it on our EMAR.
[2025-04-11] MEDS: Furosemide 20 MG/2 ML VIAL IV (09:25)
[2025-04-11] MEDS: 0.9% Saline Lock 10 ML Syringe IV (09:27)
--- NOTE | 2025-04-11 11:43 | PCM.PN.HOSP ---
Reason for Visit Chief Complaint: Lower leg swelling, inability to urinate properly, generalized weakness Objective Data Objective Data Vital Signs: Vital Signs Temp Pulse Resp BP Pulse Ox O2 Del Method O2 Flow Rate 98.2 F 101 H 19 H 93/57 L 98 Room Air 2 04/11/25 09:17 04/11/25 09:17 04/11/25 09:17 04/11/25 09:17 04/11/25 09:17 04/11/25 09:17 04/10/25 10:47 Oxygen Flow Rate (L/min) 2 Oxygen Delivery Method Room Air Weight: 200 lb 9.93 oz Body Mass Index (BMI) 25.7 Intake & Output: Intake and Output for Last 24 Hours 04/09/25 04/10/25 04/11/25 23:59 23:59 23:59 Intake Total 450 / 650 2765.0 / 2965.0 400 / 400 Output Total 2150 / 2700 4500 / 4500 Balance -1700 / -2050 -1735.0 / -1535.0 400 / 400 Lab / Micro Data 04/11/25 05:54 04/11/25 05:54 Labs: Laboratory Results - last 24 hr 04/10/25 11:34: POC Glucose 116 H 04/10/25 16:01: POC Glucose 148 H 04/11/25 05:54: WBC 11.2 H, RBC 3.92 L, Hgb 12.2 L, Hct 36.7 L, MCV 93.6, MCH 31.1, MCHC 33.2, RDW Std Deviation 44.6 H, RDW Coeff of Eduardo 13.1, Plt Count 209, MPV 8.9, Immature Gran % (Auto) 0.400, Neut % (Auto) 69.3, Lymph % (Auto) 16.5 L, [place] % (Auto) 9.4, Eos % (Auto) 3.8, Baso % (Auto) 0.6, Absolute Neuts (auto) 7.8 H, Absolute Lymphs (auto) 1.85, Nucleated RBC % 0, Sodium 140, Potassium 4.0, Chloride 103, Carbon Dioxide 25.7, Anion Gap 12, BUN 33 H, Creatinine 1.40 H, Estim Creat Clear Calc 44.85 L, Est GFR (MDRD) Non-Af 49 L, BUN/Creatinine Ratio 23.7 H, Glucose 98, Calcium 8.9 04/11/25 06:07: POC Glucose 107 H Radiography Diagnostic Testing: Radiology Impression Echocardiogram 04/09/25 18:38 Interpretation Summary The estimated ejection fraction is 60 %. No evidence for diastolic dysfunction. There is moderate biatrial dilatation. Mildly dilated right ventricle. Trivial mitral valve insufficiency. Mild mitral valve prolapse, posterior leaflet Ordering Physician: David Acosta Performed By: Daljit Stephenson RCS Physical Exam Narrative Seen and examined Patient's in the room. Denies chest pain or tightness. Leg swelling has significantly improved on IV diuretic Lasix 20 mg twice daily.. Recurrent fall at home, unsteady gait/disequilibrium. Patient also had urinary retention therefore Reyna catheterization, clear urine Physical exam General: Alert, Oriented x3, Cooperative. BMI 25.8 kg/m? HEENT: Atraumatic, PERRLA, EOMI, Normocephalic. Oral: No Gingival or Mucosal Lesions/ Ulcerations Neck: Supple, No JVD, Negative Carotid Bruits Chest wall/Lungs: Air entry diminished in bilateral lung bases. No crepitation/rhonchi Cardiovascular: Irregular rate and rhythm, systolic murmur, grade 3/6 LLSB Abdomen: Bowel Sounds Present, Soft, Non Tender, Non-Distended : Clear urine on the Reyna catheter no renal angle tenderness. No suprapubic tenderness. Extremities: Pedal edema significantly improved. Capillary Refill Less than 3 Seconds Skin: Multiple bruises/scab right leg more than left on lower legs. Musculoskeletal: No Tenderness to Palpation of Joints or Extremities Neurological: Cranial nerves II-XII grossly intact, DTR 2+/4. No acute focal neurological deficit. Psych/Mental Status: Normal Affect, Appropriate. Assessment & Plan Assessment/Plan (1) Urethral stricture: PLAN: Plan This is a 84-year-old gentleman came to ED with bilateral lower leg edema, frequent falls and generalized weakness for 2 to 3 months 1. Obstructive uropathy secondary to urethral strictures, prostatic stricture, BPH and bladder outlet obstruction and cystitis-the patient is being admitted on [facility]. Had cystoscopy on 04/09. IntraOp finding urethral stricture with BPH with bladder outlet obstruction and retention of urine. Postop diagnosis, same with cystitis. Cystoscopy with dilatation of meatal stenosis, dilatation of prostatic stricture and placement of Reyna catheter was done. Urologist Dr. Brantley consult reviewed. Patient is draining urine. Empirically on IV ceftriaxone. UA shows LE 500, WBC more than 1 red cells, bacteria 0, squamous epithelium 0, nitrite negative. Urine culture pending. 04/11: Urine culture pending. Continue empirical antibiotic as mentioned above #2 unclear whether acute or chronic kidney dysfunction: 04/10: Patient admitted with BUN/creatinine 39/1.88. Today improving 35/1.67. Last creatinine was normal more than about 5 years ago 04/11: Kidney function is improving, 33/1.40. Leg swelling has significantly improved almost resolved therefore decrease frequency of furosemide 20 mg twice daily to once daily. Possible anticipate discharge tomorrow with Reyna catheter and follow-up with Dr. Brantley as an outpatient #3 paroxysmal atrial fibrillation:-patient appears to be in atrial fibrillation controlled ventricular response of 84, patient is on Xarelto and metoprolol. Had ablation in the past #4. Elevated troponin-I feel this is from atrial fibrillation,, does not seem to be from demand ischemia or type II [place]. #5. Chronic HFpEF. Elevated beta natruretic peptide-last echo reviewed from August 2020. EF 60%, LA moderately enlarged, 1-2+ MR, TR, RVSP 47 mmHg overall suggestive of chronic HFpEF 2+. Patient does not seem to be in acute heart failure 04/11: Repeat echo on 04/09 discussed with the patient's . Essentially, EF is same 60% but moderate biatrial dilatation and mildly dilated RV. RV systolic function normal. No Doppler evidence of ASD. Trivial MR 2+ TR. RVSP 31 mmHg. #6 generalized weakness- Patient's family and not eager for ECF but home with PT. PT and OT ordered Patient wants to go home most likely home health aide. #7 type 2 diabetes: Accu-Chek before meals and at bedtime with Humalog sliding scale coverage and hypoglycemia protocol. Glucose is relatively controlled Laboratory Results 04/10/25 16:01: POC Glucose 148 H 04/11/25 05:54: WBC 11.2 H, RBC 3.92 L, Hgb 12.2 L, Hct 36.7 L, MCV 93.6, MCH 31.1, MCHC 33.2, RDW Std Deviation 44.6 H, RDW Coeff of Eduardo 13.1, Plt Count 209, MPV 8.9, Immature Gran % (Auto) 0.400, Neut % (Auto) 69.3, Lymph % (Auto) 16.5 L, [place] % (Auto) 9.4, Eos % (Auto) 3.8, Baso % (Auto) 0.6, Absolute Neuts (auto) 7.8 H, Absolute Lymphs (auto) 1.85, Nucleated RBC % 0, Sodium 140, Potassium 4.0, Chloride 103, Carbon Dioxide 25.7, Anion Gap 12, BUN 33 H, Creatinine 1.40 H, Estim Creat Clear Calc 44.85 L, Est GFR (MDRD) Non-Af 49 L, BUN/Creatinine Ratio 23.7 H, Glucose 98, Calcium 8.9 04/11/25 06:07: POC Glucose 107 H 04/11/25 11:58: POC Glucose 196 H Clinical Impression(s) from Imaging Studies Chest X-Ray 04/09/25 14:50 IMPRESSION: No acute abnormality is seen. Echocardiogram 04/09/25 18:38 Interpretation Summary The estimated ejection fraction is 60 %. No evidence for diastolic dysfunction. There is moderate biatrial dilatation. Mildly dilated right ventricle. Trivial mitral valve insufficiency. Mild mitral valve prolapse, posterior leaflet Charges/Coding Visit Charges Inpatient E&M: 97075 Subs Hosp L2
[2025-04-11] MEDS: Metoprolol(XL)Succ 25 MG Tablet PO ×2 (12:07→21:06)
[2025-04-12] VITALS (8 sets, daily range): BP systolic 101–116; BP diastolic 63–80; PULSE 81–92; RESP 16; TEMP 36.3–36.6; O2SAT 94–98
[2025-04-12 07:46] LABS: Hematocrit 38.0 % (40-54); Hemoglobin 12.5 g/dL (13.0-16.5); Immature Granulocytes Count 0.050 X10^3/uL (0.0-0.0); Mean Corp Hgb Conc 32.9 g/dL (32-36); Mean Corpuscular Volume 93.8 fL (80-94); Mean Platelet Vol. 8.9 fl (6.2-12.0); NRBC Flagged by Analyzer 0 % (0-5); Platelet Count 230 K/mm3 (150-450); RBC Distribution Width CV 12.8 % (11.6-14.6); RBC Distribution Width SD 44.1 fl (35.1-43.9); Red Blood Count 4.05 M/mm3 (4.6-6.2); White Blood Count 10.8 K/mm3 (4.4-11.0)
--- NOTE | 2025-04-12 08:25 | WOUNDNOTE ---
wound photo: bilateral buttocks
[2025-04-12 08:28] LABS: Anion Gap 12 (5-15); BUN 27 mg/dL (4-19); BUN/Creat Ratio 23.4 RATIO (10-20); Calcium,Total 8.8 mg/dL (7.6-11.0); Carbon Dioxide 25.9 mmol/L (21.0-32.0); Chloride 102 mmol/L (98-108); Estimated Creatinine Clearance 54.60 ml/min (50-250); Glucose 110 mg/dL (70-99); Potassium 3.8 mmol/L (3.3-5.1)
[2025-04-12] MEDS: Furosemide 20 MG/2 ML VIAL IV (08:51)
[2025-04-12] MEDS: Metoprolol(XL)Succ 25 MG Tablet PO ×2 (08:53→22:56)
[2025-04-12] MEDS: 0.9% Saline Lock 10 ML Syringe IV ×2 (08:53→22:55)
[2025-04-12] MEDS: Polyethylene Glycol 3350 17 GM PACKET PO ×2 (10:19→22:56)
--- NOTE | 2025-04-12 12:04 | CASEMGMT ---
[facility] is able to accept pt for services.
--- NOTE | 2025-04-12 17:43 | PCM.PN.HOSP ---
Reason for Visit Chief Complaint: Lower leg swelling, inability to urinate properly, generalized weakness Subjective Subjective Sitting up in chair with present, lower extremities now have wrinkles, feeling much better than he was, Reyna catheter still in place. Patient complains of several days without a bowel movement but denies abdominal pain or nausea Objective Data Objective Data Vital Signs: Vital Signs Temp Pulse Resp BP Pulse Ox O2 Del Method O2 Flow Rate 97.8 F 90 16 101/68 98 Room Air 2 04/12/25 15:26 04/12/25 15:26 04/12/25 15:26 04/12/25 15:26 04/12/25 15:26 04/12/25 15:26 04/10/25 10:47 Oxygen Flow Rate (L/min) 2 Oxygen Delivery Method Room Air Weight: 91 kg Body Mass Index (BMI) 25.7 Intake & Output: Intake and Output for Last 24 Hours 04/10/25 04/11/25 04/12/25 23:59 23:59 23:59 Intake Total 2765.0 / 2965.0 1650 / 1800 1600 / 1600 Output Total 4500 / 4500 1375 / 1675 1000 / 1000 Balance -1735.0 / -1535.0 275 / 125 600 / 600 Lab / Micro Data 04/12/25 06:44 04/12/25 06:44 Labs: Laboratory Results - last 24 hr 04/12/25 05:02: POC Glucose 122 H 04/12/25 06:44: WBC 10.8, RBC 4.05 L, Hgb 12.5 L, Hct 38.0 L, MCV 93.8, MCH 30.9, MCHC 32.9, RDW Std Deviation 44.1 H, RDW Coeff of Eduardo 12.8, Plt Count 230, MPV 8.9, Immature Gran % (Auto) 0.500, Neut % (Auto) 67.8, Lymph % (Auto) 17.1 L, [place] % (Auto) 8.9, Eos % (Auto) 4.7, Baso % (Auto) 1.0, Absolute Neuts (auto) 7.3, Absolute Lymphs (auto) 1.84, Nucleated RBC % 0, Sodium 140, Potassium 3.8, Chloride 102, Carbon Dioxide 25.9, Anion Gap 12, BUN 27 H, Creatinine 1.15, Estim Creat Clear Calc 54.60, Est GFR (MDRD) Non-Af 62, BUN/Creatinine Ratio 23.4 H, Glucose 110 H, Calcium 8.8 04/12/25 11:09: POC Glucose 155 H 04/12/25 16:00: POC Glucose 104 Micro: Microbiology 04/09/25 17:55 Urine, Cystoscopy Urine Culture - Preliminary Gram positive organism Physical Exam Narrative General: Alert, oriented, no apparent distress HEENT: Atraumatic, normocephalic Eyes: Anicteric Neck: Supple Respiratory: Clear to auscultation bilaterally, normal respiratory effort Cardiovascular: Regular rate GI: Soft, nontender, nondistended Extremities: Wrinkles on legs Musculoskeletal: Moving all extremities Neuro: No overt focal neurological deficits Skin: No rashes appreciated Psych: Cooperative Assessment & Plan Assessment/Plan (1) Urethral stricture: PLAN: Plan #Obstructive uropathy secondary to urethral strictures, prostatic stricture, BPH and bladder outlet obstruction and cystitis - Patient admitted to [facility] 04/09/2025 with urology consult - Had cystoscopy 04/[address] Brantley and intraoperatively was found to have urethral stricture with BPH and urine retention - Purulent urine came out of the bladder per urology report - Preliminary culture available however still waiting further culture and sensitivity data - Continue antibiotics - Likely home tomorrow with final antibiotic plan - Will need to keep Reyna in place and follow-up with urology on outpatient basis # ARLENE?resolved - Suspect secondary to obstructive pathology - BUN 35 and creatinine 1.88 on presentation - Post cystoscopy has slowly trended down and creatinine 1.15 today # Chronic heart failure with preserved ejection fraction - Patient with lower extremity swelling and elevated proBNP of 2299 - August 2020 had RVSP of 47 with EF of 60% and suspected diastolic dysfunction - Repeat echo here showed moderate biatrial dilation and mildly dilated RV with EF of 60% and RVSP of 31, did not note diastolic dysfunction however patient was placed on Lasix with improvement in swelling - Will transition to oral Lasix for the a.m. and will likely be DC'd on this with instructions for outpatient labs #Hx pafib -Hx ablation -On xeralto and metoprolol #Type 2 diabetes mellitus -Glucose checks and sliding scale insulin #DVT ppx: Not indicated, on full dose Mary Lopez MD Charges/Coding Visit Charges Inpatient E&M: 06500 Subs Hosp L2
[2025-04-13] VITALS (9 sets, daily range): BP systolic 95–116; BP diastolic 49–78; PULSE 78–95; RESP 15–16; TEMP 36.4–36.7; O2SAT 95–98
[2025-04-13 05:57] LABS: Hematocrit 36.6 % (40-54); Hemoglobin 12.1 g/dL (13.0-16.5); Immature Granulocytes Count 0.060 X10^3/uL (0.0-0.0); Mean Corp Hgb Conc 33.1 g/dL (32-36); Mean Corpuscular Volume 92.9 fL (80-94); Mean Platelet Vol. 8.7 fl (6.2-12.0); NRBC Flagged by Analyzer 0 % (0-5); Platelet Count 253 K/mm3 (150-450); RBC Distribution Width CV 12.7 % (11.6-14.6); RBC Distribution Width SD 43.5 fl (35.1-43.9); Red Blood Count 3.94 M/mm3 (4.6-6.2); White Blood Count 9.3 K/mm3 (4.4-11.0)
[2025-04-13 06:22] LABS: Anion Gap 12 (5-15); BUN 25 mg/dL (4-19); BUN/Creat Ratio 26.0 RATIO (10-20); Calcium,Total 8.6 mg/dL (7.6-11.0); Carbon Dioxide 24.7 mmol/L (21.0-32.0); Chloride 103 mmol/L (98-108); Estimated Creatinine Clearance 64.07 ml/min (50-250); Glucose 111 mg/dL (70-99); Potassium 3.8 mmol/L (3.3-5.1)
[2025-04-13] MEDS: Metoprolol(XL)Succ 25 MG Tablet PO (07:56)
[2025-04-13] MEDS: Polyethylene Glycol 3350 17 GM PACKET PO ×2 (07:57→20:24)
--- NOTE | 2025-04-13 11:37 | CASEMGMT ---
Updated Damaris at [facility] that pt may dc tomorrow pending final urine cx.
--- NOTE | 2025-04-13 12:26 | PN.HOSP_ITS ---
Reason for Visit Chief Complaint: Lower leg swelling, inability to urinate properly, generalized weakness Subjective Subjective Overall feeling better today, waiting to have a bowel movement, back to get up and walk, denies any lightheadedness or other acute complaints Objective Data Objective Data Vital Signs: Vital Signs Temp Pulse Resp BP Pulse Ox O2 Del Method O2 Flow Rate 98 F 78 16 99/74 97 Room Air 2 04/13/25 11:27 04/13/25 11:27 04/13/25 11:27 04/13/25 11:27 04/13/25 11:27 04/13/25 11:27 04/10/25 10:47 Oxygen Flow Rate (L/min) 2 Oxygen Delivery Method Room Air Weight: 91 kg Body Mass Index (BMI) 25.7 Intake & Output: Intake and Output for Last 24 Hours 04/11/25 04/12/25 04/13/25 23:59 23:59 23:59 Intake Total 1650 / 1800 1850 / 1850 450 / 450 Output Total 1375 / 1675 1400 / 1400 350 / 350 Balance 275 / 125 450 / 450 100 / 100 Lab / Micro Data 04/13/25 05:36 04/13/25 05:36 Labs: Laboratory Results - last 24 hr 04/12/25 16:00: POC Glucose 104 04/13/25 05:36: WBC 9.3, RBC 3.94 L, Hgb 12.1 L, Hct 36.6 L, MCV 92.9, MCH 30.7, MCHC 33.1, RDW Std Deviation 43.5, RDW Coeff of Eduardo 12.7, Plt Count 253, MPV 8.7, Immature Gran % (Auto) 0.600, Neut % (Auto) 63.5, Lymph % (Auto) 20.2, [place] % (Auto) 9.4, Eos % (Auto) 5.1 H, Baso % (Auto) 1.2 H, Absolute Neuts (auto) 5.9, Absolute Lymphs (auto) 1.89, Nucleated RBC % 0, Sodium 139, Potassium 3.8, Chloride 103, Carbon Dioxide 24.7, Anion Gap 12, BUN 25 H, Creatinine 0.98, Estim Creat Clear Calc 64.07, Est GFR (MDRD) Non-Af 76, BUN/Creatinine Ratio 26.0 H, Glucose 111 H, Calcium 8.6 04/13/25 05:45: POC Glucose 114 H 04/13/25 11:04: POC Glucose 136 H Micro: Microbiology 04/09/25 17:55 Urine, Cystoscopy Urine Culture - Preliminary Yeast Like Organism Physical Exam Narrative General: Alert, oriented, no apparent distress HEENT: Atraumatic, normocephalic Eyes: Anicteric Neck: Supple Respiratory: Clear to auscultation bilaterally, normal respiratory effort Cardiovascular: Regular rate GI: Soft, nontender, nondistended Extremities: Wrinkles on legs Musculoskeletal: Moving all extremities Neuro: No overt focal neurological deficits Skin: No rashes appreciated Psych: Cooperative Assessment & Plan Assessment/Plan (1) Urethral stricture: PLAN: Plan #Obstructive uropathy secondary to urethral strictures, prostatic stricture, BPH and bladder outlet obstruction and cystitis - Patient admitted to [facility] 04/09/2025 with urology consult - Had cystoscopy 04/[address] Brantley and intraoperatively was found to have urethral stricture with BPH and urine retention - Purulent urine came out of the bladder per urology report - Preliminary culture available however still waiting further culture and sensitivity data - Continue antibiotics - Likely home tomorrow with final antibiotic plan - Will need to keep Reyna in place and follow-up with urology on outpatient basis -04/13: Discussed with lab, culture should hopefully be finalized tomorrow, was changed from gram-positive organisms yesterday and today queries yeastlike organisms, can likely DC home tomorrow once resulted to verify no additional treatment necessary that would lead to decompensation # ARLENE?resolved - Suspect secondary to obstructive pathology - BUN 35 and creatinine 1.88 on presentation - Post cystoscopy has slowly trended down and creatinine 1.15 today -04/13: Creatinine 0.98 today, this is continued to improve after Reyna and with diuresis # Chronic heart failure with preserved ejection fraction - Patient with lower extremity swelling and elevated proBNP of 2299 - August 2020 had RVSP of 47 with EF of 60% and suspected diastolic dysfunction - Repeat echo here showed moderate biatrial dilation and mildly dilated RV with EF of 60% and RVSP of 31, did not note diastolic dysfunction however patient was placed on Lasix with improvement in swelling - Will transition to oral Lasix for the a.m. and will likely be DC'd on this with instructions for outpatient labs -04/13: Patient transition to oral Lasix, appears to be quite euvolemic, will hold Lasix for tomorrow, will likely need to monitor weight on an outpatient basis for further determination of necessity of ongoing Lasix versus lifestyle modification #Hx pafib -Hx ablation -On xeralto and metoprolol -04/13: Blood pressure stays a little bit on the low side, patient asymptomatic, seems to wax and wane throughout the day, decreasing metoprolol dose, do suspect patient is now euvolemic this may impart be due to Lasix as well. Continue to monitor, again patient not symptomatic so we will just continue to monitor #Type 2 diabetes mellitus -Glucose checks and sliding scale insulin -04/13: Glucose this a.m. 136, continue present management #DVT ppx: Not indicated, on full dose Mary Lopez MD Charges/Coding Visit Charges Inpatient E&M: 87677 Subs Hosp L2
[2025-04-13] MEDS: Metoprolol(XL)Succ 25 MG Tablet 12.5 MG PO (20:25)
[2025-04-14 04:29] VITALS: BP 110/80; PULSE 88; RESP 15; TEMP 37.2; O2SAT 96
[2025-04-14 06:57] LABS: Hematocrit 37.5 % (40-54); Hemoglobin 12.6 g/dL (13.0-16.5); Immature Granulocytes Count 0.020 X10^3/uL (0.0-0.0); Mean Corp Hgb Conc 33.6 g/dL (32-36); Mean Corpuscular Volume 93.1 fL (80-94); Mean Platelet Vol. 8.6 fl (6.2-12.0); NRBC Flagged by Analyzer 0 % (0-5); Platelet Count 256 K/mm3 (150-450); RBC Distribution Width CV 12.8 % (11.6-14.6); RBC Distribution Width SD 44.1 fl (35.1-43.9); Red Blood Count 4.03 M/mm3 (4.6-6.2); White Blood Count 8.9 K/mm3 (4.4-11.0)
[2025-04-14 07:52] VITALS: BP 112/72; PULSE 84; RESP 16; TEMP 36.3; O2SAT 95
[2025-04-14 07:59] VITALS: PULSE 84
[2025-04-14] MEDS: Metoprolol(XL)Succ 25 MG Tablet 12.5 MG PO (07:59)
[2025-04-14 08:55] LABS: Anion Gap 9 (5-15); BUN 26 mg/dL (4-19); BUN/Creat Ratio 24.3 RATIO (10-20); Calcium,Total 8.9 mg/dL (7.6-11.0); Carbon Dioxide 27.3 mmol/L (21.0-32.0); Chloride 102 mmol/L (98-108); Estimated Creatinine Clearance 59.80 ml/min (50-250); Glucose 110 mg/dL (70-99); Potassium 4.1 mmol/L (3.3-5.1)
[2025-04-14] MEDS: Polyethylene Glycol 3350 17 GM PACKET PO (09:51)
[2025-04-14 14:17] VITALS: BP 99/60; PULSE 77; RESP 16; TEMP 36.8; O2SAT 97
--- NOTE | 2025-04-14 14:47 | CASEMGMT ---
Pt to dc this date. TC carleen Ocampo at [facility], she is aware. Pt will be seen tomorrow by [facility].
--- NOTE | 2025-04-14 15:29 | PCM.DC ---
Discharge Instructions DC O2, CPAP, BIPAP needs Home O2 Discharge instructions: No Dressing / Incision Discharge Activity: - (Increase activity as tolerated) Dressing / Incision Catheter: Reyna to leg bag Follow Up Care Test Results: Test results from this visit will be discussed in further detail at your follow-up appointment, if applicable. Discharge Plan Admission Admit Date/Time: 04/09/25 15:30 Primary Reason for Your Visit: Falls and weakness Attending Provider: Lucy Lopez Primary Care Provider: Cedric Becerra Consulting Providers: Mauro Brantley; Aditya Flynn Instructions Patient Instructions: ED Reyna Catheter, Care Additional Instructions / Restrictions: DISCHARGE INSTRUCTIONS PLEASE READ *Please take this with you to your next doctors appointment* - Recommend taking fluconazole 200 mg daily for 7 days, this was sent to [facility] pharmacy - It is recommended you take your metoprolol succinate but take half a tab (12.5 mg) twice a day as your blood pressure did not need a higher dose. You can use your current supply for this. This can be further adjusted at the discretion of your prescribing physician -Please follow-up with Dr. Brantley the urologist upon discharge. Please call their office to schedule hospital follow-up appointment upon discharge. -Weigh yourself every day. A sudden weight gain can mean you are retaining fluid. Weigh yourself at the same time of day and in the same kind of clothes. Ideally, weigh yourself first thing in the morning after you empty your bladder, but before you eat breakfast. -Please call your physician if your weight goes up by more than 2 pounds in 1 day or 5 pounds in 1 week. This can be a sign that you are retaining more fluid than you should be. -Please call your primary care provider's office upon discharge to schedule a hospital follow up within 1 week. -For any concerning signs or symptoms please call 911 or proceed to the nearest emergency department Discharge Orders/Prescriptions Prescriptions: New fluconazole 200 mg tablet 200 mg PO DAILY 7 Days Qty: 7 0RF Continued cinnamon bark 500 mg capsule 500 mg PO DAILY multivitamin Tablet 1 tab PO DAILY ascorbic acid (vitamin C) 500 mg tablet 500 mg PO DAILY atorvastatin 20 mg tablet 20 mg PO QHS glyburide 2.5 mg tablet 2.5 mg PO QDAY polyethylene glycol 3350 [Miralax] 17 gram/dose powder 17 g PO DAILY Qty: 119 0RF tamsulosin 0.4 mg capsule PO Xarelto 20 mg tablet 20 mg PO DAILY Qty: 90 3RF Rx Instructions: must administer with evening meal Changed metoprolol succinate 25 mg tablet extended release 24 hr 12.5 mg PO BID Qty: 180 3RF Discontinued saw palmetto 450 mg capsule 450 mg PO BID Rx Instructions: give with food (meal/snack) Referrals / Follow Up: Mauro Brantley MD [Med Staff - Active Staff, Urology] - Within 1 Week Referral Note: Please call upon discharge to schedule follow-up appointment Cedric Becerra MD [Primary Care Provider, Internal Medicine] - Within 1 Week Disposition Disposition (needs filled in before D/C Order can be placed): Home Health Service
--- NOTE | 2025-04-14 15:39 | DS.PCM_ITS ---
Providers Date of Admission: 04/09/25 Date of Discharge: 04/14/25 Primary Care Physician: Dr. Cedric Becerra MD Consultations 04/09/25 18:38 Consult: Urology Routine Consulting Provider: Mauro Brantley Reason for Consult: Obstructive uropathy EMERGENT Consult: No MD Notified: Yes Date Notified: 04/09/25 Time Notified: 15:40 Method of Notification: Verbal Reason For Visit: URINARY RETENTION Diagnosis Discharge Diagnosis (1) Urethral stricture: Status: Acute Code(s): N35.919 - Unspecified urethral stricture, male, unspecified site Plan #Obstructive uropathy secondary to urethral strictures, prostatic stricture, BPH and bladder outlet obstruction and cystitis - Patient admitted to [facility] 04/09/2025 with urology consult - Had cystoscopy 04/[address] Brantley and intraoperatively was found to have urethral stricture with BPH and urine retention - Purulent urine came out of the bladder per urology report - Preliminary culture available however still waiting further culture and sensitivity data - Continue antibiotics - Likely home tomorrow with final antibiotic plan - Will need to keep Reyna in place and follow-up with urology on outpatient basis -04/13: Discussed with lab, culture should hopefully be finalized tomorrow, was changed from gram-positive organisms yesterday and today queries yeastlike organisms, can likely DC home tomorrow once resulted to verify no additional treatment necessary that would lead to decompensation # ARLENE?resolved - Suspect secondary to obstructive pathology - BUN 35 and creatinine 1.88 on presentation - Post cystoscopy has slowly trended down and creatinine 1.15 today -04/13: Creatinine 0.98 today, this is continued to improve after Reyna and with diuresis # Chronic heart failure with preserved ejection fraction - Patient with lower extremity swelling and elevated proBNP of 2299 - August 2020 had RVSP of 47 with EF of 60% and suspected diastolic dysfunction - Repeat echo here showed moderate biatrial dilation and mildly dilated RV with EF of 60% and RVSP of 31, did not note diastolic dysfunction however patient was placed on Lasix with improvement in swelling - Will transition to oral Lasix for the a.m. and will likely be DC'd on this with instructions for outpatient labs -04/13: Patient transition to oral Lasix, appears to be quite euvolemic, will hold Lasix for tomorrow, will likely need to monitor weight on an outpatient basis for further determination of necessity of ongoing Lasix versus lifestyle modification #Hx pafib -Hx ablation -On xeralto and metoprolol -04/13: Blood pressure stays a little bit on the low side, patient asymptomatic, seems to wax and wane throughout the day, decreasing metoprolol dose, do suspect patient is now euvolemic this may impart be due to Lasix as well. Continue to monitor, again patient not symptomatic so we will just continue to monitor #Type 2 diabetes mellitus -Glucose checks and sliding scale insulin -04/13: Glucose this a.m. 136, continue present management #DVT ppx: Not indicated, on full dose Xarelto Lucy Lopez MD Medications at Discharge Home Medications ascorbic acid (vitamin C) 500 mg tablet 500 mg PO DAILY 10/12/19 atorvastatin 20 mg tablet 20 mg PO QHS 10/12/19 cinnamon bark 500 mg capsule 500 mg PO DAILY 10/12/19 multivitamin 1 tab PO DAILY 10/12/19 polyethylene glycol 3350 17 gram/dose oral powder (Miralax) 17 g PO DAILY #119 grams 09/21/22 glyburide 2.5 mg tablet 2.5 mg PO QDAY 10/29/24 rivaroxaban 20 mg tablet (Xarelto) 20 mg PO DAILY #90 tabs 11/30/24 fluconazole 200 mg tablet 200 mg PO DAILY 7 days #7 tabs 04/14/25 metoprolol succinate 25 mg tablet,extended release 24 hr 12.5 mg (1/2 x 25 mg) PO BID #180 tabs 04/14/25 tamsulosin 0.4 mg capsule PO bph 04/14/25 Weight / BMI Weight Weight: 91 kg Body Mass Index (BMI) 25.7 ABG / Lab / Microbiology Data 04/14/25 06:45 04/14/25 08:13 Laboratory: Laboratory Results - last 24 hr 04/14/25 06:45: Sodium Cancelled, Potassium Cancelled, Chloride Cancelled, Carbon Dioxide Cancelled, Anion Gap Cancelled, BUN Cancelled, Creatinine Cancelled, Estim Creat Clear Calc Cancelled, Est GFR (MDRD) Non-Af Cancelled, BUN/Creatinine Ratio Cancelled, Glucose Cancelled, Calcium Cancelled 04/14/25 08:13: Sodium 138, Potassium 4.1, Chloride 102, Carbon Dioxide 27.3, Anion Gap 9, BUN 26 H, Creatinine 1.05, Estim Creat Clear Calc 59.80, Est GFR (MDRD) Non-Af 70, BUN/Creatinine Ratio 24.3 H, Glucose 110 H, Calcium 8.9 04/14/25 11:57: POC Glucose 114 H Microbiology: Microbiology 04/09/25 17:55 Urine, Cystoscopy Urine Culture - Final Yeast, not Jasmine albicans D/C Instructions Catheter: Reyna to leg bag DC O2, CPAP, BIPAP Needs Home O2 Discharge instructions: No Discharge Plan Admission Admit Date/Time: 04/09/25 15:30 Primary Reason for Your Visit: Falls and weakness Attending Provider: Lucy Lopez Primary Care Provider: Cedric Becerra Consulting Providers: Mauro Brantley; Aditya Flynn Instructions Patient Instructions: ED Reyna Catheter, Care Additional Instructions / Restrictions: DISCHARGE INSTRUCTIONS PLEASE READ *Please take this with you to your next doctors appointment* - Recommend taking fluconazole 200 mg daily for 7 days, this was sent to [facility] pharmacy - It is recommended you take your metoprolol succinate but take half a tab (12.5 mg) twice a day as your blood pressure did not need a higher dose. You can use your current supply for this. This can be further adjusted at the discretion of your prescribing physician -Please follow-up with Dr. Brantley the urologist upon discharge. Please call their office to schedule hospital follow-up appointment upon discharge. -Weigh yourself every day. A sudden weight gain can mean you are retaining fluid. Weigh yourself at the same time of day and in the same kind of clothes. Ideally, weigh yourself first thing in the morning after you empty your bladder, but before you eat breakfast. -Please call your physician if your weight goes up by more than 2 pounds in 1 day or 5 pounds in 1 week. This can be a sign that you are retaining more fluid than you should be. -Please call your primary care provider's office upon discharge to schedule a hospital follow up within 1 week. -For any concerning signs or symptoms please call 911 or proceed to the nearest emergency department Discharge Orders/Prescriptions Prescriptions: New fluconazole 200 mg tablet 200 mg PO DAILY 7 Days Qty: 7 0RF Continued cinnamon bark 500 mg capsule 500 mg PO DAILY multivitamin Tablet 1 tab PO DAILY ascorbic acid (vitamin C) 500 mg tablet 500 mg PO DAILY atorvastatin 20 mg tablet 20 mg PO QHS glyburide 2.5 mg tablet 2.5 mg PO QDAY polyethylene glycol 3350 [Miralax] 17 gram/dose powder 17 g PO DAILY Qty: 119 0RF tamsulosin 0.4 mg capsule PO Xarelto 20 mg tablet 20 mg PO DAILY Qty: 90 3RF Rx Instructions: must administer with evening meal Changed metoprolol succinate 25 mg tablet extended release 24 hr 12.5 mg PO BID Qty: 180 3RF Discontinued saw palmetto 450 mg capsule 450 mg PO BID Rx Instructions: give with food (meal/snack) Referrals / Follow Up: Mauro Brantley MD [Med Staff - Active Staff, Urology] - Within 1 Week Referral Note: Please call upon discharge to schedule follow-up appointment Cedric Becerra MD [Primary Care Provider, Internal Medicine] - Within 1 Week Disposition Disposition (needs filled in before D/C Order can be placed): Home Health Service
--- NOTE | 2025-04-14 15:39 | PCM.DC.SUM ---
Providers Date of Admission: 04/09/25 Date of Discharge: 04/14/25 Primary Care Physician: Dr. Cedric Becerra MD Consultations 04/09/25 18:38 Consult: Urology Routine Consulting Provider: Mauro Brantley Reason for Consult: Obstructive uropathy EMERGENT Consult: No MD Notified: Yes Date Notified: 04/09/25 Time Notified: 15:40 Method of Notification: Verbal Reason For Visit: URINARY RETENTION Diagnosis Discharge Diagnosis (1) Urethral stricture: Status: Acute Code(s): N35.919 - Unspecified urethral stricture, male, unspecified site Plan #Obstructive uropathy secondary to urethral strictures, prostatic stricture, BPH and bladder outlet obstruction #Yeast-non bruna- UTI # ARLENE?resolved #Acute exacerbation of Chronic heart failure with preserved ejection fraction #Hx pafib #Type 2 diabetes mellitus Medications at Discharge Home Medications ascorbic acid (vitamin C) 500 mg tablet 500 mg PO DAILY 10/12/19 atorvastatin 20 mg tablet 20 mg PO QHS 10/12/19 cinnamon bark 500 mg capsule 500 mg PO DAILY 10/12/19 multivitamin 1 tab PO DAILY 10/12/19 polyethylene glycol 3350 17 gram/dose oral powder (Miralax) 17 g PO DAILY #119 grams 09/21/22 glyburide 2.5 mg tablet 2.5 mg PO QDAY 10/29/24 rivaroxaban 20 mg tablet (Xarelto) 20 mg PO DAILY #90 tabs 11/30/24 fluconazole 200 mg tablet 200 mg PO DAILY 7 days #7 tabs 04/14/25 metoprolol succinate 25 mg tablet,extended release 24 hr 12.5 mg (1/2 x 25 mg) PO BID #180 tabs 04/14/25 tamsulosin 0.4 mg capsule PO bph 04/14/25 Hospital Course Operations - (Cystoscopy with dilation of meatal stenosis and dilation of prostatic stricture and placement of Reyna 04/09/2025) Procedures Transthoracic echo Summary of Care Provided Minutes Spent on Discharge: 34 Hospital Course: 84-year-old male with a history of paroxysmal A-fib, heart failure with preserved ejection fraction, diabetes, BPH who presented [facility] ED 04/09/2025 due to generalized weakness, lower leg swelling and inability to urinate properly. He also noted leg swelling for 2 months. He was hospitalized in August of this year in [place] for cellulitis and had to have Reyna placed due to urinary retention, this was removed when he came back to [place]. In the ED creatinine was elevated at 1.88 with a BUN of 39, proBNP 2299, bladder scan showed urinary retention and nursing staff was unable to place Reyna catheter and urology was consulted and was also unable to place catheter in the ED. Patient taken to the OR for cystoscopy and patient was found to have a urethral stricture and BPH with obstruction and urinary retention. He had dilation of meatal stenosis and dilation of prostatic stricture and placement of Reyna in the OR with Dr. Brantley. Patient had intraoperative urine culture sent as it seemed he had pus and purulent urine in the bladder. He was placed on empiric antibiotics and urine culture ended up growing yeast, not Bruna. Given this was a direct culture from a sample sent during cystoscopy feels reasonable to treat. Fluconazole x 7 days ordered. During hospitalization patient also had lower extremity edema, he was given Lasix with significant improvement in lower extremity swelling. Echo with EF of 60% and this echo did not necessarily note diastolic dysfunction but he had one in 2020 which did show diastolic dysfunction so unclear but does have history of heart failure with preserved ejection fraction and had elevated BNP and lower extremity edema and diuresed well. Suspect that patient's urinary retention and subsequent ARLENE ended up causing fluid retention, once Reyna in place then patient diuresed he maintained status without further diuretics, do not necessarily think he needs send out on diuretics given clinical picture. Patient on day of discharge with no new or acute complaints, plan is for him to go home with . Discharge instructions as follows: - Recommend taking fluconazole 200 mg daily for 7 days, this was sent to [facility] pharmacy - It is recommended you take your metoprolol succinate but take half a tab (12.5 mg) twice a day as your blood pressure did not need a higher dose. You can use your current supply for this. This can be further adjusted at the discretion of your prescribing physician -Please follow-up with Dr. Brantley the urologist upon discharge. Please call their office to schedule hospital follow-up appointment upon discharge. -Weigh yourself every day. A sudden weight gain can mean you are retaining fluid. Weigh yourself at the same time of day and in the same kind of clothes. Ideally, weigh yourself first thing in the morning after you empty your bladder, but before you eat breakfast. -Please call your physician if your weight goes up by more than 2 pounds in 1 day or 5 pounds in 1 week. This can be a sign that you are retaining more fluid than you should be. -Please call your primary care provider's office upon discharge to schedule a hospital follow up within 1 week. -For any concerning signs or symptoms please call 911 or proceed to the nearest emergency department Physical Exam Narrative General: Alert, no apparent distress HEENT: Atraumatic, normocephalic Eyes: Does have a lazy eye Neck: Supple Respiratory: normal respiratory effort Cardiovascular: no edema appreciated GI: nondistended Extremities: Moving all extremities Neuro: No overt focal neurological deficits Psych: Cooperative Weight / BMI Weight Weight: 91 kg Body Mass Index (BMI) 25.7 ABG / Lab / Microbiology Data 04/14/25 06:45 04/14/25 08:13 Laboratory: Laboratory Results - last 24 hr 04/14/25 06:45: Sodium Cancelled, Potassium Cancelled, Chloride Cancelled, Carbon Dioxide Cancelled, Anion Gap Cancelled, BUN Cancelled, Creatinine Cancelled, Estim Creat Clear Calc Cancelled, Est GFR (MDRD) Non-Af Cancelled, BUN/Creatinine Ratio Cancelled, Glucose Cancelled, Calcium Cancelled 04/14/25 08:13: Sodium 138, Potassium 4.1, Chloride 102, Carbon Dioxide 27.3, Anion Gap 9, BUN 26 H, Creatinine 1.05, Estim Creat Clear Calc 59.80, Est GFR (MDRD) Non-Af 70, BUN/Creatinine Ratio 24.3 H, Glucose 110 H, Calcium 8.9 04/14/25 11:57: POC Glucose 114 H Microbiology: Microbiology 04/09/25 17:55 Urine, Cystoscopy Urine Culture - Final Yeast, not Bruna albicans D/C Instructions Catheter: Reyna to leg bag DC O2, CPAP, BIPAP Needs Home O2 Discharge instructions: No Meaningful Use Info Meaningful Use Meaningful Use Diagnoses (Choose all that apply): CHF CHF MIN/ARB ordered at discharge?: No Reason MIN/ARB not ordered?: Worsening renal disease Documented LVEF (%): 60 Discharge Plan Admission Admit Date/Time: 04/09/25 15:30 Primary Reason for Your Visit: Falls and weakness Attending Provider: Lucy Lopez Primary Care Provider: Cedric Becerra Consulting Providers: Mauro Brantley; Aditya Flynn Instructions Patient Instructions: ED Reyna Catheter, Care Additional Instructions / Restrictions: DISCHARGE INSTRUCTIONS PLEASE READ *Please take this with you to your next doctors appointment* - Recommend taking fluconazole 200 mg daily for 7 days, this was sent to [facility] pharmacy - It is recommended you take your metoprolol succinate but take half a tab (12.5 mg) twice a day as your blood pressure did not need a higher dose. You can use your current supply for this. This can be further adjusted at the discretion of your prescribing physician -Please follow-up with Dr. Brantley the urologist upon discharge. Please call their office to schedule hospital follow-up appointment upon discharge. -Weigh yourself every day. A sudden weight gain can mean you are retaining fluid. Weigh yourself at the same time of day and in the same kind of clothes. Ideally, weigh yourself first thing in the morning after you empty your bladder, but before you eat breakfast. -Please call your physician if your weight goes up by more than 2 pounds in 1 day or 5 pounds in 1 week. This can be a sign that you are retaining more fluid than you should be. -Please call your primary care provider's office upon discharge to schedule a hospital follow up within 1 week. -For any concerning signs or symptoms please call 911 or proceed to the nearest emergency department Discharge Orders/Prescriptions Prescriptions: New fluconazole 200 mg tablet 200 mg PO DAILY 7 Days Qty: 7 0RF Continued cinnamon bark 500 mg capsule 500 mg PO DAILY multivitamin Tablet 1 tab PO DAILY ascorbic acid (vitamin C) 500 mg tablet 500 mg PO DAILY atorvastatin 20 mg tablet 20 mg PO QHS glyburide 2.5 mg tablet 2.5 mg PO QDAY polyethylene glycol 3350 [Miralax] 17 gram/dose powder 17 g PO DAILY Qty: 119 0RF tamsulosin 0.4 mg capsule PO Xarelto 20 mg tablet 20 mg PO DAILY Qty: 90 3RF Rx Instructions: must administer with evening meal Changed metoprolol succinate 25 mg tablet extended release 24 hr 12.5 mg PO BID Qty: 180 3RF Discontinued saw palmetto 450 mg capsule 450 mg PO BID Rx Instructions: give with food (meal/snack) Referrals / Follow Up: Mauro Brantley MD [Med Staff - Active Staff, Urology] - Within 1 Week Referral Note: Please call upon discharge to schedule follow-up appointment Cedric Becerra MD [Primary Care Provider, Internal Medicine] - Within 1 Week Disposition Disposition (needs filled in before D/C Order can be placed): Home Health Service Charges/Coding Visit Charges Inpatient E&M: 77848 Disch Hosp >30min
== END 2025-04-14 16:47 | disposition home health service (06) | DRG 697 ==
LOC: ED 15:22 → SDC 15:35 → ED 18:58 → MS3 04-10 07:17
PROVIDERS: Internal Medicine; Admitting Provider Urology; Emergency Provider Emergency Medicine; PCP Internal Medicine; Visit Provider Internal Medicine
PROC: 0T7D8ZZ Dilation of Urethra, Via Natural or Artificial Opening Endoscopic (ICD-10-PCS; CPT 52281; principal; 2025-04-09 16:50)
DX: N35.911 Unspecified urethral stricture, male, meatal (principal); N17.9 Acute kidney failure, unspecified; I50.32 Chronic diastolic (congestive) heart failure; I42.9 Cardiomyopathy, unspecified; N13.8 Other obstructive and reflux uropathy; I11.0 Hypertensive heart disease with heart failure; E11.9 Type 2 diabetes mellitus without complications; I48.0 Paroxysmal atrial fibrillation; E78.5 Hyperlipidemia, unspecified; N32.0 Bladder-neck obstruction; N30.90 Cystitis, unspecified without hematuria; N47.1 Phimosis; N40.1 Benign prostatic hyperplasia with lower urinary tract symptoms; R33.8 Other retention of urine; Z87.891 Personal history of nicotine dependence; Z79.01 Long term (current) use of anticoagulants; Z79.899 Other long term (current) drug therapy
CPT/HCPCS: 36415; 71045; 80048; 81001; 82962; 83605; 83880; 84484; 85025; 87086; 87088; 93005; 93306; 97116; 97162; 97165; 97530; 97535; 97802; 99285; A4216; C1769; J1938; J2405

== ENCOUNTER → 2025-04-29 | Outpatient (CLI) | payer MEDICARE, SELFPAY ==
[2025-04-29 16:10] LABS: PSA,Total- Diagnostic 165.00 ng/mL (0.00-4.00)
== END | disposition home or self-care (01) ==
PROVIDERS: PCP Internal Medicine; Referring Provider Urology; Visit Provider Urology
DX: N40.1 Benign prostatic hyperplasia with lower urinary tract symptoms (principal)
CPT/HCPCS: 36415; 84153